=== PATIENT | male | born 1955 | race African-American/Black ===

== ENCOUNTER 2016-06-02 10:49 | Day surgery (SDC) | payer OTHER ==
[2016-05-10 10:00] VITALS: BMI 27.5
[~2016-06-02 10:49] MED LIST: LACTATED RINGERS 1,000 ML IV SCH
[2016-06-02 11:16] VITALS: RESP 16; TEMP 97.5
[2016-06-02] MEDS ORDERED: PROPOFOL 10 MG/ML 20 ML VIAL IV ONE (11:30)
[2016-06-02] MEDS ORDERED: LIDOCAINE 1% INJ 10MG/ML (20 ML MDV) ONE (11:30)
--- NOTE | 2016-06-02 12:17 | P.PCN ---
Date of Procedure: 06/02/16 Procedure(s) Performed: Procedures: 1. Esophagogastroduodenoscopy and biopsy. 2. Colonoscopy and polypectomy. Preoperative diagnosis: Anemia and Hemoccult-positive stools. Postoperative diagnosis: 1. Mild gastritis. 2. Mild diverticulosis. 3. Two small polyps snared, but no large polyps or cancer of the colon. 4. Low-grade internal hemorrhoids not bleeding at the time of this exam. Preparation: HalfLytely prep. Sedation: Was provided by anesthesia. Brief clinical history: The patient is a 60-year-old male who is scheduled for this evaluation because of Hemoccult-positive stools and anemia. He had a colonoscopy more than 12 years ago. At this time he has no abdominal complaints or bleeding. No family history of colon cancer. Procedure: With the patient on his left lateral decubitus position and after informed consent and adequate sedation, I passed the Olympus-GIF 160 video upper endoscope through the cricopharyngeus down the esophagus. GE junction was around 43 cm from the incisors and there was no hiatal hernia. There was no esophagitis or evidence of complicated reflux disease. The endoscope was then passed into the stomach which was insufflated with air and inspected in detail including the retroflex view in the cardia. There was some mottling and erythema in the antrum but no ulcers or erosions. Pyloric channel did not show any ulcers. Duodenal bulb, post bulbar area and descending duodenum appeared within normal limits. I obtained biopsies from the duodenum, antrum and esophagus then the endoscope was withdrawn and then I proceeded with the colonoscopy. Perianal area did not show any fissures or fistulas. There were no masses felt on digital rectal examination. The Olympus CFQ 160L video colonoscope was then inserted in the rectum in the usual fashion and advanced to the cecum. There was occasional small diverticular orifices seen in the sigmoid and on the right side with no evidence of acute diverticulitis or strictures. There was 2 small/ diminutive polyps noted 1 in the proximal right colon and in the distal sigmoid that were snared but there were no large polyps or cancer. I retroflexed the endoscope in the rectum before the endoscope was withdrawn. Low-grade internal hemorrhoids were noted but there was no evidence of bleeding. The patient tolerated the procedure well. Plan: The patient was reassured. Will await pathology results. Discussed dietary measures and local care for hemorrhoids. I anticipate repeating his colonoscopy in 5 years. He will follow up with you as planned.
[2016-06-02 12:37] VITALS: BP 128/83; PULSE 71
== END 2016-06-02 12:57 | disposition home or self-care (01) ==
LOC: ORWHC2ENDO 10:49
DX: D12.2 Benign neoplasm of ascending colon (principal); K63.5 Polyp of colon; K57.30 Diverticulosis of large intestine without perforation or abscess without bleeding; K29.50 Unspecified chronic gastritis without bleeding; D64.9 Anemia, unspecified; R19.5 Other fecal abnormalities; K20.9 Esophagitis, unspecified; K64.8 Other hemorrhoids; I10 Essential (primary) hypertension; J45.909 Unspecified asthma, uncomplicated; Z79.1 Long term (current) use of non-steroidal anti-inflammatories (NSAID); Z79.899 Other long term (current) drug therapy
CPT/HCPCS: 88305; 88342; 45385; 43239; J2001; J2704; 88312; 99153

== ENCOUNTER 2016-07-13 14:56 | Inpatient (IN) | payer MEDICAID, OTHER ==
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
[2016-07-13] MEDS ORDERED: MAG HYDROX/AL HYDROX/SIMETH 30 ML CUP PO PRN (19:56)
[2016-07-13] MEDS ORDERED: ACETAMINOPHEN TAB 325 MG TAB PO PRN (19:56)
[2016-07-13] MEDS ORDERED: MAGNESIUM HYDROXIDE 2,400 MG/10 ML CUP PO PRN (19:56)
[2016-07-13] MEDS ORDERED: ZIPRASIDONE 20 MG VIAL IM PRN (19:56)
[2016-07-13] MEDS ORDERED: ALBUTEROL INHALER 60 PUFF/8 GM INHALER INHALATION PRN (19:59)
[2016-07-13] MEDS ORDERED: LORazepam 2 MG/ML SYRINGE IM PRN (20:03)
[2016-07-13 20:37] VITALS: BMI 25.4
[2016-07-13 20:53] LABS: Appearance,Urine Clear (Clear); Bilirubin,Urine Negative (Negative); Glucose,Urine (UA) Negative (Negative); Ketones,Urine 1+ (Negative); Leukocyte Esterase,Urine Negative (Negative); Mucus,Urine Rare /hpf; Nitrite,Urine Negative (Negative); PH, Urine 6.5 (5.0-8.0); Particle Count 3129; Protein,Urine 1+ (Negative); RBC,Urine 1 /hpf (0-5); Specific Gravity,Urine 1.019 (1.001-1.035); Squamous Epithelial Cell,Urine <1 /hpf (0-4); UA Billing (MACRO vs. MICRO) MICRO; WBC,Urine 3 /hpf (0-5)
[2016-07-14] MEDS ORDERED: NICOTINE 14MG/24HR PATCH TRANSDERM SCH (09:00)
[2016-07-14] MEDS: ATENOLOL 50 MG TAB PO SCH (09:06)
[2016-07-14] MEDS: amLODIPine 10 MG TAB PO SCH (09:06)
[2016-07-14] MEDS: SERTRALINE 100 MG TAB PO SCH (09:06)
[2016-07-14] MEDS: LORazepam 1 MG TAB PO PRN (09:07)
[2016-07-14 10:08] LABS: Basophils % (A) 1 %; CH 31.1; CHCM 31.6; Eosinophils % (A) 1 %; HCT 37.9 % (39.0-53.0); HGB 12.1 gm/dL (13.0-17.5); Luc # (Auto) 0.05; Luc % (Auto) 2; Lymphocytes # (A) 0.6 k/uL (1.0-4.8); Lymphocytes % (A) 19 %; MCH 31.6 pg (25.0-35.0); MCV 98.8 fL (80.0-100.0); Macrocytosis Slight; Mean Platelet Volume 8.4; Monocytes # (A) 0.3 k/uL (0-1.0); Monocytes % (A) 9 %; Neutrophils % (A) 69 %; RBC 3.84 m/uL (4.30-5.90); RDW 14.9 % (11.5-15.5); WBC 2.9 k/uL (3.8-10.6); WBC (Perox) 3.21
[2016-07-14 10:15] LABS: ALT 72 U/L (21-72); AST 71 U/L (17-59); Alkaline Phosphatase 55 U/L (38-126); Anion Gap 13 mmol/L; Blood Urea Nitrogen 12 mg/dL (9-20); Carbon Dioxide 27 mmol/L (22-30); Chloride 96 mmol/L (98-107); Glucose 151 mg/dL (74-99); Non-African American GFR(MDRD) >60 (>60 ml/min/1.73 sqM); Potassium 3.8 mmol/L (3.5-5.1); Sodium 136 mmol/L (137-145); Total Bilirubin 1.4 mg/dL (0.2-1.3); Total Protein 6.8 g/dL (6.3-8.2)
[2016-07-14] MEDS: MULTIVITAMINS, THERA 1 EACH TAB PO SCH (11:56)
--- NOTE | 2016-07-14 16:08 | P.HP ---
Psychiatric H&P - . H&P Date: 07/14/16 History & Physical: IDENTIFYING DATA: Mr. Arora is a 60-year-old -[place]i male who presented to the psychiatric unit voluntarily with complaints of increasing depression and suicidal ideation.. HISTORY OF PRESENT ILLNESS: He stated that he has felt more depressed since May 2016. He attributes his depression to living on a fixed income, having $15,000 in educational debt and $40,000 in delinquent child support, dental problems necessitating the removal of his teeth and relapse to alcohol use. He complained that he has no appetite, feels weak, stopped eating and then started drinking. He has been abstinent from alcohol "for several months" and relapsed 3 weeks ago. He has been drinking 1/2 pint of vodka per day and "sometimes more ". On the day of admission he was visiting with his parents in [facility]. He had been drinking and began "playing" with his nephew's handgun. When his nephew asked him what he was doing with the handgun he replied that he was thinking about suicide. His nephew immediately removed the gun and drove him first to his apartment in [facility] then to our emergency department. He described a circular thinking pattern regarding his financial problems. He is dissatisfied with limits on his life with the Social Security income. He has thought about working but his social security would decrease once he earns more than a set amount of money per month. If he were to earn enough to "get off" social security, he fears that his income would be garnished for nonpayment of his educational debt and delinquent child support. PAST PSYCHIATRIC HISTORY: This is his third admission to this psychiatric unit. His last admission was in October 2015. Discharge diagnoses included major depressive disorder recurrent with psychotic features, unspecified anxiety disorder and substance use disorder (alcohol). He was admitted to [facility] psychiatric unit in January 2016. After his discharge from this unit in October 2015 he stated that he had outpatient mental health services through the [facility]. He met with his therapist on a biweekly basis. He stated he has not met with his therapist for several months but spoke to him on a telephone last week. PAST MEDICAL HISTORY: He has a history of hypertension, COPD, osteoarthritis, chronic low back pain and poor dentition. ALLERGIES: He is lactose intolerant. SUBSTANCE USE HISTORY: He has a history of an alcohol and a crack cocaine use disorder. He has been in "5 or 6" of his abuse treatment program at [facility]. His last substance abuse episode was May 2015 at [facility]. He alleged that he is spent abstinent from cocaine for last 8 years. He used cocaine for 10 years. He shows a binge pattern of alcohol use with periods of increased alcohol use followed by periods of abstinence.. Tobacco use: He is a former smoker FAMILY PSYCHIATRIC/SUBSTANCE USE HISTORY: He is unaware of family history of psychiatric problems. He believes that his nephew has an alcohol use problem. LEGAL HISTORY: He is not on probation, parole or has pending charges. He has one DUI conviction for which she spent 30 days in care home. He stated that he had the extended care home time because he did not comply with terms of his probation.. SOCIAL HISTORY: He is born and raised in [facility] [place] by an intact family. He graduated from high school and attended college in [place] briefly; "to play basketball." He is attended [employer] and is purportedly 1 class shy of [employer] degree in [employer]. He has 2 grown children and 1 grandchild. He's been for the past 20 years. He has 1 brother and 1 sister. His parents are alive and living in [place]. They' ve been for "over 70 years". He lives alone in an apartment in [place] [facility]. He is unemployed and receives social security disability for medical condition. MENTAL STATUS EXAM: He presented as a casually groomed 60-year-old - Somali male who was pleasant on approach. He maintained eye contact and attended to the interview. He had no distinguishing features or prominent physical abnormalities. He had a distressed facial expression. He was alert and oriented to person, place and time. He showed slight psychomotor retardation but no abnormal involuntary movements. His speech was spontaneous with normal rate, rhythm and volume. He had no articulation difficulties. His affect was depressed and not reactive. He describes suicidal ideation and wishes. He denied homicidal ideation. He described depressive cognitions including hopelessness, helplessness and worthlessness. He ruminated about his financial problems. He did not express ideas of reference or paranoid ideation. His thinking was abstract and associations were coherent and logical. He denied hallucinations and did not appear to be responding to internal stimuli. He completed the Prasad Depression Inventory. His total score was 37 consistent with severe symptoms of depression. On the suicide question he circled "I have thoughts of killing myself, but I would not carry them out." STRENGTHS: Stable income, stable employment, good family support. WEAKNESSES: Alcohol use. IMPRESSION: He is a 60-year-old [place] male who has a history of an alcohol use and cocaine use disorder. He presented with increasing symptoms of depression and suicidal ideation in the context of relapse to alcohol. Other contributing factors include limited income, financial debt and medical problems. He has very strong family support and is motivated for treatment. He is ambivalent about reentering a substance abuse treatment program. He should be treated on an outpatient basis with combination of psychopharmacology and multimodal therapy.. PRINCIPLE DIAGNOSIS: Major depressive disorder recurrent without psychotic features, alcohol use disorder, cocaine use disorder in full sustained remission RECOMMENDATION: Continue inpatient psychiatric hospitalization due to the severity of depression. Consult medicine service for initial physical exam and medical history. Resume Zoloft 100 mg daily. CIWA protocol with Ativan 1 mg by mouth every morning hours when necessary for anxiety. Continue discussion about readmission to a substance abuse treatment program. Social work to coordinate mental health aftercare. Encourage participation in therapeutic groups and activities. Evaluate clinical status response to treatment on a daily basis. Allergies Allergy/AdvReac Type Severity Reaction Status Date / Time lactose Allergy Unknown Verified 07/13/16 20:38 Vital Signs Temp 98.3 F 07/14/16 05:52 Pulse 140 H 07/14/16 05:52 Resp 18 07/14/16 05:52 BP 141/86 07/14/16 05:52 Pulse Ox 97 07/13/16 20:33 Intake & Output 07/13/16 07/14/16 07/14/16 18:59 06:59 18:59 Weight 92.4 kg Laboratory Last Values Urine Color Yellow 07/13/16 15:55 Urine Appearance Clear (Clear) 07/13/16 15:55 Urine pH 6.5 (5.0-8.0) 07/13/16 15:55 Ur Specific [place] 1.019 (1.001-1.035) 07/13/16 15:55 Urine Protein 1+ (Negative) H 07/13/16 15:55 Urine Glucose (UA) Negative (Negative) 07/13/16 15:55 Urine Ketones 1+ (Negative) H 07/13/16 15:55 Urine Blood Negative (Negative) 07/13/16 15:55 Urine Nitrate Negative (Negative) 07/13/16 15:55 Urine Bilirubin Negative (Negative) 07/13/16 15:55 Urine Urobilinogen 2.0 mg/dL (<2.0) 07/13/16 15:55 Ur Leukocyte Esterase Negative (Negative) 07/13/16 15:55 Urine RBC 1 /hpf (0-5) 07/13/16 15:55 Urine WBC 3 /hpf (0-5) 07/13/16 15:55 Ur Squamous Epith Cells <1 /hpf (0-4) 07/13/16 15:55 Urine Mucus Rare /hpf (None) H 07/13/16 15:55 Urine Opiates Screen Not Detected (NotDetected) 07/13/16 15:55 Ur Oxycodone Screen Not Detected (NotDetected) 07/13/16 15:55 Urine Methadone Screen Not Detected (NotDetected) 07/13/16 15:55 Ur Propoxyphene Screen Not Detected (NotDetected) 07/13/16 15:55 Ur Barbiturates Screen Not Detected (NotDetected) 07/13/16 15:55 U Tricyclic Antidepress Not Detected (NotDetected) 07/13/16 15:55 Ur Phencyclidine Scrn Not Detected (NotDetected) 07/13/16 15:55 Ur Amphetamines Screen Not Detected (NotDetected) 07/13/16 15:55 U Methamphetamines Scrn Not Detected (NotDetected) 07/13/16 15:55 U Benzodiazepines Scrn Not Detected (NotDetected) 07/13/16 15:55 Urine Cocaine Screen Not Detected (NotDetected) 07/13/16 15:55 U Marijuana (THC) Screen Not Detected (NotDetected) 07/13/16 15:55 07/14/16 09:39 07/14/16 16:04
--- NOTE | 2016-07-14 17:19 | CONS ---
DATE OF CONSULTATION: 07/14/2016 CHIEF COMPLAINT: Depression and alcoholism. HISTORY OF PRESENT ILLNESS: This is a 60-year-old -Citizen Of [place] male who has been sober for four months and went back to drinking three weeks ago and the patient says that he has been drinking one pint of vodka. the patient extremely depressed anxious and presented to the psych unit. The patient currently is denying any chest pain, shortness of breath, nausea and vomiting, abdominal pain, dizziness, lightheadedness or blurry vision. REVIEW OF SYSTEMS: all fourteen review of systems reviewed and negative except as above. PAST MEDICAL HISTORY: 1. Hypertension. 2. Asthma. 3. Anxiety and depression. Home medication: 1. Atenolol daily. 2. Albuterol as needed. 3. Zoloft daily. PAST SURGICAL HISTORY: 1. Total knee arthroplasty. 2. Appendectomy. 3. Colonoscopy which was negative a month ago. FAMILY HISTORY: Both parents alive and states that they are healthy. He has two children and . ALLERGIES: No known drug allergies. SOCIAL HISTORY: No history of tobacco or drug abuse. the patient states that he has been drinking one pint of vodka over the last three weeks. PHYSICAL EXAMINATION: VITAL SIGNS: Reviewed and stable. LUNGS: Clear to auscultation bilaterally. HEART: Heart S1, S2. ABDOMEN: Soft, nontender. Positive bowel sounds in all four quadrants. EXTREMITIES: Lower extremities no edema. PSYCHIATRY: Alert and oriented x3. Relaxed mood and affect. Normal remote and recent memory. NEUROLOGICAL: No focal deficits. Cranial nerves 2 through 12 are intact. SKIN: No new rash. HEENT: Atraumatic, normocephalic. PERRLA. NECK: No mass or thyromegaly. Imaging and labs reviewed and stable. ASSESSMENT AND PLAN: 1. Alcohol we will monitor for withdrawal symptoms. The patient says that he has never been hospitalized for delirium tremens or seizure because of alcohol. We will monitor closely. 2. Hypertension. Will continue with atenolol and goal is blood pressure less than 140/90. 3. History of asthma seems to be mild. We will continue albuterol as needed. 4. Anxiety and depression. The patient on Zoloft. We will continue per your recommendations.
[2016-07-15] MEDS: LORazepam 1 MG TAB PO PRN (09:13)
[2016-07-15] MEDS: ATENOLOL 50 MG TAB PO SCH (09:13)
[2016-07-15] MEDS: amLODIPine 10 MG TAB PO SCH (09:14)
[2016-07-15] MEDS: SERTRALINE 100 MG TAB PO SCH (09:14)
[2016-07-15] MEDS ORDERED: QUEtiapine 100 MG TAB PO PRN (10:46)
[2016-07-15] MEDS: MULTIVITAMINS, THERA 1 EACH TAB PO SCH (11:56)
--- NOTE | 2016-07-15 15:32 | P.PN ---
Progress Note - Text SUBJECTIVE: I reviewed the medical record, interviewed Mr. Arora and discussed his treatment and treatment plan during team meeting. He complained of having poor sleep, abdominal cramping, loose stools, nausea and poor appetite. He feels "less depressed" and denied current thoughts of or suicide. He decided to reenter substance abuse treatment and plans to call the Access line today. He understands that he will not be able to remain in the hospital until his admission to a substance abuse program. He expressed concern about relapse during the period after discharge and before he enters the substance abuse treatment program. He talked about having several Alcoholics Anonymous meetings nearby his home one of which is within walking distance. OBJECTIVE: He presented as a casually groomed 60-year-old male who was pleasant on approach. He maintained eye contact and attended the interview. He is no distinguishing features or prominent physical abnormalities. He had a depressed facial expression. He was alert and oriented to person, place and time. He he had slight psychomotor retardation but no abnormal movements. His affect was depressed and not reactive. He denied current suicidal ideation or wishes. He expressed depressive cognitions such as hopelessness and helplessness. He did not express ideas reference or paranoid ideation. His thinking was abstract and associations were coherent and logical. He denied hallucinations and did not appear to be responding to internal stimuli. His CIWA scores have been 0 over the last 24 hours. ASSESSMENT: He has no symptoms of alcohol withdrawal via the CIWA scale. However, he is complaining of abdominal cramping, loose stools, nausea and poor appetite. He described continued feelings of depression but denying current suicidal ideation. He plans to reenter a substance treatment program. PLAN: Continue inpatient psychiatric hospitalization. He is to contact access to arrange admission to a substance abuse treatment program. Continue Norvasc 10 mg daily, atenolol 100 mg daily for the treatment of hypertension. Continue Zoloft 100 mg daily and prescribes Seroquel 100 mg at bedtime when necessary for sleep. Encourage participation in therapeutic groups and activities. Assess clinical status response to treatment daily basis.
[2016-07-16] MEDS: ATENOLOL 50 MG TAB PO SCH (09:23)
[2016-07-16] MEDS: SERTRALINE 100 MG TAB PO SCH (09:23)
[2016-07-16] MEDS: amLODIPine 10 MG TAB PO SCH (09:23)
[2016-07-16] MEDS: LORazepam 1 MG TAB PO PRN (09:24)
[2016-07-16] MEDS: MULTIVITAMINS, THERA 1 EACH TAB PO SCH (13:10)
--- NOTE | 2016-07-16 15:31 | P.PN ---
Progress Note - Text Interval history:I reviewed medical records and interviewed patient .He endorses poor sleep "Recurrent suicidal ideation only at night because my mind is racing",feeling overwhelmed with financial issues and limited social support ,feeling lonely and helpless ,denies any hopeless feeling ,reports that his appetite is improving Mental status exam: The patient is alert ,pleasant ,cooperative ,speech is coherent ,goal directed ,stated mood :SAD",affect is appropriate ,still endorsing suicidal ideation ,denies any psychotic features ,denies any side- effect from medication PLAN: Increase Seroquel to restore his sleep ,continue rest of psychotropic medications ,monitor suicidal ideation ,encourage participation in milieu
[2016-07-16] MEDS: QUEtiapine 100 MG TAB PO PRN (22:45)
[2016-07-17 07:48] VITALS: TEMP 98.1
[2016-07-17] MEDS: amLODIPine 10 MG TAB PO SCH (08:51)
[2016-07-17] MEDS: ATENOLOL 50 MG TAB PO SCH (08:52)
[2016-07-17] MEDS: SERTRALINE 100 MG TAB PO SCH (08:52)
[2016-07-17] MEDS: LORazepam 1 MG TAB PO PRN (08:52)
[2016-07-17] MEDS: MULTIVITAMINS, THERA 1 EACH TAB PO SCH (12:06)
--- NOTE | 2016-07-17 16:07 | P.PN ---
Progress Note - Text Interval history:I reviewed medical records and interviewed patient .He reports that his sleep is improving with higher dose of Seroquel, some suicidal ideation but "Not intense as before" ,ruminating about ongoing financial problems.Patient is participating in groups ,not isolating himself and interacting with peers Mental status exam: The patient is alert ,pleasant ,cooperative ,speech is coherent ,goal directed ,stated mood :SAD",affect is appropriate ,still endorsing suicidal ideation "Not intense",denies any psychotic features , denies any side-effect from medication PLAN: Continue medications ,same dose ,monitor suicidal ideation ,encourage participation in milieu
[2016-07-17] MEDS: QUEtiapine 100 MG TAB PO PRN (21:57)
[2016-07-18] MEDS: amLODIPine 10 MG TAB PO SCH (08:47)
[2016-07-18] MEDS: SERTRALINE 100 MG TAB PO SCH (08:47)
[2016-07-18] MEDS: ATENOLOL 50 MG TAB PO SCH (08:47)
[2016-07-18] MEDS: LORazepam 1 MG TAB PO PRN (08:49)
[2016-07-18 10:08] VITALS: BP 115/66; PULSE 108; RESP 16
[2016-07-18] MEDS: MULTIVITAMINS, THERA 1 EACH TAB PO SCH (11:49)
--- NOTE | 2016-07-18 12:58 | P.DS ---
Providers Date of admission: 07/13/16 19:52 Attending physician: Russell Whaley MD Consults: 07/13/16 19:56 Consult Physician Routine Consulting Provider: Eugenia Langston Consult Reason/Comments: Follow up H & P Do you want consulting provider notified?: Already Contacted Primary care physician: Caterina Chand - Discharge Diagnosis(es) (1) Alcohol withdrawal Current Visit: Yes Status: Acute Priority: Low (2) Alcohol use disorder, severe, dependence Current Visit: Yes Status: Chronic Priority: High (3) Depressive disorder, not elsewhere classified Current Visit: Yes Status: Chronic Priority: Medium (4) Cocaine use disorder, severe, in sustained remission Current Visit: Yes Status: Chronic Priority: Low (5) Hypertension Current Visit: Yes Status: Chronic Priority: Medium Hospital Course: Mr. Arora is a 60-year-old -Serbian male who presented to the psychiatric unit voluntarily with complaints of increasing depression and suicidal ideation.. He stated that he has felt more depressed since May 2016. He attributes his depression to living on a fixed income, having $15,000 in educational debt and $40,000 in delinquent child support, dental problems necessitating the removal of his teeth and relapse to alcohol use. He complained that he has no appetite, feels weak, stopped eating and then started drinking. He has been abstinent from alcohol "for several months" and relapsed 3 weeks ago. He has been drinking 1/2 pint of vodka per day and "sometimes more". On the day of admission he was visiting with his parents in [facility]. He had been drinking and began "playing" with his nephew's handgun. When his nephew asked him what he was doing with the handgun he replied that he was thinking about suicide. His nephew immediately removed the gun and drove him first to his apartment in [facility] then to our emergency department. He described a circular thinking pattern regarding his financial problems. He is dissatisfied with limits on his life with the Social Security income. He has thought about working but his social security would decrease once he earns more than a set amount of money per month. If he were to earn enough to "get off" social security, he fears that his income would be garnished for nonpayment of his educational debt and delinquent child support. This is his third admission to this psychiatric unit. His last admission was in October 2015. Discharge diagnoses included major depressive disorder recurrent with psychotic features, unspecified anxiety disorder and substance use disorder (alcohol). He was admitted to [facility] psychiatric unit in January 2016. After his discharge from this unit in October 2015 he stated that he had outpatient mental health services through the [facility] [facility]. He met with his therapist on a biweekly basis. He stated he has not met with his therapist for several months but spoke to him on a telephone last week. He has a history of an alcohol and a crack cocaine use disorder. He has been in "5 or 6" of his abuse treatment program at [facility]. His last substance abuse episode was May 2015 at [place]. He alleged that he is spent abstinent from cocaine for last 8 years. He used cocaine for 10 years. He shows a binge pattern of alcohol use with periods of increased alcohol use followed by periods of abstinence. We admitted him to the psychiatric unit under the care of this jingle writer. We provided a biopsychosocial assessment. The senior billing consultant seaman completed the initial physical exam and medical history. The seaman diagnosis including hypertension, alcohol dependence, depression and anxiety. We have resumed his outpatient antihypertensive medications including atenolol 100 mg daily and Norvasc 10 mg daily. We treated her alcohol withdrawal symptoms using the CIWA protocol and lorazepam 1 mg by mouth/IM every 8 hours when necessary. He had minimal alcohol withdrawal symptoms uncomplicated by seizures or delirium. We treated his depression with a combination of sertraline 100 mg daily and quetiapine up to 150 mg at bedtime. We discussed his alcohol relapse and need for substance abuse treatment. The social insurance adviser assisted him with contacting the Access line and arranging for residential substance abuse treatment. He has an admission scheduled at [facility] for 07/22/2016. His depression symptoms abated and at the time of discharge she denied thoughts of or suicide. He showed insight and that in retrospect he was able to identify triggers that her previous present before he relapsed alcohol and developed severe depression with suicidal ideation. At time of discharge he denied feeling depressed or having thoughts of or suicide. He plans to continue with his dental care than enter substance abuse treatment. Patient Condition at Discharge: Stable Plan - Discharge Summary New Discharge Prescriptions: QUEtiapine [SEROquel] 150 mg PO HS PRN 30 Days PRN Reason: Insomnia Discharge Medication List Atenolol [Tenormin] 100 mg PO DAILY #7 tab 08/31/15 [Rx] amLODIPine [Norvasc] 10 mg PO DAILY #7 tab 08/31/15 [Rx] Sertraline [Zoloft] 100 mg PO DAILY 05/10/16 [History] Albuterol Inhaler [Ventolin Hfa Inhaler] 2 puff INHALATION RT-Q4H PRN 05/31/16 [ History] Multivitamin/Iron/Folic Acid [Centrum Complete Multivit Tab] 1 tab PO DAILY [History] QUEtiapine [SEROquel] 150 mg PO HS PRN 30 Days 07/18/16 [Rx] Follow up Appointment(s)/Referral(s): Intake, intake [Other] - 07/22/16 9:00 am (Intake) Caterina Chand MD [Primary Care Provider] - 1-2 days Patient Instructions/Handouts: Cocaine Abuse (DC), Depression (DC), Suicide Prevention for Adults (DC) Activity/Diet/Wound Care/Special Instructions: Do not drink alcohol or use street drugs. Keep your follow-up appointment as scheduled and take your medications as prescribed. Call the crisis line if needed . Discharge Disposition: HOME SELF-CARE
== END 2016-07-18 13:50 | disposition home or self-care (01) | DRG 885 ==
LOC: EC 14:56 → 3MHU 19:52
PROVIDERS: ADMIT Psychiatry & Neurology Psychiatry; ATTEND Psychiatry & Neurology Psychiatry
DX: F33.3 Major depressive disorder, recurrent, severe with psychotic symptoms (principal); F14.20 Cocaine dependence, uncomplicated; R45.851 Suicidal ideations; F10.239 Alcohol dependence with withdrawal, unspecified; I10 Essential (primary) hypertension; F41.9 Anxiety disorder, unspecified; J44.9 Chronic obstructive pulmonary disease, unspecified; J45.909 Unspecified asthma, uncomplicated; Z59.9 Problem related to housing and economic circumstances, unspecified; Z79.899 Other long term (current) drug therapy; Z87.891 Personal history of nicotine dependence
CPT/HCPCS: 80053; 80306; 81001; 82075; 84443; 85025; 99285

== ENCOUNTER 2017-07-24 09:40 | Inpatient (IN) | payer MEDICAID, OTHER ==
--- NOTE | 2017-07-24 09:58 | ED ---
General Adult HPI - General Chief complaint: Psychiatric Symptoms Stated complaint: Depression, mental health Time Seen by Provider: 07/24/17 09:52 Source: patient, RN notes reviewed Mode of arrival: ambulatory Limitations: no limitations - History of Present Illness Initial comments: 61-year-old male presents to the emergency department with a chief complaint of depression and suicidal thoughts. He states he is an alcoholic as well. He states that he is not about shooting himself. His neighbor to take his gun. He states that he has had a few falls lately. He states that he did cut his eyebrow about a week ago. He states tetanus is up-to-date. He states that he just continues to feel depressed and so he thought that he should be seen. He did drink this morning prior to arrival.Patient denies any recent fever, chills , shortness of breath, chest pain, back pain, abdominal pain, nausea vomiting, numbness or tingling, dysuria or hematuria, constipation or diarrhea, headaches or visual changes, or any other current symptoms. - Related Data Home Medications Medication Instructions Recorded Confirmed Albuterol Inhaler [Ventolin Hfa 2 puff INHALATION RT-Q4H PRN 05/31/16 07/24/17 Inhaler] Multivitamin/Iron/Folic Acid 1 tab PO DAILY 07/13/16 07/24/17 [Centrum Complete Multivit Tab] Atenolol 50 mg PO BID 07/24/17 07/24/17 traZODone HCL 150 mg PO HS 07/24/17 07/24/17 Previous Rx's Medication Instructions Recorded amLODIPine [Norvasc] 10 mg PO DAILY #7 tab 08/31/15 Allergies Allergy/AdvReac Type Severity Reaction Status Date / Time lactose Allergy Unknown Verified 07/24/17 09:59 Review of Systems ROS Statement: Those systems with pertinent positive or pertinent negative responses have been documented in the HPI. ROS Other: All systems not noted in ROS Statement are negative. Past Medical History Past Medical History: Asthma, Hypertension, Osteoarthritis (OA) History of Any Multi-Drug Resistant Organisms: None Reported Past Surgical History: Appendectomy, Joint Replacement Additional Past Surgical History / Comment(s): left knee replacement, ORIF rt ankle Past Anesthesia/Blood Transfusion Reactions: No Reported Reaction Past Psychological History: Anxiety, Depression Smoking Status: Former smoker - Past Family History Mother Family Medical History: No Reported History Additional Family Medical History / Comment(s): . Father Family Medical History: Hypertension Additional Family Medical History / Comment(s): Father is alive at age 90 with history of hypertension. Brother(s) Additional Family Medical History / Comment(s): . General Exam Limitations: no limitations General appearance: alert, in no apparent distress Head exam: Present: other (well healing eyebrow laceration no hematomas) Eye exam: Present: normal appearance, PERRL, EOMI. Absent: scleral icterus, conjunctival injection, periorbital swelling ENT exam: Present: normal exam, mucous membranes moist Neck exam: Present: normal inspection. Absent: tenderness, meningismus, lymphadenopathy Respiratory exam: Present: normal lung sounds bilaterally. Absent: respiratory distress, wheezes, rales, rhonchi, stridor Cardiovascular Exam: Present: regular rate, normal rhythm, normal heart sounds. Absent: systolic murmur, diastolic murmur, rubs, gallop, clicks Neurological exam: Present: alert, oriented X3 Psychiatric exam: Present: normal affect, normal mood Skin exam: Present: warm, dry, intact, normal color. Absent: rash Course Vital Signs 07/24/17 09:42 Temperature 97.9 F Pulse Rate 83 Respiratory 18 Rate Blood Pressure 133/85 Medical Decision Making - Medical Decision Making 61-year-old male presents to the emergency department with a chief complaint of depression and suicidal thoughts. This time patient is intoxicated. He does admit to multiple falls. in his head and facial bones at this time. At this time CAT scan was negative. This time patient does not appear to be suffering from any acute medical emergencies. Patient is cleared to be evaluated by psychiatry. Patient was evaluated and they will be admitting the patient. Patient is in agreement this plan. - Lab Data Lab Results 07/24/17 Range/Units 09:50 Urine Opiates Screen Not Detected (NotDetected) Ur Oxycodone Screen Not Detected (NotDetected) Urine Methadone Screen Not Detected (NotDetected) Ur Propoxyphene Screen Not Detected (NotDetected) Ur Barbiturates Screen Not Detected (NotDetected) U Tricyclic Antidepress Not Detected (NotDetected) Ur Phencyclidine Scrn Not Detected (NotDetected) Ur Amphetamines Screen Not Detected (NotDetected) U Methamphetamines Scrn Detected H (NotDetected) U Benzodiazepines Scrn Not Detected (NotDetected) Urine Cocaine Screen Not Detected (NotDetected) U Marijuana (THC) Screen Not Detected (NotDetected) - Radiology Data Radiology results: report reviewed, image reviewed Disposition Clinical Impression: Falls, Alcohol use disorder, severe, dependence, Depression Disposition: TRANSFER TO PSYCH HOSP/UNIT Referrals: Caterina Chand MD [Primary Care Provider] - 1-2 days Time of Disposition: 16:07
--- NOTE | 2017-07-24 10:25 | CT ---
EXAMINATION TYPE: CT brain cspine wo con, CT facial bones wo con DATE OF EXAM: 07/24/2017 COMPARISON: CT brain September 02, 2010 HISTORY: Patient fell, cut in left brow CT DLP: 453.0 (accession [id number]), 1548.90 (accession [id number]) mGycm. Automated Exposure Control fo r Dose Reduction was Utilized. TECHNIQUE: CT scan of the head, facial bones, and cervical spine are performed without contrast. FINDINGS: There is no acute intracranial hemorrhage or midline shift identified. There is ventricul ar and sulcal prominence consistent with diffuse cerebral atrophy. The calvarium is intact. Nasal bones are intact. The orbital floors and ozuna are intact. The globes are intact bilaterally. T here is small hematoma left supraorbital level axial image 45. The zygomatic arches are intact bilate rally. The pterygoid plates are intact. Visualized mandible is intact. Temporomandibular joints are m aintained. Patchy soft tissue density bilateral external auditory canals canals is felt to reflect cerumen. Ther e is patchy opacification right sided anterior ethmoid sinuses axial image 32. There is moderate to s evere mucosal thickening in inferior bilateral frontal sinuses. Cervical spine is visualized in its entirety from C1 through upper thoracic levels and demonstrates s traightened alignment without evidence of acute fracture or dislocation. Prevertebral soft tissue ap pears within normal limits. The C1-C2 articulation is within normal limits on the coronal images. In cidental 4 mm right submandibular sialolith axial image 44. Vertebral body heights and disc space heights are maintained. No large posterior disc herniations are present on sagittal images. Review of axial images shows left-sided uncovertebral facet degenerative changes C2-C3, C3-C4, C4-C5 levels and right-sided changes C4-C5 level causing mild right-sided neur al foraminal narrowing as well as right C5-C6 level. Thyroid gland is felt within normal limits. Lung apices are clear. IMPRESSION: 1. There is no acute fracture or dislocation evident in the cervical spine. Incidental 4 mm right-kathie ed submandibular sialolith. 2. No acute intracranial hemorrhage or midline shift is seen. Mild to moderate diffuse cerebral atrop hy is redemonstrated with some progression from 2011 study noted. 3. Small focal left supraorbital scalp hematoma. No acute facial bone fracture or dislocation.
[2017-07-24 10:31] LABS: Amphetamine Screen,Urine Not Detected (NotDetected); Barbiturate Screen,Urine Not Detected (NotDetected); Benzodiazepines Screen,Urine Not Detected (NotDetected); Cocaine Screen,Urine Not Detected (NotDetected); Methadone Screen, Urine Not Detected (NotDetected); Opiate Screen,Urine Not Detected (NotDetected); Oxycodone Screen, Urine Not Detected (NotDetected); Phencyclidine Screen,Urine Not Detected (NotDetected); Tricyclic Antidepressant,Urine Not Detected (NotDetected); Urn Cannabinoid Scrn Not Detected (NotDetected)
[2017-07-24] MEDS ORDERED: MAGNESIUM HYDROXIDE 2,400 MG/10 ML CUP PO PRN (16:31)
[2017-07-24] MEDS ORDERED: MAG HYDROX/AL HYDROX/SIMETH 30 ML CUP PO PRN (16:31)
[2017-07-24 18:03] VITALS: BMI 25.0
[2017-07-24] MEDS ORDERED: PNEUMOCOCCAL VACC-PNEUMOVAX 23 25 MCG/0.5 ML VIAL IM ONE (18:06)
[2017-07-24] MEDS: ATENOLOL 50 MG TAB PO SCH (21:43)
[2017-07-24] MEDS: chlordiazePOXIDE 25 MG CAP PO SCH (21:45)
[2017-07-24] MEDS: traZODone HCL 100 MG TAB PO PRN (22:14)
--- NOTE | 2017-07-24 23:09 | P.MDCNMH ---
History of Present Illness H&P Date: 07/24/17 Chief Complaint: Depression and suicidal ideation Patient is a 59-year-old male with a known history of hypertension, asthma presents to the emergency department with a chief complaint of depression and suicidal thoughts. He states he is an alcoholic as well. He states that he is not about shooting himself. His neighbor to take his gun. He states that he has had a few falls lately. He states that he did cut his eyebrow about a week ago. He states tetanus is up-to-date. He states that he just continues to feel depressed and so he thought that he should be seen. He did drink this morning prior to arrival. Patient says that his car is getting problems and also having hip pain due to which patient is unable to go to work. Patient feels very depressed. Otherwise Patient denies any recent fever, chills, shortness of breath, chest pain, back pain, abdominal pain, nausea vomiting, numbness or tingling, dysuria or hematuria, constipation or diarrhea, headaches or visual changes, or any other current symptoms. UDS is positive for methamphetamines Review of Systems Constitutional: Patient denies any fever or chills . No generalized weakness or weight loss. Abdomen: Patient denied nausea vomiting and diarrhea and abdominal pain. Cardiovascular: Patient denies any chest pain or short of breath no palpitations. Respiratory: patient denied any cough is from production. No shortness of breath Neurologic: Patient denied any numbness or tingling headache. Musculoskeletal: Patient denies any complaints of joint swelling or deformity. Skin: Negative Psychiatric: Depressed Endocrine: No heat or cold intolerance. No recent weight gain. Genitourinary: No dysuria or hematuria. All other 14 point ROS negative except the above Past Medical History Past Medical History: Asthma, Hypertension, Osteoarthritis (OA) History of Any Multi-Drug Resistant Organisms: None Reported Past Surgical History: Appendectomy, Joint Replacement Additional Past Surgical History / Comment(s): left knee replacement, ORIF rt ankle Past Anesthesia/Blood Transfusion Reactions: No Reported Reaction Past Psychological History: Anxiety, Depression Smoking Status: Former smoker Past Alcohol Use History: None Reported Additional Past Alcohol Use History / Comment(s): SMOKED 30 YEARS, 1 PPD, QUIT 2005. He states he has history of using crack cocaine for 10 years and quit in 2007 Past Drug Use History: Cocaine - Past Family History Mother Family Medical History: No Reported History Additional Family Medical History / Comment(s): . Father Family Medical History: Hypertension Additional Family Medical History / Comment(s): Father is alive at age 90 with history of hypertension. Brother(s) Additional Family Medical History / Comment(s): . Medications and Allergies Home Medications Medication Instructions Recorded Confirmed Type amLODIPine [Norvasc] 10 mg PO DAILY #7 tab 08/31/15 07/24/17 Rx Albuterol Inhaler [Ventolin Hfa 2 puff INHALATION RT-Q4H PRN 05/31/16 07/24/17 History Inhaler] Multivitamin/Iron/Folic Acid 1 tab PO DAILY 07/13/16 07/24/17 History [Centrum Complete Multivit Tab] Atenolol 50 mg PO BID 07/24/17 07/24/17 History traZODone HCL 150 mg PO HS 07/24/17 07/24/17 History Allergies Allergy/AdvReac Type Severity Reaction Status Date / Time lactose Allergy Unknown Verified 07/24/17 09:59 Physical Exam Vitals: Vital Signs Temp Pulse Resp BP Pulse Ox 07/24/17 16:22 98.8 F 74 20 111/67 98 07/24/17 09:42 97.9 F 83 18 133/85 Intake and Output 07/24/17 07/24/17 07/24/17 06:59 14:59 22:59 Other: Weight 86.183 kg 90.7 kg Patient Weight 07/25/17 06:59 Weight 90.7 kg PHYSICAL EXAMINATION: Patient is lying in the bed comfortably, no acute distress, awake alert and oriented.. HEENT: Normocephalic. Neck is supple. Pupils reactive. Nostrils clear. Oral cavity is moist. Ears reveal no drainage. Neck reveals no JVD, carotid bruits, or thyromegaly. CHEST EXAMINATION: Trachea is central. Symmetrical expansion. Bibasilar expiratory wheezing. CARDIAC: Normal S1, S2 with no gallops. No murmurs ABDOMEN: Soft. Bowel sounds normal. No organomegaly. No abdominal bruits. Extremities: reveal no edema. No clubbing or cyanosis Neurologically awake, alert, oriented x3 with well-coordinated movements. No focal deficits noted Skin: No rash or skin lesions. Psychiatric: Cooperative. Nonsuicidal at this time Musculoskeletal: No joint swelling or deformity. Normal range of motion. Cranial Nerve Examination - Cranial Nerves Cranial Nerve I- Olfactory: Intact Cranial Nerve II- Optic: Intact Cranial Nerve III- Oculomotor: Intact Cranial Nerve IV- Trochlear: Intact Cranial Nerve V- Trigeminal: Intact Cranial Nerve - Abducens: Intact Cranial Nerve VII- Facial: Intact Cranial Nerve VIII- Auditory: Intact Cranial Nerve IX- Glossopharyngeal: Intact Cranial Nerve X- Vagus: Intact Cranial Nerve XI- Accessory: Intact Cranial Nerve XII- Hypoglossal: Intact Results Labs: Abnormal Lab Results - Last 24 Hours (Table) 07/24/17 Range/Units 09:50 U Methamphetamines Scrn Detected H (NotDetected) Assessment and Plan Assessment: Major depression with suicidal ideation Hypertension controlled Mild intermittent asthma Alcohol abuse Nicotine addiction UDS positive for methamphetamines Plan: Patient be continued on home blood pressure medications and albuterol inhaler/ nebulization every 4 when necessary for shortness of breath/wheezing. Otherwise continue the current management for depression. We will follow up CBC and BMP and TSH level. LFTs were ordered as well. Continue with current management and further recommendations based on the clinical course. Thank you for your consult
[2017-07-25 08:23] LABS: Basophils % (A) 1 %; Eosinophils # (A) 0.2 k/uL (0-0.7); Eosinophils % (A) 4 %; HCT 38.9 % (39.0-53.0); HGB 12.6 gm/dL (13.0-17.5); Lymphocytes # (A) 0.9 k/uL (1.0-4.8); Lymphocytes % (A) 27 %; MCH 31.6 pg (25.0-35.0); MCHC 32.4 g/dL (31.0-37.0); MCV 97.4 fL (80.0-100.0); Mean Platelet Volume 8.6; Monocytes # (A) 0.2 k/uL (0-1.0); Monocytes % (A) 7 %; Neutrophils # (A) 1.9 k/uL (1.3-7.7); Neutrophils % (A) 59 %; Platelet Count 134 k/uL (150-450); RDW 13.7 % (11.5-15.5); WBC 3.3 k/uL (3.8-10.6)
[2017-07-25] MEDS: amLODIPine 10 MG TAB PO SCH (08:54)
[2017-07-25] MEDS: ATENOLOL 50 MG TAB PO SCH ×2 (08:54→20:59)
[2017-07-25] MEDS: chlordiazePOXIDE 25 MG CAP PO SCH ×3 (08:54→21:01)
[2017-07-25 09:03] LABS: ALT 80 U/L (21-72); AST 93 U/L (17-59); Albumin 3.8 g/dL (3.5-5.0); Alkaline Phosphatase 52 U/L (38-126); Anion Gap 10 mmol/L; Blood Urea Nitrogen 15 mg/dL (9-20); Calcium 9.1 mg/dL (8.4-10.2); Carbon Dioxide 30 mmol/L (22-30); Chloride 98 mmol/L (98-107); Glucose 92 mg/dL (74-99); Potassium 3.6 mmol/L (3.5-5.1); Sodium 138 mmol/L (137-145); Total Bilirubin 1.2 mg/dL (0.2-1.3); Total Protein 6.1 g/dL (6.3-8.2)
--- NOTE | 2017-07-25 10:20 | P.HP ---
Psychiatric H&P - . H&P Date: 07/25/17 History & Physical: Allergies Allergy/AdvReac Type Severity Reaction Status Date / Time lactose Allergy Unknown Verified 07/24/17 09:59 Vital Signs Temp 99.2 F 07/25/17 06:27 Pulse 92 07/25/17 09:31 Resp 16 07/25/17 09:31 BP 105/78 07/25/17 09:31 Pulse Ox 96 07/24/17 17:53 Intake & Output 07/24/17 07/25/17 07/25/17 18:59 06:59 18:59 Weight 90.7 kg Laboratory Last Values WBC 3.3 k/uL (3.8-10.6) L 07/25/17 07:48 RBC 4.00 m/uL (4.30-5.90) L 07/25/17 07:48 Hgb 12.6 gm/dL (13.0-17.5) L 07/25/17 07:48 Hct 38.9 % (39.0-53.0) L 07/25/17 07:48 MCV 97.4 fL (80.0-100.0) 07/25/17 07:48 MCH 31.6 pg (25.0-35.0) 07/25/17 07:48 MCHC 32.4 g/dL (31.0-37.0) 07/25/17 07:48 RDW 13.7 % (11.5-15.5) 07/25/17 07:48 Plt Count 134 k/uL (150-450) L 07/25/17 07:48 Neutrophils % 59 % 07/25/17 07:48 Lymphocytes % 27 % 07/25/17 07:48 Monocytes % 7 % 07/25/17 07:48 Eosinophils % 4 % 07/25/17 07:48 Basophils % 1 % 07/25/17 07:48 Neutrophils # 1.9 k/uL (1.3-7.7) 07/25/17 07:48 Lymphocytes # 0.9 k/uL (1.0-4.8) L 07/25/17 07:48 Monocytes # 0.2 k/uL (0-1.0) 07/25/17 07:48 Eosinophils # 0.2 k/uL (0-0.7) 07/25/17 07:48 Basophils # 0.0 k/uL (0-0.2) 07/25/17 07:48 Sodium 138 mmol/L (137-145) 07/25/17 07:48 Potassium 3.6 mmol/L (3.5-5.1) 07/25/17 07:48 Chloride 98 mmol/L (98-107) 07/25/17 07:48 Carbon Dioxide 30 mmol/L (22-30) 07/25/17 07:48 Anion Gap 10 mmol/L 07/25/17 07:48 BUN 15 mg/dL (9-20) 07/25/17 07:48 Creatinine 0.80 mg/dL (0.66-1.25) 07/25/17 07:48 Est GFR (MDRD) Af Amer >60 (>60 ml/min/1.73 sqM) 07/25/17 07:48 Est GFR (MDRD) Non-Af >60 (>60 ml/min/1.73 sqM) 07/25/17 07:48 Glucose 92 mg/dL (74-99) 07/25/17 07:48 Calcium 9.1 mg/dL (8.4-10.2) 07/25/17 07:48 Total Bilirubin 1.2 mg/dL (0.2-1.3) 07/25/17 07:48 AST 93 U/L (17-59) H 07/25/17 07:48 ALT 80 U/L (21-72) H 07/25/17 07:48 Alkaline Phosphatase 52 U/L (38-126) 07/25/17 07:48 Total Protein 6.1 g/dL (6.3-8.2) L 07/25/17 07:48 Albumin 3.8 g/dL (3.5-5.0) 07/25/17 07:48 TSH 1.850 mIU/L (0.465-4.680) 07/25/17 07:48 Urine Opiates Screen Not Detected (NotDetected) 07/24/17 09:50 Ur Oxycodone Screen Not Detected (NotDetected) 07/24/17 09:50 Urine Methadone Screen Not Detected (NotDetected) 07/24/17 09:50 Ur Propoxyphene Screen Not Detected (NotDetected) 07/24/17 09:50 Ur Barbiturates Screen Not Detected (NotDetected) 07/24/17 09:50 U Tricyclic Antidepress Not Detected (NotDetected) 07/24/17 09:50 Ur Phencyclidine Scrn Not Detected (NotDetected) 07/24/17 09:50 Ur Amphetamines Screen Not Detected (NotDetected) 07/24/17 09:50 U Methamphetamines Scrn Detected (NotDetected) H 07/24/17 09:50 U Benzodiazepines Scrn Not Detected (NotDetected) 07/24/17 09:50 Urine Cocaine Screen Not Detected (NotDetected) 07/24/17 09:50 U Marijuana (THC) Screen Not Detected (NotDetected) 07/24/17 09:50 07/25/17 10:04 Identification: Russell ochoa is a 61 years old black male living in [facility]. He was readmitted to [facility] on 07/24/2017 under certificate since he was complaining of being depressed and having suicidal thoughts. History of present illness: Patient said he has been having depression for the last about 10 years. It got worse since mid May after he had right hip surgery. He started to drink and depression got worse and he also started to have suicidal thoughts. He reports that the depression is usually caused by stress or from drinking and it goes away when he does not drink or the stress is gone. Even though initially he denied manic episodes later on he said there are times when he gets hyperactive talkative and spends too much money he does not need to. He has difficulty in falling and staying asleep. He denies other symptoms including hallucinations and delusional thinking. However he feels he is not good enough, not worth anything etc. Previous psychiatric history/alcohol and drug abuse: He said he was in psychiatric hospitals about 4 times during the last 2-3 years. He has outpatient treatment at [facility] but he has not been going there for regular follow-ups. He was on Effexor or 150 mg a day and Abilify 2 mg a day. He had tried Prozac in the past. He does not think if anyone of these medications had helped him. He said he started to drink alcohol at the age of 12. These days he drinks on binges lasting up to 2 months. He may drink more or less fifth of liquor a day. He had blackouts and withdrawal symptoms. He had one DUI in 2002. But he has been driving while drunk and was never stopped. He was smoking crack cocaine for 10 years and the last use was in April 2008. He denies abusing other drugs. Previous medical history: He said he gets a lot of gas if he drinks milk but he can have lactose in ice cream without any problems. He has hypertension and bronchial asthma. He has right hip pain and had surgery in mid May he had left knee replacement he had surgery for the repair of fracture of right ankle. He also has chronic back pain which he feels only if he has to stand for a while or has to sit down for a while. He has erectile dysfunction and uses injections locally. Social history: He has an associate degree in accounting and bookkeeping. 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 When he was in high school and middle school etc. he did not have any issues with learning or discipline he had played basketball when he was in college. When he was going to school he was shy and minded his own business until he started to drink. He was raised well by his parents. He was never abused. He was not in the service. He is Scientologist by worship but does not go to denominational. He is heterosexual. He denies any pending legal issues. He was from 1980- 1991. He has 2 grownup children. Currently he lives by himself. He is on Social Security residential and has menorrhagia and health insurance. Family history: He denies any history of psychiatric or general medical problems in his family. Mental status examination: This is a tall ambulatory black male with good hygiene. He is polite and cooperative. He does not show any psychomotor agitation or retardation. His speech is spontaneous relevant and goal- directed. His mood is dysphoric and affect is constricted in range. He denies hallucinations and delusional thinking. But he feels he is useless and worthless. He continues to report of fleeting suicidal thoughts but he agrees that he will not do anything to hurt himself while here in the hospital. He denies homicidal thoughts. He is well oriented. He is able to recall 3 out of 3 items after 5 minutes. He is able to name the last 4 presidents correctly. He is able to spell house both forwards and backwards correctly. He is able to say 8+7 is 15 and 87 is 56. Diagnostic impression: Bipolar 1 disorder current episode depressed moderate F 31.32 Alcohol use disorder severe F 10.20 ALLERGY to milk Bronchial asthma Hypertension Treatment plan: He will have physical examination and psychosocial evaluation. He will receive milieu therapy group therapy individual therapy occupational therapy and recreational therapy and medication education. His condition was discussed with him and he agreed to try Seroquel for more stabilization. Start on regular lithium 50 mg 3 times a day for 3 days and then taper eighth of to prevent withdrawal symptoms. Continue Norvasc Tenormin and albuterol inhalers. Discharge with outpatient follow-up. Treatment goals: He will be free of withdrawal symptoms. His mood will be stable. He will learn better coping skills. Estimated length of stay: 3-5 days.
[2017-07-25] MEDS: MULTIVITAMINS, THERA 1 EACH TAB PO SCH (12:49)
[2017-07-25] MEDS: ALBUTEROL INHALER 60 PUFF/8 GM INHALER INHALATION PRN (20:46)
[2017-07-25] MEDS: QUEtiapine 100 MG TAB PO SCH (21:02)
[2017-07-26] MEDS: chlordiazePOXIDE 25 MG CAP PO SCH ×3 (09:10→21:03)
[2017-07-26] MEDS: ATENOLOL 50 MG TAB PO SCH ×2 (09:10→21:03)
[2017-07-26] MEDS: amLODIPine 10 MG TAB PO SCH (09:10)
--- NOTE | 2017-07-26 10:13 | P.PN ---
Progress Note - Text Progress Note Date: 07/26/17 Patient said he slept very well last night after taking Seroquel 100 mg at bedtime. He is also on Librium 50 mg 3 times a day to prevent withdrawal symptoms. He said he wants to go to rehab on Monday the August 01 and would like to be discharged on July 31. He is concerned that he may end up drinking if he leaves here to early. He denies any adverse effect from Seroquel. He has been attending groups and socializes with other patients on the selective basis. This is a black ambulatory male with good hygiene. He is polite and cooperative. He does not show any psychomotor agitation or retardation. His speech is spontaneous relevant and goal-directed. His mood is euthymic and affect is appropriate. He denies hallucinations, delusional thinking, suicidal and homicidal ideas. He is well oriented with good memory concentration general fund of knowledge etc. Plan: Continue Seroquel 100 mg at bedtime, Librium 50 mg 3 times a day for 2 more days, vitamins, therapies, groups etc.
[2017-07-26 10:43] LABS: Appearance,Urine Clear (Clear); Bilirubin,Urine Negative (Negative); Blood,Urine Negative (Negative); Color,Urine Yellow; Glucose,Urine (UA) Negative (Negative); Ketones,Urine Negative (Negative); Leukocyte Esterase,Urine Negative (Negative); Nitrite,Urine Negative (Negative); Protein,Urine Trace (Negative); Specific Gravity,Urine 1.017 (1.001-1.035)
[2017-07-26] MEDS: MULTIVITAMINS, THERA 1 EACH TAB PO SCH (11:23)
[2017-07-26] MEDS: ALBUTEROL INHALER 60 PUFF/8 GM INHALER INHALATION PRN ×2 (12:14→19:54)
[2017-07-26] MEDS: QUEtiapine 100 MG TAB PO SCH (21:03)
[2017-07-27] MEDS: ATENOLOL 50 MG TAB PO SCH ×2 (09:13→21:04)
[2017-07-27] MEDS: amLODIPine 10 MG TAB PO SCH (09:13)
[2017-07-27] MEDS: chlordiazePOXIDE 25 MG CAP PO SCH ×3 (09:13→21:04)
[2017-07-27 09:41] LABS: Basophils % (A) 1 %; Eosinophils # (A) 0.2 k/uL (0-0.7); Eosinophils % (A) 7 %; HCT 37.2 % (39.0-53.0); Lymphocytes # (A) 0.9 k/uL (1.0-4.8); Lymphocytes % (A) 32 %; MCH 32.3 pg (25.0-35.0); MCHC 32.2 g/dL (31.0-37.0); MCV 100.6 fL (80.0-100.0); Macrocytosis Slight; Mean Platelet Volume 8.4; Monocytes # (A) 0.2 k/uL (0-1.0); Monocytes % (A) 9 %; Neutrophils # (A) 1.4 k/uL (1.3-7.7); Neutrophils % (A) 49 %; Platelet Count 137 k/uL (150-450); RDW 13.6 % (11.5-15.5); WBC 2.9 k/uL (3.8-10.6)
--- NOTE | 2017-07-27 10:06 | P.PN ---
Progress Note - Text Progress Note Date: 07/27/17 Patient was seen for a routine follow-up examination. He said he is having some withdrawal symptoms. But he is not able to describe the withdrawal symptoms. He said he is sleeping well, getting along well, attends groups etc. He still thinks he is not ready to move to the rehab and wants to wait until Monday. His WBC has fallen down from [id number] rbc from 4,000,000-3,700,000 hemoglobin 12.6 g to 12 g hematocrit 38.9% to 37.2% from 07/25/2017 2 2017. The only new medication he is on now is Seroquel. He was counseled about it and he agreed to get it discontinued. This is a black ambulatory male with good hygiene. He is polite and cooperative. He does not show any psychomotor agitation or retardation. His speech is spontaneous relevant and goal-directed. His mood is euthymic and affect is appropriate. He continues to deny hallucinations, delusional thinking , suicidal and homicidal ideas. His insight is adequate and judgment is also adequate. He thinks he is not stable enough to go to the rehab now. However he does not report any symptom that makes him feel he is not ready to go to rehab. He is well oriented with adequate memory concentration etc. Plan: Discontinue Seroquel and observe.
[2017-07-27] MEDS: MULTIVITAMINS, THERA 1 EACH TAB PO SCH (12:10)
[2017-07-27] MEDS: ALBUTEROL INHALER 60 PUFF/8 GM INHALER INHALATION PRN (20:32)
[2017-07-27] MEDS: traZODone HCL 100 MG TAB PO PRN (21:11)
[2017-07-28] MEDS: ATENOLOL 50 MG TAB PO SCH ×2 (09:11→20:43)
[2017-07-28] MEDS: amLODIPine 10 MG TAB PO SCH (09:11)
[2017-07-28] MEDS: chlordiazePOXIDE 25 MG CAP PO SCH (09:12)
[2017-07-28] MEDS: MULTIVITAMINS, THERA 1 EACH TAB PO SCH (12:50)
--- NOTE | 2017-07-28 13:13 | P.PN ---
Progress Note - Text Progress Note Date: 07/28/17 Patient was seen for routine follow-up examination. He took trazodone last night but it did not help him to sleep well. His Seroquel was stopped since his white cell count and red cell count where going down. Today he said he is hurting does not feel well and even wondering about the purpose of living. He insists that he will not do anything to hurt himself while in the hospital. He agreed to get another CBC done today and to go back on Seroquel a if WBC is within normal limits. This is a black ambulatory male who lives on the right side. He has adequate hygiene. He is cooperative. His mood is rather dull and affect is somewhat constricted in range today. He denies hallucinations and delusional thinking. Even though he does not want to kill himself he wonders about the purpose of living with all these problems he is having. He is well oriented with adequate memory concentration general fund of knowledge etc. Plan: CBC today. If WBC is within normal limits restart him on Seroquel. Otherwise cannot use any antipsychotic or mood stabilizer with bone marrow suppression as a side effect. He was advised about it and he accepted these problems.
[2017-07-28 14:00] LABS: HCT 35.9 % (39.0-53.0); HGB 11.3 gm/dL (13.0-17.5); Hypochromasia Slight; MCH 31.9 pg (25.0-35.0); MCHC 31.4 g/dL (31.0-37.0); MCV 101.8 fL (80.0-100.0); Macrocytosis Slight; Mean Platelet Volume 8.7; Platelet Count 158 k/uL (150-450); RBC 3.53 m/uL (4.30-5.90); RDW 13.6 % (11.5-15.5)
[2017-07-28 15:48] LABS: Band Neutrophils % 1 %; Eosinophils # (M) 0.09 k/uL (0-0.7); Lymphocytes # (M) 1.56 k/uL (1.0-4.8); Monocytes # (M) 0.21 k/uL (0-1.0); Neutrophils % (M) 37 %; Nucleated Red Blood Cells 0 /100 WBC (0-0); Total Cells Counted 100
--- NOTE | 2017-07-28 16:06 | P.PN ---
Progress Note - Text Progress Note Date: 07/28/17 Patient's repeat CBC shows WBC of 3000 with absolute neutrophils 1100. Patient was counseled about it and it was agreed for him not to take Seroquel. He agreed to try Ambien on a when necessary basis to help him sleep. Ambien was ordered.
[2017-07-28] MEDS: ALBUTEROL INHALER 60 PUFF/8 GM INHALER INHALATION PRN (20:14)
[2017-07-28] MEDS: ZOLPIDEM 10 MG TAB PO PRN (21:37)
[2017-07-29] MEDS: amLODIPine 10 MG TAB PO SCH (08:06)
[2017-07-29] MEDS: ATENOLOL 50 MG TAB PO SCH ×2 (08:06→20:34)
[2017-07-29] MEDS: MULTIVITAMINS, THERA 1 EACH TAB PO SCH (12:04)
--- NOTE | 2017-07-29 15:32 | P.PN ---
Progress Note - Text Interval history: The patient is found in the hallway he follows me to an interview room. He reports his mood has been down. He states he has episodes of depression in the context of alcohol use disorder. It appears he is diagnosed with bipolar disorder during this admission. He was on Seroquel which did help him sleep but this was discontinued due to some suspected changes in his white blood count. He does demonstrate a decrease white blood count hematoma and an initial a platelet count. The thrombocytopenia seems to have resolved with most recent lab work. The patient states he was due to see a water well driller but did not comply with the appointment. He is scheduled to begin inpatient chemical dependency treatment at [place] on Monday and is looking forward to that intervention. Mental status exam: The patient is a tall -[place] male appearing his stated age. He seated calmly. He reports his mood can be depressed at times. He is reporting no current suicidal ideation intent or plan. He is reporting no auditory or visual hallucinations or any specific delusions. He demonstrates no tangential thinking loose associations or flight of ideas. Insight and judgment improving. He demonstrates no abnormal involuntary movements or any verbal or physical aggressiveness. Affect is constricted. He appropriately participates in the conversation. Plan: The patient's will continue on his current medication we will repeat lab work in the next 1-2 days. He is encouraged to continue participating in the milieu. He reports no evidence of blood in his urine or stool. He does not feel dizzy and is observed ambulating appropriately in the hallways. We will continue to monitor him for safety.
[2017-07-29] MEDS: ALBUTEROL INHALER 60 PUFF/8 GM INHALER INHALATION PRN (22:14)
[2017-07-29] MEDS: ZOLPIDEM 10 MG TAB PO PRN (23:36)
[2017-07-30] MEDS: ATENOLOL 50 MG TAB PO SCH ×2 (09:17→20:31)
[2017-07-30] MEDS: amLODIPine 10 MG TAB PO SCH (09:17)
[2017-07-30] MEDS: ALBUTEROL INHALER 60 PUFF/8 GM INHALER INHALATION PRN ×2 (09:44→17:06)
[2017-07-30] MEDS: MULTIVITAMINS, THERA 1 EACH TAB PO SCH (12:09)
[2017-07-30] MEDS: ACETAMINOPHEN TAB 325 MG TAB PO PRN ×2 (12:12→20:32)
--- NOTE | 2017-07-30 12:43 | P.PN ---
Progress Note - Text Interval history: The patient is found in the library he follows me to an interview room. He reports his mood for the most part today has been okay but there have been some brief episodes where his mood was depressed. He wonders if he should be prescribed another psychotropic medication for his mood. Yesterday we try to delineate whether or not it was simple depression or bipolar disorder. Again Seroquel was going to be used until there was changes in his blood count. We did order lab work again tomorrow to get another complete blood count. He is indicating no symptoms such as dizziness or fatigue. He is ambulating without any ataxia. He is looking forward to going to rehab starting Monday. Mental status exam: The patient is a tall -Gabonese male appearing his stated age. He is alert he is pleasant and cooperative. He is dressed in his own clothing with a hospital gown over top. He reports his mood is okay but he will have brief episodes of sadness. He is indicating no racing thoughts. He demonstrates no tangential thinking loose associations or flight of ideas he does not appear hypomanic or manic. He is reporting no suicidal ideation intent or plan or homicidal ideation intent or plan. He is reporting no auditory or visual hallucinations or any specific delusions. There is no observed evidence of psychosis. He is oriented to person place and date. Affect is constricted. Plan: The patient's will have another CBC drawn tomorrow morning. We will look for any interval change in his hemoglobin white blood count and platelets. He identifies no source of bleeding. We will continue to monitor him for safety. Vital signs reviewed.
[2017-07-30 14:57] VITALS: TEMP 98.5
[2017-07-30] MEDS: ZOLPIDEM 10 MG TAB PO PRN (21:47)
[2017-07-31 06:26] VITALS: BP 129/79; PULSE 85; RESP 12
[2017-07-31] MEDS: ATENOLOL 50 MG TAB PO SCH (08:49)
[2017-07-31] MEDS: amLODIPine 10 MG TAB PO SCH (08:49)
[2017-07-31] MEDS: ACETAMINOPHEN TAB 325 MG TAB PO PRN (09:10)
[2017-07-31 09:55] LABS: Basophils % (A) 1 %; Eosinophils # (A) 0.1 k/uL (0-0.7); Eosinophils % (A) 3 %; HCT 37.2 % (39.0-53.0); HGB 11.1 gm/dL (13.0-17.5); Hypochromasia Moderate; Lymphocytes % (A) 33 %; MCH 30.6 pg (25.0-35.0); MCHC 29.8 g/dL (31.0-37.0); MCV 102.6 fL (80.0-100.0); Macrocytosis Slight; Mean Platelet Volume 7.9; Monocytes # (A) 0.4 k/uL (0-1.0); Monocytes % (A) 12 %; Neutrophils # (A) 1.4 k/uL (1.3-7.7); Neutrophils % (A) 47 %; Platelet Count 241 k/uL (150-450); RBC 3.63 m/uL (4.30-5.90); RDW 13.6 % (11.5-15.5); WBC 2.9 k/uL (3.8-10.6)
[2017-07-31] MEDS: ALBUTEROL INHALER 60 PUFF/8 GM INHALER INHALATION PRN (09:55)
--- NOTE | 2017-07-31 10:46 | P.DS ---
Providers Date of admission: 07/24/17 16:11 Expected date of discharge: 07/31/17 Attending physician: Ben Hernandez Consults: 07/24/17 16:31 Consult Physician Routine Consulting Provider: Mellisa Medeiros Consult Reason/Comments: H&P Do you want consulting provider notified?: Yes Primary care physician: [facility] Course: Patient had his physical examination psychiatric examination and psychosocial evaluation. After psychiatric evaluation patient was started on Seroquel 100 mg at bedtime for mood stabilization. He was also started on Librium 50 mg 3 times a day to prevent withdrawal symptoms and it was discontinued later on. Patient was doing well his mood was stable he was sleeping well etc. However his white cell and red cell counts were going down, he was counseled about it and it was agreed to stop Seroquel. In spite of this his blood counts were still low. He tried trazodone to help him sleep but it did not work well. Then he tried Ambien which also did not help him much. He was counseled about all these things and he agreed to see his spring bender after discharge from the hospital. He continues not to have suicidal or homicidal ideas. Condition on discharge: He is polite and cooperative, he does not show any psychomotor agitation or retardation. His speech is spontaneous relevant and goal-directed. His mood is euthymic and affect is appropriate. He denies suicidal and homicidal thoughts. He plans on going home today, get his clothes and then go to [place] for rehabilitation of 21 days. He denies hallucinations and delusional thinking. He is well oriented with adequate memory concentration general knowledge etc. His insight and judgment appear to be adequate. Diagnosis on discharge: Bipolar 1 disorder current episode depressed moderate F 31.32. Alcohol use disorder severe F 10.20 ALLERGY to milk Bronchial asthma Hypertension Leukopenia and anemia. Patient was advised to see his spring bender regarding his abnormal blood counts. He will go to alcohol rehab center for 21 day course. He was advised not to drink alcohol or use drugs, to take his medications as prescribed, to learn better coping skills through therapy, to inform his therapist or psychiatrist and if he cannot reach them to go to nearest ER if he gets suicidal thoughts. He agreed with all these recommendations. Plan - Discharge Summary Discharge Rx Participant: No New Discharge Prescriptions: New Zolpidem [Ambien] 10 mg PO HS PRN 30 Days #15 tab PRN Reason: Insomnia Continue Albuterol Inhaler [Ventolin Hfa Inhaler] 2 puff INHALATION RT-Q4H PRN PRN Reason: Shortness Of Breath amLODIPine [Norvasc] 10 mg PO DAILY 30 Days #30 tab Atenolol 50 mg PO BID 30 Days #60 tablet Multivitamin/Iron/Folic Acid [Centrum Complete Multivit Tab] 1 tab PO DAILY 30 Days #30 tablet Discontinued traZODone HCL 150 mg PO HS Discharge Medication List Albuterol Inhaler [Ventolin Hfa Inhaler] 2 puff INHALATION RT-Q4H PRN 05/31/16 [ History] Atenolol 50 mg PO BID 30 Days #60 tablet 07/31/17 [Rx] Multivitamin/Iron/Folic Acid [Centrum Complete Multivit Tab] 1 tab PO DAILY 30 Days #30 tablet 07/31/17 [Rx] Zolpidem [Ambien] 10 mg PO HS PRN 30 Days #15 tab 07/31/17 [Rx] amLODIPine [Norvasc] 10 mg PO DAILY 30 Days #30 tab 07/31/17 [Rx] Follow up Appointment(s)/Referral(s): [facility] [Other] - 08/01/17 11:00 am Caterina Chand MD [Primary Care Provider] - As Needed Patient Instructions/Handouts: Depression (GEN), Abuse of Alcohol (GEN), Suicide Prevention for Adults (GEN) Activity/Diet/Wound Care/Special Instructions: Activity and diet as tolerated. Avoid the use of street drugs and alcohol. Take all medications as prescribed. When you are in need of refills on your medications please contact your medical provider and/or outpatient psychiatrist to have this done. Please go to scheduled outpatient appointment for aftercare treatment. If symptoms return or become worse call the crisis line at [phone] and/or go to the nearest emergency room for an evaluation.
[2017-07-31] MEDS: MULTIVITAMINS, THERA 1 EACH TAB PO SCH (11:51)
== END 2017-07-31 14:52 | disposition home or self-care (01) | DRG 885 ==
LOC: EC 09:40 → 3MHU 16:11
PROVIDERS: ADMIT Psychiatry & Neurology Psychiatry; ATTEND Psychiatry & Neurology Psychiatry
DX: F31.9 Bipolar disorder, unspecified (principal); R45.851 Suicidal ideations; D69.6 Thrombocytopenia, unspecified; D64.9 Anemia, unspecified; D72.819 Decreased white blood cell count, unspecified; F10.229 Alcohol dependence with intoxication, unspecified; I10 Essential (primary) hypertension; J45.909 Unspecified asthma, uncomplicated; R29.6 Repeated falls; F41.9 Anxiety disorder, unspecified; G89.29 Other chronic pain; M19.90 Unspecified osteoarthritis, unspecified site; M25.551 Pain in right hip; N52.9 Male erectile dysfunction, unspecified; M54.9 Dorsalgia, unspecified; Z96.652 Presence of left artificial knee joint; Z91.011 Allergy to milk products; Z79.899 Other long term (current) drug therapy; Z87.891 Personal history of nicotine dependence; Z82.49 Family history of ischemic heart disease and other diseases of the circulatory system
CPT/HCPCS: 70450; 70486; 72125; 80053; 80306; 81003; 82075; 82272; 84443; 85025; 90732; 94640; 99285

== ENCOUNTER 2017-09-27 11:43 | Inpatient (IN) | payer MEDICAID, OTHER ==
--- NOTE | 2017-09-27 12:20 | ED ---
General Adult HPI - General Chief complaint: Psychiatric Symptoms Stated complaint: SUICIDAL Time Seen by Provider: 09/27/17 11:49 Source: patient, RN notes reviewed, old records reviewed Mode of arrival: ambulatory Limitations: no limitations - History of Present Illness Initial comments: 62-year-old male presented for evaluation of suicidal ideation. Patient states he is planning on shooting himself in the head. He has dealt with depression for some time, he was admitted for similar thoughts approximately 2 months ago. Patient denies any suicide attempt. He does admit to drinking alcohol, denies any other substances ingested. He states he has not been eating he has just been drinking. Patient lives alone. No physical complaints. - Related Data Home Medications Medication Instructions Recorded Confirmed Albuterol Inhaler [Ventolin Hfa 2 puff INHALATION RT-Q4H PRN 05/31/16 09/27/17 Inhaler] traZODone HCL 150 mg PO HS 09/27/17 09/27/17 Previous Rx's Medication Instructions Recorded Atenolol 50 mg PO BID 30 Days #60 tablet 07/31/17 amLODIPine [Norvasc] 10 mg PO DAILY 30 Days #30 tab 07/31/17 Allergies Allergy/AdvReac Type Severity Reaction Status Date / Time No Known Allergies Allergy Verified 09/27/17 12:31 Review of Systems ROS Statement: Those systems with pertinent positive or pertinent negative responses have been documented in the HPI. ROS Other: All systems not noted in ROS Statement are negative. Past Medical History Past Medical History: Asthma, Hypertension, Osteoarthritis (OA) History of Any Multi-Drug Resistant Organisms: None Reported Past Surgical History: Appendectomy, Joint Replacement Additional Past Surgical History / Comment(s): left knee replacement, ORIF rt ankle Past Anesthesia/Blood Transfusion Reactions: No Reported Reaction Past Psychological History: Anxiety, Depression Smoking Status: Former smoker Past Alcohol Use History: None Reported Past Drug Use History: Cocaine - Past Family History Mother Family Medical History: No Reported History Additional Family Medical History / Comment(s): . Father Family Medical History: Hypertension Additional Family Medical History / Comment(s): Father is alive at age 90 with history of hypertension. Brother(s) Additional Family Medical History / Comment(s): . General Exam Limitations: no limitations General appearance: alert, in no apparent distress Head exam: Present: atraumatic, normocephalic Eye exam: Present: normal appearance, PERRL ENT exam: Present: mucous membranes dry Neck exam: Present: normal inspection. Absent: tenderness, meningismus Respiratory exam: Present: normal lung sounds bilaterally. Absent: respiratory distress Cardiovascular Exam: Present: regular rate, normal rhythm GI/Abdominal exam: Present: soft. Absent: distended, tenderness Extremities exam: Present: normal inspection, full ROM. Absent: normal capillary refill Back exam: Present: normal inspection Neurological exam: Present: alert, oriented X3, CN II-XII intact. Absent: motor sensory deficit Psychiatric exam: Present: normal affect, normal mood Skin exam: Present: warm, dry, intact. Absent: cyanosis, diaphoretic Course Vital Signs 09/27/17 09/27/17 09/27/17 11:46 18:27 20:14 Temperature 99.0 F 97.6 F Pulse Rate 92 78 77 Respiratory 18 16 19 Rate Blood Pressure 155/90 141/85 141/82 O2 Sat by Pulse 97 97 97 Oximetry - Reevaluation(s) Reevaluation #1: 09/27/17 12:19 Patient is intoxicated, will await sobriety and EPS evaluation. 09/27/17 2030 Patient is evaluated by EPS, he will sign in for treatment and evaluation of suicidal ideation. Medical Decision Making - Lab Data Lab Results 09/27/17 Range/Units 12:00 Urine Opiates Screen Not Detected (NotDetected) Ur Oxycodone Screen Not Detected (NotDetected) Urine Methadone Screen Not Detected (NotDetected) Ur Propoxyphene Screen Not Detected (NotDetected) Ur Barbiturates Screen Not Detected (NotDetected) U Tricyclic Antidepress Not Detected (NotDetected) Ur Phencyclidine Scrn Not Detected (NotDetected) Ur Amphetamines Screen Not Detected (NotDetected) U Methamphetamines Scrn Not Detected (NotDetected) U Benzodiazepines Scrn Not Detected (NotDetected) Urine Cocaine Screen Not Detected (NotDetected) U Marijuana (THC) Screen Not Detected (NotDetected) Disposition Clinical Impression: Suicidal ideation, Depression Disposition: ADMITTED IP TO [facility] Condition: Stable Is patient prescribed a controlled substance at d/c from ED?: No Referrals: Caterina Chand MD [Primary Care Provider] - 1-2 days Decision to Admit Reason: Admit from EC Decision Date: 09/27/17 Decision Time: 20:31
[2017-09-27 12:30] LABS: Amphetamine Screen,Urine Not Detected (NotDetected); Barbiturate Screen,Urine Not Detected (NotDetected); Benzodiazepines Screen,Urine Not Detected (NotDetected); Cocaine Screen,Urine Not Detected (NotDetected); Methadone Screen, Urine Not Detected (NotDetected); Opiate Screen,Urine Not Detected (NotDetected); Oxycodone Screen, Urine Not Detected (NotDetected); Phencyclidine Screen,Urine Not Detected (NotDetected); Tricyclic Antidepressant,Urine Not Detected (NotDetected); Urn Cannabinoid Scrn Not Detected (NotDetected)
[2017-09-27] MEDS ORDERED: ACETAMINOPHEN TAB 325 MG TAB PO PRN (21:22)
[2017-09-27] MEDS ORDERED: MAGNESIUM HYDROXIDE 2,400 MG/10 ML CUP PO PRN (21:22)
[2017-09-27] MEDS ORDERED: MAG HYDROX/AL HYDROX/SIMETH 30 ML CUP PO PRN (21:22)
[2017-09-27] MEDS: ATENOLOL 50 MG TAB PO SCH (23:32)
[2017-09-27] MEDS: LORazepam 1 MG TAB PO PRN (23:33)
[2017-09-28] MEDS: ATENOLOL 50 MG TAB PO SCH ×2 (09:29→21:05)
[2017-09-28] MEDS: amLODIPine 10 MG TAB PO SCH (09:29)
--- NOTE | 2017-09-28 09:44 | P.HP ---
Psychiatric H&P - . H&P Date: 09/28/17 History & Physical: Allergies Allergy/AdvReac Type Severity Reaction Status Date / Time No Known Allergies Allergy Verified 09/27/17 21:19 Vital Signs Temp 98.4 F 09/28/17 06:18 Pulse 67 09/28/17 06:18 Resp 16 09/28/17 06:18 BP 156/87 09/28/17 06:18 Pulse Ox 97 09/27/17 20:45 Intake & Output 09/27/17 09/28/17 09/28/17 18:59 06:59 18:59 Weight 86.183 kg 87.997 kg Laboratory Last Values Urine Opiates Screen Not Detected (NotDetected) 09/27/17 12:00 Ur Oxycodone Screen Not Detected (NotDetected) 09/27/17 12:00 Urine Methadone Screen Not Detected (NotDetected) 09/27/17 12:00 Ur Propoxyphene Screen Not Detected (NotDetected) 09/27/17 12:00 Ur Barbiturates Screen Not Detected (NotDetected) 09/27/17 12:00 U Tricyclic Antidepress Not Detected (NotDetected) 09/27/17 12:00 Ur Phencyclidine Scrn Not Detected (NotDetected) 09/27/17 12:00 Ur Amphetamines Screen Not Detected (NotDetected) 09/27/17 12:00 U Methamphetamines Scrn Not Detected (NotDetected) 09/27/17 12:00 U Benzodiazepines Scrn Not Detected (NotDetected) 09/27/17 12:00 Urine Cocaine Screen Not Detected (NotDetected) 09/27/17 12:00 U Marijuana (THC) Screen Not Detected (NotDetected) 09/27/17 12:00 09/28/17 09:24 Identification: Russell Arora is a 62 years old black male living in [facility]. He was readmitted to [facility] on 09/27/2017 since he drove to the ER and told them that he was suicidal with the thoughts of shooting himself. History of present illness patient was last discharged from this hospital on 04/2018 and he had gone to the rehab for 2 weeks, return to live in his apartment in [place]. He did not continue with his outpatient mental health treatment. He started to drink alcohol again, about fifth of liquor a day. He said he has not been eating, lost his appetite and was drinking only what kind are in juice. He also started to have suicidal thoughts and in the ER he told them that he was planning on shooting himself even though he does not have a gun. He said his neighbor has a handgun and he could have borrowed it. His last discharge diagnosis was bipolar 1 disorder most recent episode depressed. He was not given any psychiatric medication at that time since he was on Seroquel and his blood count was decreasing. He had promised to see his domestic maid and outpatient psychiatrist for continued treatment but he did not. Previous psychiatric history/drug and alcohol abuse: He was in psychiatric hospitals for 5 times during the last 2-3 years. He has not been getting outpatient treatment and does not take any medications. He had tried several medications including antidepressants and mood stabilizers and apparently nothing had helped him. He had started to drink alcohol at the age of 12. Recently he has been drinking about a fifth of liquor a day. As noted earlier he was in a rehab recently he had several blackouts and withdrawal symptoms. He had one DUI in 2002. He was smoking crack cocaine for 10 years and the last use was in April 2008. He has not been doing any other drugs. Review his medical history: He is not ALLERGIC to any medication. He has hypertension and bronchial asthma. He has right hip pain and had surgery in the past. He had his left knee replaced and also had surgery for the repair of the fracture of the right ankle. He has chronic back pain. He has erectile dysfunction and uses local injections. Social history: He has an associate degree in accounting and bookkeeping. 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 Currently he is disabled which was changed to [employer] [facility] since he is past 61 years. When he was in the high school and middle school he did not have any issues with learning or discipline and had played basketball when he was in college. 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 He was raised well by his parents. He was not abused by anybody. He was not in the service. He is Islam by quaker and does not go to zoroastrian. He is heterosexual. He denies any pending legal issues. He was from 197905/23/1992. He has 2 grownup children. Currently he lives by himself. He has Medicare. Family history: He denies any history of psychiatric or general medical problems in the family. Mental status examination: This is a black ambulatory male with adequate hygiene. He is clean shaven and well groomed for a person who is extremely depressed and with suicidal thoughts. He does not show any psychomotor agitation or retardation. His speech is spontaneous relevant and goal- directed. His mood is euthymic and affect is appropriate to the thought content. He denies hallucinations and delusional thinking. He continues to report of suicide thoughts. But he contracts for safety and said he will not do anything to hurt himself. He is well oriented with good memory concentration general fund of knowledge etc. Diagnostic impression: Bipolar 1 disorder current episode depressed, moderate F 31.32. Alcohol use disorder severe F 10.20. Probable malingering Z 76.5 NKDA. Bronchial asthma. Hypertension. Treatment plan: He will have physical examination and psychosocial evaluation. He will be observed for suicide behavior. His condition was discussed with him and it was agreed to start him on lithium for mood stabilization since it does not cause bone marrow depression. Start on Megace to improve his appetite. Discharge with outpatient follow-up. Treatment goals: His mood will be stable. He will be free of suicide thoughts. He will learn better coping skills.
[2017-09-28 09:49] LABS: Basophils % (A) 1 %; Eosinophils # (A) 0.1 k/uL (0-0.7); Eosinophils % (A) 4 %; HCT 43.6 % (39.0-53.0); Lymphocytes # (A) 0.9 k/uL (1.0-4.8); Lymphocytes % (A) 40 %; MCH 30.7 pg (25.0-35.0); MCHC 32.3 g/dL (31.0-37.0); Monocytes # (A) 0.2 k/uL (0-1.0); Monocytes % (A) 8 %; Neutrophils % (A) 45 %; Platelet Count 142 k/uL (150-450); RBC 4.59 m/uL (4.30-5.90); RDW 15.2 % (11.5-15.5); WBC 2.3 k/uL (3.8-10.6)
[2017-09-28] MEDS: LITHIUM CARBONATE ER 450 MG TABLET.ER PO SCH ×2 (09:50→21:05)
[2017-09-28] MEDS: MEGESTROL 40 MG TAB PO SCH (09:50)
[2017-09-28] MEDS: LORazepam 1 MG TAB PO PRN ×2 (09:54→17:30)
[2017-09-28 09:57] LABS: HGB 14.1 gm/dL (13.0-17.5); MCV 95.1 fL (80.0-100.0)
[2017-09-28 10:05] LABS: ALT 71 U/L (21-72); AST 109 U/L (17-59); Albumin 4.4 g/dL (3.5-5.0); Alkaline Phosphatase 64 U/L (38-126); Anion Gap 17 mmol/L; Blood Urea Nitrogen 12 mg/dL (9-20); Calcium 9.3 mg/dL (8.4-10.2); Carbon Dioxide 28 mmol/L (22-30); Chloride 94 mmol/L (98-107); Cholesterol 190 mg/dL (<200); Glucose 145 mg/dL (74-99); Potassium 3.9 mmol/L (3.5-5.1); Sodium 139 mmol/L (137-145); Total Bilirubin 2.3 mg/dL (0.2-1.3); Total Protein 6.7 g/dL (6.3-8.2); Triglycerides 57 mg/dL (<150)
[2017-09-28 10:12] LABS: HDL Cholesterol 160 mg/dL (40-60); LDL Cholesterol,Calculated 19 mg/dL (0-99)
[2017-09-28] MEDS ORDERED: cloNIDine HCL 0.1 MG TAB PO PRN (10:20)
--- NOTE | 2017-09-28 10:44 | CONS ---
CONSULTATION REASON FOR CONSULTATION: Hypertension and multiple medical problems requested by Psychiatry.. HISTORY OF PRESENT ILLNESS: This is a 62-year-old gentleman with a past medical history of asthma, hypertension,. DJD, appendectomy, anxiety, depression being followed by Dr. Caterina Chand in the outpatient setting, admitted for psychiatric evaluation. Patient had significant alcohol intake also. Patient is receiving Ativan for withdrawals. No history of fever, rigors. No history of headache, loss of consciousness, or seizures. PAST MEDICAL HISTORY: Asthma, hypertension, DJD, history of anxiety and depression. MEDICATIONS: Prior to admission include trazodone 50 mg q.h.s., Norvasc 10 mg p.o. daily, Atenolol 50 mg b.i.d., albuterol 2 puffs q.4 p.r.n. ALLERGIES: None. FAMILY HISTORY: No history of heart disease or strokes in the family. SOCIAL HISTORY: History of alcohol and previous history of smoking. REVIEW OF SYSTEMS: ENT: No diminished hearing or vision. CARDIOVASCULAR: No angina. RESPIRATORY: Occasional cough. GI: As mentioned earlier. : No dysuria. NERVOUS SYSTEM: No numbness or weakness. ALLERGY/IMMUNOLOGY: No asthma. MUSCULOSKELETAL: As mentioned earlier. HEMATOLOGY: No history of anemia. ENDOCRINE: No history of diabetes or hypothyroidism. CONSTITUTIONAL: As mentioned earlier. DERMATOLOGY: None. PSYCHIATRY: As mentioned earlier. PHYSICAL EXAMINATION: Patient is alert and oriented x2. Pulse is 110, blood pressure is 149/96, respirations 16, temperature 99.4, pulse ox 97% on room air. HEENT: Conjunctivae normal. NECK: No jugular venous distension. CARDIOVASCULAR SYSTEM: S1, S2, muffled. No S3, no S4. RESPIRATORY: Breath sounds diminished at the bases, a few scattered rhonchi. No crackles. ABDOMEN: Soft, nontender. No mass palpable. LEGS: No edema, no swelling. NERVOUS SYSTEM: Higher functions as mentioned earlier. Cranial nerves 2nd grossly intact. Moves all 4 limbs. No focal motor deficits. No sensory dysfunction. Gait is normal. SKIN: No ulcer, rash or bleeding. LYMPHATICS: No lymph node enlargement. JOINTS: No active deformity. LABS: WBC is 2.3, platelets are 142. Otherwise, total bilirubin is 2.3. ASSESSMENT: 1. History of chronic alcoholism. 2. Increased bilirubin, possibly mild alcoholic hepatitis. 3. Mild leukopenia, thrombocytopenia, possibly related to alcohol. 4. Asthma. 5. Hypertension. 6. History of degenerative joint disease. 7. Anxiety, depression. 8. History of nicotine dependence. RECOMMENDATION: In this 62-year-old gentleman who presented with multiple complex medical issues, at this time I recommend to continue current management and symptomatic treatment. Resume the home medications. Recommend CIWA protocol, clonidine p.r.n., otherwise will follow the patient closely with you and the patient may be asked to follow up with primary physician in the outpatient setting. Thank you for letting us participate in his care. MMODL / IJN: [id number] /
[2017-09-28 17:15] LABS: Hemoglobin A1C 4.2 % (4.0-6.0)
[2017-09-28] MEDS: LOPERAMIDE 2 MG CAP PO PRN (17:32)
[2017-09-28 23:08] LABS: Appearance,Urine Clear (Clear); Bilirubin,Urine Negative (Negative); Blood,Urine Negative (Negative); Color,Urine Light Yellow; Glucose,Urine (UA) Negative (Negative); Ketones,Urine Negative (Negative); Leukocyte Esterase,Urine Negative (Negative); Nitrite,Urine Negative (Negative); PH, Urine 7.5 (5.0-8.0); Protein,Urine Negative (Negative); Specific Gravity,Urine 1.003 (1.001-1.035); Urobilinogen,Urine <2.0 mg/dL (<2.0)
[2017-09-29] MEDS: amLODIPine 10 MG TAB PO SCH (08:00)
[2017-09-29] MEDS: LITHIUM CARBONATE ER 450 MG TABLET.ER PO SCH ×2 (08:00→21:23)
[2017-09-29] MEDS: LORazepam 1 MG TAB PO PRN ×2 (08:00→21:24)
[2017-09-29] MEDS: MEGESTROL 40 MG TAB PO SCH (08:00)
[2017-09-29] MEDS: ATENOLOL 50 MG TAB PO SCH ×2 (08:00→21:25)
--- NOTE | 2017-09-29 10:15 | P.PN ---
Progress Note - Text Progress Note Date: 09/29/17 Patient was seen for routine follow-up examination. He said he did not sleep at all last night. But the nurses note indicates that he slept approximately 7 hours throughout the night and no concerns were expressed. Patient said his appetite is coming back and is eating better now. He continues to report of suicide thoughts but he said he will not do anything to kill himself. He denies any adverse effects from lithium. This is a black ambulatory male with good hygiene. He does not show any psychomotor agitation or retardation. His speech is spontaneous relevant and goal-directed. His mood is euthymic and affect is appropriate. He denies hallucinations and delusional thinking. He reports of continued suicide thoughts at times. He denies homicidal thoughts. He is well oriented with good memory concentration general fund of knowledge etc. Plan: Continue lithium 450 mg twice a day, start him on melatonin 3 mg at bedtime to help him sleep better. He was asked to ask the psychiatrist seeing him tomorrow to get the dose of melatonin adjusted if he still has trouble in sleeping well at night. He agreed.
[2017-09-29] MEDS: LOPERAMIDE 2 MG CAP PO PRN (13:54)
[2017-09-29] MEDS ORDERED: MELATONIN 3 MG TABLET PO SCH (21:00)
[2017-09-30] MEDS: amLODIPine 10 MG TAB PO SCH (08:01)
[2017-09-30] MEDS: LORazepam 1 MG TAB PO PRN ×2 (08:01→20:44)
[2017-09-30] MEDS: LITHIUM CARBONATE ER 450 MG TABLET.ER PO SCH ×2 (08:01→20:43)
[2017-09-30] MEDS: ATENOLOL 50 MG TAB PO SCH ×2 (08:01→20:43)
[2017-09-30] MEDS: MEGESTROL 40 MG TAB PO SCH (08:01)
--- NOTE | 2017-09-30 12:38 | P.PN ---
Progress Note - Text Progress Note Date: 09/30/17 Interval history: Patient seen in [facility] today. He relates that he didn 't sleep well last night. He was started on melatonin 3 mg at bedtime. He reports that his mood is doing better, describes his mood as "a 5." He does not seem to voice any adverse psychotropic medication side effects. Mental status exam: He is alert and cooperative with the interview. His speech is fluent, not rapid or pressured. Thought processes organized. His mood is described as doing better, describes it as "a 5." He relates that he continues to have some thoughts of suicide but that is also doing better, he feels safe here on the unit. He denies any thoughts of harm to others. No evidence of active psychosis. He does not show any agitation. Plan: Patient will be titrated up on melatonin to 5 motives at bedtime to see if this can help him more with sleep. Maintain other current psychotropic medication regimen. We'll continue to monitor regarding thoughts of suicide. We'll continue to cover this patient to the weekend.
[2017-09-30] MEDS: ALBUTEROL INHALER 60 PUFF/8 GM INHALER INHALATION PRN ×2 (15:09→20:40)
[2017-09-30] MEDS: MELATONIN 5 MG TABLET PO SCH (20:43)
[2017-10-01] MEDS: LITHIUM CARBONATE ER 450 MG TABLET.ER PO SCH ×2 (08:45→21:10)
[2017-10-01] MEDS: MEGESTROL 40 MG TAB PO SCH (08:45)
[2017-10-01] MEDS: amLODIPine 10 MG TAB PO SCH (08:45)
[2017-10-01] MEDS: ATENOLOL 50 MG TAB PO SCH ×2 (08:45→21:10)
[2017-10-01] MEDS: ALBUTEROL INHALER 60 PUFF/8 GM INHALER INHALATION PRN ×3 (10:00→19:27)
--- NOTE | 2017-10-01 16:32 | P.PN ---
Progress Note - Text Progress Note Date: 10/01/17 Interval history: Patient seen in [facility] today again. He says he slept on and off last night, about 4-5 hours. He is eating well. He does state his mood is improved but still having some depression. He reports that he is also improved in terms of suicidal ideations are subsiding. He does not seem to voice any adverse a medication side effects. Mental status exam he is alert and cooperative with the interview. Speech is fluent, not rapid or pressured. Thought processes organized. His mood he describes is still depressed but improved overall. He reports that his suicidal ideations are subsiding. He does not voice any thoughts of harm to others. No evidence of active psychosis. Plan: Patient will be maintained on current psychotropic medication regimen. We 'll continue to monitor his ongoing response which is improved and continue to monitor for any medication side effects.
[2017-10-01] MEDS: MELATONIN 5 MG TABLET PO SCH (21:10)
[2017-10-01] MEDS: LORazepam 1 MG TAB PO PRN (21:10)
[2017-10-02] MEDS: ALBUTEROL INHALER 60 PUFF/8 GM INHALER INHALATION PRN ×4 (08:10→21:08)
--- NOTE | 2017-10-02 08:58 | P.PN ---
Progress Note - Text Progress Note Date: 10/02/17 Patient was seen for a follow-up examination. He said he sleeps better his mood is improving but, he says he still thinks about suicide. He also stated that he socializes with peers, interacts with staff attends group etc. which is rather inconsistent with his suicide thoughts. He said he called his parents and told them that he will be there on Monday the evening, which again is incongruent with his reported thoughts of suicide. He denies any adverse effects from lithium. This is a black ambulatory male with good hygiene. He does not show any psychomotor agitation or retardation. His speech is spontaneous relevant and goal-directed. His mood is euthymic and affect is appropriate. He continues to report of suicide thoughts but he does not show any objective signs of suicide thoughts or behavior. He denies homicidal thoughts. He does not show any clinical evidence of psychosis. He is well oriented with good memory concentration general knowledge etc. Plan: Continue lithium and other medicines for physical problems. Check lithium level, TSH, basic metabolic panel and CBC tomorrow. Continue groups and other therapies.
[2017-10-02] MEDS: ATENOLOL 50 MG TAB PO SCH ×2 (09:39→21:52)
[2017-10-02] MEDS: amLODIPine 10 MG TAB PO SCH (09:39)
[2017-10-02] MEDS: LITHIUM CARBONATE ER 450 MG TABLET.ER PO SCH ×2 (09:39→21:52)
[2017-10-02] MEDS: MEGESTROL 40 MG TAB PO SCH (09:41)
[2017-10-02] MEDS: LORazepam 1 MG TAB PO PRN (13:49)
[2017-10-02] MEDS: MELATONIN 5 MG TABLET PO SCH (21:52)
[2017-10-03 06:45] VITALS: TEMP 98.8
[2017-10-03] MEDS: ATENOLOL 50 MG TAB PO SCH (08:44)
[2017-10-03] MEDS: amLODIPine 10 MG TAB PO SCH (08:44)
[2017-10-03] MEDS: MEGESTROL 40 MG TAB PO SCH (08:44)
[2017-10-03 08:54] VITALS: BP 133/86; PULSE 75; RESP 20
[2017-10-03] MEDS: ALBUTEROL INHALER 60 PUFF/8 GM INHALER INHALATION PRN (09:30)
[2017-10-03] MEDS: LITHIUM CARBONATE ER 450 MG TABLET.ER PO SCH (09:42)
[2017-10-03 10:05] LABS: Anion Gap 14 mmol/L; Blood Urea Nitrogen 15 mg/dL (9-20); Carbon Dioxide 22 mmol/L (22-30); Chloride 108 mmol/L (98-107); Glucose 71 mg/dL (74-99); Lithium 0.5 mmol/L; Potassium 4.1 mmol/L (3.5-5.1); Sodium 144 mmol/L (137-145)
[2017-10-03 10:58] LABS: Basophils % (A) 1 %; Eosinophils # (A) 0.2 k/uL (0-0.7); Eosinophils % (A) 6 %; HCT 38.4 % (39.0-53.0); HGB 11.9 gm/dL (13.0-17.5); Hypochromasia Slight; Lymphocytes # (A) 1.1 k/uL (1.0-4.8); Lymphocytes % (A) 30 %; MCH 30.7 pg (25.0-35.0); MCHC 30.9 g/dL (31.0-37.0); MCV 99.3 fL (80.0-100.0); Macrocytosis Slight; Monocytes # (A) 0.4 k/uL (0-1.0); Monocytes % (A) 12 %; Neutrophils # (A) 1.7 k/uL (1.3-7.7); Neutrophils % (A) 47 %; Platelet Count 140 k/uL (150-450); RBC 3.87 m/uL (4.30-5.90); RDW 15.5 % (11.5-15.5); WBC 3.5 k/uL (3.8-10.6)
--- NOTE | 2017-10-03 12:37 | P.DS ---
Providers Date of admission: 09/27/17 20:32 Expected date of discharge: 10/03/17 Attending physician: Ben Hernandez Consults: 09/27/17 21:22 Consult Physician Routine Consulting Provider: Mellisa Medeiros Consult Reason/Comments: follow up H & P Do you want consulting provider notified?: Already Contacted Primary care physician: [facility] Course: Patient had his psychiatric evaluation, physical examination and psychosocial evaluation. After psychiatric evaluation, it was agreed to start him on lithium 450 mg twice a day for mood stabilization since his white blood count was low and second generation antipsychotics could not be started for mood stabilization. He was also started on melatonin 3 mg at bedtime to help him sleep better. It was later on increased to 5 mg at bedtime by the weekend psychiatrist since 3 mg was not enough for him. He was started on Megace 40 mg a day to improve his appetite which helped him quite a bit. He did well on these medications, his mood became stable, became free of suicide thoughts, did not have any adverse effects from lithium and he agreed to be discharged. His follow-up CBC showed mild anemia, improving WBC count and a lithium level of 0.5 mEq per liter after being on lithium for 4-5 days. Patient agreed to try ferrous sulfate tablets for anemia. Other medications for physical problems were continued. He received Ativan on a when necessary basis to prevent/manage withdrawal symptoms. Condition on discharge: This is a black ambulatory male with good hygiene. He is polite and cooperative. He does not show any psychomotor agitation or retardation. His speech is spontaneous relevant and goal-directed. His mood is euthymic to cheerful and affect is appropriate. He continues to deny suicidal and homicidal thoughts, hallucinations and delusional thinking. He is well oriented with good memory concentration general knowledge etc. His insight and judgment have improved. Diagnosis on discharge: Bipolar 1 disorder, current episode depressed, moderate F 31.32. Alcohol use disorder severe F 10.20. Probable malingering Z 76.5. NKDA. Bronchial asthma. Hypertension. Iron deficiency anemia. 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 Patient Condition at Discharge: Stable Plan - Discharge Summary Discharge Rx Participant: No New Discharge Prescriptions: [place] Carbonate ER [Lithobid] 450 mg PO BID 30 Days #60 tablet.er Megestrol [Megace] 40 mg PO DAILY 30 Days #30 tab Melatonin 5 mg PO HS 30 Days #30 tablet Continue Albuterol Inhaler [Ventolin Hfa Inhaler] 2 puff INHALATION RT-Q4H PRN 30 Days #2 puff PRN Reason: Wheezing amLODIPine [Norvasc] 10 mg PO DAILY 30 Days #30 tab Atenolol 50 mg PO BID 30 Days #60 tablet Discontinued traZODone HCL 150 mg PO HS Discharge Medication List Albuterol Inhaler [Ventolin Hfa Inhaler] 2 puff INHALATION RT-Q4H PRN 30 Days # 2 puff 10/03/17 [Rx] Atenolol 50 mg PO BID 30 Days #60 tablet 10/03/17 [Rx] [place] Carbonate ER [Lithobid] 450 mg PO BID 30 Days #60 tablet.er 10/03/17 [Rx ] Megestrol [Megace] 40 mg PO DAILY 30 Days #30 tab 10/03/17 [Rx] Melatonin 5 mg PO HS 30 Days #30 tablet 10/03/17 [Rx] amLODIPine [Norvasc] 10 mg PO DAILY 30 Days #30 tab 10/03/17 [Rx] Follow up Appointment(s)/Referral(s): [facility] [Outside] - 1-2 Days (walk in intake today until 5pm Monday 830 - 300pm 830 - 300pm) Caterina Chand MD [Primary Care Provider] - 1-2 days Ambulatory/Diagnostic Orders: Basic Metabolic Panel [LAB.AMB] Time Frame: 1 Month, Facility: [facility], Location: Laboratory Department Complete Blood Count w/diff [LAB.AMB] Location: Determined By Patient Miscellaneous Lab Order [LAB.AMB] Time Frame: 1 Month, Facility: [facility], Location: Laboratory Department TSH, 3rd Generation [LAB.AMB] Location: Determined By Patient Activity/Diet/Wound Care/Special Instructions: Per Dr. Medeiros, follow up with a test engine evaluator upon discharge due to your abnormal lab results. Keep your follow up appointments. Continue medications as prescribed. No alcohol or street drugs. No access to guns or weapons. Crisis line number if needed .
[2017-10-03] MEDS ORDERED: FERROUS SULFATE 325 MG TAB PO SCH (17:30)
== END 2017-10-03 13:36 | disposition home or self-care (01) | DRG 885 ==
LOC: EC 11:43 → 3MHU 20:32
PROVIDERS: ADMIT Psychiatry & Neurology Psychiatry; ATTEND Psychiatry & Neurology Psychiatry
DX: F31.9 Bipolar disorder, unspecified (principal); R45.851 Suicidal ideations; D50.9 Iron deficiency anemia, unspecified; D69.6 Thrombocytopenia, unspecified; D72.819 Decreased white blood cell count, unspecified; F10.229 Alcohol dependence with intoxication, unspecified; F41.9 Anxiety disorder, unspecified; I10 Essential (primary) hypertension; J45.909 Unspecified asthma, uncomplicated; G89.29 Other chronic pain; M19.90 Unspecified osteoarthritis, unspecified site; M54.9 Dorsalgia, unspecified; N52.9 Male erectile dysfunction, unspecified; M25.551 Pain in right hip; R74.8 Abnormal levels of other serum enzymes; Z76.5 Malingerer [conscious simulation]; Z87.891 Personal history of nicotine dependence; Z79.899 Other long term (current) drug therapy; Z90.49 Acquired absence of other specified parts of digestive tract; Z96.652 Presence of left artificial knee joint; Z82.49 Family history of ischemic heart disease and other diseases of the circulatory system
CPT/HCPCS: 80048; 80053; 80061; 80178; 80306; 81003; 82075; 83036; 84443; 85025; 94640; 99285

== ENCOUNTER 2017-12-25 10:17 | Inpatient (IN) | payer MEDICAID, OTHER ==
--- NOTE | 2017-12-25 11:24 | ED ---
General Adult HPI - General Chief complaint: Psychiatric Symptoms Stated complaint: Mental Health Time Seen by Provider: 12/25/17 10:31 Source: patient, RN notes reviewed, old records reviewed Mode of arrival: ambulatory Limitations: no limitations - History of Present Illness Initial comments: 62-year-old male history of depression presenting with worsening depression and suicidal thoughts. Patient denies any suicide attempt. Denies a specific plan. He has had previous admissions for psychiatric care in the past. He denies any drug ingestion, denies any self-harm. Patient denies any physical complaints, no chest pain or shortness of breath, no abdominal pain, no nausea vomiting or diarrhea. - Related Data Home Medications Medication Instructions Recorded Confirmed Atenolol 100 mg PO DAILY 12/25/17 12/25/17 Venlafaxine HCl ER [Effexor Xr] 150 mg PO HS 12/25/17 12/25/17 traZODone HCL 150 mg PO HS 12/25/17 12/25/17 Previous Rx's Medication Instructions Recorded amLODIPine [Norvasc] 10 mg PO DAILY 30 Days #30 tab 10/03/17 Allergies Allergy/AdvReac Type Severity Reaction Status Date / Time No Known Allergies Allergy Verified 12/25/17 10:38 Review of Systems ROS Statement: Those systems with pertinent positive or pertinent negative responses have been documented in the HPI. ROS Other: All systems not noted in ROS Statement are negative. Past Medical History Past Medical History: Asthma, Hypertension, Osteoarthritis (OA) History of Any Multi-Drug Resistant Organisms: None Reported Past Surgical History: Appendectomy, Joint Replacement Additional Past Surgical History / Comment(s): left knee replacement, ORIF rt ankle Past Anesthesia/Blood Transfusion Reactions: No Reported Reaction Past Psychological History: Anxiety, Depression Smoking Status: Former smoker Past Alcohol Use History: Daily Past Drug Use History: None Reported - Past Family History Mother Family Medical History: No Reported History Additional Family Medical History / Comment(s): . Father Family Medical History: Hypertension Additional Family Medical History / Comment(s): Father is alive at age 90 with history of hypertension. Brother(s) Additional Family Medical History / Comment(s): . General Exam Limitations: no limitations General appearance: alert, in no apparent distress Head exam: Present: atraumatic, normocephalic Eye exam: Present: normal appearance, PERRL ENT exam: Present: normal exam Neck exam: Present: normal inspection. Absent: tenderness, meningismus Respiratory exam: Present: normal lung sounds bilaterally. Absent: respiratory distress, wheezes Cardiovascular Exam: Present: regular rate, normal rhythm GI/Abdominal exam: Present: soft. Absent: distended, tenderness, guarding Extremities exam: Present: normal inspection, normal capillary refill. Absent: pedal edema, joint swelling Neurological exam: Present: alert, oriented X3, CN II-XII intact. Absent: motor sensory deficit Psychiatric exam: Present: depressed, flat affect, suicidal ideation Skin exam: Present: warm, dry, intact. Absent: cyanosis, diaphoretic Course Vital Signs 12/25/17 10:23 Temperature 98.8 F Pulse Rate 90 Respiratory 20 Rate Blood Pressure 103/71 O2 Sat by Pulse 98 Oximetry - Reevaluation(s) Reevaluation #1: 12/25/17 11:23 Patient does have some alcohol in his system, he is medically cleared and awaiting EPS evaluation. Medical Decision Making - Medical Decision Making Patient is evaluated by EPS for his depression and suicidal thoughts. He will be admitted to this institution for further treatment and evaluation. Disposition Clinical Impression: Suicidal ideation, Depression Disposition: ADMITTED IP TO THIS [facility] Condition: Stable Is patient prescribed a controlled substance at d/c from ED?: No Decision to Admit Reason: Admit from EC Decision Date: 12/25/17 Decision Time: 13:34
[2017-12-25 13:49] LABS: Amphetamine Screen,Urine Not Detected (NotDetected); Barbiturate Screen,Urine Not Detected (NotDetected); Benzodiazepines Screen,Urine Not Detected (NotDetected); Cocaine Screen,Urine Detected (NotDetected); Methadone Screen, Urine Not Detected (NotDetected); Opiate Screen,Urine Not Detected (NotDetected); Oxycodone Screen, Urine Not Detected (NotDetected); Phencyclidine Screen,Urine Not Detected (NotDetected); Tricyclic Antidepressant,Urine Not Detected (NotDetected); Urn Cannabinoid Scrn Not Detected (NotDetected)
[2017-12-25 14:17] VITALS: BMI 24.5
[2017-12-25] MEDS ORDERED: LORazepam 1 MG TAB PO PRN (15:18)
[2017-12-25] MEDS ORDERED: MAGNESIUM HYDROXIDE 2,400 MG/10 ML CUP PO PRN (15:18)
[2017-12-25] MEDS ORDERED: ACETAMINOPHEN TAB 325 MG TAB PO PRN (15:18)
[2017-12-25] MEDS ORDERED: MAG HYDROX/AL HYDROX/SIMETH 30 ML CUP PO PRN (15:18)
[2017-12-25] MEDS ORDERED: IBUPROFEN 200 MG TAB PO PRN (22:13)
[2017-12-26 08:07] LABS: Basophils % (A) 0 %; Eosinophils % (A) 1 %; HCT 37.5 % (39.0-53.0); HGB 11.4 gm/dL (13.0-17.5); Lymphocytes # (A) 1.4 k/uL (1.0-4.8); Lymphocytes % (A) 40 %; MCH 29.9 pg (25.0-35.0); MCHC 30.5 g/dL (31.0-37.0); MCV 98.1 fL (80.0-100.0); Mean Platelet Volume 8.5; Monocytes # (A) 0.2 k/uL (0-1.0); Monocytes % (A) 5 %; Neutrophils # (A) 1.8 k/uL (1.3-7.7); Neutrophils % (A) 51 %; Platelet Count 169 k/uL (150-450); RBC 3.82 m/uL (4.30-5.90); RDW 14.3 % (11.5-15.5); WBC 3.5 k/uL (3.8-10.6)
[2017-12-26 08:35] LABS: ALT 37 U/L (21-72); AST 32 U/L (17-59); Albumin 3.4 g/dL (3.5-5.0); Alkaline Phosphatase 71 U/L (38-126); Anion Gap 7 mmol/L; Blood Urea Nitrogen 13 mg/dL (9-20); Calcium 8.7 mg/dL (8.4-10.2); Carbon Dioxide 30 mmol/L (22-30); Chloride 99 mmol/L (98-107); Cholesterol 157 mg/dL (<200); Glucose 94 mg/dL (74-99); Potassium 3.7 mmol/L (3.5-5.1); Sodium 136 mmol/L (137-145); Total Bilirubin 0.8 mg/dL (0.2-1.3); Total Protein 5.8 g/dL (6.3-8.2); Triglycerides 44 mg/dL (<150)
[2017-12-26 08:42] LABS: LDL Cholesterol,Calculated 30 mg/dL (0-99)
[2017-12-26 08:47] LABS: HDL Cholesterol 118 mg/dL (40-60)
[2017-12-26] MEDS: ATENOLOL 50 MG TAB PO SCH (09:36)
[2017-12-26] MEDS: amLODIPine 10 MG TAB PO SCH (09:36)
[2017-12-26] MEDS: VENLAFAXINE HCL ER 37.5 MG CAP PO SCH (09:47)
[2017-12-26] MEDS: PANTOPRAZOLE 40 MG TABLET PO SCH (12:25)
[2017-12-26] MEDS: HYDROcodone/APAP 5-325MG 1 EACH TAB PO PRN ×2 (12:25→18:44)
--- NOTE | 2017-12-26 12:33 | CONS ---
CONSULTATION REASON FOR CONSULTATION: Advice regarding hypertension, back pain, and other multiple other medical issues requested by Psychiatry. HISTORY OF PRESENT ILLNESS: This 62-year-old gentleman with past medical history of asthma, hypertension, DJD, history of anxiety, depression being followed by Dr. Caterina Chand in the outpatient setting admitted for psychiatric evaluation. The patient apparently complaining of severe back pain. The patient had previous problems with the back and for that reason. The patient reports that the back gave out about 7 to 8 days ago. The patient has difficulty in walking and the patient using a wheelchair at this time. The most difficulties are extending and movement of the right leg at this time. There is no history of any fall. There is no history of fever or rigors. No history of headache, loss of consciousness, seizures at this time. PAST MEDICAL HISTORY: History of asthma, hypertension, DJD, history of appendectomy, history of anxiety, depression. MEDICATIONS: Medications are: 1. Trazodone 150 mg p.o. at bedtime. 2. Norvasc 10 mg p.o. daily. 3. Effexor XR 150 mg at bedtime. 4. Atenolol 100 mg p.o. daily. ALLERGIES: Allergies are none. FAMILY HISTORY: No history of heart disease or strokes in the family. SOCIAL HISTORY: Previous history of smoking. Occasional alcohol intake. REVIEW OF SYSTEMS: ENT: No diminished hearing or diminished vision. CARDIOVASCULAR SYSTEM: No angina or palpitations. RESPIRATORY SYSTEM: As mentioned earlier. GI: No nausea. : No dysuria. NERVOUS SYSTEM: No numbness or weakness. ALLERGY/IMMUNOLOGY: As mentioned earlier. HEMATOLOGY/ONCOLOGY: No history of anemia. ENDOCRINE: No history of diabetes or hypothyroidism. CONSTITUTIONAL: As mentioned earlier. DERMATOLOGY: Negative. RHEUMATOLOGY: Negative. PSYCHIATRY: As mentioned earlier. MUSCULOSKELETAL: As mentioned earlier. PHYSICAL EXAMINATION: The patient is alert and oriented x3. Pulse 76, blood pressure 119/73, respiration 20, temperature 98.2, pulse ox normal. HEENT: Conjunctivae normal. Oral mucosa moist. NECK: No jugular venous distention. No carotid bruit. No lymph node enlargement. CARDIOVASCULAR: S1 and S2 muffled. No S3, no S4. RESPIRATORY: Breath sounds diminished at the base. No rhonchi. No crackles. ABDOMEN: Soft, nontender. No mass palpable. LEGS: Movement of the right leg is painful. NERVOUS SYSTEM: Higher function as mentioned earlier. Cranial nerves 2 to 12 grossly intact. No nystagmus. No diplopia. No facial deviation. Moves all 4 limbs except the right leg because of the pain. Otherwise, no weakness. No sensory abnormalities. LYMPHATICS: No lymphadenopathy of the neck, axillae or groin. SKIN: No ulcer, rash or bleeding. JOINTS: No active swelling. LABS: WBC 3.5, hemoglobin 11.4. Sodium 136. Albumin is 3.4. HDL is 118. Drug screen is positive for cocaine and methamphetamine. ASSESSMENT: 1. Severe low back pain with degenerative joint disease. 2. Hyponatremia. 3. Mild normocytic anemia. 4. Asthma. 5. Hypertension. 6. History of degenerative joint disease. 7. History of left knee ORIF. 8. Anxiety, depression. 9. Continued ongoing nicotine dependence. RECOMMENDATION AND DISCUSSION: In this 62-year-old gentleman who presented with multiple complex medical issues , we will monitor the patient closely. Continue the current medications, continue symptomatic treatment. I would recommend to increase the dose of ibuprofen to 400 mg and add [place] on a p.r.n. basis. If the patient is not feeling better as well as the back pain is regarded, x-rays may be obtained later. Otherwise also recommend consultation with Dr. Cardenas, orthopedic back surgeon, as an outpatient otherwise. Otherwise, I would recommend continue the rest of the medication. Monitor blood pressure closely. Recommend close follow up with Dr. Diggs in the outpatient setting. Thank you for letting us participate in the care of this patient. MMODL / IJN: [id number] / DAYNE
--- NOTE | 2017-12-26 13:31 | P.HP ---
Psychiatric H&P - . H&P Date: 12/26/17 History & Physical: Allergies Allergy/AdvReac Type Severity Reaction Status Date / Time No Known Allergies Allergy Verified 12/25/17 10:38 Vital Signs Temp 98.2 F 12/26/17 06:26 Pulse 74 12/26/17 12:28 Resp 16 12/26/17 09:38 BP 111/78 12/26/17 12:28 Pulse Ox 98 12/25/17 10:23 Intake & Output 12/25/17 12/26/17 12/26/17 18:59 06:59 18:59 Weight 86.647 kg Laboratory Last Values WBC 3.5 k/uL (3.8-10.6) L 12/26/17 07:45 RBC 3.82 m/uL (4.30-5.90) L 12/26/17 07:45 Hgb 11.4 gm/dL (13.0-17.5) L 12/26/17 07:45 Hct 37.5 % (39.0-53.0) L 12/26/17 07:45 MCV 98.1 fL (80.0-100.0) 12/26/17 07:45 MCH 29.9 pg (25.0-35.0) 12/26/17 07:45 MCHC 30.5 g/dL (31.0-37.0) L 12/26/17 07:45 RDW 14.3 % (11.5-15.5) 12/26/17 07:45 Plt Count 169 k/uL (150-450) 12/26/17 07:45 Neutrophils % 51 % 12/26/17 07:45 Lymphocytes % 40 % 12/26/17 07:45 Monocytes % 5 % 12/26/17 07:45 Eosinophils % 1 % 12/26/17 07:45 Basophils % 0 % 12/26/17 07:45 Neutrophils # 1.8 k/uL (1.3-7.7) 12/26/17 07:45 Lymphocytes # 1.4 k/uL (1.0-4.8) 12/26/17 07:45 Monocytes # 0.2 k/uL (0-1.0) 12/26/17 07:45 Eosinophils # 0.0 k/uL (0-0.7) 12/26/17 07:45 Basophils # 0.0 k/uL (0-0.2) 12/26/17 07:45 Sodium 136 mmol/L (137-145) L 12/26/17 07:45 Potassium 3.7 mmol/L (3.5-5.1) 12/26/17 07:45 Chloride 99 mmol/L (98-107) 12/26/17 07:45 Carbon Dioxide 30 mmol/L (22-30) 12/26/17 07:45 Anion Gap 7 mmol/L 12/26/17 07:45 BUN 13 mg/dL (9-20) 12/26/17 07:45 Creatinine 0.82 mg/dL (0.66-1.25) 12/26/17 07:45 Est GFR (CKD-EPI)AfAm >90 (>60 ml/min/1.73 sqM) 12/26/17 07:45 Est GFR (CKD-EPI)NonAf >90 (>60 ml/min/1.73 sqM) 12/26/17 07:45 Glucose 94 mg/dL (74-99) 12/26/17 07:45 Calcium 8.7 mg/dL (8.4-10.2) 12/26/17 07:45 Total Bilirubin 0.8 mg/dL (0.2-1.3) 12/26/17 07:45 AST 32 U/L (17-59) 12/26/17 07:45 ALT 37 U/L (21-72) 12/26/17 07:45 Alkaline Phosphatase 71 U/L (38-126) 12/26/17 07:45 Total Protein 5.8 g/dL (6.3-8.2) L 12/26/17 07:45 Albumin 3.4 g/dL (3.5-5.0) L 12/26/17 07:45 Triglycerides 44 mg/dL (<150) 12/26/17 07:45 Cholesterol 157 mg/dL (<200) 12/26/17 07:45 LDL Cholesterol, Calc 30 mg/dL (0-99) 12/26/17 07:45 HDL Cholesterol 118 mg/dL (40-60) H 12/26/17 07:45 TSH 1.600 mIU/L (0.465-4.680) 12/26/17 07:45 Urine Opiates Screen Not Detected (NotDetected) 12/25/17 13:15 Ur Oxycodone Screen Not Detected (NotDetected) 12/25/17 13:15 Urine Methadone Screen Not Detected (NotDetected) 12/25/17 13:15 Ur Propoxyphene Screen Not Detected (NotDetected) 12/25/17 13:15 Ur Barbiturates Screen Not Detected (NotDetected) 12/25/17 13:15 U Tricyclic Antidepress Not Detected (NotDetected) 12/25/17 13:15 Ur Phencyclidine Scrn Not Detected (NotDetected) 12/25/17 13:15 Ur Amphetamines Screen Not Detected (NotDetected) 12/25/17 13:15 U Methamphetamines Scrn Detected (NotDetected) H 12/25/17 13:15 U Benzodiazepines Scrn Not Detected (NotDetected) 12/25/17 13:15 Urine Cocaine Screen Detected (NotDetected) H 12/25/17 13:15 U Marijuana (THC) Screen Not Detected (NotDetected) 12/25/17 13:15 12/26/17 13:13 Identification: Patient states he took a cab to the emergency room because he been depressed for 5 weeks and states that several days ago he took 10 150 mg trazodone tablets in an attempt to take an overdose. History of Present Illness: Patient states that he has been increasingly depressed and had a plan to commit suicide by taking an overdose of trazodone however he just woke up 2 days later feeling worse. He states that he also thought of jumping in the water. Patient states that he's been depressed for about a month and is been using alcohol about a fifth a day since that time. Patient states that after his release here in September 2017 he was also admitted to the emergency room at [facility] where he spent 3 days before being transferred to [facility] where he was for 8 days and thinks he was released about 3 weeks ago. Patient states his medications were changed when he was at [facility] and then stated that they did nothing for him. He states he was to follow-up at [facility] and states he was seen there by the therapist and a nurse practitioner with no change in his medications. He was taking Effexor 150 mg extended release and trazodone 150 mg at bedtime but then stated that he took them for several days after discharge and then stopped them because he didn't think they were working. Patient states he started using alcohol again and has been drinking to passes out at night. Patient states that he is not been sleeping well, has not been eating and has reportedly been feeling tired and weak. He states he is not taking care of his activities of daily living or his hygiene. Patient states that after his discharge here in September 2017 he [facility]. Patient feels that none of the medications of been effective but he states that he only takes them for 1 or 2 weeks at a time and then stops them. Patient states that he first sought treatment 2 years ago when he stopped caring for his ADLs, was staying at home, drinking not eating and not bathing. He says prior to that he had not ever sought treatment for his depression because it did not interfere with his ability to care for himself. Patient does not endorse a history of psychotic symptoms, manic symptoms or anxiety symptoms. Patient does state that he has blackouts when he does use alcohol but denies any withdrawal seizures or DTs. Past Psychiatric History: Patient has been admitted here 5 times prior to this and twice this year and states he is also been admitted at [facility] on several occasions. Patient states that he was in rehab after his discharge here in July 2017 for 2 weeks but then returned to drinking. Patient has been in rehab he feels about 10 times. He states that he intermittently attends AA meetings. Patient states that he's been tried on lithium, Zoloft, Prozac, Celexa, Effexor, Seroquel, Wellbutrin and trazodone states that Cymbalta caused him side effects. Patient states that he never took the medications consistently for more than 1-2 weeks and has never been on any of them for longer than 3 months. Patient states that he is not compliant when he goes home and states that he stopped his Effexor shortly after he returned home because he thought his nerves were bad by the Effexor. Past Medical/Surgical History: Patient has a history of hypertension, asthma, osteoarthritis is status post appendectomy and has had his left knee replaced. Patient states that he saw a zinc chloride operator over 2 years ago for a low white lung count but states he's never followed up with appointments after that more followed up with recommendations to see that zinc chloride operator now due to a low hemoglobin and hematocrit as well as a white blood count. Family History: Patient denies any psychiatric history in his family, no history of alcohol or drug abuse in the family and no completed suicides. Social History: Patient was born to parents in [place] and his parents are alive ages 93 and 91 and living in [place]. He has 2 siblings who are also alive. 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 He states he quit working in 2002 due to back problems. Patient was once in the past and was after 10 years. He has a daughter from that marriage and a daughter from a prior relationship and he states that he does have contact with them. Patient denies any abuse history. Patient lives in an apartment on his own. Substance Use History: Patient states he began using alcohol at the age of 12 his longest sobriety was 9 months 10 years ago. Patient states at his heaviest he was drinking a half gallon a day and this was 15 years ago for several years. Patient states he used crack cocaine 10 years ago and had used it for 10 years. He denies any other drug use no IV drug use and states he is currently not smoking. Patient is currently drinking a fifth of alcohol a day. Legal History: Patient states he has a DUI in 2002 Mental status: Appearance/Attitude: Patient is dressed in a hospital gown, was using a wheelchair, stating that he feels weak and like he would fall, he made good eye contact and was cooperative. Behavior: Patient did not display any psychomotor agitation or retardation. Speech/Language: Patient's speech was spontaneous of normal volume and rhythm and he was coherent Thought Process: Patient is goal-directed there is no evidence of loose association or flight of ideas Thought Content: Patient denies any auditory or visual hallucinations and no delusions or paranoid ideation were elicited. Patient states he's not been eating at home feeling tired and worn out states he has not been caring for his personal hygiene, he states he's been drinking until he passes out. Suicidal/Homicidal Ideation: Patient states that he is not having any suicidal ideation currently but was feeling suicidal at home and at taken an overdose of trazodone which only caused him to sleep for 2 days, he states he was thinking of jumping in the water and so took a cab to the emergency room, he denies any current homicidal ideation. Sensorium/Cognition: Patient is alert and oriented to person, place, and time and his recent and remote memory are grossly intact. Mood/Affect: Patient's mood is depressed and his affect is blunted Insight/Judgment: Patient's insight and judgment are fair Intellectual Functioning: Patient's intellectual functioning appears average Strength/Weakness: Patient has housing, financial support/use of alcohol noncompliance with follow-up care and medication Assessment: Patient presents again and states that he never had symptoms of depression that were severe enough to interfere with his ability to function until just recently within the last 3 years. Patient has had numerous psychiatric admissions within the last several years due to his feeling depressed, suicidal and continued use of alcohol. Patient longest sobriety was 9 months and that was a number of years ago the patient has just recently been discharged from another psychiatric facility and was only compliant with medication for several days after discharge before he thought it was making his nurse worsened discontinued it. Patient again started drinking has been drinking a fifth a day for the last 3 weeks. Patient's use of alcohol is been since the age of 12 and his heaviest he was drinking a half gallon a day and this was 15 years ago for several years. Patient also has a history of crack cocaine use in the past and states he hasn't used for the last 10 years. Patient's UDS was positive for both methamphetamine and cocaine and he denies that he was using. Admission Diagnosis: Alcohol-induced depressive disorder, with use disorder; alcohol use disorder, moderate severity Plan: Patient was admitted on a voluntary basis, placed on routine observation in group and activity therapy were ordered. Patient was also ordered routine laboratory studies as well as a medical consultation. Patient was placed on Ativan for alcohol withdrawal symptoms, he was continued on his medications for his medical problems. Patient and I discussed the medications that he has been on in the past and agreed to retry Effexor which will be started at 37-1/2 mg extended release in the morning. I discussed with the patient trying melatonin 3 mg at bedtime for sleep. Patient and I discussed inpatient alcohol rehab and he said he would contemplate it. Patient and I also discussed his need to follow-up with a zinc chloride operator once he is discharged regarding his low hemoglobin and hematocrit as well as white blood count. Patient requires hospitalization to stabilize his mood.
[2017-12-26] MEDS: IBUPROFEN 400 MG TAB PO PRN (15:33)
[2017-12-26 19:25] LABS: Hemoglobin A1C 4.5 % (4.0-6.0)
[2017-12-26] MEDS: MELATONIN 3 MG TABLET PO SCH (20:45)
[2017-12-27] MEDS: VENLAFAXINE HCL ER 37.5 MG CAP PO SCH (09:04)
[2017-12-27] MEDS: PANTOPRAZOLE 40 MG TABLET PO SCH (09:04)
[2017-12-27] MEDS: HYDROcodone/APAP 5-325MG 1 EACH TAB PO PRN ×2 (09:04→16:30)
[2017-12-27] MEDS: ATENOLOL 50 MG TAB PO SCH (09:06)
[2017-12-27] MEDS: amLODIPine 10 MG TAB PO SCH (09:06)
[2017-12-27] MEDS: IBUPROFEN 400 MG TAB PO PRN (13:00)
--- NOTE | 2017-12-27 13:35 | P.PN ---
Progress Note - Text Interval History: Patient is a 62-year-old male who was seen today, he was using the wheelchair to walk behind. Patient states that he slept badly last night but states it's really touch and go he was really depressed this morning but could not tell me why. Patient states that his back was really hurting last night and disrupted his sleep, but after group this morning he is feeling better. Patient states that also the medical doctor placed him on [place] and that is helped as well. Patient states that he contacted a concrete placement equipment operator because he thinks that he missed an appointment was rescheduled and he missed that one as well and states his next appointment there is on January 12. Patient states he continues to have suicidal thoughts but no plan to act. When asked about attending inpatient rehab the patient states that he has too many appointments to attend. Mental Status: Appearance/Attitude: Patient is dressed in a hospital gown, walking behind a wheelchair, makes good eye contact and was cooperative. Behavior: Patient does not display any psychomotor agitation or retardation. Speech/Language: Patient's speech was spontaneous and of normal volume and rhythm and he is coherent. Thought Process: Patient was goal-directed there is no evidence of loose association or flight of ideas Thought Content: Patient denies any auditory or visual hallucinations and no delusions or paranoid ideation were elicited. Patient states that it was touch and go this morning, he was really depressed as his back hurt so much last night and he did not sleep well. Patient states that he still doing better now that he has received [place] as well as attended a group this morning. Patient reports he is eating well and did not complain of any withdrawal symptoms. Suicidal/Homicidal Ideation: Patient states he continues to have suicidal thoughts but no current plan or intent to act and denies any current homicidal ideation. Sensorium/Cognition: Patient is alert and oriented to person, place, and time and his recent and remote memory are grossly intact. Mood/Affect: Patient's mood remains depressed and his affect blunted Insight/Judgment: Patient's insight and judgment are fair Assessment: Patient continues to report feeling depressed with suicidal ideation but no plan to act patient states that he has no time to go to inpatient rehab because he has too many appointments to attend to. Patient reports that he didn't sleep well last night because of his back and felt really depressed this morning when he awakened. Patient states he is attending groups and activities. Plan: Patient continue on Effexor 37.5 mg extended release in the morning and will increase after 3 days to 75 mg. Patient continues on melatonin 3 mg at bedtime. Patient was placed on [place] by the medical billing coordinator. Patient continues to require hospitalization to further stabilize his mood. Patient again was encouraged to consider inpatient rehab program.
[2017-12-27] MEDS: MELATONIN 3 MG TABLET PO SCH (20:56)
[2017-12-28] MEDS: VENLAFAXINE HCL ER 37.5 MG CAP PO SCH (08:08)
[2017-12-28] MEDS: ATENOLOL 50 MG TAB PO SCH (08:08)
[2017-12-28] MEDS: amLODIPine 10 MG TAB PO SCH (08:08)
[2017-12-28] MEDS: PANTOPRAZOLE 40 MG TABLET PO SCH (08:08)
[2017-12-28] MEDS: HYDROcodone/APAP 5-325MG 1 EACH TAB PO PRN ×3 (08:09→20:56)
[2017-12-28] MEDS: IBUPROFEN 400 MG TAB PO PRN ×2 (11:02→20:41)
--- NOTE | 2017-12-28 12:03 | P.PN ---
Progress Note - Text Progress Note Date: 12/28/17 Interval History: Patient is a 62-year-old male who was seen today and he reports that he slept fairly well last night not feeling is dizzy, continues to use a wheelchair for support when walking. Patient states he is feeling better caring for his ADLs. Patient states he is not eating much in the morning but does eat lunch and dinner. He states that he still feeling slightly suicidal especially at night. He states he was up and down all night in his sleep is poor. Patient reported no side effects from the Effexor. Patient stated that he was going to consider calling inpatient rehab either later today or tomorrow. Mental Status: Appearance/Attitude: Patient is appropriately dressed, was using a wheelchair as a walker to ambulate, made good eye contact and was cooperative. Behavior: Patient does not exhibit any psychomotor agitation or retardation. Speech/Language: Patient's speech is spontaneous of normal volume and rhythm and he is coherent. Thought Process: Patient was goal-directed, there is no evidence of loose association or flight of ideas Thought Content: Patient denied any auditory or visual hallucinations and no delusions or paranoid ideation were elicited. Patient states that he is feeling better, took a shower this morning but states that his sleep was poor and he was up and down all night. Patient states that he ate lunch and dinner but does not like to eat much breakfast. He states he is no longer feeling as dizzy. He reports no withdrawal symptoms. Suicidal/Homicidal Ideation: Patient stated that he was slightly suicidal last night, no current suicidal thoughts and no current homicidal ideation Sensorium/Cognition: Patient is alert and oriented to person, place, and time and his recent and remote memory are grossly intact Mood/Affect: Patient's mood remains slightly depressed and his affect is appropriate Insight/Judgment: Patient's insight and judgment are fair Assessment: Patient reports that he is feeling better from a physical standpoint did shower this morning and has been eating lunch and dinner but not much breakfast. He continues to report suicidal thoughts especially at night and reported that his sleep was poor and he was up and down most of the night. It is documented that the patient slept for 6 hours however. Patient continues to the ambivalent about inpatient alcohol rehab stating that he may call today or tomorrow. Patient and I again had a long discussion regarding alcohol use, his long-term side effects and consequences. Plan: Patient's Effexor will be increased to 75 mg extended release in the morning and melatonin 3 mg at bedtime will be added. Patient continues to require hospitalization to stabilize his mood and is encouraged to attend groups and activities as well as to contact inpatient rehab for an intake appointment.
[2017-12-28] MEDS: MELATONIN 3 MG TABLET PO SCH (20:54)
[2017-12-29] MEDS: VENLAFAXINE HCL ER 75 MG CAP PO SCH (08:20)
[2017-12-29] MEDS: ATENOLOL 50 MG TAB PO SCH (08:20)
[2017-12-29] MEDS: amLODIPine 10 MG TAB PO SCH (08:20)
[2017-12-29] MEDS: PANTOPRAZOLE 40 MG TABLET PO SCH (08:20)
[2017-12-29] MEDS: HYDROcodone/APAP 5-325MG 1 EACH TAB PO PRN ×2 (08:53→21:23)
[2017-12-29] MEDS: IBUPROFEN 400 MG TAB PO PRN (11:11)
[2017-12-29 11:14] LABS: Appearance,Urine Clear (Clear); Bilirubin,Urine Negative (Negative); Blood,Urine Negative (Negative); Color,Urine Yellow; Glucose,Urine (UA) Negative (Negative); Ketones,Urine Negative (Negative); Leukocyte Esterase,Urine Negative (Negative); Nitrite,Urine Negative (Negative); PH, Urine 7.5 (5.0-8.0); Protein,Urine Trace (Negative); Specific Gravity,Urine 1.018 (1.001-1.035)
--- NOTE | 2017-12-29 11:37 | P.PN ---
Progress Note - Text Progress Note Date: 12/29/17 Interval History: Patient is a 62-year-old male who was seen today who reports that he slept fairly well last night with states that he get up frequently to urinate. Patient states that he had some suicidal thoughts last night but no plan or intent to act and reports none this morning. He states he is not feeling as depressed as he was on admission. Patient reports no side effects from his medication. Patient states that he will call for inpatient alcohol rehab today some time. Mental Status: Appearance/Attitude: Patient is casually dressed, makes good eye contact and was cooperative. Behavior: Patient does not exhibit any psychomotor agitation or retardation. Speech/Language: Patient's speech is spontaneous of normal volume and rhythm and he is coherent. Thought Process: Patient is goal-directed there is evidence of loose association or flight of ideas Thought Content: Patient denies any auditory or visual hallucinations no delusions or paranoid ideation were elicited. Patient states he is not feeling as depressed today and his appetite and sleep have improved. Suicidal/Homicidal Ideation: Patient states that he had some suicidal ideation last night but no plan or intent to act and denies any current suicidal ideation or current homicidal ideation. Sensorium/Cognition: Patient is alert and oriented to person, place, and time and his recent and remote memory are grossly intact Mood/Affect: Patient's mood is still slightly depressed and his affect is appropriate Insight/Judgment: Patient's insight and judgment are fair Assessment: Patient reports no side effects from the increase in Effexor to 75 mg and states that his appetite and sleep have improved. He reported some frequent urination last night. Patient also stated that he uses a Ventolin inhaler. Patient states he has some suicidal ideation last night but no plan to act or intent to act and states that he is not feeling suicidal this morning. He reports he is feeling less depressed and has yet to contact inpatient alcohol rehab states that he will do so today. Patient is attending groups and activities. Plan: Patient will continue on Effexor 75 mg extended release in the morning and melatonin 3 mg at bedtime. Patient continues to require hospitalization to further stabilize his mood. Patient was again encouraged to call for alcohol rehab programs.
[2017-12-29 17:09] LABS: Appearance,Urine Clear (Clear); Bilirubin,Urine Negative (Negative); Blood,Urine Negative (Negative); Color,Urine Yellow; Glucose,Urine (UA) Negative (Negative); Ketones,Urine Negative (Negative); Leukocyte Esterase,Urine Negative (Negative); Nitrite,Urine Negative (Negative); Protein,Urine Negative (Negative); Specific Gravity,Urine 1.014 (1.001-1.035); Urobilinogen,Urine <2.0 mg/dL (<2.0)
[2017-12-29] MEDS: MELATONIN 3 MG TABLET PO SCH (21:21)
[2017-12-30] MEDS: HYDROcodone/APAP 5-325MG 1 EACH TAB PO PRN ×2 (08:39→14:44)
[2017-12-30] MEDS: VENLAFAXINE HCL ER 75 MG CAP PO SCH (08:40)
[2017-12-30] MEDS: PANTOPRAZOLE 40 MG TABLET PO SCH (08:40)
[2017-12-30] MEDS: ALBUTEROL INHALER 60 PUFF/8 GM INHALER INHALATION PRN ×2 (09:05→20:32)
[2017-12-30] MEDS: amLODIPine 10 MG TAB PO SCH (09:55)
[2017-12-30] MEDS: ATENOLOL 50 MG TAB PO SCH (09:55)
--- NOTE | 2017-12-30 11:11 | P.PN ---
Progress Note - Text Interval history: The patient is found in the hallway he follows me to an interview room. He reports his mood is improving. He states he's had no suicidal thoughts at all today. He has arranged to go to [place] for inpatient chemical dependency treatment and hopes to start that on . He states he's hoping for a discharge Monday as he needs to attend to his apartment and get things ready for rehab. He was observed attending group earlier today. He states he has been eating. Sleep is been stable although the melatonin may have caused him to feel drowsy in the morning still. Mental status exam: The patient is an -[place] male appearing his stated age. He hasn't shaved he is wearing his eyeglasses. He is dressed in his own clothing and is wearing a hospital gown over top. He reports his mood is improved he is reporting no suicidal ideation intent or plan. He is reporting no homicidal ideation intent or plan. He endorses no presence of hallucinations he endorses no specific delusions. Thought process is linear and goal directed. He demonstrates no tangential thinking loose associations or flight of ideas. He does not appear hypomanic or manic. Insight and judgment appear to be improving. He is oriented person place and date. Affect is constricted. Plan: The patient will continue on his current medication. He has no questions regarding the Effexor XR. Vital signs reviewed. He is encouraged to continue participating in the milieu. We will continue to monitor him for safety.
[2017-12-30] MEDS: IBUPROFEN 400 MG TAB PO PRN (18:40)
[2017-12-30] MEDS: MELATONIN 3 MG TABLET PO SCH (20:33)
[2017-12-31] MEDS: ATENOLOL 50 MG TAB PO SCH (08:26)
[2017-12-31] MEDS: amLODIPine 10 MG TAB PO SCH (08:26)
[2017-12-31] MEDS: PANTOPRAZOLE 40 MG TABLET PO SCH (08:26)
[2017-12-31] MEDS: VENLAFAXINE HCL ER 75 MG CAP PO SCH (08:26)
[2017-12-31] MEDS: HYDROcodone/APAP 5-325MG 1 EACH TAB PO PRN ×2 (08:27→15:33)
--- NOTE | 2017-12-31 11:32 | P.PN ---
Progress Note - Text Interval history: The patient reports that his mood is stable he states that he is hoping to be discharged tomorrow as he wants to make preparations for going to [place]. His appetite seems low in the morning he states but he is eating in the afternoon and evening. He was able to sleep last night. He has been attending groups. He has no questions or concerns regarding his medication. Mental status exam: The patient is a tall thin -Montenegrin male appearing his stated age. He is dressed in his own clothing and wearing a hospital gown over top. He wears eyeglasses. Speech is fluent spontaneous nonpressured. He tends to speak in a louder tone possibly due to hearing issues. He reports his mood is good he denies having any suicidal or homicidal ideation intent or plan. He is reporting no auditory or visual hallucinations or any specific delusions. There is no observed evidence of psychosis. He is oriented to person place and date. Affect is appropriately expresses. Plan: The patient will continue on his current psychotropic medication. We will monitor him for safety. He does appear to be clinically stabilizing.
[2017-12-31] MEDS: ALBUTEROL INHALER 60 PUFF/8 GM INHALER INHALATION PRN ×2 (11:49→20:40)
[2017-12-31] MEDS: MELATONIN 3 MG TABLET PO SCH (20:39)
[2018-01-01] MEDS: ALBUTEROL INHALER 60 PUFF/8 GM INHALER INHALATION PRN ×2 (08:37→20:31)
[2018-01-01] MEDS: amLODIPine 10 MG TAB PO SCH (09:01)
[2018-01-01] MEDS: ATENOLOL 50 MG TAB PO SCH (09:01)
[2018-01-01] MEDS: HYDROcodone/APAP 5-325MG 1 EACH TAB PO PRN ×2 (09:02→18:11)
[2018-01-01] MEDS: PANTOPRAZOLE 40 MG TABLET PO SCH (09:02)
[2018-01-01] MEDS: VENLAFAXINE HCL ER 75 MG CAP PO SCH (09:02)
[2018-01-01] MEDS: IBUPROFEN 400 MG TAB PO PRN (11:49)
--- NOTE | 2018-01-01 11:53 | P.PN ---
Progress Note - Text Progress Note Date: 01/01/18 Interval History: Patient is a 62-year-old male who was seen today and he reports that he is doing fairly well and contacted [facility] and has an intake appointment on at 11 AM. He states he still feeling slightly depressed but not having any suicidal thoughts. He states his appetite is good and he sleeping well. Patient and I discussed his use of [place] here in the fact that he won't be discharged on an oral he be taking it while he has at [facility]. Patient was aware of this. Patient requested that his Effexor continues to be increased to its prior dose of 150 mg because he felt that that was effective for his depression in the past. Mental Status: Appearance/Attitude: Patient is neatly dressed, makes good eye contact and was cooperative. Behavior: Patient does not display any psychomotor agitation or retardation Speech/Language: Patient's speech was spontaneous of normal volume and rhythm and he is coherent Thought Process: Patient's thought processes are goal-directed there is no evidence of loose association or flight of ideas Thought Content: Patient denies any auditory or visual hallucinations and no delusions or paranoid ideation or elicited. Patient states he is eating and sleeping well. He reports still feeling slightly depressed and requested his Effexor be increased. Suicidal/Homicidal Ideation: Patient denies any current suicidal or homicidal ideation Sensorium/Cognition: Patient is alert and oriented to person, place, and time and his recent and remote memory are grossly intact Mood/Affect: Patient's mood is slightly depressed and his affect is appropriate Insight/Judgment: Patient's insight and judgment are fair Assessment: Patient and I discussed increasing his Effexor, patient states he contacted [facility] has an intake appointment this . We discussed his use of [place] here on the inpatient unit the fact that he will be discharged on this nor lability take it while he is at [facility]. Patient reported that he felt his Effexor need to be increased due to his still feeling slightly depressed. Patient states he's been attending groups and activities. Plan: Patient will be increased to 150 mg of extended release Effexor in the morning and patient and I discussed his discharge tomorrow with a plan for follow-up at [facility] on at 11 AM.
[2018-01-01] MEDS: MELATONIN 3 MG TABLET PO SCH (20:53)
[2018-01-02 06:06] VITALS: BP 126/75; PULSE 73; RESP 15; TEMP 98.3
[2018-01-02] MEDS: PANTOPRAZOLE 40 MG TABLET PO SCH (08:56)
[2018-01-02] MEDS: ATENOLOL 50 MG TAB PO SCH (08:56)
[2018-01-02] MEDS: amLODIPine 10 MG TAB PO SCH (08:56)
[2018-01-02] MEDS: IBUPROFEN 400 MG TAB PO PRN (08:57)
[2018-01-02] MEDS ORDERED: VENLAFAXINE HCL ER 150 MG CAP PO SCH (09:00)
--- NOTE | 2018-01-02 09:19 | P.DS ---
Providers Date of admission: 12/25/17 13:31 Expected date of discharge: 01/02/18 Attending physician: Amber Groves MD Consults: 12/25/17 15:18 Consult Physician Routine Consulting Provider: Mellisa Medeiros Consult Reason/Comments: follow UP H & P Do you want consulting provider notified?: Yes Primary care physician: [facility] Course: Discharge Diagnosis: Alcohol-induced depressive disorder, with use disorder; alcohol use disorder, moderate severity Reason for Admission: Patient states he took a cab to the emergency room because he been depressed for 5 weeks and states that several days ago he took 10 150 mg trazodone tablets in an attempt to take an overdose. Patient states that he has been increasingly depressed and had a plan to commit suicide by taking an overdose of trazodone however he just woke up 2 days later feeling worse. He states that he also thought of jumping in the water. Patient states that he's been depressed for about a month and is been using alcohol about a fifth a day since that time. Patient states that after his release here in September 2017 he was also admitted to the emergency room at [facility] where he spent 3 days before being transferred to [place] where he was for 8 days and thinks he was released about 3 weeks ago. Patient states his medications were changed when he was at [facility] and then stated that they did nothing for him. He states he was to follow-up at [facility] and states he was seen there by the therapist and a nurse practitioner with no change in his medications. He was taking Effexor 150 mg extended release and trazodone 150 mg at bedtime but then stated that he took them for several days after discharge and then stopped them because he didn't think they were working. Patient states he started using alcohol again and has been drinking to passes out at night. Patient states that he is not been sleeping well, has not been eating and has reportedly been feeling tired and weak. He states he is not taking care of his activities of daily living or his hygiene. Patient states that after his discharge here in September 2017 he did not follow up with [facility]. Patient feels that none of the medications of been effective but he states that he only takes them for 1 or 2 weeks at a time and then stops them. Patient states that he first sought treatment 2 years ago when he stopped caring for his ADLs, was staying at home, drinking not eating and not bathing. He says prior to that he had not ever sought treatment for his depression because it did not interfere with his ability to care for himself. Patient does not endorse a history of psychotic symptoms, manic symptoms or anxiety symptoms. Patient does state that he has blackouts when he does use alcohol but denies any withdrawal seizures or DTs. Mental status on Admission: Appearance/Attitude: Patient is dressed in a hospital gown, was using a wheelchair, stating that he feels weak and like he would fall, he made good eye contact and was cooperative. Behavior: Patient did not display any psychomotor agitation or retardation. Speech/Language: Patient's speech was spontaneous of normal volume and rhythm and he was coherent Thought Process: Patient is goal-directed there is no evidence of loose association or flight of ideas Thought Content: Patient denies any auditory or visual hallucinations and no delusions or paranoid ideation were elicited. Patient states he's not been eating at home feeling tired and worn out states he has not been caring for his personal hygiene, he states he's been drinking until he passes out. Suicidal/Homicidal Ideation: Patient states that he is not having any suicidal ideation currently but was feeling suicidal at home and at taken an overdose of trazodone which only caused him to sleep for 2 days, he states he was thinking of jumping in the water and so took a cab to the emergency room, he denies any current homicidal ideation. Sensorium/Cognition: Patient is alert and oriented to person, place, and time and his recent and remote memory are grossly intact. Mood/Affect: Patient's mood is depressed and his affect is blunted Insight/Judgment: Patient's insight and judgment are fair Hospital Course: Patient was admitted on a voluntary basis, placed on routine observation in group and activity therapy were ordered. Patient also had routine laboratory studies as well as a medical consultation. Patient was continued on his medications for his medical problems. Patient was also placed on Ativan for alcohol withdrawal. Patient and I agreed to restart his Effexor and it was eventually titrated to a dose of 150 mg extended release in the morning. Patient was also placed on melatonin 3 mg at bedtime to improve his sleep. Patient and I discussed inpatient alcohol rehab and the patient was eventually agreeable and contact at [facility] and had an intake appointment for following discharge. Patient and I also discussed his CBC abnormalities, which he states that he has seen a banking management consulting manager for the past but never followed up appropriately. Patient was attending groups and activities and reported no further suicidal ideation, his depression again to lift and the patient felt he was doing much better from a physical standpoint and mental standpoint. Patient reported that his sleep had improved and his appetite was good. Patient reported that he had made an appointment with a banking management consulting manager a follow-up after discharge, patient and I also discussed the need to contact his primary care physician to discuss appropriate medication for his pain. Allergies No Known Allergies Allergy (Verified 12/25/17 10:38) Laboratory Last Values WBC 3.5 k/uL (3.8-10.6) L 12/26/17 07:45 RBC 3.82 m/uL (4.30-5.90) L 12/26/17 07:45 Hgb 11.4 gm/dL (13.0-17.5) L 12/26/17 07:45 Hct 37.5 % (39.0-53.0) L 12/26/17 07:45 MCV 98.1 fL (80.0-100.0) 12/26/17 07:45 MCH 29.9 pg (25.0-35.0) 12/26/17 07:45 MCHC 30.5 g/dL (31.0-37.0) L 12/26/17 07:45 RDW 14.3 % (11.5-15.5) 12/26/17 07:45 Plt Count 169 k/uL (150-450) 12/26/17 07:45 Neutrophils % 51 % 12/26/17 07:45 Lymphocytes % 40 % 12/26/17 07:45 Monocytes % 5 % 12/26/17 07:45 Eosinophils % 1 % 12/26/17 07:45 Basophils % 0 % 12/26/17 07:45 Neutrophils # 1.8 k/uL (1.3-7.7) 12/26/17 07:45 Lymphocytes # 1.4 k/uL (1.0-4.8) 12/26/17 07:45 Monocytes # 0.2 k/uL (0-1.0) 12/26/17 07:45 Eosinophils # 0.0 k/uL (0-0.7) 12/26/17 07:45 Basophils # 0.0 k/uL (0-0.2) 12/26/17 07:45 Sodium 136 mmol/L (137-145) L 12/26/17 07:45 Potassium 3.7 mmol/L (3.5-5.1) 12/26/17 07:45 Chloride 99 mmol/L (98-107) 12/26/17 07:45 Carbon Dioxide 30 mmol/L (22-30) 12/26/17 07:45 Anion Gap 7 mmol/L 12/26/17 07:45 BUN 13 mg/dL (9-20) 12/26/17 07:45 Creatinine 0.82 mg/dL (0.66-1.25) 12/26/17 07:45 Est GFR (CKD-EPI)AfAm >90 (>60 ml/min/1.73 sqM) 12/26/17 07:45 Est GFR (CKD-EPI)NonAf >90 (>60 ml/min/1.73 sqM) 12/26/17 07:45 Glucose 94 mg/dL (74-99) 12/26/17 07:[address] Glu mg/dL 82 12/26/17 07:45 Hemoglobin A1c 4.5 % (4.0-6.0) 12/26/17 07:45 Calcium 8.7 mg/dL (8.4-10.2) 12/26/17 07:45 Total Bilirubin 0.8 mg/dL (0.2-1.3) 12/26/17 07:45 AST 32 U/L (17-59) 12/26/17 07:45 ALT 37 U/L (21-72) 12/26/17 07:45 Alkaline Phosphatase 71 U/L (38-126) 12/26/17 07:45 Total Protein 5.8 g/dL (6.3-8.2) L 12/26/17 07:45 Albumin 3.4 g/dL (3.5-5.0) L 12/26/17 07:45 Triglycerides 44 mg/dL (<150) 12/26/17 07:45 Cholesterol 157 mg/dL (<200) 12/26/17 07:45 LDL Cholesterol, Calc 30 mg/dL (0-99) 12/26/17 07:45 HDL Cholesterol 118 mg/dL (40-60) H 12/26/17 07:45 TSH 1.600 mIU/L (0.465-4.680) 12/26/17 07:45 Urine Color Yellow 12/29/17 17:00 Urine Appearance Clear (Clear) 12/29/17 17:00 Urine pH 8.0 (5.0-8.0) 12/29/17 17:00 Ur Specific [place] 1.014 (1.001-1.035) 12/29/17 17:00 Urine Protein Negative (Negative) 12/29/17 17:00 Urine Glucose (UA) Negative (Negative) 12/29/17 17:00 Urine Ketones Negative (Negative) 12/29/17 17:00 Urine Blood Negative (Negative) 12/29/17 17:00 Urine Nitrite Negative (Negative) 12/29/17 17:00 Urine Bilirubin Negative (Negative) 12/29/17 17:00 Urine Urobilinogen <2.0 mg/dL (<2.0) 12/29/17 17:00 Ur Leukocyte Esterase Negative (Negative) 12/29/17 17:00 Urine Opiates Screen Not Detected (NotDetected) 12/25/17 13:15 Ur Oxycodone Screen Not Detected (NotDetected) 12/25/17 13:15 Urine Methadone Screen Not Detected (NotDetected) 12/25/17 13:15 Ur Propoxyphene Screen Not Detected (NotDetected) 12/25/17 13:15 Ur Barbiturates Screen Not Detected (NotDetected) 12/25/17 13:15 U Tricyclic Antidepress Not Detected (NotDetected) 12/25/17 13:15 Ur Phencyclidine Scrn Not Detected (NotDetected) 12/25/17 13:15 Ur Amphetamines Screen Not Detected (NotDetected) 12/25/17 13:15 U Methamphetamines Scrn Detected (NotDetected) H 12/25/17 13:15 U Benzodiazepines Scrn Not Detected (NotDetected) 12/25/17 13:15 Urine Cocaine Screen Detected (NotDetected) H 12/25/17 13:15 U Marijuana (THC) Screen Not Detected (NotDetected) 12/25/17 13:15 Discharge Mental Status: Appearance/Attitude: Patient was casually dressed, made good eye contact and was cooperative. Behavior: Patient did not exhibit any psychomotor agitation or retardation. Speech/Language: Patient's speech was spontaneous of normal volume and rhythm and he was coherent. Thought Process: Patient was goal-directed there is no evidence of loose association or flight of ideas Thought Content: Patient denied any auditory or visual hallucinations and no delusions or paranoid ideation were elicited. Patient states that he is sleeping and eating well. Patient reported that he is not feeling depressed, hopeless or helpless. Suicidal/Homicidal Ideation: Patient denied any current suicidal or homicidal ideation Sensorium/Cognition: Patient is alert and oriented to person, place, and time and his recent and remote memory grossly intact Mood/Affect: Patient's mood was euthymic and his affect is appropriate Insight/Judgment: Patient's insight and judgment are fair Risk Assessment: Patient's risk for readmission is high should the patient return to using alcohol and/or drugs, not be compliant with follow-up care Discharge Plan: Patient will return to his own home, he will continue on Effexor 150 mg extended release in the morning and melatonin 3 mg at bedtime. Patient will continue on his medications for his medical problems and will follow-up with his primary care physician. Patient was also strongly encouraged to keep his appointments with a banking management consulting manager to discuss his CBC abnormalities. Patient was encouraged to remain sober and keep his appointment at [facility] for an intake this . Patient Condition at Discharge: Stable Plan - Discharge Summary Discharge Rx Participant: No New Discharge Prescriptions: New Albuterol Inhaler [Ventolin Hfa Inhaler] 2 puff INHALATION RT-QID PRN puff PRN Reason: Shortness Of Breath Or Wheezing Ibuprofen [Motrin] 400 mg PO Q6HR PRN tab PRN Reason: Pain Melatonin 3 mg PO HS #28 tablet Continue amLODIPine [Norvasc] 10 mg PO DAILY 30 Days #30 tab Atenolol 100 mg PO DAILY Venlafaxine HCl ER [Effexor XR] 150 mg PO HS #14 cap.er.24h Discontinued traZODone HCL 150 mg PO HS Discharge Medication List amLODIPine [Norvasc] 10 mg PO DAILY 30 Days #30 tab 10/03/17 [Rx] Atenolol 100 mg PO DAILY 12/25/17 [History] Albuterol Inhaler [Ventolin Hfa Inhaler] 2 puff INHALATION RT-QID PRN puff [Rx] Ibuprofen [Motrin] 400 mg PO Q6HR PRN tab 01/02/18 [Rx] Melatonin 3 mg PO HS #28 tablet 01/02/18 [Rx] Venlafaxine HCl ER [Effexor XR] 150 mg PO HS #14 cap.er.24h 01/02/18 [Rx] Follow up Appointment(s)/Referral(s): intake,intake [Other] - 01/04/18 11:00 am Angelica Cardenas DO [Doctor of Osteopathic Medicine] - 1 Week Caterina Chand MD [Primary Care Provider] - 1-2 days Patient Instructions/Handouts: Depression (DC), Suicide Prevention for Adults ( DC) Activity/Diet/Wound Care/Special Instructions: Activity and diet as tolerated. Avoid the use of street drugs and alcohol. Remove all firearms from the home. Take all medications as prescribed. Follow up with your Primary Care Physician in one to two days. When you are in need of refills on your medications please contact your medical provider and/or your outpatient psychiatrist to have this done. Please go to the scheduled outpatient appointment for aftercare. If symptoms return or become worse call the crisis line and/ or go the nearest emergency room for an evaluation. l Discharge Disposition: HOME SELF-CARE
== END 2018-01-02 12:59 | disposition home or self-care (01) | DRG 897 ==
LOC: EC 10:17 → 3MHU 13:31
PROVIDERS: ADMIT Psychiatry & Neurology Psychiatry; ATTEND Psychiatry & Neurology Psychiatry
DX: F10.24 Alcohol dependence with alcohol-induced mood disorder (principal); R45.851 Suicidal ideations; E87.1 Hypo-osmolality and hyponatremia; F10.239 Alcohol dependence with withdrawal, unspecified; F32.9 Major depressive disorder, single episode, unspecified; F41.9 Anxiety disorder, unspecified; J45.909 Unspecified asthma, uncomplicated; I10 Essential (primary) hypertension; R26.2 Difficulty in walking, not elsewhere classified; D64.9 Anemia, unspecified; M54.5 Low back pain; R35.0 Frequency of micturition; M19.91 Primary osteoarthritis, unspecified site; F17.200 Nicotine dependence, unspecified, uncomplicated; Z91.19 Patient's noncompliance with other medical treatment and regimen; Z79.899 Other long term (current) drug therapy; Z96.652 Presence of left artificial knee joint; Z90.49 Acquired absence of other specified parts of digestive tract; Z82.49 Family history of ischemic heart disease and other diseases of the circulatory system
CPT/HCPCS: 80053; 80061; 80306; 81003; 82075; 83036; 84443; 85025; 94640; 99285

== ENCOUNTER → 2019-02-25 | Outpatient (CLI) | payer OTHER ==
[2019-02-25 09:02] LABS: Basophils % (A) 0 %; Eosinophils # (A) 0.4 k/uL (0-0.7); Eosinophils % (A) 9 %; HCT 39.5 % (39.0-53.0); HGB 12.4 gm/dL (13.0-17.5); Hypochromasia Slight; Lymphocytes # (A) 1.6 k/uL (1.0-4.8); Lymphocytes % (A) 36 %; MCH 30.3 pg (25.0-35.0); MCHC 31.4 g/dL (31.0-37.0); MCV 96.5 fL (80.0-100.0); Mean Platelet Volume 6.6; Monocytes # (A) 0.3 k/uL (0-1.0); Monocytes % (A) 7 %; Neutrophils # (A) 2.1 k/uL (1.3-7.7); Neutrophils % (A) 45 %; Platelet Count 265 k/uL (150-450); RDW 13.5 % (11.5-15.5); WBC 4.5 k/uL (3.8-10.6)
== END | disposition home or self-care (01) ==
LOC: LABWHC1 08:08
PROVIDERS: ATTEND Psychiatry & Neurology Neurology
DX: N18.9 Chronic kidney disease, unspecified (principal); D63.1 Anemia in chronic kidney disease
CPT/HCPCS: 36415; 85025

== ENCOUNTER 2019-05-14 15:52 | Inpatient (IN) | payer MEDICAID, OTHER ==
--- NOTE | 2019-05-14 22:04 | ED ---
Psych HPI - General Chief Complaint: Psychiatric Symptoms Stated Complaint: Suicidal Time Seen by Provider: 05/14/19 16:10 Source: patient Mode of arrival: ambulatory - History of Present Illness Initial Comments: 63-year-old male presenting today for chief complaint of increasing depression. Patient states a week ago he took a handful of trazodone and attempt to commit suicide he states he took 15-20 150mg tablets. he states he was sleepy but denies any other associated symptoms. Denies vomiting, diarrhea. He states that again today he has had suicidal ideations but denies attempt stating he was wanting to jump off the [address] into the cold water in order to end his life. He is taking any medications to overdose today. Denies any attempt today. Patient denies any other complaints. Patient denies any recent fever, chills, shortness of breath, chest pain, back pain, abdominal pain, nausea or vomiting, numbness or tingling, dysuria or hematuria, constipation or diarrhea, headaches or visual changes, or any other complaints. - Related Data Home Medications Medication Instructions Recorded Confirmed Montelukast [Singulair] 10 mg PO DAILY 05/14/19 05/14/19 Naltrexone HCl [Revia] 50 mg PO DAILY 05/14/19 05/14/19 traZODone HCL 50 mg PO HS 05/14/19 05/14/19 Previous Rx's Medication Instructions Recorded amLODIPine [Norvasc] 10 mg PO DAILY 30 Days #30 tab 10/03/17 Albuterol Inhaler [Ventolin Hfa 2 puff INHALATION RT-QID PRN puff 01/02/18 Inhaler] Venlafaxine HCl ER [Effexor XR] 150 mg PO HS #14 cap.er.24h 01/02/18 Allergies Allergy/AdvReac Type Severity Reaction Status Date / Time No Known Allergies Allergy Verified 05/14/19 22:55 Review of Systems ROS Statement: Those systems with pertinent positive or pertinent negative responses have been documented in the HPI. ROS Other: All systems not noted in ROS Statement are negative. Past Medical History Past Medical History: Asthma, Hypertension, Osteoarthritis (OA) History of Any Multi-Drug Resistant Organisms: None Reported Past Surgical History: Appendectomy, Joint Replacement Additional Past Surgical History / Comment(s): left knee replacement, ORIF rt ankle Past Anesthesia/Blood Transfusion Reactions: No Reported Reaction Past Psychological History: Anxiety, Depression Smoking Status: Former smoker Past Alcohol Use History: Abuse, Daily, Heavy Past Drug Use History: None Reported - Past Family History Mother Family Medical History: No Reported History Additional Family Medical History / Comment(s): . Father Family Medical History: Hypertension Additional Family Medical History / Comment(s): Father is alive at age 90 with history of hypertension. Brother(s) Additional Family Medical History / Comment(s): . General Exam - General Exam Comments Initial Comments: General: The patient is awake and alert, in no distress, and does not appear acutely ill. Eye: +3 mm pupils are equal, round and reactive to light, extra-ocular movements are intact. No nystagmus. There is normal conjunctiva bilaterally. No signs of icterus. Ears, nose, mouth and throat: There are moist mucous membranes and no oral lesions. Neck: The neck is supple, there is no tenderness or JVD. Cardiovascular: There is a regular rate and rhythm. No murmur, rub or gallop is appreciated. Respiratory: Lungs are clear to auscultation, respirations are non-labored, breath sounds are equal. No wheezes, stridor, rales, or rhonchi. Gastrointestinal: Soft, non-distended, non-tender abdomen without masses or organomegaly noted. There is no rebound or guarding present. Musculoskeletal: Normal ROM, no tenderness. Strength 5/5. Sensation intact. Pulses equal bilaterally 2+. Neurological: A&O x 3. CN II-XII intact grossly, There are no obvious motor or sensory deficits. Coordination appears grossly intact. Speech is normal. Skin: Skin is warm and dry and no rashes or lesions are noted. Psychiatric: Flat affect, tearful Limitations: no limitations Course Vital Signs 05/14/19 05/14/19 16:01 20:17 Temperature 97.6 F 98.4 F Pulse Rate 84 75 Respiratory 18 18 Rate Blood Pressure 121/76 108/69 O2 Sat by Pulse 96 98 Oximetry Medical Decision Making - Medical Decision Making 63-year-old male presenting today for chief complaint of suicidal ideation. Attempt last week with overdose of trazodone. Patient's EKG unremarkable. Patient appears well no current complaints. Did not take any medications in attempt of overdose since last week. Patient denies homicidal ideation. Patient appears well however is flat in affect tearful. Once patient sober he was evaluated by EPS, recommended admission. Patient voluntarily signed in. Labs pending upon admission. Ventricular rate 75 bpm, NH interval 176 ms, QRS taoism 76 ms, QT/QTc 406/453 ms. This is normal sinus no QT prolongation no ST elevation or depression. Disposition Clinical Impression: Depression, Planning to commit suicide Disposition: ADMITTED IP TO THIS HOSP Condition: Serious Is patient prescribed a controlled substance at d/c from ED?: No Time of Disposition: 23:52 Decision to Admit Reason: Admit from EC Decision Date: 05/14/19 Decision Time: 23:52
[2019-05-14] MEDS ORDERED: MAG HYDROX/AL HYDROX/SIMETH 30 ML CUP PO PRN (22:53)
[2019-05-14] MEDS ORDERED: MAGNESIUM HYDROXIDE 2,400 MG/10 ML CUP PO PRN (22:53)
[2019-05-14] MEDS ORDERED: LORazepam 1 MG TAB PO PRN (23:00)
[2019-05-14] MEDS ORDERED: ZIPRASIDONE 20 MG VIAL IM PRN (23:00)
[2019-05-15] MEDS ORDERED: ACETAMINOPHEN TAB 325 MG TAB PO PRN
[2019-05-15] MEDS: ALBUTEROL INHALER 60 PUFF/8 GM INHALER INHALATION PRN (00:28)
[2019-05-15 08:09] LABS: Cholesterol 183 mg/dL (<200); Triglycerides 41 mg/dL (<150)
[2019-05-15 08:16] LABS: LDL Cholesterol,Calculated 58 mg/dL (0-99)
[2019-05-15 08:30] LABS: HDL Cholesterol 117 mg/dL (40-60)
[2019-05-15] MEDS: ATENOLOL 50 MG TAB PO SCH (08:56)
[2019-05-15] MEDS: amLODIPine 10 MG TAB PO SCH (08:57)
--- NOTE | 2019-05-15 09:44 | P.CONS ---
History of Present Illness - History of Present Illness This is a pleasant 63 years old -Finnish male with past medical history of asthma on inhaler, hypertension on Norvasc and atenolol, previous smoker, every day alcohol drinking as he drinking fifth of liquor every day and last drink was 1 day prior to coming to the hospital. He admitted with depression and suicidal ideation. Medical consult has been requested for medical management. Patient denies any symptoms. He denies headache, no weakness, no chest pain, no dyspnea. No change in urine or bowel habits. No fever. Vitals are stable. Lipid profile is within normal limits. Review of Systems CONSTITUTIONAL: No fever, no malaise, no fatigue. HEENT: No recent visual problems or hearing problems. Denied any sore throat. CARDIOVASCULAR: No orthopnea, PND, no palpitations, no syncope. PULMONARY: No shortness of breath, no cough, no hemoptysis. GASTROINTESTINAL: No diarrhea, no nausea, no vomiting, no abdominal pain. Normoactive bowel sounds. NEUROLOGICAL: No headaches, no weakness, no numbness. HEMATOLOGICAL: Denies any bleeding or petechiae. GENITOURINARY: Denies any burning micturition, frequency, or urgency. MUSCULOSKELETAL/RHEUMATOLOGICAL: Denies any joint pain, swelling, or any muscle pain. ENDOCRINE: Denies any polyuria or polydipsia. Past Medical History Past Medical History: Asthma, Hypertension, Osteoarthritis (OA) History of Any Multi-Drug Resistant Organisms: None Reported Past Surgical History: Appendectomy, Joint Replacement Additional Past Surgical History / Comment(s): left knee replacement, ORIF rt ankle Past Anesthesia/Blood Transfusion Reactions: No Reported Reaction Past Psychological History: Anxiety, Depression Smoking Status: Former smoker Past Alcohol Use History: Abuse, Daily, Heavy Past Drug Use History: None Reported - Past Family History Mother Family Medical History: No Reported History Additional Family Medical History / Comment(s): . Father Family Medical History: Hypertension Additional Family Medical History / Comment(s): Father is alive at age 90 with history of hypertension. Brother(s) Additional Family Medical History / Comment(s): . Medications and Allergies Home Medications Medication Instructions Recorded Confirmed Type amLODIPine [Norvasc] 10 mg PO DAILY 30 Days #30 tab 10/03/17 05/14/19 Rx Albuterol Inhaler [Ventolin Hfa 2 puff INHALATION RT-QID PRN puff 01/02/18 05/14/19 Rx Inhaler] Venlafaxine HCl ER [Effexor XR] 150 mg PO HS #14 cap.er.24h 01/02/18 05/14/19 Rx Montelukast [Singulair] 10 mg PO DAILY 05/14/19 05/14/19 History Naltrexone HCl [Revia] 50 mg PO DAILY 05/14/19 05/14/19 History traZODone HCL 50 mg PO HS 05/14/19 05/14/19 History Allergies Allergy/AdvReac Type Severity Reaction Status Date / Time No Known Allergies Allergy Verified 05/14/19 22:55 Physical Exam Vitals: Vital Signs Temp Pulse Pulse Resp BP BP BP 05/15/19 08:58 89 16 107/70 05/15/19 00:17 98.6 F 83 16 122/87 05/14/19 20:17 98.4 F 75 18 108/69 05/14/19 16:01 97.6 F 84 18 121/76 Pulse Ox 05/15/19 08:58 05/15/19 00:17 100 05/14/19 20:17 98 05/14/19 16:01 96 Intake and Output 05/14/19 05/15/19 05/15/19 22:59 06:59 14:59 Other: Weight 90.718 kg 95.708 kg GENERAL: The patient is alert and oriented x3, not in any acute distress. Well developed, well nourished. HEENT: Pupils are round and equally reacting to light. EOMI. No scleral icterus. No conjunctival pallor. Normocephalic, atraumatic. No pharyngeal erythema. No thyromegaly. CARDIOVASCULAR: S1 and S2 present. No murmurs, rubs, or gallops. PULMONARY: Chest is clear to auscultation, no wheezing or crackles. ABDOMEN: Soft, nontender, nondistended, normoactive bowel sounds. No palpable organomegaly. MUSCULOSKELETAL: No joint swelling or deformity. EXTREMITIES: No cyanosis, clubbing, or pedal edema. NEUROLOGICAL: Gross neurological examination did not reveal any focal deficits. SKIN: No rashes. No petechiae Results Labs: Abnormal Lab Results - Last 24 Hours (Table) 05/15/19 Range/Units 07:24 HDL Cholesterol 117 H (40-60) mg/dL Assessment and Plan Assessment: Depression, and suicidal ideation and other psychiatric illnesses. Management by per primary psychiatrist team Alcohol abuse and everyday drinking at-risk of fall, withdrawal. Hypertension Asthma, not an active issue. Plan: This is a pleasant 63 years old male admitted for psych unit for some suicidal ideation. Continue with antihypertensive medication, continue with a bronchodilator, place the patient on CIWA protocol and start vitamins, discussed with staff Labs and medication were reviewed.. Continue same treatment. Continue with symptomatic treatment. Resume home medication. Monitor lytes and vitals. DVT and GI prophylaxis. Further recommendations of the clinical course of the patient DVT prophylaxis: The risk, no need for anticoagulation. Patient is mobile GI Prophylaxis: Pepcid Prognosis is guarded Patient was instructed to follow up with his PCP in one week after discharge and he agrees Thank you for consulting us, we will see the patient on as-needed basis
[2019-05-15] MEDS: FAMOTIDINE 20 MG TAB PO SCH (11:26)
[2019-05-15] MEDS: FOLIC ACID 1 MG TAB PO SCH (11:26)
[2019-05-15] MEDS: THIAMINE 100 MG TAB PO SCH (11:26)
--- NOTE | 2019-05-15 11:53 | P.HP ---
Psychiatric H&P - . H&P Date: 05/15/19 History & Physical: IDENTIFYING Data: Russell Arora is a 63-year-old -Maltese male who currently lives by himself, unemployed on SSI, has psychiatric history of depression and alcohol use disorder, and medical history of hypertension and asthma. The patient has been admitted to our inpatient psychiatric services after been transferred from [facility] emergency department. Patient was initially brought in to emergency department by himself due to severe depression and suicidal ideation with a plan. The patient has been admitted on voluntary basis to our service. CHIEF COMPLAINT: "I was feeling suicidal." HISTORY OF PRESENT ILLNESS: The patient was self-referred to emergency department with the chief complaint of increasing depression and suicidal ideation. He reports suicidal attempt Ervin night that he tried to overdose on trazodone and to about 15-20 of 150 mg tablets. He states he was sleepy but denies any other associated symptoms. Reports continued to have suicidal ideation and continued to have a plan to jump off the [address] into the cold water in order to end his life. During psychiatric evaluation today, the patient reports continued to feel depressed but minimizes suicidal thoughts. He admits for suicidal ideation and attempt before coming to the hospital. Reports has been suffering from depression for the past 5-10 years which is started relationship to financial pr oblems and he couldn't work or function due to physical disability "back problem". Patient reports worsening of depression symptoms over the past 3 weeks in context of financial problems and couldn't have his driving license. Patient reports feeling depressed for most of the time and most of the days, lack of motivation, poor energy, sleep problems including putting get to sleep and wakes up frequently, decreased appetite, sometimes feeling hopeless, helpless, and useless. Patient reports hearing voices telling him that his worthless and to hurt himself. He denies any visual hallucinations, paranoid ideation, and no delusions could be elicited. Patient denies any current or history of manic symptoms including euphoric mood, grandiosity, unusual increased energy, or irrational behavior. He states suffering from anxiety for most of his life and for most of the time he has been feeling extremely anxious, racing thoughts, and not able to relax. He describes social anxiety being around people triggers his anxiety and that what triggered him to relapse on drinking alcohol 2 weeks ago. Reports history of panic attacks but states last time was about a month ago and they are not frequent. Denies any history of nightmares or flashbacks, and he denies any previous psychological traumas. Denies any history of self-injurious behavior. PAST PSYCHIATRIC HISTORY: Previous diagnoses: Depression, alcohol use disorder Previous psychiatric hospitalizations:multiple previous psychiatric hospitalizations, last time was at this unit in December 2017. Previous suicide attempts: Denies any previous suicidal attempts. Previous outpatient psychiatric treatment: Currently connected with [facility], and last time was seen by psychiatrist more than a month ago. He receives both medication management service and counseling. Current psychiatric medications: Effexor XR 150 mg daily, trazodone 150 mg at bedtime Previous medication trials: Prozac, Zoloft, Wellbutrin, Cymbalta "caused him to feel more depressed", Seroquel "was only to help was asleep". SUBSTANCE ABUSE HISTORY: Nicotine: Quit smoking 2003. Alcohol: Started to drink at age 12. Relapse it on alcohol drinking 2 weeks ago after few month of sobriety. Reports previous intermittent sobriety with the longest was 9 months ago "it was long time ago". Since he relapses on alcohol drinking and he is drinking about 1/5 daily, with the last time was yesterday. Denies any history of severe alcohol withdrawal symptoms including seizures or DTs, but admits for withdrawal tremors. Reports history of intoxication, blackouts, DUIs, and multiple inpatient treatment for alcohol use disorder. Last time was in treatment was one month ago at [place]. Denies smoking marijuana. Admitted for remote history of smoking crack cocaine with the last time was 10 years ago. Denies any history of IV drug use. Social History: Patient was born in [facility] and raised up by by both parents. Housing: Currently lives by himself in his own home. The patient is currently for more than 20 years. Work history: Unemployed, last time was able to work 2006. Education: Patient reports attaining an educational level of associate degree. Children: Patient reports having 2 adult children. Legal history: History of being arrested which is related to alcohol use and DUI charges History of psychological trauma: Denies FAMILY HISTORY: Denies any family history of mental illness, alcohol use disorder, addiction problem, or suicide. Medical History: Asthma, hypertension MENTAL STATUS EVALUATION: Appearance: Appears stated age, poorly groomed, average body built, and no specific features. Gait/ posture: Steady gait, normal arm swinging, no abnormal movements, with relaxed posture. Attitude and Behavior: Cooperative, related to the interviewer in socially accepted manner, fair eye contact during course of interview. Motor Activity: Normal psychomotor activity. Speech: spontaneous, normal rate, rhythm, and articulation. normal volume. not pressured. Language: Articulating, naming objects and repeat phrases. Mood: Depressed Affect: Restricted. Thought process: Linear, goal-directed. Association: Intact. Thought content: No delusions, Reports intermittent suicidal thoughts, Denies homicidal thoughts, Denies current intentions, or plans. Perception: Reports AH. Alertness: No impairment. Orientation: Oriented to time, place, person and situation. Insight regarding psychiatric condition: fair Judgment regarding daily activities and social situation: fair Impulse control: fair Strengths: Housing. Stable general medical condition. Access treatment. Challenges: Poor compliance with treatment. Relapses on alcohol. Allergies Allergy/AdvReac Type Severity Reaction Status Date / Time No Known Allergies Allergy Verified 05/14/19 22:55 Vital Signs Temp 98.6 F 05/15/19 00:17 Pulse 89 05/15/19 08:58 Resp 16 05/15/19 08:58 BP 107/70 05/15/19 08:58 Pulse Ox 100 05/15/19 00:17 Intake & Output 05/14/19 05/15/19 05/15/19 18:59 06:59 18:59 Weight 90.718 kg 95.708 kg Review of Lab results: Laboratory Last Values Triglycerides 41 mg/dL (<150) 05/15/19 07:24 Cholesterol 183 mg/dL (<200) 05/15/19 07:24 LDL Cholesterol, Calc 58 mg/dL (0-99) 05/15/19 07:24 HDL Cholesterol 117 mg/dL (40-60) H 05/15/19 07:24 Formulation/Summary: Events the patient denies family history of mental illness and alcohol use disorder, but he has other biological factors contributing to his presentation including alcohol drinking. Current precipitating factors include: Poor compliance with treatment Perpetuating factors: Financial stressors Protective biological factors: Future oriented, wanting to get better Assessment: Major depressive disorder, recurrent, severe with psychotic features. Alcohol use disorder, severe. Rule out alcohol withdrawal. Rule out generalized anxiety disorder. Rule out social anxiety. TREATMENT PLAN/RECOMMENDATIONS: Medical Decision making: The patient presented with severe depression, suicidal ideation, and reported recent suicidal attempt a few days ago. The patient at high risk to hurt himself if he is not in the inpatient setting. The patient's psychiatric symptoms are not stable and he needs further management of psychiatric medications and further planning for discharge. Therefore, inpatient level of care is needed. Continue the patient inpatient for safety. Continue the patient under 15 minutes safe check for safety. The patient will also be provided with individual therapy, group therapy, substance abuse counseling, gain insight, and coping skills. Consider medical consultation if any acute medical issue arise. Medications: Continue Effexor XR which is his home medication but increase the dose to 225 mg daily for depression and anxiety symptoms. Start Abilify 2 mg daily to augment antidepressant effect. Start Remeron 15 mg at bedtime to help with insomnia and for depression/anxiety symptoms. CIWA monitoring for alcohol withdrawal symptoms and consider Ativan when necessary for severe withdrawal Prognosis is guarded , considering the patient long history of alcohol use disorder and multiple relapses and not able to maintain sobriety in the past for more than 9 months. Prognosis could be fair contingent on patient has been compliant with his medications and has been followed up closely with outpatient mental health provider after discharge. The patient will be assessed on daily basis for his depression, suicidal ideation, and will be discharged back to his outpatient mental health provider upon stabilization. EXPECTED LENGTH OF STAY: 5-7 days.
[2019-05-15] MEDS: VENLAFAXINE HCL ER 75 MG CAP PO SCH (13:44)
[2019-05-15] MEDS: ARIPiprazole 2 MG TAB PO SCH (13:44)
[2019-05-15] MEDS: MIRTAZAPINE 15 MG TAB PO SCH (21:01)
[2019-05-16] MEDS: ARIPiprazole 2 MG TAB PO SCH (09:41)
[2019-05-16] MEDS: FAMOTIDINE 20 MG TAB PO SCH (09:41)
[2019-05-16] MEDS: FOLIC ACID 1 MG TAB PO SCH (09:41)
[2019-05-16] MEDS: amLODIPine 10 MG TAB PO SCH (09:41)
[2019-05-16] MEDS: ATENOLOL 50 MG TAB PO SCH (09:41)
[2019-05-16] MEDS: THIAMINE 100 MG TAB PO SCH (09:41)
[2019-05-16] MEDS: VENLAFAXINE HCL ER 75 MG CAP PO SCH (09:42)
[2019-05-16 10:24] LABS: Hemoglobin A1C 4.4 % (4.0-6.0)
--- NOTE | 2019-05-16 13:31 | P.PN ---
Progress Note - Text Progress Note Date: 05/16/19 Chief complaint: "I feel some improvement " Subjective: The patient has been seen today as follow-up, chart reviewed, case discussed with the treatment team. Patient slept about 4-5 hours last night. Patient has been going to groups and other unit activities. Patient reports better appetite. Patient minimizes feeling hopeless and denies suicidal ideation. He reports improvement of his depression and minimizes feeling overwhelmed and distressed. Patient denies alcohol withdrawal symptoms. He reports still feeling anxious but denies panic attacks. The patient is compliant with his medications and denies any adverse reactions. The patient denies any manic symptoms including sustained period of time with elevated or irritable mood, impulsive or irrational behavior, inflated self- esteem, or absence need to sleep due to increases goal-directed activities. The patient denies any auditory or visual hallucinations. Also the patient denies any paranoid ideation. Review of other systems: No breathing problems, no chest pain reported today. Objective: Vitals has been reviewed. MENTAL STATUS EVALUATION: Appearance: Appears stated age, fairly groomed, average body built, and no specific features. Gait/ posture: Steady gait, normal arm swinging, no abnormal movements, with relaxed posture. Attitude and Behavior: Cooperative, related to the interviewer in socially accepted manner, fair eye contact during course of interview. Motor Activity: Normal psychomotor activity. Speech: spontaneous, normal rate, rhythm, and articulation. normal volume. not pressured. Mood: Depressed, anxious. Affect: Restricted. Thought process: Linear, goal-directed. Association: Intact. Thought content: No delusions, denies suicidal thoughts, Denies homicidal thoughts, Denies current intentions, or plans. Perception: Denies any current auditory or visual hallucinations Alertness: No impairment. Orientation: Oriented to time, place, person and situation. Insight regarding psychiatric condition: fair Judgment regarding daily activities and social situation: fair Impulse control: fair Assessment: Major depressive disorder, recurrent, severe with psychotic features. Alcohol use disorder, severe. Rule out alcohol withdrawal. Rule out generalized anxiety disorder. Rule out social anxiety. Plan: Continue inpatient level of care due to need for further stabilization, and he still meet criteria for inpatient hospitalization. Precautions: Continue 15 minutes check for safety. Consider medical consultation if any acute medical issues arise. Provide the patient individual, group therapy, substance use disorder counseling to give better insight and learn coping skills. Medications: Continue Effexor XR 225 mg daily for depression and anxiety symptoms. Continue Abilify 2 mg daily to augment antidepressant effect. Continue Remeron 15 mg at bedtime to help with insomnia and for depression/anxiety symptoms. Discharge patient to OUTPATIENT services upon a stabilization Prognosis: Slight improvement. Expected LOS: 4-6 days
[2019-05-16] MEDS: MIRTAZAPINE 15 MG TAB PO SCH (20:42)
[2019-05-17] MEDS: amLODIPine 10 MG TAB PO SCH (10:09)
[2019-05-17] MEDS: ARIPiprazole 2 MG TAB PO SCH (10:09)
[2019-05-17] MEDS: THIAMINE 100 MG TAB PO SCH (10:10)
[2019-05-17] MEDS: FAMOTIDINE 20 MG TAB PO SCH (10:10)
[2019-05-17] MEDS: ATENOLOL 50 MG TAB PO SCH (10:10)
[2019-05-17] MEDS: VENLAFAXINE HCL ER 75 MG CAP PO SCH (10:10)
[2019-05-17] MEDS: FOLIC ACID 1 MG TAB PO SCH (10:10)
[2019-05-17] MEDS: ALBUTEROL INHALER 60 PUFF/8 GM INHALER INHALATION PRN (13:59)
--- NOTE | 2019-05-17 14:58 | P.PN ---
Progress Note - Text Progress Note Date: 05/17/19 Chief complaint: "I am feeling better " Subjective: The patient has been seen today as follow-up, chart reviewed, case discussed with the treatment team. Patient continued to report improvement of his depression and feeling less depressed, denies feeling hopeless or suicidal. Patient reports still broken sleep and not feeling rested. Denies appetite problems. He reports going to groups and other unit activities. he denies severe anxiety or panic attacks. Denies alcohol withdrawal symptoms. Continued to take his medications and denies any adverse reactions. Denies any manic or psychotic symptoms. Review of other systems: No breathing problems, no chest pain reported today. Objective: Vitals has been reviewed. MENTAL STATUS EVALUATION: Appearance: Appears stated age, fairly groomed, average body built, and no specific features. Gait/ posture: Steady gait, normal arm swinging, no abnormal movements, with relaxed posture. Attitude and Behavior: Cooperative, related to the interviewer in socially accepted manner, fair eye contact during course of interview. Motor Activity: Normal psychomotor activity. Speech: spontaneous, normal rate, rhythm, and articulation. normal volume. not pressured. Mood: "fine". Affect: Restricted. Thought process: Linear, goal-directed. Association: Intact. Thought content: No delusions, denies suicidal thoughts, Denies homicidal thoughts, Denies current intentions, or plans. Perception: Denies any current auditory or visual hallucinations Alertness: No impairment. Orientation: Oriented to time, place, person and situation. Insight regarding psychiatric condition: fair Judgment regarding daily activities and social situation: fair Impulse control: fair Assessment: Major depressive disorder, recurrent, severe with psychotic features. Alcohol use disorder, severe. Rule out alcohol withdrawal. Rule out generalized anxiety disorder. Rule out social anxiety. Plan: Continue inpatient level of care due to need for further stabilization, and discharge planning Precautions: Continue 15 minutes check for safety. Consider medical consultation if any acute medical issues arise. Provide the patient individual, group therapy, substance use disorder counseling to give better insight and learn coping skills. Medications: Continue Effexor XR 225 mg daily for depression and anxiety symptoms. Continue Abilify 2 mg daily to augment antidepressant effect. Increase Remeron 22.5 mg at bedtime to help with insomnia and for depre ssion/anxiety symptoms. Start Melatonin 5 mg HS to help with insomnia Discharge patient to OUTPATIENT services upon a stabilization Prognosis: Improving Expected LOS:3-5 days
[2019-05-17] MEDS: MIRTAZAPINE 15 MG TAB PO SCH (20:50)
[2019-05-17] MEDS: MELATONIN 5 MG TABLET PO SCH (20:50)
[2019-05-18] MEDS: VENLAFAXINE HCL ER 75 MG CAP PO SCH (09:32)
[2019-05-18] MEDS: FAMOTIDINE 20 MG TAB PO SCH (09:32)
[2019-05-18] MEDS: ARIPiprazole 2 MG TAB PO SCH (09:32)
[2019-05-18] MEDS: amLODIPine 10 MG TAB PO SCH (09:32)
[2019-05-18] MEDS: FOLIC ACID 1 MG TAB PO SCH (09:32)
[2019-05-18] MEDS: THIAMINE 100 MG TAB PO SCH (09:32)
[2019-05-18] MEDS: ATENOLOL 50 MG TAB PO SCH (09:33)
[2019-05-18] MEDS: ALBUTEROL INHALER 60 PUFF/8 GM INHALER INHALATION PRN ×2 (11:09→20:53)
[2019-05-18 14:46] VITALS: BMI 26.4
--- NOTE | 2019-05-18 14:54 | P.PN ---
Progress Note - Text Progress Note Date: 05/18/19 Interval history: The patient has been seen today as follow-up, chart reviewed, case discussed w ith the treatment team. Patient reports feeling stable emotionally and he denies feeling depressed, hopeless, or suicidal. He denies severe anxiety or panic attacks and reports better control of his racing thoughts. Patient has been going to groups and actively participating and appropriately interacting with other peers and staff. He denies any manic or psychotic symptoms, reports good sleep with increasing the Remeron and adding melatonin, and denies any appetite problems. Patient has been taking his medications and denies any side effects. He denies any physical symptoms including increasing problem, chest pain, diarrhea, or burning urination. Objective: Vitals has been reviewed. MENTAL STATUS EVALUATION: Appearance: Appears stated age, fairly groomed, average body built, and no specific features. Gait/ posture: Steady gait, normal arm swinging, no abnormal movements, with relaxed posture. Attitude and Behavior: Cooperative, related to the interviewer in socially accepted manner, fair eye contact during course of interview. Motor Activity: Normal psychomotor activity. Speech: spontaneous, normal rate, rhythm, and articulation. normal volume. not pressured. Mood: "Good". Affect: Restricted. Thought process: Linear, goal-directed. Association: Intact. Thought content: No delusions, denies suicidal thoughts, Denies homicidal thoughts, Denies current intentions, or plans. Perception: Denies any current auditory or visual hallucinations Alertness: No impairment. Orientation: Oriented to time, place, person and situation. Insight regarding psychiatric condition: fair Judgment regarding daily activities and social situation: fair Impulse control: fair Assessment: Major depressive disorder, recurrent, severe with psychotic features. Alcohol use disorder, severe. Rule out alcohol withdrawal. Rule out generalized anxiety disorder. Rule out social anxiety. Plan: Continue inpatient level of care due to need for further stabilization, and discharge planning Precautions: Continue 15 minutes check for safety. Consider medical consultation if any acute medical issues arise. Provide the patient individual, group therapy, substance use disorder counseling to give better insight and learn coping skills. Medications: Continue Effexor XR 225 mg daily for depression and anxiety symptoms. Continue Abilify 2 mg daily to augment antidepressant effect. Continue Remeron 22.5 mg at bedtime to help with insomnia and for depression/anxiety symptoms. Continue Melatonin 5 mg HS to help with insomnia Discharge patient to OUTPATIENT services upon a stabilization Prognosis: Improving Expected LOS: 2-3 days
[2019-05-18] MEDS: MELATONIN 5 MG TABLET PO SCH (21:45)
[2019-05-18] MEDS: MIRTAZAPINE 15 MG TAB PO SCH (21:45)
[2019-05-19 06:49] VITALS: RESP 16
[2019-05-19] MEDS: THIAMINE 100 MG TAB PO SCH (09:41)
[2019-05-19] MEDS: FAMOTIDINE 20 MG TAB PO SCH (09:41)
[2019-05-19] MEDS: ARIPiprazole 2 MG TAB PO SCH (09:41)
[2019-05-19] MEDS: VENLAFAXINE HCL ER 75 MG CAP PO SCH (09:41)
[2019-05-19] MEDS: amLODIPine 10 MG TAB PO SCH (09:41)
[2019-05-19] MEDS: FOLIC ACID 1 MG TAB PO SCH (09:41)
[2019-05-19] MEDS: ATENOLOL 50 MG TAB PO SCH (09:42)
[2019-05-19] MEDS: ALBUTEROL INHALER 60 PUFF/8 GM INHALER INHALATION PRN (09:43)
--- NOTE | 2019-05-19 12:16 | P.PN ---
Progress Note - Text Progress Note Date: 05/19/19 Interval history: The patient has been seen today as follow-up, chart reviewed, case discussed with the treatment team. Patient reports continued to feel improvement of his depression which he described as "slightly depressed". He denies feeling hopeless, worthless, or suicidal. He denies mood swings, irritability, agitation, or homicidal ideation. Reports good sleep and appetite. Denies any hallucinations, paranoid ideation, and no delusions could be elicited. Patient takes his medications, and denies adverse reaction. He denies physical symptoms including chest pain, or shortness of breath. Reports feeling better sleep with adjusting Remeron dose. Objective: Vitals has been reviewed. MENTAL STATUS EVALUATION: Appearance: Appears stated age, fairly groomed, average body built, and no specific features. Gait/ posture: Steady gait, normal arm swinging, no abnormal movements, with relaxed posture. Attitude and Behavior: Cooperative, related to the interviewer in socially accepted manner, fair eye contact during course of interview. Motor Activity: Normal psychomotor activity. Speech: spontaneous, normal rate, rhythm, and articulation. normal volume. not pressured. Mood: "Fine". Affect: Restricted. Thought process: Linear, goal-directed. Association: Intact. Thought content: No delusions, denies suicidal thoughts, Denies homicidal thoughts, Denies current intentions, or plans. Perception: Denies any current auditory or visual hallucinations Alertness: No impairment. Orientation: Oriented to time, place, person and situation. Insight regarding psychiatric condition: fair Judgment regarding daily activities and social situation: fair Impulse control: fair Assessment: Major depressive disorder, recurrent, severe with psychotic features. Alcohol use disorder, severe. Rule out alcohol withdrawal. Rule out generalized anxiety disorder. Rule out social anxiety. Plan: Continue inpatient level of care due to need for further stabilization, and discharge planning Precautions: Continue 15 minutes check for safety. Consider medical consultation if any acute medical issues arise. Provide the patient individual, group therapy, substance use disorder counseling to give better insight and learn coping skills. Medications: Continue Effexor XR 225 mg daily for depression and anxiety symptoms. Continue Abilify 2 mg daily to augment antidepressant effect. Continue Remeron 22.5 mg at bedtime to help with insomnia and for depression/anxiety symptoms. Continue Melatonin 5 mg HS to help with insomnia Discharge patient to OUTPATIENT services upon a stabilization Prognosis: Improving Expected LOS: 1-2 days
[2019-05-19] MEDS: MELATONIN 5 MG TABLET PO SCH (20:17)
[2019-05-19] MEDS: MIRTAZAPINE 15 MG TAB PO SCH (20:18)
[2019-05-20] MEDS: FAMOTIDINE 20 MG TAB PO SCH (09:06)
[2019-05-20] MEDS: ATENOLOL 50 MG TAB PO SCH (09:06)
[2019-05-20] MEDS: amLODIPine 10 MG TAB PO SCH (09:06)
[2019-05-20] MEDS: ARIPiprazole 2 MG TAB PO SCH (09:06)
[2019-05-20] MEDS: VENLAFAXINE HCL ER 75 MG CAP PO SCH (09:07)
[2019-05-20] MEDS: FOLIC ACID 1 MG TAB PO SCH (09:07)
[2019-05-20] MEDS: THIAMINE 100 MG TAB PO SCH (09:07)
[2019-05-20] MEDS: ALBUTEROL INHALER 60 PUFF/8 GM INHALER INHALATION PRN (09:08)
--- NOTE | 2019-05-20 12:08 | P.PN ---
Subjective Progress Note Date: 05/20/19 The patient has been seen today as follow-up, chart reviewed, case discussed with the treatment team.He reports " I am not as depressed as I was''. Patient reports continued to feel improvement of his depression and anxiety. He denies any crying spells or panic attacks. He denies mood swings, irritability, agitation, suicidal or homicidal ideation. Reports fair sleep and appetite and complains of restless sleep and frequent awakening during the night. The patient also reports feeling tired and fatigued during the day. He reports lack of motivation and energy.He denies any auditory or visual hallucinations, paranoid ideation, or delusions. Patient takes his medications, and denies adverse reaction. He denies physical symptoms including chest pain, or shortness of breath. Reports feeling better sleep with adjusting Remeron dose. Objective - Vital Signs Vital signs: Vital Signs Temp 98.5 F 05/20/19 06:47 Pulse 62 05/20/19 06:47 Resp 16 05/20/19 06:47 BP 148/91 05/20/19 06:47 Pulse Ox 97 05/17/19 06:36 - Exam Objective: Vitals has been reviewed. MENTAL STATUS EVALUATION: Appearance: Appears stated age, fairly groomed, average body built, and no specific features. Gait/ posture: Steady gait, normal arm swinging, no abnormal movements, with relaxed posture. Attitude and Behavior: Cooperative, related to the interviewer in socially accepted manner, fair eye contact during course of interview. Motor Activity: Normal psychomotor activity. Speech: spontaneous, normal rate, rhythm, and articulation. normal volume. not pressured. Mood: "Fine". Affect: Restricted. Thought process: Linear, goal-directed. Association: Intact. Thought content: No delusions, denies suicidal thoughts, Denies homicidal thoughts, Denies current intentions, or plans. Perception: Denies any current auditory or visual hallucinations Alertness: No impairment. Orientation: Oriented to time, place, person and situation. Insight regarding psychiatric condition: fair Judgment regarding daily activities and social situation: fair Impulse control: fair Assessment and Plan Assessment: Assessment: Major depressive disorder, recurrent, severe with psychotic features. Alcohol use disorder, severe. Rule out alcohol withdrawal. Rule out generalized anxiety disorder. Rule out social anxiety. Plan: Plan: 1:1 support and psychotherapy. Continue inpatient level of care due to need for further stabilization, and discharge planning Precautions: Continue 15 minutes check for safety. Consider medical consultation if any acute medical issues arise. Provide the patient individual, group therapy, substance use disorder counseling to give better insight and learn coping skills. Medications: Continue Effexor XR 225 mg daily for depression and anxiety symptoms. Continue Abilify 2 mg daily to augment antidepressant effect. Continue Remeron 22.5 mg at bedtime to help with insomnia and for depr ession/anxiety symptoms. Increase Melatonin 10 mg HS to help with insomnia Discharge patient to OUTPATIENT services upon a stabilization Prognosis: Improving Expected LOS: 1-2 days
[2019-05-20] MEDS: MIRTAZAPINE 15 MG TAB PO SCH (21:23)
[2019-05-20] MEDS: MELATONIN 3 MG TABLET PO SCH (21:23)
[2019-05-21] MEDS: ARIPiprazole 2 MG TAB PO SCH (08:35)
[2019-05-21] MEDS: FOLIC ACID 1 MG TAB PO SCH (08:35)
[2019-05-21] MEDS: FAMOTIDINE 20 MG TAB PO SCH (08:35)
[2019-05-21] MEDS: THIAMINE 100 MG TAB PO SCH (08:35)
[2019-05-21] MEDS: ATENOLOL 50 MG TAB PO SCH (08:35)
[2019-05-21] MEDS: VENLAFAXINE HCL ER 75 MG CAP PO SCH (08:35)
[2019-05-21] MEDS: amLODIPine 10 MG TAB PO SCH (08:36)
--- NOTE | 2019-05-21 10:58 | P.PN ---
Subjective Progress Note Date: 05/21/19 The patient has been seen today as follow-up, chart reviewed, case discussed with the treatment team.He reports " I am still depressed''. Patient reports continued to report slow improvement of his depression and anxiety. He denies any crying spells or panic attacks. He denies mood swings, irritability, a gitation, suicidal or homicidal ideation. Reports fair sleep and appetite and complains of restless sleep and frequent awakening during the night. The patient has been visible and active on the unit and attends all immediate therapy. The patient still reports feeling tired and fatigued during the day. He reports lack of motivation and energy. He denies any auditory or visual hallucinations, paranoid ideation, or delusions. Patient takes his medications, and denies adverse reaction. He denies physical symptoms including chest pain, or shortness of breath. Objective - Vital Signs Vital signs: Vital Signs Temp 98.2 F 05/21/19 06:29 Pulse 96 05/21/19 08:37 Resp 16 05/21/19 06:29 BP 129/75 05/21/19 08:37 Pulse Ox 97 05/17/19 06:36 - Exam Objective: Vitals has been reviewed. MENTAL STATUS EVALUATION: Appearance: Appears stated age, fairly groomed, average body built, and no specific features. Gait/ posture: Steady gait, normal arm swinging, no abnormal movements, with relaxed posture. Attitude and Behavior: Cooperative, related to the interviewer in socially accepted manner, fair eye contact during course of interview. Motor Activity: Normal psychomotor activity. Speech: spontaneous, normal rate, rhythm, and articulation. normal volume. not pressured. Mood: "Fine". Affect: Restricted. Thought process: Linear, goal-directed. Association: Intact. Thought content: No delusions, denies suicidal thoughts, Denies homicidal thoughts, Denies current intentions, or plans. Perception: Denies any current auditory or visual hallucinations Alertness: No impairment. Orientation: Oriented to time, place, person and situation. Insight regarding psychiatric condition: fair Judgment regarding daily activities and social situation: fair Impulse control: fair Assessment and Plan Assessment: Assessment: Major depressive disorder, recurrent, severe with psychotic features. Alcohol use disorder, severe. Rule out alcohol withdrawal. Rule out generalized anxiety disorder. Rule out social anxiety. Plan: Plan: 1:1 support and psychotherapy. Continue inpatient level of care due to need for further stabilization, and discharge planning Precautions: Continue 15 minutes check for safety. Consider medical consultation if any acute medical issues arise. Provide the patient individual, group therapy, substance use disorder counseling to give better insight and learn coping skills. Medications: Continue Effexor XR 225 mg daily for depression and anxiety symptoms. Continue Abilify 2 mg daily to augment antidepressant effect. Continue Remeron 22.5 mg at bedtime to help with insomnia and for depression/anxiety symptoms. Continue Melatonin 6 mg HS to help with insomnia Discharge patient to OUTPATIENT services upon a stabilization Prognosis: Improving Expected LOS: 1-2 days
[2019-05-21] MEDS: MIRTAZAPINE 15 MG TAB PO SCH (20:43)
[2019-05-21] MEDS: MELATONIN 3 MG TABLET PO SCH (20:43)
[2019-05-22] MEDS: FOLIC ACID 1 MG TAB PO SCH (08:32)
[2019-05-22] MEDS: amLODIPine 10 MG TAB PO SCH (08:32)
[2019-05-22] MEDS: ATENOLOL 50 MG TAB PO SCH (08:32)
[2019-05-22] MEDS: ARIPiprazole 2 MG TAB PO SCH (08:32)
[2019-05-22] MEDS: FAMOTIDINE 20 MG TAB PO SCH (08:32)
[2019-05-22] MEDS: VENLAFAXINE HCL ER 75 MG CAP PO SCH (08:33)
[2019-05-22] MEDS: THIAMINE 100 MG TAB PO SCH (08:33)
[2019-05-22] MEDS: ALBUTEROL INHALER 60 PUFF/8 GM INHALER INHALATION PRN ×2 (11:03→20:45)
--- NOTE | 2019-05-22 14:43 | P.PN ---
Subjective Progress Note Date: 05/22/19 The patient has been seen today as follow-up, chart reviewed, case discussed with the treatment team.He reports " I am doing much better today''. Patient reports improvement of his depression and anxiety. He denies any crying spells or panic attacks. He denies mood swings, irritability, agitation, suicidal or homicidal ideation. Reports fair sleep and appetite and appetite. The patient has been visible and active on the unit and attends all immediate therapy. The patient still reports feeling improved motivation and energy. He reports lack of motivation and energy. He denies any auditory or visual hallucinations, paranoid ideation, or delusions. Patient takes his medications, and denies adverse reaction. He denies physical symptoms including chest pain, or shortness of breath. Objective - Vital Signs Vital signs: Vital Signs Temp 97.8 F 05/22/19 06:19 Pulse 65 05/22/19 06:19 Resp 16 05/22/19 06:19 BP 147/91 05/22/19 06:19 Pulse Ox 97 05/17/19 06:36 - Exam Objective: Vitals has been reviewed. MENTAL STATUS EVALUATION: Appearance: Appears stated age, fairly groomed, average body built, and no specific features. Gait/ posture: Steady gait, normal arm swinging, no abnormal movements, with relaxed posture. Attitude and Behavior: Cooperative, related to the interviewer in socially accepted manner, fair eye contact during course of interview. Motor Activity: Normal psychomotor activity. Speech: spontaneous, normal rate, rhythm, and articulation. normal volume. not pressured. Mood: "I am doing good today". Affect: Restricted. Thought process: Linear, goal-directed. Association: Intact. Thought content: No delusions, denies suicidal thoughts, Denies homicidal thoughts, Denies current intentions, or plans. Perception: Denies any current auditory or visual hallucinations Alertness: No impairment. Orientation: Oriented to time, place, person and situation. Insight regarding psychiatric condition: fair Judgment regarding daily activities and social situation: fair Impulse control: fair Assessment and Plan Assessment: Assessment: Major depressive disorder, recurrent, severe with psychotic features. Alcohol use disorder, severe. Rule out alcohol withdrawal. Rule out generalized anxiety disorder. Rule out social anxiety. Plan: Plan: 1:1 support and psychotherapy. Continue inpatient level of care due to need for further stabilization, and discharge planning Precautions: Continue 15 minutes check for safety. Consider medical consultation if any acute medical issues arise. Provide the patient individual, group therapy, substance use disorder counseling to give better insight and learn coping skills. Medications: Continue Effexor XR 225 mg daily for depression and anxiety symptoms. Continue Abilify 2 mg daily to augment antidepressant effect. Continue Remeron 22.5 mg at bedtime to help with insomnia and for depression/anxiety symptoms. Continue Melatonin 6 mg HS to help with insomnia Discharge patient to OUTPATIENT services upon a stabilization Prognosis: Improving Expected LOS: 1-2 days
[2019-05-22] MEDS: MIRTAZAPINE 15 MG TAB PO SCH (20:44)
[2019-05-22] MEDS: MELATONIN 3 MG TABLET PO SCH (20:44)
[2019-05-23 07:00] VITALS: BP 161/94; PULSE 79; TEMP 98.2
[2019-05-23] MEDS: VENLAFAXINE HCL ER 75 MG CAP PO SCH (08:20)
[2019-05-23] MEDS: THIAMINE 100 MG TAB PO SCH (08:20)
[2019-05-23] MEDS: FAMOTIDINE 20 MG TAB PO SCH (08:20)
[2019-05-23] MEDS: FOLIC ACID 1 MG TAB PO SCH (08:20)
[2019-05-23] MEDS: ARIPiprazole 2 MG TAB PO SCH (08:20)
[2019-05-23] MEDS: amLODIPine 10 MG TAB PO SCH (08:20)
[2019-05-23] MEDS: ATENOLOL 50 MG TAB PO SCH (08:20)
[2019-05-23] MEDS: ALBUTEROL INHALER 60 PUFF/8 GM INHALER INHALATION PRN (09:24)
--- NOTE | 2019-05-23 11:34 | P.PN ---
Subjective Progress Note Date: 05/23/19 The patient has been seen today as follow-up, chart reviewed, case discussed with the treatment team.He reports " I am doing much better today''. Patient reports improvement of his depression and anxiety. He denies any crying spells or panic attacks. He denies mood swings, irritability, agitation, suicidal or homicidal ideation. Reports fair sleep and appetite and appetite. The patient has been visible and active on the unit and attends all immediate therapy. The patient still reports feeling improved motivation and energy. He reports lack of motivation and energy. He denies any auditory or visual hallucinations, paranoid ideation, or delusions. Patient takes his medications, and denies adverse reaction. He denies physical symptoms including chest pain, or shortness of breath. Objective - Vital Signs Vital signs: Vital Signs Temp 98.2 F 05/23/19 06:39 Pulse 79 05/23/19 06:39 Resp 16 05/23/19 06:39 BP 161/94 05/23/19 06:39 Pulse Ox 97 05/17/19 06:36 - Exam Objective: Vitals has been reviewed. MENTAL STATUS EVALUATION: Appearance: Appears stated age, fairly groomed, average body built, and no specific features. Gait/ posture: Steady gait, normal arm swinging, no abnormal movements, with relaxed posture. Attitude and Behavior: Cooperative, related to the interviewer in socially accepted manner, fair eye contact during course of interview. Motor Activity: Normal psychomotor activity. Speech: spontaneous, normal rate, rhythm, and articulation. normal volume. not pressured. Mood: "I am doing good today". Affect: Restricted. Thought process: Linear, goal-directed. Association: Intact. Thought content: No delusions, denies suicidal thoughts, Denies homicidal thoughts, Denies current intentions, or plans. Perception: Denies any current auditory or visual hallucinations Alertness: No impairment. Orientation: Oriented to time, place, person and situation. Insight regarding psychiatric condition: fair Judgment regarding daily activities and social situation: fair Impulse control: fair Assessment and Plan Assessment: Assessment: Major depressive disorder, recurrent, severe with psychotic features. Alcohol use disorder, severe. Rule out alcohol withdrawal. Rule out generalized anxiety disorder. Rule out social anxiety. Plan: Plan: 1:1 support and psychotherapy. Precautions: Continue 15 minutes check for safety. Consider medical consultation if any acute medical issues arise. Provide the patient individual, group therapy, substance use disorder counseling to give better insight and learn coping skills. Medications: Discharge home today Continue Effexor XR 225 mg daily for depression and anxiety symptoms. Continue Abilify 2 mg daily to augment antidepressant effect. Continue Remeron 22.5 mg at bedtime to help with insomnia and for depression/anxiety symptoms. Continue Melatonin 6 mg HS to help with insomnia Discharge patient to OUTPATIENT services. Prognosis: Improving
--- NOTE | 2019-05-23 11:43 | P.DS ---
Providers Date of admission: 05/14/19 22:50 Attending physician: Joycelyn Rodriguez MD Consults: 05/14/19 22:53 Consult Physician Routine Consulting Provider: eMllisa eMdeiros Consult Reason/Comments: medical management Do you want consulting provider notified?: Yes Primary care physician: [facility] Course: IDENTIFYING Data: Russell Arora is a 63-year-old -[place] male who currently lives by himself, unemployed on SSI, has psychiatric history of depression and alcohol use disorder, and medical history of hypertension and asthma. The patient has been admitted to our inpatient psychiatric services after been transferred from [facility] emergency department. Patient was initially brought in to emergency department by himself due to severe depression and suicidal ideation with a plan. The patient has been admitted on voluntary basis to our service. CHIEF COMPLAINT: "I was feeling suicidal." HISTORY OF PRESENT ILLNESS: The patient was self-referred to emergency department with the chief complaint of increasing depression and suicidal ideation. He reports suicidal attempt Ervin night that he tried to overdose on trazodone and to about 15-20 of 150 mg tablets. He states he was sleepy but denies any other associated symptoms. Reports continued to have suicidal ideation and continued to have a plan to jump off the [address] into the cold water in order to end his life. During psychiatric evaluation today, the patient reports continued to feel depressed but minimizes suicidal thoughts. He admits for suicidal ideation and attempt before coming to the hospital. Reports has been suffering from depression for the past 5-10 years which is started relationship to financial problems and he couldn't work or function due to physical disability "back problem". Patient reports worsening of depression symptoms over the past 3 weeks in context of financial problems and couldn't have his driving license. Patient reports feeling depressed for most of the time and most of the days, lack of motivation, poor energy, sleep problems including putting get to sleep and wakes up frequently, decreased appetite, sometimes feeling hopeless, helpless, and useless. Patient reports hearing voices telling him that his worthless and to hurt himself. He denies any visual hallucinations, paranoid ideation, and no delusions could be elicited. Patient denies any current or history of manic symptoms including euphoric mood, grandiosity, unusual increased energy, or irrational behavior. He states suffering from anxiety for most of his life and for most of the time he has been feeling extremely anxious, racing thoughts, and not able to relax. He describes social anxiety being around people triggers his anxiety and that what triggered him to relapse on drinking alcohol 2 weeks ago. Reports history of panic attacks but states last time was about a month ago and they are not frequent. Denies any history of nightmares or flashbacks, and he denies any previous psychological traumas. Denies any history of self-injurious behavior. PAST PSYCHIATRIC HISTORY: Previous diagnoses: Depression, alcohol use disorder Previous psychiatric hospitalizations:multiple previous psychiatric hospitalizations, last time was at this unit in December 2017. Previous suicide attempts: Denies any previous suicidal attempts. Previous outpatient psychiatric treatment: Currently connected with [facility], and last time was seen by psychiatrist more than a month ago. He receives both medication management service and counseling. Current psychiatric medications: Effexor XR 150 mg daily, trazodone 150 mg at bedtime Previous medication trials: Prozac, Zoloft, Wellbutrin, Cymbalta "caused him to feel more depressed", Seroquel "was only to help was asleep". SUBSTANCE ABUSE HISTORY: Nicotine: Quit smoking 2003. Alcohol: Started to drink at age 12. Relapse it on alcohol drinking 2 weeks ago after few month of sobriety. Reports previous intermittent sobriety with the longest was 9 months ago "it was long time ago". Since he relapses on alcohol drinking and he is drinking about 1/5 daily, with the last time was yesterday. Denies any history of severe alcohol withdrawal symptoms including seizures or DTs, but admits for withdrawal tremors. Reports history of intoxication, blackouts, DUIs, and multiple inpatient treatment for alcohol use disorder. Last time was in treatment was one month ago at [facility]. Denies smoking marijuana. Admitted for remote history of smoking crack cocaine with the last time was 10 years ago. Denies any history of IV drug use. Social History: Patient was born in [facility] and raised up by by both parents. Housing: Currently lives by himself in his own home. The patient is currently for more than 20 years. Work history: Unemployed, last time was able to work 2006. Education: Patient reports attaining an educational level of associate degree. Children: Patient reports having 2 adult children. Legal history: History of being arrested which is related to alcohol use and DUI charges History of psychological trauma: Denies FAMILY HISTORY: Denies any family history of mental illness, alcohol use disorder, addiction problem, or suicide. Medical History: Asthma, hypertension MENTAL STATUS EVALUATION: Appearance: Appears stated age, poorly groomed, average body built, and no sp ecific features. Gait/ posture: Steady gait, normal arm swinging, no abnormal movements, with relaxed posture. Attitude and Behavior: Cooperative, related to the interviewer in socially accepted manner, fair eye contact during course of interview. Motor Activity: Normal psychomotor activity. Speech: spontaneous, normal rate, rhythm, and articulation. normal volume. not pressured. Language: Articulating, naming objects and repeat phrases. Mood: Depressed Affect: Restricted. Thought process: Linear, goal-directed. Association: Intact. Thought content: No delusions, Reports intermittent suicidal thoughts, Denies homicidal thoughts, Denies current intentions, or plans. Perception: Reports AH. Alertness: No impairment. Orientation: Oriented to time, place, person and situation. Insight regarding psychiatric condition: fair Judgment regarding daily activities and social situation: fair Impulse control: fair Hospital course: The patient was admitted to the mental health unit. The patient patient was restarted on 15 minute checks and was placed on suicidal precautions. Medical consult was place for management of medical issues. The patient was a schedule to attend milieu therapy. The patient was continued on Effexor XR R the but the dose was increased to 225 mg by mouth daily. Patient was also started on Abilify 2 mg by mouth daily. Patient was also started on Remeron 15 mg by mouth daily at bedtime. The patient was started on Shiva protocol for alcohol abuse. The patient continued to report feeling depressed but reported some improvement in mood and functioning. He denied any alcohol withdrawals. He continued to report feeling anxious but denied any panic attacks. Patient's Remeron was gradually increased to 22.5 mg by mouth daily at bedtime. The patient continued to complain of poor sleep at night. He was a started on melatonin 5 mg by mouth daily at bedtime and was increased to 6 mg by mouth daily at bedtime. The patient was tolerating the changes in medications without any side effects. He continued to report slow improvement in mood and functioning. The patient also reported us some improvement in his sleep. Patient started showing brighter affect. Discharge plans were initiated. The patient's condition was stabilized and he was discharged home on 05/23/2019. Patient Condition at Discharge: Serious Plan - Discharge Summary Discharge Rx Participant: No New Discharge Prescriptions: New ARIPiprazole [Abilify] 2 mg PO DAILY 30 Days tab Venlafaxine HCl ER [Effexor XR] 225 mg PO DAILY #30 cap.er.24h Folic Acid 1 mg PO DAILY #30 tab Melatonin 6 mg PO HS 30 Days #30 tablet Mirtazapine [Remeron] 22.5 mg PO HS 30 Days #30 tab Atenolol [Tenormin] 100 mg PO DAILY tab Thiamine [Vitamin B-1] 100 mg PO DAILY tab Continue amLODIPine [Norvasc] 10 mg PO DAILY 30 Days #30 tab Albuterol Inhaler [Ventolin Hfa Inhaler] 2 puff INHALATION RT-QID PRN puff PRN Reason: Shortness Of Breath Or Wheezing traZODone HCL 50 mg PO HS Montelukast [Singulair] 10 mg PO DAILY Naltrexone HCl [Revia] 50 mg PO DAILY 30 Days #30 tab Discontinued Venlafaxine HCl ER [Effexor XR] 150 mg PO HS #14 cap.er.24h Discharge Medication List amLODIPine [Norvasc] 10 mg PO DAILY 30 Days #30 tab 10/03/17 [Rx] Albuterol Inhaler [Ventolin Hfa Inhaler] 2 puff INHALATION RT-QID PRN puff 01/02/18 [Rx] Montelukast [Singulair] 10 mg PO DAILY 05/14/19 [History] traZODone HCL 50 mg PO HS 05/14/19 [History] ARIPiprazole [Abilify] 2 mg PO DAILY 30 Days tab 05/22/19 [Rx] Atenolol [Tenormin] 100 mg PO DAILY tab 05/22/19 [Rx] Folic Acid 1 mg PO DAILY #30 tab 05/22/19 [Rx] Melatonin 6 mg PO HS 30 Days #30 tablet 05/22/19 [Rx] Mirtazapine [Remeron] 22.5 mg PO HS 30 Days #30 tab 05/22/19 [Rx] Naltrexone HCl [Revia] 50 mg PO DAILY 30 Days #30 tab 05/22/19 [Rx] Thiamine [Vitamin B-1] 100 mg PO DAILY tab 05/22/19 [Rx] Venlafaxine HCl ER [Effexor XR] 225 mg PO DAILY #30 cap.er.24h 05/22/19 [Rx] Follow up Appointment(s)/Referral(s): [facility] [Outside] - 05/24/19 4:00 pm (Appt with Yossi Meng May 24 at 4:[address] Steve May 28 at 1:30) Caterina Chand MD [Primary Care Provider] - 1-2 days Activity/Diet/Wound Care/Special Instructions: Activity and diet as tolerated. Avoid the use of street drugs and alcohol. Take all medications as prescribed. When you are in need of refills on your medications please contact your medical provider and/or outpatient psychiatrist to have this done. Please go to scheduled outpatient appointment for aftercare treatment. If symptoms return or become worse, call the crisis line at and/or go to the nearest emergency room for evaluation. Discharge Disposition: HOME SELF-CARE
== END 2019-05-23 14:33 | disposition home or self-care (01) | DRG 885 ==
LOC: EC 15:52 → 3MHU 22:50
PROVIDERS: ADMIT Psychiatry & Neurology Psychiatry; ATTEND Psychiatry & Neurology Psychiatry
DX: F33.3 Major depressive disorder, recurrent, severe with psychotic symptoms (principal); F10.231 Alcohol dependence with withdrawal delirium; F41.0 Panic disorder [episodic paroxysmal anxiety]; I10 Essential (primary) hypertension; J45.909 Unspecified asthma, uncomplicated; Z96.652 Presence of left artificial knee joint; F40.10 Social phobia, unspecified; Z59.9 Problem related to housing and economic circumstances, unspecified; Z79.899 Other long term (current) drug therapy; Z82.49 Family history of ischemic heart disease and other diseases of the circulatory system; Z87.891 Personal history of nicotine dependence; Z82.5 Family history of asthma and other chronic lower respiratory diseases; Z91.81 History of falling
CPT/HCPCS: 80061; 82075; 83036; 93005; 99285

== ENCOUNTER 2019-10-28 20:37 | Inpatient (IN) | payer MEDICARE, MEDICAID ==
[2019-10-28 23:18] LABS: Amphetamine Screen,Urine Not Detected (NotDetected); Barbiturate Screen,Urine Not Detected (NotDetected); Benzodiazepines Screen,Urine Not Detected (NotDetected); Cocaine Screen,Urine Not Detected (NotDetected); Methadone Screen, Urine Not Detected (NotDetected); Opiate Screen,Urine Not Detected (NotDetected); Oxycodone Screen, Urine Not Detected (NotDetected); Phencyclidine Screen,Urine Not Detected (NotDetected); Tricyclic Antidepressant,Urine Not Detected (NotDetected); Urn Cannabinoid Scrn Not Detected (NotDetected)
--- NOTE | 2019-10-29 00:58 | ED ---
Psych HPI - General Source: patient Mode of arrival: ambulatory <Kena Zarate - Last Filed: 10/29/19 03:21> <Yossi Erazo - Last Filed: 10/29/19 03:29> - General Chief Complaint: Psychiatric Symptoms Stated Complaint: Mental Health Time Seen by Provider: 10/28/19 20:59 - History of Present Illness Initial Comments: 64-year-old male patient presents to the emergency department today for evaluation of increased depression and suicidal ideation. Patient states for the last 2 weeks he's had increase in his depressive symptoms. His plan is to cut his wrists or jump in the [place]. States he does take medication for his depression however he has not been taking them every day. States that he hasn't had increase in drinking over the last couple of weeks. He believes that anxiety and stress from coronavirus is causing his symptoms to worsen. He states that the activities he used to use to keep him busy were no longer av ailable. States he does sleep okay. He is eating and drinking without difficulty. Denies any current physical symptoms or concerns. He does report visual hallucinations but believes these may be related to drinking alcohol. Has been admitted to the mental health unit in the past. Patient denies any recent rash, fever, chills, cough, shortness of breath, chest pain, abdominal pain, nausea, vomiting, diarrhea, constipation, back pain, numbness, tingling, dizziness, weakness, hematuria, dysuria, urinary urgency, urinary frequency, headache, visual changes, or any other complaints. (Kena Zarate) - Related Data Home Medications Medication Instructions Recorded Confirmed Albuterol Inhaler [Ventolin Hfa 1 puff INHALATION RT-Q6H PRN 10/28/19 10/28/19 Inhaler] Atenolol 100 mg PO DAILY 10/28/19 10/28/19 buPROPion HCL [Wellbutrin XL] 300 mg PO DAILY 10/28/19 10/28/19 traZODone HCL [Desyrel] 200 mg PO HS 10/28/19 10/28/19 Previous Rx's Medication Instructions Recorded amLODIPine [Norvasc] 10 mg PO DAILY 30 Days #30 tab 10/03/17 ARIPiprazole [Abilify] 2 mg PO DAILY 30 Days tab 05/22/19 Melatonin 6 mg PO HS 30 Days #30 tablet 05/22/19 Mirtazapine [Remeron] 22.5 mg PO HS 30 Days #30 tab 05/22/19 Naltrexone HCl [Revia] 50 mg PO DAILY 30 Days #30 tab 05/22/19 Venlafaxine HCl ER [Effexor XR] 225 mg PO DAILY #30 cap.er.24h 05/22/19 Folic Acid 1 mg PO DAILY #30 tablet 05/23/19 Allergies Allergy/AdvReac Type Severity Reaction Status Date / Time No Known Allergies Allergy Verified 10/28/19 21:46 Review of Systems ROS Other: All systems not noted in ROS Statement are negative. <Kena Zarate - Last Filed: 10/29/19 03:21> ROS Other: All systems not noted in ROS Statement are negative. <Yossi Erazo - Last Filed: 10/29/19 03:29> ROS Statement: Those systems with pertinent positive or pertinent negative responses have been documented in the HPI. Past Medical History Past Medical History: Asthma, Hypertension, Osteoarthritis (OA) History of Any Multi-Drug Resistant Organisms: None Reported Past Surgical History: Appendectomy, Joint Replacement Additional Past Surgical History / Comment(s): left knee replacement, ORIF rt ankle Past Anesthesia/Blood Transfusion Reactions: No Reported Reaction Past Psychological History: Anxiety, Depression Smoking Status: Former smoker Past Alcohol Use History: Abuse, Daily, Heavy Past Drug Use History: None Reported - Past Family History Mother Family Medical History: No Reported History Additional Family Medical History / Comment(s): . Father Family Medical History: Hypertension Additional Family Medical History / Comment(s): Father is alive at age 90 with history of hypertension. Brother(s) Additional Family Medical History / Comment(s): . <Kena Zarate - Last Filed: 10/29/19 03:21> General Exam Limitations: no limitations General appearance: alert, in no apparent distress, other (This is a well- developed, well-nourished adult male patient in no acute distress. Vital signs upon presentation are temperature 98.3F, pulse 74, respirations 18, blood pressure 93/67, pulse ox 98% on room air.) Eye exam: Present: normal appearance, PERRL, EOMI. Absent: scleral icterus, conjunctival injection, periorbital swelling Respiratory exam: Present: normal lung sounds bilaterally. Absent: respiratory distress, wheezes, rales, rhonchi, stridor Cardiovascular Exam: Present: regular rate, normal rhythm, normal heart sounds. Absent: systolic murmur, diastolic murmur, rubs, gallop, clicks GI/Abdominal exam: Present: soft, normal bowel sounds. Absent: distended, tenderness, guarding, rebound, rigid Neurological exam: Present: alert, oriented X3, CN II-XII intact Psychiatric exam: Present: normal affect, normal mood, suicidal ideation. Absent: homicidal ideation Skin exam: Present: warm, dry, intact, normal color. Absent: rash <Kena Zarate - Last Filed: 10/29/19 03:21> Course Vital Signs 10/28/19 10/29/19 20:50 01:04 Temperature 98.3 F 98.7 F Pulse Rate 74 73 Respiratory 18 18 Rate Blood Pressure 93/67 110/73 O2 Sat by Pulse 98 99 Oximetry Medical Decision Making - Lab Data Result diagrams: 10/29/19 02:59 10/29/19 02:59 <Kena Zarate - Last Filed: 10/29/19 03:21> - Lab Data Result diagrams: 10/29/19 02:59 10/29/19 02:59 <Yossi Erazo - Last Filed: 10/29/19 03:29> - Medical Decision Making 64 year-old male patient presented for evaluation of this at ideation and depression. He was seen and evaluated by emergency psychiatric services. It is felt that he would benefit from inpatient admission however we have no beds available. He will be transferred to an appropriate psychiatric facility. (Kena Zarate) I saw this patient in conjunction with the nurse practitioner. I performed independent history and physical exam. Agree with case management. I completed the clinical certification form (Yossi Erazo) - Lab Data Lab Results 10/28/19 10/28/19 10/29/19 Range/Units 22:51 22:51 02:59 WBC 3.8 (3.8-10.6) k/uL RBC 4.26 L (4.30-5.90) m/uL Hgb 12.9 L (13.0-17.5) gm/dL Hct 40.9 (39.0-53.0) % MCV 96.1 (80.0-100.0) fL MCH 30.3 (25.0-35.0) pg MCHC 31.5 (31.0-37.0) g/dL RDW 13.4 (11.5-15.5) % Plt Count 122 L (150-450) k/uL Neutrophils % 35 % Lymphocytes % 45 % Monocytes % 5 % Eosinophils % 9 % Basophils % 1 % Neutrophils # 1.4 (1.3-7.7) k/uL Lymphocytes # 1.7 (1.0-4.8) k/uL Monocytes # 0.2 (0-1.0) k/uL Eosinophils # 0.4 (0-0.7) k/uL Basophils # 0.1 (0-0.2) k/uL Sodium (137-145) mmol/L Potassium (3.5-5.1) mmol/L Chloride (98-107) mmol/L Carbon Dioxide (22-30) mmol/L Anion Gap mmol/L BUN (9-20) mg/dL Creatinine (0.66-1.25) mg/dL Est GFR (CKD-EPI)AfAm (>60 ml/min/1.73 sqM) Est GFR (CKD-EPI)NonAf (>60 ml/min/1.73 sqM) Glucose (74-99) mg/dL Calcium (8.4-10.2) mg/dL Total Bilirubin (0.2-1.3) mg/dL AST (17-59) U/L ALT (4-49) U/L Alkaline Phosphatase (38-126) U/L Total Protein (6.3-8.2) g/dL Albumin (3.5-5.0) g/dL Urine Color Yellow Urine Appearance Clear (Clear) Urine pH 6.0 (5.0-8.0) Ur Specific [place] 1.016 (1.001-1.035) Urine Protein Trace H (Negative) Urine Glucose (UA) Negative (Negative) Urine Ketones Trace H (Negative) Urine Blood Negative (Negative) Urine Nitrite Negative (Negative) Urine Bilirubin Negative (Negative) Urine Urobilinogen 2.0 (<2.0) mg/dL Ur Leukocyte Esterase Negative (Negative) Urine Opiates Screen Not Detected (NotDetected) Ur Oxycodone Screen Not Detected (NotDetected) Urine Methadone Screen Not Detected (NotDetected) Ur Propoxyphene Screen Not Detected (NotDetected) Ur Barbiturates Screen Not Detected (NotDetected) U Tricyclic Antidepress Not Detected (NotDetected) Ur Phencyclidine Scrn Not Detected (NotDetected) Ur Amphetamines Screen Not Detected (NotDetected) U Methamphetamines Scrn Not Detected (NotDetected) U Benzodiazepines Scrn Not Detected (NotDetected) Urine Cocaine Screen Not Detected (NotDetected) U Marijuana (THC) Screen Not Detected (NotDetected) 10/29/19 Range/Units 02:59 WBC (3.8-10.6) k/uL RBC (4.30-5.90) m/uL Hgb (13.0-17.5) gm/dL Hct (39.0-53.0) % MCV (80.0-100.0) fL MCH (25.0-35.0) pg MCHC (31.0-37.0) g/dL RDW (11.5-15.5) % Plt Count (150-450) k/uL Neutrophils % % Lymphocytes % % Monocytes % % Eosinophils % % Basophils % % Neutrophils # (1.3-7.7) k/uL Lymphocytes # (1.0-4.8) k/uL Monocytes # (0-1.0) k/uL Eosinophils # (0-0.7) k/uL Basophils # (0-0.2) k/uL Sodium 135 L (137-145) mmol/L Potassium 3.8 (3.5-5.1) mmol/L Chloride 100 (98-107) mmol/L Carbon Dioxide 23 (22-30) mmol/L Anion Gap 12 mmol/L BUN 14 (9-20) mg/dL Creatinine 0.86 (0.66-1.25) mg/dL Est GFR (CKD-EPI)AfAm >90 (>60 ml/min/1.73 sqM) Est GFR (CKD-EPI)NonAf >90 (>60 ml/min/1.73 sqM) Glucose 63 L (74-99) mg/dL Calcium 8.9 (8.4-10.2) mg/dL Total Bilirubin 1.4 H (0.2-1.3) mg/dL AST 132 H (17-59) U/L ALT 71 H (4-49) U/L Alkaline Phosphatase 57 (38-126) U/L Total Protein 6.5 (6.3-8.2) g/dL Albumin 3.9 (3.5-5.0) g/dL Urine Color Urine Appearance (Clear) Urine pH (5.0-8.0) Ur Specific [place] (1.001-1.035) Urine Protein (Negative) Urine Glucose (UA) (Negative) Urine Ketones (Negative) Urine Blood (Negative) Urine Nitrite (Negative) Urine Bilirubin (Negative) Urine Urobilinogen (<2.0) mg/dL Ur Leukocyte Esterase (Negative) Urine Opiates Screen (NotDetected) Ur Oxycodone Screen (NotDetected) Urine Methadone Screen (NotDetected) Ur Propoxyphene Screen (NotDetected) Ur Barbiturates Screen (NotDetected) U Tricyclic Antidepress (NotDetected) Ur Phencyclidine Scrn (NotDetected) Ur Amphetamines Screen (NotDetected) U Methamphetamines Scrn (NotDetected) U Benzodiazepines Scrn (NotDetected) Urine Cocaine Screen (NotDetected) U Marijuana (THC) Screen (NotDetected) Disposition - Out of Hospital Transfer - Req. Specs Out of Hospital Transfer - Requested Specifics: Psychiatric Non-ICU <Kena Zarate - Last Filed: 10/29/19 03:21> <Yossi Erazo - Last Filed: 10/29/19 03:29> Clinical Impression: Depression, Suicidal ideation Disposition: TRANSFER TO PSYCH HOSP/UNIT Condition: Serious Referrals: Caterina Chand MD [Primary Care Provider] - 1-2 days
[2019-10-29 02:59] LABS: Appearance,Urine Clear (Clear); Bilirubin,Urine Negative (Negative); Blood,Urine Negative (Negative); Color,Urine Yellow; Glucose,Urine (UA) Negative (Negative); Ketones,Urine Trace (Negative); Leukocyte Esterase,Urine Negative (Negative); Nitrite,Urine Negative (Negative); Protein,Urine Trace (Negative); Specific Gravity,Urine 1.016 (1.001-1.035)
[2019-10-29 03:07] LABS: Basophils # (A) 0.1 k/uL (0-0.2); Basophils % (A) 1 %; Eosinophils # (A) 0.4 k/uL (0-0.7); Eosinophils % (A) 9 %; HCT 40.9 % (39.0-53.0); HGB 12.9 gm/dL (13.0-17.5); Lymphocytes # (A) 1.7 k/uL (1.0-4.8); Lymphocytes % (A) 45 %; MCH 30.3 pg (25.0-35.0); MCHC 31.5 g/dL (31.0-37.0); MCV 96.1 fL (80.0-100.0); Mean Platelet Volume 10.5; Monocytes # (A) 0.2 k/uL (0-1.0); Monocytes % (A) 5 %; Neutrophils # (A) 1.4 k/uL (1.3-7.7); Neutrophils % (A) 35 %; Platelet Count 122 k/uL (150-450); RBC 4.26 m/uL (4.30-5.90); RDW 13.4 % (11.5-15.5); WBC 3.8 k/uL (3.8-10.6)
[2019-10-29 03:19] LABS: ALT 71 U/L (4-49); AST 132 U/L (17-59); African American GFR (CKD) >90 (>60 ml/min/1.73 sqM); Albumin 3.9 g/dL (3.5-5.0); Alkaline Phosphatase 57 U/L (38-126); Anion Gap 12 mmol/L; Blood Urea Nitrogen 14 mg/dL (9-20); Calcium 8.9 mg/dL (8.4-10.2); Carbon Dioxide 23 mmol/L (22-30); Chloride 100 mmol/L (98-107); Glucose 63 mg/dL (74-99); Non-African American GFR(CKD) >90 (>60 ml/min/1.73 sqM); Potassium 3.8 mmol/L (3.5-5.1); Sodium 135 mmol/L (137-145); Total Bilirubin 1.4 mg/dL (0.2-1.3); Total Protein 6.5 g/dL (6.3-8.2)
[2019-10-29] MEDS ORDERED: ZIPRASIDONE 20 MG VIAL IM PRN (09:18)
[2019-10-29] MEDS ORDERED: ACETAMINOPHEN TAB 325 MG TAB PO PRN (09:18)
[2019-10-29] MEDS ORDERED: MAG HYDROX/AL HYDROX/SIMETH 30 ML CUP PO PRN (09:18)
[2019-10-29] MEDS ORDERED: MAGNESIUM HYDROXIDE 2,400 MG/10 ML CUP PO PRN (09:18)
[2019-10-29] MEDS ORDERED: amLODIPine 10 MG TAB PO SCH (09:30)
[2019-10-29] MEDS: LORazepam 1 MG TAB PO PRN (10:38)
[2019-10-29] MEDS: ATENOLOL 50 MG TAB PO SCH (10:38)
[2019-10-29] MEDS: FOLIC ACID 1 MG TAB PO SCH (10:38)
[2019-10-29] MEDS: ALBUTEROL INHALER 60 PUFF/8 GM INHALER (MHU) INHALATION PRN ×2 (10:54→20:19)
--- NOTE | 2019-10-29 14:42 | P.HP ---
Psychiatric H&P - . H&P Date: 10/29/19 History & Physical: I reviewed the medical record and attempted to interview the patient. She was laying in bed and would not respond to his name. I'll try to perform the H&P again later. Allergies Allergy/AdvReac Type Severity Reaction Status Date / Time No Known Allergies Allergy Verified 10/28/19 21:46 Vital Signs Temp 98.7 F 10/29/19 08:48 Pulse 83 10/29/19 08:48 Resp 18 10/29/19 08:48 BP 111/72 10/29/19 08:48 Pulse Ox 97 10/29/19 08:48 Intake & Output 10/28/19 10/29/19 10/29/19 18:59 06:59 18:59 Weight 90.718 kg 92.7 kg Laboratory Last Values WBC 3.8 k/uL (3.8-10.6) 10/29/19 02:59 RBC 4.26 m/uL (4.30-5.90) L 10/29/19 02:59 Hgb 12.9 gm/dL (13.0-17.5) L 10/29/19 02:59 Hct 40.9 % (39.0-53.0) 10/29/19 02:59 MCV 96.1 fL (80.0-100.0) 10/29/19 02:59 MCH 30.3 pg (25.0-35.0) 10/29/19 02:59 MCHC 31.5 g/dL (31.0-37.0) 10/29/19 02:59 RDW 13.4 % (11.5-15.5) 10/29/19 02:59 Plt Count 122 k/uL (150-450) L 10/29/19 02:59 Neutrophils % 35 % 10/29/19 02:59 Lymphocytes % 45 % 10/29/19 02:59 Monocytes % 5 % 10/29/19 02:59 Eosinophils % 9 % 10/29/19 02:59 Basophils % 1 % 10/29/19 02:59 Neutrophils # 1.4 k/uL (1.3-7.7) 10/29/19 02:59 Lymphocytes # 1.7 k/uL (1.0-4.8) 10/29/19 02:59 Monocytes # 0.2 k/uL (0-1.0) 10/29/19 02:59 Eosinophils # 0.4 k/uL (0-0.7) 10/29/19 02:59 Basophils # 0.1 k/uL (0-0.2) 10/29/19 02:59 Sodium 135 mmol/L (137-145) L 10/29/19 02:59 Potassium 3.8 mmol/L (3.5-5.1) 10/29/19 02:59 Chloride 100 mmol/L (98-107) 10/29/19 02:59 Carbon Dioxide 23 mmol/L (22-30) 10/29/19 02:59 Anion Gap 12 mmol/L 10/29/19 02:59 BUN 14 mg/dL (9-20) 10/29/19 02:59 Creatinine 0.86 mg/dL (0.66-1.25) 10/29/19 02:59 Est GFR (CKD-EPI)AfAm >90 (>60 ml/min/1.73 sqM) 10/29/19 02:59 Est GFR (CKD-EPI)NonAf >90 (>60 ml/min/1.73 sqM) 10/29/19 02:59 Glucose 63 mg/dL (74-99) L 10/29/19 02:59 Calcium 8.9 mg/dL (8.4-10.2) 10/29/19 02:59 Total Bilirubin 1.4 mg/dL (0.2-1.3) H 10/29/19 02:59 AST 132 U/L (17-59) H 10/29/19 02:59 ALT 71 U/L (4-49) H 10/29/19 02:59 Alkaline Phosphatase 57 U/L (38-126) 10/29/19 02:59 Total Protein 6.5 g/dL (6.3-8.2) 10/29/19 02:59 Albumin 3.9 g/dL (3.5-5.0) 10/29/19 02:59 TSH 2.360 mIU/L (0.465-4.680) 10/29/19 02:59 Urine Color Yellow 10/28/19 22:51 Urine Appearance Clear (Clear) 10/28/19 22:51 Urine pH 6.0 (5.0-8.0) 10/28/19 22:51 Ur Specific [place] 1.016 (1.001-1.035) 10/28/19 22:51 Urine Protein Trace (Negative) H 10/28/19 22:51 Urine Glucose (UA) Negative (Negative) 10/28/19 22:51 Urine Ketones Trace (Negative) H 10/28/19 22:51 Urine Blood Negative (Negative) 10/28/19 22:51 Urine Nitrite Negative (Negative) 10/28/19 22:51 Urine Bilirubin Negative (Negative) 10/28/19 22:51 Urine Urobilinogen 2.0 mg/dL (<2.0) 10/28/19 22:51 Ur Leukocyte Esterase Negative (Negative) 10/28/19 22:51 Urine Opiates Screen Not Detected (NotDetected) 10/28/19 22:51 Ur Oxycodone Screen Not Detected (NotDetected) 10/28/19 22:51 Urine Methadone Screen Not Detected (NotDetected) 10/28/19 22:51 Ur Propoxyphene Screen Not Detected (NotDetected) 10/28/19 22:51 Ur Barbiturates Screen Not Detected (NotDetected) 10/28/19 22:51 U Tricyclic Antidepress Not Detected (NotDetected) 10/28/19 22:51 Ur Phencyclidine Scrn Not Detected (NotDetected) 10/28/19 22:51 Ur Amphetamines Screen Not Detected (NotDetected) 10/28/19 22:51 U Methamphetamines Scrn Not Detected (NotDetected) 10/28/19 22:51 U Benzodiazepines Scrn Not Detected (NotDetected) 10/28/19 22:51 Urine Cocaine Screen Not Detected (NotDetected) 10/28/19 22:51 U Marijuana (THC) Screen Not Detected (NotDetected) 10/28/19 22:51 10/29/19 14:41
--- NOTE | 2019-10-29 15:55 | P.CONS ---
History of Present Illness - Reason for Consult medical clearance - History of Present Illness patient is a pleasant 59-year-old male admitted to psychiatric floor for depression and suicidal ideation. Patient is clinically doing well today. Patient is comparing of diarrhea patient had about 3 episodes of loose stools today. Patient does have mildly elevated liver enzymes. Patient had history of crack cocaine use I'll obtain hepatitis panel 10 History of diarrhea will obtain a C. diff testing. Review of Systems REVIEW OF SYSTEMS: CONSTITUTIONAL: No fever, no malaise, no fatigue. HEENT: No recent visual problems or hearing problems. Denied any sore throat. CARDIOVASCULAR: No chest pain, orthopnea, PND, no palpitations, no syncope. PULMONARY: No shortness of breath, no cough, no hemoptysis. GASTROINTESTINAL: as mentioned in HPI NEUROLOGICAL: No headaches, no weakness, no numbness. HEMATOLOGICAL: Denies any bleeding or petechiae. GENITOURINARY: Denies any burning micturition, frequency, or urgency. MUSCULOSKELETAL/RHEUMATOLOGICAL: Denies any joint pain, swelling, or any muscle pain. ENDOCRINE: Denies any polyuria or polydipsia. The rest of the 14-point review of systems is negative. Past Medical History Past Medical History: Asthma, Hypertension, Osteoarthritis (OA) History of Any Multi-Drug Resistant Organisms: None Reported Past Surgical History: Appendectomy, Joint Replacement Additional Past Surgical History / Comment(s): left knee replacement, ORIF rt ankle Past Anesthesia/Blood Transfusion Reactions: No Reported Reaction Past Psychological History: Anxiety, Depression Smoking Status: Former smoker Past Alcohol Use History: Abuse, Daily, Heavy Past Drug Use History: None Reported - Past Family History Mother Family Medical History: No Reported History Additional Family Medical History / Comment(s): . Father Family Medical History: Hypertension Additional Family Medical History / Comment(s): Father is alive at age 90 with history of hypertension. Brother(s) Additional Family Medical History / Comment(s): . Medications and Allergies Home Medications Medication Instructions Recorded Confirmed Type amLODIPine [Norvasc] 10 mg PO DAILY 30 Days #30 tab 10/03/17 10/28/19 Rx ARIPiprazole [Abilify] 2 mg PO DAILY 30 Days tab 05/22/19 10/28/19 Rx Melatonin 6 mg PO HS 30 Days #30 tablet 01/01/20 06/08/20 Rx Mirtazapine [Remeron] 22.5 mg PO HS 30 Days #30 tab 05/22/19 10/28/19 Rx Naltrexone HCl [Revia] 50 mg PO DAILY 30 Days #30 tab 05/22/19 10/28/19 Rx Venlafaxine HCl ER [Effexor XR] 225 mg PO DAILY #30 cap.er.24h 05/22/19 10/28/19 Rx Folic Acid 1 mg PO DAILY #30 tablet 05/23/19 10/28/19 Rx Albuterol Inhaler [Ventolin Hfa 1 puff INHALATION RT-Q6H PRN 10/28/19 10/28/19 History Inhaler] Atenolol 100 mg PO DAILY 10/28/19 10/28/19 History buPROPion HCL [Wellbutrin XL] 300 mg PO DAILY 10/28/19 10/28/19 History traZODone HCL [Desyrel] 200 mg PO HS 10/28/19 10/28/19 History Allergies Allergy/AdvReac Type Severity Reaction Status Date / Time No Known Allergies Allergy Verified 10/28/19 21:46 Physical Exam Vitals: Vital Signs Temp Pulse Pulse Resp BP BP Pulse Ox 10/29/19 08:48 98.7 F 83 18 111/72 97 10/29/19 08:40 97.8 F 82 16 107/62 95 10/29/19 06:36 97.8 F 82 16 107/62 95 10/29/19 01:04 98.7 F 73 18 110/73 99 10/28/19 20:50 98.3 F 74 18 93/67 98 Intake and Output 10/29/19 10/29/19 10/29/19 06:59 14:59 22:59 Other: Weight 92.7 kg PHYSICAL EXAMINATION: GENERAL: The patient is alert and oriented x3, not in any acute distress. Well developed, well nourished. HEENT: Pupils are round and equally reacting to light. EOMI. No scleral icterus. No conjunctival pallor. Normocephalic, atraumatic. No pharyngeal erythema. No thyromegaly. CARDIOVASCULAR: S1 and S2 present. No murmurs, rubs, or gallops. PULMONARY: Chest is clear to auscultation, no wheezing or crackles. ABDOMEN: Soft, nontender, nondistended, normoactive bowel sounds. No palpable or ganomegaly. MUSCULOSKELETAL: No joint swelling or deformity. EXTREMITIES: No cyanosis, clubbing, or pedal edema. NEUROLOGICAL: Gross neurological examination did not reveal any focal deficits. SKIN: No rashes. Results CBC & Chem 7: 10/29/19 02:59 10/29/19 02:59 Labs: Abnormal Lab Results - Last 24 Hours (Table) 10/28/19 10/29/19 10/29/19 Range/Units 22:51 02:59 02:59 RBC 4.26 L (4.30-5.90) m/uL Hgb 12.9 L (13.0-17.5) gm/dL Plt Count 122 L (150-450) k/uL Sodium 135 L (137-145) mmol/L Glucose 63 L (74-99) mg/dL Total Bilirubin 1.4 H (0.2-1.3) mg/dL AST 132 H (17-59) U/L ALT 71 H (4-49) U/L Urine Protein Trace H (Negative) Urine Ketones Trace H (Negative) Assessment and Plan Plan: -diarrhea:probably viral etiology monitor overnight if he is confused to have diarrhea tomorrow morning we'll obtain a C. diff testing if that's negative patient will be started on antidiarrheals. -Elevated liver enzymes will obtain hepatitis panel patient has history of crack cocaine use in the past will repeat compresses metabolic profile tomorrow -Hypertension patient blood pressure is low normal aabdominal amlodipine dose atenolol will be continued at the same dose -asthma without any acute exacerbation -Depression and suicidal ideation management as per primary service
[2019-10-29] MEDS: MELATONIN 3 MG TABLET PO SCH (20:16)
[2019-10-29] MEDS: traZODone HCL 100 MG TAB PO SCH (20:17)
[2019-10-30 00:38] LABS: Hepatitis A Antibody IgM Non-Reactive (Non-Reactive); Hepatitis B Core IgM Non-Reactive (Non-Reactive); Hepatitis B Surface Antigen Non-Reactive (Non-Reactive); Hepatitis C IgG Antibody Non-Reactive (Non-Reactive)
[2019-10-30 01:28] LABS: Hemoglobin A1C 4.5 % (4.0-6.0)
[2019-10-30 09:01] LABS: ALT 73 U/L (4-49); AST 106 U/L (17-59); African American GFR (CKD) >90 (>60 ml/min/1.73 sqM); Albumin 3.6 g/dL (3.5-5.0); Alkaline Phosphatase 50 U/L (38-126); Anion Gap 6 mmol/L; Blood Urea Nitrogen 16 mg/dL (9-20); Carbon Dioxide 28 mmol/L (22-30); Chloride 100 mmol/L (98-107); Cholesterol 153 mg/dL (<200); Glucose 84 mg/dL (74-99); Non-African American GFR(CKD) 86 (>60 ml/min/1.73 sqM); Sodium 134 mmol/L (137-145); Total Bilirubin 1.5 mg/dL (0.2-1.3); Total Protein 6.2 g/dL (6.3-8.2); Triglycerides 56 mg/dL (<150)
[2019-10-30] MEDS: amLODIPine 5 MG TAB PO SCH (09:11)
[2019-10-30] MEDS: ATENOLOL 50 MG TAB PO SCH (09:11)
[2019-10-30] MEDS: LORazepam 1 MG TAB PO PRN (09:11)
[2019-10-30] MEDS: FOLIC ACID 1 MG TAB PO SCH (09:11)
[2019-10-30] MEDS: ALBUTEROL INHALER 60 PUFF/8 GM INHALER (MHU) INHALATION PRN ×2 (09:12→13:56)
[2019-10-30 10:35] LABS: LDL Cholesterol,Calculated 13 mg/dL (0-99)
[2019-10-30 10:37] LABS: HDL Cholesterol 129 mg/dL (40-60)
[2019-10-30] MEDS: MELATONIN 3 MG TABLET PO SCH (21:17)
[2019-10-30] MEDS: traZODone HCL 100 MG TAB PO SCH (21:17)
[2019-10-31] MEDS: amLODIPine 5 MG TAB PO SCH (08:48)
[2019-10-31] MEDS: buPROPion XL 300 MG TAB.ER.24H PO SCH (08:48)
[2019-10-31] MEDS: ATENOLOL 50 MG TAB PO SCH (08:48)
[2019-10-31] MEDS: FOLIC ACID 1 MG TAB PO SCH (08:49)
[2019-10-31] MEDS: NALTREXONE HCL 50 MG TAB PO SCH (08:49)
[2019-10-31] MEDS: ALBUTEROL INHALER 60 PUFF/8 GM INHALER (MHU) INHALATION PRN (12:58)
--- NOTE | 2019-10-31 13:42 | P.PN ---
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 He described alcohol withdrawal symptoms including nausea, sweating, and diarrhea. He vomited yesterday. Over the last 24 hours. She was scores range from 0 to a high of 13. He complained continued feelings depression but denied suicidal ideation or wishes. We discussed aftercare and the services that he would need to support abstinenc e. Unfortunately, Alcoholics Anonymous meetings have not restarted but [facility] scheduled to fully open next week. Mental status exam: He presented as a casually groomed tall -Vietnamese male who was pleasant on approach. He made eye contact and attended the interview. He had a distressed facial expression. He was alert and oriented to person, place and time. He had no abnormality of psychomotor activity. He walked with a slight limp. His speech was spontaneous with decreased rate and volume. His affect was blunted and depressed. He denied suicidal ideation, wishes or homicidal ideation. He feels hopeless and helpless but denied feeling worthless. He did not express ideas reference, paranoid ideation or delusions. His thinking was concrete but his associations were coherent, logical and goal directed. He denied hallucinations did not appear to be responding to internal stimuli. Assessment: He has continued signs and symptoms of alcohol withdrawal uncomplicated by delirium or psychosis. He has continued feelings depression but is currently denying suicidal ideation. Plan: Continued hospitalization. Safety precautions. Continue Ativan 1 mg by mouth 3 times a day when necessary for alcohol withdrawal. Continue Wellbutrin XL 300 mg daily melatonin 6 mg at bedtime, ReVia 50 mg daily and his role 20 mg at bedtime. Continue to monitor signs and symptoms of alcohol withdrawal using the CIWA. campaign worker to coordinate discharge and aftercare services. Encourage continued participation in therapeutic groups and activities. Evaluate clinical status response to treatment daily basis.
[2019-10-31] MEDS: traZODone HCL 100 MG TAB PO SCH (21:11)
[2019-10-31] MEDS: MELATONIN 3 MG TABLET PO SCH (21:11)
[2019-11-01] MEDS: NALTREXONE HCL 50 MG TAB PO SCH (08:45)
[2019-11-01] MEDS: FOLIC ACID 1 MG TAB PO SCH (08:45)
[2019-11-01] MEDS: buPROPion XL 300 MG TAB.ER.24H PO SCH (08:45)
[2019-11-01] MEDS: amLODIPine 5 MG TAB PO SCH (08:46)
[2019-11-01] MEDS: ATENOLOL 50 MG TAB PO SCH (08:46)
[2019-11-01] MEDS: LORazepam 1 MG TAB PO PRN ×2 (08:47→16:15)
[2019-11-01] MEDS: ALBUTEROL INHALER 60 PUFF/8 GM INHALER (MHU) INHALATION PRN ×2 (08:48→20:57)
--- NOTE | 2019-11-01 13:02 | P.PN ---
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 He complained of "not feeling well." He alleged that he is not been sleeping well and waking up at night hopeless and having suicidal thoughts. He complained of continued feelings depression, hopelessness and helplessness. He described vague suicidal thoughts such as cutting his wrist or jumping into the [place]. He perseverated about discharge but brightened when I told him that I will not be able to keep him beyond this weekend. "So I can stay over the weekend?" He denied alcohol withdrawal symptoms. Mental status exam: He presented as a casually groomed tall -Micron[place] male who was pleasant on approach. He made eye contact and attended the interview. He had a distressed facial expression. He was alert and oriented to person, place and time. He had no abnormality of psychomotor activity. He walked with a slight limp. His speech was spontaneous with decreased rate and volume. His affect was blunted and depressed. He denied suicidal ideation, wishes or homicidal ideation. He feels hopeless and helpless but denied feeling worthless. He did not express ideas reference, paranoid ideation or delusions. His thinking was concrete but his associations were coherent, logical and goal directed. He denied hallucinations did not appear to be responding to internal stimuli. Assessment: He Is now alleging that he has suicidal ideation. Plan: Continued hospitalization. Safety precautions. Continue Ativan 1 mg by mouth 3 times a day when necessary for alcohol withdrawal. Continue Wellbutrin XL 300 mg daily, ReVia 50 mg daily and trazodone 200 mg at bedtime. Discontinue melatonin. Continue to monitor signs and symptoms of alcohol withdrawal using the CIWA. door worker to coordinate discharge and aftercare services. Encourage continued participation in therapeutic groups and activities. Evaluate clinical status response to treatment daily basis.
[2019-11-01] MEDS: traZODone HCL 100 MG TAB PO SCH (20:56)
[2019-11-02] MEDS: ALBUTEROL INHALER 60 PUFF/8 GM INHALER (MHU) INHALATION PRN (08:01)
[2019-11-02] MEDS: ATENOLOL 50 MG TAB PO SCH (09:03)
[2019-11-02] MEDS: amLODIPine 5 MG TAB PO SCH (09:04)
[2019-11-02] MEDS: FOLIC ACID 1 MG TAB PO SCH (09:04)
[2019-11-02] MEDS: buPROPion XL 300 MG TAB.ER.24H PO SCH (09:04)
[2019-11-02] MEDS: NALTREXONE HCL 50 MG TAB PO SCH (09:04)
--- NOTE | 2019-11-02 11:37 | P.PN ---
Progress Note - Text Progress Note Date: 11/02/19 Interval history: Patient was seen wandering the hallways and was directable and agreeable to s peak with senior copywriter. Patient appeared to be fairly cooperative with senior copywriter and states that he is doing better today. He was appropriate during conversation and claims that he is looking forward to going home on Monday. He states that he has been going to some of the groups and finding them helpful. He states that he is taking his medications and claims that "the melatonin wasn't helping me very much I'm glad he got rid of that". He states that he is able to sleep throughout the night while. At this time patient denies any suicidal or homicidal ideations intent or plan. Denies any Auditory or visual hallucinations. Patient denies any side effects from the medications and has been compliant with meds. Mental status exam: General Appearance: Patient appears to be stated age is tall, alert, directable, and attempts to be cooperative. Behavior: No agitated behavior. Patient is calm and directable attempts to be cooperative. Speech: Patient's speech is fluent and nonpressured. Mood/Affect: Mood is improving mildly, affect is congruent and constricted. Suicidality/Homicidality: Patient denies having any suicidal or homicidal ideation intent or plan. Perceptions: Patient denies any auditory or visual hallucinations. Though content/process: There is no evidence of any delusional thought content and thought process is linear and goal-directed. Future oriented. Memory and concentration: AOX3, grossly intact for the purposes of this session Judgment and insight: improving mildly Assessment/Plan: Continue with current diagnosis. Patient continues to meet criteria for inpatient psychiatric admission for symptom stabilization and safety.Patient will be maintained on current psychotropic medication regimen. Monitor for medication compliance and for any psychotropic medication side effects. Will continue to monitor ongoing response to treatment. Encouraged participation in milieu.
[2019-11-02] MEDS: traZODone HCL 100 MG TAB PO SCH (20:46)
[2019-11-03 09:10] VITALS: RESP 16
[2019-11-03] MEDS: NALTREXONE HCL 50 MG TAB PO SCH (09:12)
[2019-11-03] MEDS: buPROPion XL 300 MG TAB.ER.24H PO SCH (09:12)
[2019-11-03] MEDS: FOLIC ACID 1 MG TAB PO SCH (09:12)
[2019-11-03] MEDS: ALBUTEROL INHALER 60 PUFF/8 GM INHALER (MHU) INHALATION PRN (09:13)
--- NOTE | 2019-11-03 10:40 | P.PN ---
Progress Note - Text Progress Note Date: 11/03/19 Interval history: Patient was seen attending group this morning and was directable and agreeable to speak with mortgage loan underwriter. Patient appeared to be fairly cooperative with mortgage loan underwriter. He states that his mood is being gradually improving on the unit. He states that he is learning a lot from group and will be attending more sessions today. He states that he did have some difficulties with sleep the past 2 days and was requesting to have his trazodone increased. He states that he has a fair appetite. At this time patient denies any suicidal or homicidal ideations intent or plan. Denies any Auditory or visual hallucinations. Patient denies any side effects from the medications and has been compliant with meds. Mental status exam: General Appearance: Patient appears to be stated age is tall, alert, directable, and attempts to be cooperative. Behavior: No agitated behavior. Patient is calm and directable attempts to be cooperative. Speech: Patient's speech is fluent and nonpressured. Mood/Affect: Mood is improving mildly, affect is congruent and constricted. Suicidality/Homicidality: Patient denies having any suicidal or homicidal ideation intent or plan. Perceptions: Patient denies any auditory or visual hallucinations. Though content/process: There is no evidence of any delusional thought content and thought process is linear and goal-directed. Future oriented. Memory and concentration: AOX3, grossly intact for the purposes of this session Judgment and insight: improving mildly Assessment/Plan: Continue with current diagnosis. Patient continues to meet criteria for inpatient psychiatric admission for symptom stabilization and safety.Patient will be maintained on current psychotropic medication regimen with the exception of increasing trazodone to 300 mg nightly for insomnia/mood. Monitor for medication compliance and for any psychotropic medication side eff ects. Will continue to monitor ongoing response to treatment. Encouraged participation in milieu.
[2019-11-03] MEDS: ATENOLOL 50 MG TAB PO SCH (11:19)
[2019-11-03] MEDS: amLODIPine 5 MG TAB PO SCH (11:19)
[2019-11-03] MEDS ORDERED: traZODone HCL 100 MG TAB PO SCH (21:00)
[2019-11-04 08:46] VITALS: BP 109/69; PULSE 99
[2019-11-04] MEDS: buPROPion XL 300 MG TAB.ER.24H PO SCH (08:46)
[2019-11-04] MEDS: amLODIPine 5 MG TAB PO SCH (08:46)
[2019-11-04] MEDS: FOLIC ACID 1 MG TAB PO SCH (08:46)
[2019-11-04] MEDS: ATENOLOL 50 MG TAB PO SCH (08:46)
[2019-11-04] MEDS: NALTREXONE HCL 50 MG TAB PO SCH (08:46)
[2019-11-04] MEDS: ALBUTEROL INHALER 60 PUFF/8 GM INHALER (MHU) INHALATION PRN (08:48)
--- NOTE | 2019-11-04 11:47 | P.DS ---
Providers Date of admission: 10/29/19 08:36 Attending physician: Russell Whaley MD Consults: 10/29/19 09:18 Consult Physician Routine Consulting Provider: Mellisa Medeiros Consult Reason/Comments: H & P and medical care Do you want consulting provider notified?: Yes Primary care physician: Caterina Chand - Discharge Diagnosis(es) (1) Suicidal ideation Current Visit: Yes Status: Resolved Priority: Low (2) Alcohol withdrawal Current Visit: No Status: Resolved Priority: Low (3) Alcohol-induced mood disorder with depressive symptoms Current Visit: Yes Status: Acute Priority: Medium (4) Alcohol use disorder, severe, dependence Current Visit: No Status: Chronic Priority: High (5) Cocaine use disorder, severe, in sustained remission Current Visit: No Status: Chronic Priority: Low Hospital Course: He is a 64-year-old -[place] male who has a history of an alcohol use disorder. He presented to the psychiatric unit involuntary with complaints of increased depression and suicidal ideation. He was last discharged from this unit in May 2019 and referred to [place] for residential substance abuse treatment. He completed the 28 day program [place] then returned to his home in [place]. He is doing well when he is attending [facility] and his alcoholic's anonymous meetings. As a result of the pandemic [facility] closed and all the Alcoholics Anonymous meetings were suspended. Begin about July he relapsed on alcohol when he was drinking at least 1/5 of liquor per day. He described increasing feelings depression and had suicidal thoughts including overdosing on medications, cutting himself for "jumping into the river." He describes symptoms of depression including lack of appetite, poor concentration, guilt, anhedonia and suicidal thoughts. He denied experiencing periods of elevated mood or sustained irritability consistent with patricia or h ypomania. He denied severe and persistent anxiety that he is unable to control. He denied experiencing panic attack, obsessions or compulsions. He denied psychotic symptoms such as auditory, visual or olfactory hallucinations, ideas reference, thought insertion set her up. He denied the use of drugs including cocaine to get high, help him sleep or changes mood. We estimate that this could be his 20th admission to this unit. In addition he's been admitted to several other [facility]'s. We admitted him to the psychiatric unit voluntarily under care of this contract writer. We provided a copy a biopsychosocial assessment. The c consultant sexton helper completed initial physical exam and medical history. The patient's medical problems include diarrhea, elevated liver enzymes and hypertension. His son Kelly virus PCR was not detected. Hepatitis A IgM was nonreactive, hepatitis B surface antigen nonreactive and hepatitis C IgG antibody was nonreactive. His diarrhea resolved with his alcohol withdrawal symptoms. He had the mild alcohol withdrawal symptoms and complicated by delirium or psychosis. We continued Wellbutrin XL 300 mg daily for the treatment of his depressive symptoms as well as ReVia 50 mg daily for treatment of his alcohol use disorder. We prescribed trazodone titration dose of 300 mg at bedtime for sleep. We discontinued Abilify, Effexor, melatonin and Remeron. He intermittently complained of suicidal thoughts. He participated in therapeutic groups and activities. He posed no management no management problem and had no episodes of behavioral dyscontrol. At time of discharge she presented as secure as a group tall. Afghan male who was pleasant on approach. He made eye contact and attempted to interview. He is no distinction features are prominent physical abnormalities. He had a blunted but bright facial expression. He had no abnormality of psychomotor activity. His gait was slow but steady. His speech was spontaneous with normal rate, rhythm and volume. His affect was blunted but stable and appropriate. He denied suicidal ideation or wishes. She denied homicidal ideation. He denied feeling hopeless, helpless or worthless. He ruminated about the limits and social activity due to the pandemic including participation in Alcoholics Anonymous and community mental health. He did not express ideas reference, paranoid ideation or delusions. His thinking was abstract and associations were coherent and logical. He denied hallucinations and didn't appear to responding to internal stimuli. Patient Condition at Discharge: Serious Plan - Discharge Summary New Discharge Prescriptions: New traZODone HCL [Desyrel] 300 mg PO HS #90 tab Continue amLODIPine [Norvasc] 10 mg PO DAILY 30 Days #30 tab Folic Acid 1 mg PO DAILY #30 tablet Albuterol Inhaler [Ventolin Hfa Inhaler] 1 puff INHALATION RT-Q6H PRN PRN Reason: Shortness Of Breath Atenolol 100 mg PO DAILY Naltrexone HCl [Revia] 50 mg PO DAILY 30 Days #30 tab buPROPion HCL [Wellbutrin XL] 300 mg PO DAILY #30 tab Discontinued ARIPiprazole [Abilify] 2 mg PO DAILY 30 Days tab Venlafaxine HCl ER [Effexor XR] 225 mg PO DAILY #30 cap.er.24h Melatonin 6 mg PO HS 30 Days #30 tablet Mirtazapine [Remeron] 22.5 mg PO HS 30 Days #30 tab traZODone HCL [Desyrel] 200 mg PO HS Discharge Medication List amLODIPine [Norvasc] 10 mg PO DAILY 30 Days #30 tab 10/03/17 [Rx] Folic Acid 1 mg PO DAILY #30 tablet 05/23/19 [Rx] Albuterol Inhaler [Ventolin Hfa Inhaler] 1 puff INHALATION RT-Q6H PRN 10/28/19 [History] Atenolol 100 mg PO DAILY 10/28/19 [History] Naltrexone HCl [Revia] 50 mg PO DAILY 30 Days #30 tab 11/04/19 [Rx] buPROPion HCL [Wellbutrin XL] 300 mg PO DAILY #30 tab 11/04/19 [Rx] traZODone HCL [Desyrel] 300 mg PO HS #90 tab 11/04/19 [Rx] Follow up Appointment(s)/Referral(s): [facility] [Outside] - 11/07/19 1:00 pm (11-07-19 @ 1:00 with Alexander Meng by phone) Caterina Chand MD [Primary Care Provider] - 1-2 days Activity/Diet/Wound Care/Special Instructions: Activity and diet as tolerated. Avoid the use of street drugs and alcohol. Take all medications as prescribed. When you are in need of refills on your medications please contact your medical provider and/or outpatient psychiatrist to have this done. Please go to scheduled outpatient appointment for aftercare treatment. If symptoms return or become worse, call the crisis line at and/or go to the nearest emergency room for evaluation.
[2019-11-04 15:01] VITALS: TEMP 98.5
== END 2019-11-04 13:20 | disposition home or self-care (01) | DRG 897 ==
LOC: EC 20:37 → 3MHU 10-29 08:36
PROVIDERS: ADMIT Psychiatry & Neurology Psychiatry; ATTEND Psychiatry & Neurology Psychiatry
DX: F10.24 Alcohol dependence with alcohol-induced mood disorder (principal); R45.851 Suicidal ideations; Z11.59 Encounter for screening for other viral diseases; F10.231 Alcohol dependence with withdrawal delirium; F29 Unspecified psychosis not due to a substance or known physiological condition; F14.21 Cocaine dependence, in remission; F41.9 Anxiety disorder, unspecified; J45.909 Unspecified asthma, uncomplicated; I10 Essential (primary) hypertension; M19.90 Unspecified osteoarthritis, unspecified site; F32.9 Major depressive disorder, single episode, unspecified; R74.8 Abnormal levels of other serum enzymes; G47.00 Insomnia, unspecified; Z79.899 Other long term (current) drug therapy; Z90.49 Acquired absence of other specified parts of digestive tract; Z96.652 Presence of left artificial knee joint; Z87.891 Personal history of nicotine dependence; Z82.49 Family history of ischemic heart disease and other diseases of the circulatory system
CPT/HCPCS: 36415; 80053; 80061; 80074; 80306; 81003; 82075; 83036; 84443; 85025; 99285

== ENCOUNTER 2020-01-31 14:16 | Inpatient (IN) | payer MEDICARE, MEDICAID ==
--- NOTE | 2020-01-31 15:22 | ED ---
Psych HPI - General Source: patient, RN notes reviewed Mode of arrival: ambulatory Limitations: no limitations <Izaiah Spencer - Last Filed: 01/31/20 15:21> <Ezequiel Boggs - Last Filed: 01/31/20 21:30> - General Chief Complaint: Psychiatric Symptoms Stated Complaint: Mental Health Time Seen by Provider: 01/31/20 14:43 - History of Present Illness Initial Comments: 64-year-old male present emergency department with chief complaint of depression, suicidal ideation. Patient states that he relapsed on alcohol 3 weeks ago. Patient also has not been taking his antidepressants. Patient plans to jump in the river or overdose on his trazodone. Patient denies illicit drug use. Patient denies any physical complaints. (Izaiah Spencer) - Related Data Home Medications Medication Instructions Recorded Confirmed Albuterol Inhaler [Ventolin Hfa 1 puff INHALATION RT-Q6H PRN 10/28/19 10/28/19 Inhaler] atenoloL [Atenolol] 100 mg PO DAILY 10/28/19 10/28/19 Previous Rx's Medication Instructions Recorded amLODIPine [Norvasc] 10 mg PO DAILY 30 Days #30 tab 10/03/17 Folic Acid 1 mg PO DAILY #30 tablet 05/23/19 Naltrexone HCl [Revia] 50 mg PO DAILY 30 Days #30 tab 11/04/19 buPROPion HCL [Wellbutrin XL] 300 mg PO DAILY #30 tab 11/04/19 traZODone HCL [Desyrel] 300 mg PO HS #90 tab 11/04/19 Allergies Allergy/AdvReac Type Severity Reaction Status Date / Time milk Allergy Diarrhea Verified 01/31/20 17:54 Review of Systems ROS Other: All systems not noted in ROS Statement are negative. <Izaiah Spencer - Last Filed: 01/31/20 15:21> ROS Other: All systems not noted in ROS Statement are negative. <Ezequiel Boggs - Last Filed: 01/31/20 21:30> ROS Statement: Those systems with pertinent positive or pertinent negative responses have been documented in the HPI. Past Medical History Past Medical History: Asthma, Hypertension, Osteoarthritis (OA) History of Any Multi-Drug Resistant Organisms: None Reported Past Surgical History: Appendectomy, Joint Replacement Additional Past Surgical History / Comment(s): left knee replacement, ORIF rt ankle Past Anesthesia/Blood Transfusion Reactions: No Reported Reaction Past Psychological History: Anxiety, Depression Smoking Status: Former smoker Past Alcohol Use History: Abuse, Daily, Heavy Past Drug Use History: None Reported - Past Family History Mother Family Medical History: No Reported History Additional Family Medical History / Comment(s): . Father Family Medical History: Hypertension Additional Family Medical History / Comment(s): Father is alive at age 90 with history of hypertension. Brother(s) Additional Family Medical History / Comment(s): . <Izaiah Spencer - Last Filed: 01/31/20 15:21> General Exam Limitations: no limitations General appearance: alert, in no apparent distress Head exam: Present: atraumatic, normocephalic, normal inspection Eye exam: Present: normal appearance, PERRL, EOMI. Absent: scleral icterus, conjunctival injection, periorbital swelling Respiratory exam: Present: normal lung sounds bilaterally. Absent: respiratory distress, wheezes, rales, rhonchi, stridor Cardiovascular Exam: Present: normal rhythm, tachycardia, normal heart sounds. Absent: systolic murmur, diastolic murmur, rubs, gallop, clicks GI/Abdominal exam: Present: soft, normal bowel sounds. Absent: distended, tenderness, guarding, rebound, rigid Neurological exam: Present: alert, oriented X3, CN II-XII intact Skin exam: Present: warm, dry, intact, normal color. Absent: rash <Izaiah Spencer - Last Filed: 01/31/20 15:21> Course Vital Signs 01/31/20 14:33 Temperature 97.3 F L Pulse Rate 105 H Respiratory 18 Rate Blood Pressure 132/76 O2 Sat by Pulse 99 Oximetry Medical Decision Making - Lab Data Result diagrams: 01/31/20 15:18 01/31/20 15:18 <Ezequiel Boggs - Last Filed: 01/31/20 21:30> - Medical Decision Making Patient evaluated by EPS, will be admitted for further psychiatric evaluation and treatment (Ezequiel Boggs) - Lab Data Lab Results 01/31/20 01/31/20 01/31/20 Range/Units 14:52 15:18 15:18 WBC 5.3 (3.8-10.6) k/uL RBC 4.08 L (4.30-5.90) m/uL Hgb 13.2 (13.0-17.5) gm/dL Hct 40.6 (39.0-53.0) % MCV 99.5 (80.0-100.0) fL MCH 32.4 (25.0-35.0) pg MCHC 32.5 (31.0-37.0) g/dL RDW 14.9 (11.5-15.5) % Plt Count 186 (150-450) k/uL Neutrophils % 62 % Lymphocytes % 25 % Monocytes % 7 % Eosinophils % 3 % Basophils % 1 % Neutrophils # 3.3 (1.3-7.7) k/uL Lymphocytes # 1.3 (1.0-4.8) k/uL Monocytes # 0.4 (0-1.0) k/uL Eosinophils # 0.2 (0-0.7) k/uL Basophils # 0.0 (0-0.2) k/uL Macrocytosis Slight Sodium 134 L (137-145) mmol/L Potassium 4.1 (3.5-5.1) mmol/L Chloride 99 (98-107) mmol/L Carbon Dioxide 22 (22-30) mmol/L Anion Gap 13 mmol/L BUN 10 (9-20) mg/dL Creatinine 0.81 (0.66-1.25) mg/dL Est GFR (CKD-EPI)AfAm >90 (>60 ml/min/1.73 sqM) Est GFR (CKD-EPI)NonAf >90 (>60 ml/min/1.73 sqM) Glucose 102 H (74-99) mg/dL Calcium 9.0 (8.4-10.2) mg/dL Magnesium 1.9 (1.6-2.3) mg/dL Total Bilirubin 0.9 (0.2-1.3) mg/dL AST 41 (17-59) U/L ALT 18 (4-49) U/L Alkaline Phosphatase 61 (38-126) U/L Total Protein 7.1 (6.3-8.2) g/dL Albumin 4.5 (3.5-5.0) g/dL Lipase 91 (23-300) U/L Urine Opiates Screen Not Detected (NotDetected) Ur Oxycodone Screen Not Detected (NotDetected) Urine Methadone Screen Not Detected (NotDetected) Ur Propoxyphene Screen Not Detected (NotDetected) Ur Barbiturates Screen Not Detected (NotDetected) U Tricyclic Antidepress Not Detected (NotDetected) Ur Phencyclidine Scrn Not Detected (NotDetected) Ur Amphetamines Screen Not Detected (NotDetected) U Methamphetamines Scrn Not Detected (NotDetected) U Benzodiazepines Scrn Not Detected (NotDetected) Urine Cocaine Screen Not Detected (NotDetected) U Marijuana (THC) Screen Not Detected (NotDetected) Disposition <Izaiah Spencer - Last Filed: 01/31/20 15:21> Is patient prescribed a controlled substance at d/c from ED?: No Decision to Admit Reason: Admit from EC Decision Date: 01/31/20 Decision Time: 21:30 <Ezequiel Boggs - Last Filed: 01/31/20 21:30> Clinical Impression: Depression, Suicidal ideation Disposition: ADMITTED IP TO THIS [facility] Condition: Stable Referrals: Caterina Chand MD [Primary Care Provider] - 1-2 days
[2020-01-31 15:26] LABS: Amphetamine Screen,Urine Not Detected (NotDetected); Barbiturate Screen,Urine Not Detected (NotDetected); Benzodiazepines Screen,Urine Not Detected (NotDetected); Cocaine Screen,Urine Not Detected (NotDetected); Methadone Screen, Urine Not Detected (NotDetected); Opiate Screen,Urine Not Detected (NotDetected); Oxycodone Screen, Urine Not Detected (NotDetected); Phencyclidine Screen,Urine Not Detected (NotDetected); Tricyclic Antidepressant,Urine Not Detected (NotDetected); Urn Cannabinoid Scrn Not Detected (NotDetected)
[2020-01-31 15:41] LABS: Basophils % (A) 1 %; Eosinophils # (A) 0.2 k/uL (0-0.7); Eosinophils % (A) 3 %; HCT 40.6 % (39.0-53.0); HGB 13.2 gm/dL (13.0-17.5); Lymphocytes # (A) 1.3 k/uL (1.0-4.8); Lymphocytes % (A) 25 %; MCH 32.4 pg (25.0-35.0); MCHC 32.5 g/dL (31.0-37.0); MCV 99.5 fL (80.0-100.0); Macrocytosis Slight; Mean Platelet Volume 8.2; Monocytes # (A) 0.4 k/uL (0-1.0); Monocytes % (A) 7 %; Neutrophils # (A) 3.3 k/uL (1.3-7.7); Neutrophils % (A) 62 %; Platelet Count 186 k/uL (150-450); RBC 4.08 m/uL (4.30-5.90); RDW 14.9 % (11.5-15.5); WBC 5.3 k/uL (3.8-10.6)
[2020-01-31 15:46] LABS: ALT 18 U/L (4-49); AST 41 U/L (17-59); African American GFR (CKD) >90 (>60 ml/min/1.73 sqM); Albumin 4.5 g/dL (3.5-5.0); Alkaline Phosphatase 61 U/L (38-126); Anion Gap 13 mmol/L; Blood Urea Nitrogen 10 mg/dL (9-20); Carbon Dioxide 22 mmol/L (22-30); Chloride 99 mmol/L (98-107); Glucose 102 mg/dL (74-99); Magnesium 1.9 mg/dL (1.6-2.3); Non-African American GFR(CKD) >90 (>60 ml/min/1.73 sqM); Potassium 4.1 mmol/L (3.5-5.1); Sodium 134 mmol/L (137-145); Total Bilirubin 0.9 mg/dL (0.2-1.3); Total Protein 7.1 g/dL (6.3-8.2)
[2020-01-31] MEDS ORDERED: ZIPRASIDONE 20 MG VIAL IM PRN (23:26)
[2020-01-31] MEDS ORDERED: ACETAMINOPHEN TAB 325 MG TAB PO PRN (23:26)
[2020-01-31] MEDS ORDERED: MAG HYDROX/AL HYDROX/SIMETH 30 ML CUP PO PRN (23:26)
[2020-01-31] MEDS ORDERED: MAGNESIUM HYDROXIDE 2,400 MG/10 ML CUP PO PRN (23:26)
[2020-02-01 07:22] VITALS: RESP 16
[2020-02-01 08:19] LABS: ALT 18 U/L (4-49); AST 44 U/L (17-59); African American GFR (CKD) >90 (>60 ml/min/1.73 sqM); Albumin 4.1 g/dL (3.5-5.0); Alkaline Phosphatase 59 U/L (38-126); Anion Gap 6 mmol/L; Blood Urea Nitrogen 8 mg/dL (9-20); Calcium 8.8 mg/dL (8.4-10.2); Carbon Dioxide 28 mmol/L (22-30); Chloride 101 mmol/L (98-107); Glucose 85 mg/dL (74-99); Non-African American GFR(CKD) >90 (>60 ml/min/1.73 sqM); Sodium 135 mmol/L (137-145); Total Bilirubin 1.4 mg/dL (0.2-1.3); Total Protein 6.8 g/dL (6.3-8.2)
[2020-02-01] MEDS: LORazepam 1 MG TAB PO PRN ×2 (12:24→21:13)
[2020-02-01] MEDS: NICOTINE 7MG/24HR PATCH TRANSDERM SCH (12:25)
--- NOTE | 2020-02-01 13:19 | HP ---
DATE OF SERVICE: 02/01/2020 HISTORY AND PHYSICAL IDENTIFYING DATA: Patient is a 64-year-old male. He lives alone. He presented to the emergency room for evaluation. CHIEF COMPLAINT: The patient was depressed. He had suicide thoughts with a plan to jump in the river or overdose. He had relapsed on alcohol for the past 3 weeks. HISTORY OF PRESENTING ILLNESS: The patient has long-term problems with alcohol use. He said throughout his adult life he only had 1 period of sobriety for 9 months when he was in college. Other than that, he has been fairly consistent in his drinking. He has been in various treatment programs in the past. He has had a number of psychiatric admissions to this facility including 2 admissions in 2016, 1 in 2017, 3 in 2018, 1 in 2019 and his most recent admission on 10/29/2019. I refer the reader to Dr. Whaley's notes for details of that admission. For the most part, that admission is similar to his current situation. He had been in this facility last April and was discharged in May with referral to [facility] for treatment of his alcohol dependence. He completed a 28 day program. He had been working with [facility] and going to AA meetings. He remained sober for a period of time. He said the biggest ronn was when COVID hit and he was no longer able to be at AA meetings or get followup through [facility]. He relapsed into alcohol leading up to his October admission. He was discharged November 03. He said throughout the summer he maintained sobriety until about 3 weeks ago. He said that he just randomly got back into drinking. In part it was precipitated by his just going to grocery store for regular groceries and at 1 time picked up some alcohol and that set off his drinking. He has been drinking a 5th a day for the last 3 weeks. He has not been taking his medications consistently during the time that he has been drinking. He said he thinks he took his Wellbutrin consistently, though did not take his Revia consistently. He notes that in the past he has been on Vivitrol, though was questioning whether or not it really helped him. He acknowledged that he has had some issues with depression though the biggest issue of late has been the social isolation. He also has been out of work, which he says has been another factor for him. He feels isolated with very little to do in his daily life. He has been going to the gym and doing workouts. He says when he does that it helps, though on days that he does not go to the gym he gets back into a feeling isolated and cut off from the world. He has been sleeping poorly. He has loss of motivation, energy and interest. He denies any symptoms of thought disorder. He does have high anxiety, though does not note any panic symptoms. He does not identify any history of manic symptoms or posttraumatic issues. He does say he has recurring thoughts about bad events in his life, mainly that of things that he caused. He said with his drinking, he got increasingly hopeless to the point where he again developed suicide thinking, which has happened in the past related to his drinking bouts. He is admitted for further evaluation. The patient reports that he has not had any past episodes of delirium tremens or alcohol withdrawal related seizures. Vital signs since admission have been relatively stable with vital signs this morning at 6:45 including BP 123/81, pulse 108 and regular, temp 99.1, respirations 16, oxygen saturation 95. CURRENT MEDICATIONS,: Which he was discharged with on November 03 include Wellbutrin XL 300 mg a day, Rivea 50 mg a day and trazodone 300 mg at bedtime as his psychotropic medications. He is also on atenolol 100 mg a day and Norvasc 10 mg a day. SUBSTANCE USE HISTORY: As above. He does not use any other abusive substances beyond the alcohol. PAST MEDICAL HISTORY: Patient reports hypertension. 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 He stated that he did attend [employer] [place] and was 1 credit short of completing a degree in accounting. He says he does have interest in going back to school. 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 He says he can get financial support from his father to do that, though he would have to prove to his father that he is free of alcohol. He was for 12 years and has been for 20 years. He has 2 grown children with whom he has some regular contact him. MENTAL STATUS EXAM: Patient was somewhat restless. He gave fair eye contact, though he often would look down as much as getting a direct eye gaze. He answered questions appropriately. His thoughts were clear, coherent, and goal directed. He was somewhat spontaneous and interactive. His affect was anxious. His mood depressed. He was significantly distressed. There was no indication of thought disorder. He denied thoughts of harm to self or others at the time of the interview, though acknowledged having thoughts of suicide leading up to his coming into the hospital. On cognitive exam he was oriented x3 and alert. Recent and remote memory was intact. He could spell world forward and backwards. He could give the days of the week in reverse order. Insight and judgment were fair to good. Fund of knowledge average. PHYSICAL EXAM: As per medical consultation. ASSESSMENT: This 64-year-old male is admitted for alcohol relapse and depression. He has long-term alcohol use problems with very limited periods of sobriety. The patient seems to have a fairly good awareness of the situation he is struggling with in regard to his alcohol use. Strengths include motivation toward sobriety and plans about his future. Weakness includes social isolation and relapse to alcohol use. DIAGNOSIS: 1. Alcohol dependence,continuous. 2. Acute alcohol withdrawal. The patient does not appear to be at risk for delirium tremens. 3. Major depression. 4. Hypertension. RECOMMENDATIONS: Patient will be admitted for comprehensive medical psychiatric and psychosocial evaluation. We will engage the patient in individual and group therapeutic activities. I will continue his psychotropic medications the same including Wellbutrin XL 300 mg a day, trazodone 300 mg at bedtime and Rivea 50 mg a day. I discussed a physical activity program to help manage early withdrawal symptoms. We talked about means for him to organize and structure his daily life to help reduce some of the isolation he experiences. We talked about options such as volunteer work and returning to some schooling which would give him productive outlets. We will monitor for detox signs and symptoms. We will focus on stabilization and discharge planning. MMODL / IJN: [id number] / DAYNE
[2020-02-01 20:55] LABS: Hemoglobin A1C 4.4 % (4.0-6.0)
[2020-02-01] MEDS: traZODone HCL 100 MG TAB PO SCH (21:51)
[2020-02-02] MEDS: buPROPion XL 300 MG TAB.ER.24H PO SCH (08:42)
[2020-02-02] MEDS: NALTREXONE HCL 50 MG TAB PO SCH (08:42)
[2020-02-02] MEDS: NICOTINE 7MG/24HR PATCH TRANSDERM SCH (08:42)
[2020-02-02] MEDS: traZODone HCL 100 MG TAB PO SCH (20:54)
[2020-02-03] MEDS: NICOTINE 7MG/24HR PATCH TRANSDERM SCH (09:04)
[2020-02-03] MEDS: NALTREXONE HCL 50 MG TAB PO SCH (09:05)
[2020-02-03] MEDS: ALBUTEROL INHALER 60 PUFF/8 GM INHALER (MHU) INHALATION PRN (09:05)
[2020-02-03] MEDS: buPROPion XL 300 MG TAB.ER.24H PO SCH (09:05)
--- NOTE | 2020-02-03 09:38 | PN ---
PROGRESS NOTE DATE OF SERVICE: 02/02/2020 CHIEF COMPLAINT: The patient was depressed, he had suicide thoughts with a plan to jump in the river or overdose. He had relapsed on alcohol for the past 3 weeks. INTERVAL HISTORY: Patient has been doing fair. He had a quiet day yesterday, he comes out on the unit. He wanders about. He will interact some with others. He has been attending groups and seems to gain some benefit from his interactions. He will walk about as a means of dealing with some anxiety that he has. He slept fairly well last night, today he has been up. He continues to be out on the unit a fair amount of the time. He did not have any specific complaints or concerns when I talked to him. The only issue that he is focused on is being sure he can be discharged as he says hopefully on Monday, so that he can enter [facility] on Monday. He has been in contact with [facility] and has his admission date set for Monday. He understands that he needs to coordinate with our social workers in regard to the discharge planning and getting records to [facility]. Patient has not shown significant withdrawal issues. His vital signs have been stable. He does run a mildly elevated pulse. His vital signs this morning at 6:30 were BP 112/75, pulse 101 and regular, temp 98.5, respirations 16. The patient tolerates his psychotropic medications. It is noted that the patient took Ativan 1 mg at 9 pm last night. Apparently, he also took Ativan at 1320 yesterday as well. MENTAL STATUS EXAM: Patient walked slowly. He sat without restlessness, he gave fairly good eye contact. His speech was normal. He answered questions appropriately. His thoughts were clear and coherent. He did not say a lot, though he did give a complete answers to questions. His affect was blunted. He had a friendly calm manner. His mood was reserved but not clearly down or depressed. He did not appear to be significantly distressed. There was no indication of thought disorder. He voiced no thoughts of harm to self or others. Cognition was clear. ASSESSMENT: I will continue the current diagnosis and treatment plan. I will continue psychotropic medications the same. I will discontinue Ativan. I discussed with the patient that Ativan will only prolong withdrawal issues and that he needs to be completely off of habit-forming substances including alcohol and benzodiazepines to progress through withdrawal. I reviewed the course of withdrawal and withdrawal symptoms. I anticipate that the patient will be discharged early in the week so that he can make his admission to [facility] on Monday. ANASTASIA / ANUP: [id number] /
--- NOTE | 2020-02-03 10:49 | P.PN ---
Progress Note - Text Progress Note Date: 02/03/20 Interval History: [place] [facility] [place] direct[place] and agreeable to speak with information writer in the office. Patient appeared to have good hygiene ,he denies any alcohol withdrawal ,CIWA was 2 this morning ,stated that he slept from 9 PM till 3 AM and was not able to fall back asleep as he has new roommate ,rates his depression and anxiety both / ,stated that he has intake at [facility] on 02/04 at 10 AM Patient denies any auditory, visual hallucinations and denies any paranoia or delusions. Patient denies any side effects from the medications and has been compliant with meds. Mental Status Exam: General Appearance: Patient appears to be stated age is alert, cooperative Behavior: Patient is seated without any agitated behavior. Friendly Speech: Patient's speech is fluent and nonpressured. Mood/Affect: Patient reports their mood is "Better", affect is congruent and constricted Suicidality/Homicidality: Patient denies having any homicidal ideation intent or plan denies any suicidal ideation or intend Perceptions: Patient denies any visual hallucinations and denies any auditory hallucinations Though content/process: There is no evidence of any delusional thought content and thought process is linear and goal-directed. Memory and concentration: AOX3, grossly intact for the purposes of this session Judgment and insight: improving Assessment Major depression ,recurrent without psychotic features Alcohol use disorder,severe Nicotine dependence PLAN : continue inpatient ,continue Trazodone and Well butrin ,d/c Ativan ,Vistaril PRN ,SW to coordinate transfer to [facility]
[2020-02-03] MEDS: hydrOXYzine pamoate 25 MG CAP PO PRN ×2 (16:32→21:29)
[2020-02-03] MEDS: traZODone HCL 100 MG TAB PO SCH (21:29)
[2020-02-04 06:54] VITALS: BP 122/77; PULSE 78; TEMP 98.1
[2020-02-04] MEDS: ALBUTEROL INHALER 60 PUFF/8 GM INHALER (MHU) INHALATION PRN (07:13)
[2020-02-04] MEDS: NICOTINE 7MG/24HR PATCH TRANSDERM SCH (08:47)
[2020-02-04] MEDS: buPROPion XL 300 MG TAB.ER.24H PO SCH (08:49)
[2020-02-04] MEDS: NALTREXONE HCL 50 MG TAB PO SCH (08:49)
[2020-02-04] MEDS: hydrOXYzine pamoate 25 MG CAP PO PRN (08:49)
--- NOTE | 2020-02-04 10:10 | DS ---
DISCHARGE SUMMARY DATE OF ADMISSION: 01/31/2020. DATE OF DISCHARGE: 02/04/2020 GEM CUTTER: The patient just was seen by the emergency room, Ezequiel Boggs. DISCHARGE DIAGNOSES: 1. Alcohol use disorder, severe. 2. Major depression by history. 3. Hypertension. HISTORY OF PRESENT ILLNESS: Please refer to Dr. Alcocer's dictation. The patient is 64, male who lives on his own, presented to the emergency room with depression and suicidal thoughts with a plan to jump in the river or overdose. Patient did relapse on alcohol after he has been clean for a couple of weeks. According to him, his relapse gets precipitated by just going to the grocery store for regular grossly and he did pickup some alcohol at that time. He was drinking up to a fifth a day for 21 days prior to the admission and he did not take any of his psychotropic medication that is supposed to be Wellbutrin, ReVia and trazodone. For complete history and physical, please refer to Dr. Alcocer's dictation. HOSPITAL COURSE: The patient was admitted on voluntary basis and he was started on CIWA protocol for alcohol detox and we restart him back on his Wellbutrin XL 300 mg, trazodone 300 at bedtime for sleep. In addition, we did continue his blood pressure medication and we were checking his CIWA 4 times a day. The last 24 hour his CIWA was zero and I did discontinue all the Ativan to avoid any cross addiction and I would I start him on hydroxyzine as needed for anxiety. The patient was participating in group therapy and he was very active in the milieu. I did discuss with him more than once that if he can stay here and will transfer him right away to [place] [facility] as he has an appointment on February 05, 2020 at 9:45 a.m.; however, he declined stating that he has to go home today so he can pack his clothes and tomorrow he will drive himself to [place]. MENTAL STATUS EXAMINATION: Patient appears to be his stated age, very cooperative, no acute distress. Fair hygiene and grooming. Speech is spontaneous, fluent and coherent. He reported that his mood is good. Affect is euthymic. Patient denied any suicidal or homicidal ideation, intent, or plan. He denied any auditory or visual hallucination. There is no evidence of any delusional thinking. He stated that he has plan to go to the rehab and then he will start working on to join the gym again. He is alert, oriented x3. Insight and judgment are fair. DIAGNOSES: 1. Alcohol use disorder, severe. 2. Major depression disorder, recurrent, mild. 3. Hypertension. PLAN: The patient will be discharged today. I did give him 1 month supply of Wellbutrin XL 300 mg in the morning, trazodone 300 at bedtime for sleep, 21 tablets of Vistaril 25 mg as needed for anxiety. In addition, I did give him 4 week supply of ReVia 50 mg daily. The patient has to follow up with his primary care physician for his blood pressure. Patient has an appointment tomorrow on February 04 at 9:45 at [facility] for intake for his alcohol addiction. Patient was counseled on the need for medication compliance and to avoid any illicit drug use and he did verbalize understanding. The patient was instructed to return to the hospital or seek immediate medical care if his psychiatric or medical symptoms recur. ANASTASIA / ANUP: [id number] /
== END 2020-02-04 13:51 | disposition home or self-care (01) | DRG 881 ==
LOC: EC 14:16 → 3MHU 21:47
PROVIDERS: ADMIT Psychiatry & Neurology Psychiatry; ATTEND Psychiatry & Neurology Psychiatry
DX: F32.9 Major depressive disorder, single episode, unspecified (principal); F10.239 Alcohol dependence with withdrawal, unspecified; R45.851 Suicidal ideations; F17.200 Nicotine dependence, unspecified, uncomplicated; F41.9 Anxiety disorder, unspecified; I10 Essential (primary) hypertension; J45.909 Unspecified asthma, uncomplicated; M19.90 Unspecified osteoarthritis, unspecified site; Z79.899 Other long term (current) drug therapy; Z96.652 Presence of left artificial knee joint; Z91.83 Wandering in diseases classified elsewhere; Z91.14 Patient's other noncompliance with medication regimen; Z90.49 Acquired absence of other specified parts of digestive tract; Z91.011 Allergy to milk products; Z98.890 Other specified postprocedural states; Z82.49 Family history of ischemic heart disease and other diseases of the circulatory system
CPT/HCPCS: 36415; 80053; 80306; 82075; 83036; 83690; 83735; 84443; 85025; 99285

== ENCOUNTER 2020-05-21 10:46 | Inpatient (IN) | payer MEDICARE, MEDICAID ==
--- NOTE | 2020-05-21 11:14 | ED ---
General Adult HPI - General Chief complaint: Chest Pain Stated complaint: Fall, L Side Injury Time Seen by Provider: 05/21/20 10:56 Source: patient, RN notes reviewed Limitations: no limitations - History of Present Illness Initial comments: Patient is a pleasant 64-year-old male presenting to the emergency department with left rib injury. Onset of symptoms was 2 days ago. Patient was intoxicated and fell into a dresser. Patient has been having discomfort on his left lateral ribs since that time. Discomfort increases with movement. No anterior chest pain. No dyspnea. No history of similar symptoms previously. Patient is also depressed regarding his alcohol use. Patient is having suicidal thoughts. - Related Data Home Medications Medication Instructions Recorded Confirmed Albuterol Inhaler [Ventolin Hfa 1 puff INHALATION RT-Q6H PRN 10/28/19 05/21/20 Inhaler] atenoloL [Atenolol] 100 mg PO DAILY 10/28/19 05/21/20 FLUoxetine HCL [PROzac] 40 mg PO DAILY 05/21/20 05/21/20 Fluticasone/Salmeterol 1 puff INHALATION RT-BID 05/21/20 05/21/20 [Fluticasone-Salmeterol 113-14] traZODone HCL [Desyrel] 200 mg PO HS PRN 05/21/20 05/21/20 Previous Rx's Medication Instructions Recorded amLODIPine [Norvasc] 10 mg PO DAILY 30 Days #30 tab 10/03/17 Allergies Allergy/AdvReac Type Severity Reaction Status Date / Time No Known Allergies Allergy Verified 05/23/20 18:44 Review of Systems ROS Statement: Those systems with pertinent positive or pertinent negative responses have been documented in the HPI. ROS Other: All systems not noted in ROS Statement are negative. Constitutional: Denies: fever Eyes: Denies: eye pain ENT: Denies: ear pain Respiratory: Denies: cough, dyspnea Cardiovascular: Reports: as per HPI Endocrine: Denies: fatigue Gastrointestinal: Denies: abdominal pain Genitourinary: Denies: dysuria Musculoskeletal: Denies: back pain Skin: Denies: rash Neurological: Denies: weakness Psychiatric: Reports: depression, suicidal thoughts Past Medical History Past Medical History: Asthma, Hypertension, Osteoarthritis (OA) History of Any Multi-Drug Resistant Organisms: None Reported Past Surgical History: Appendectomy, Joint Replacement Additional Past Surgical History / Comment(s): left knee replacement, ORIF rt ankle Past Anesthesia/Blood Transfusion Reactions: No Reported Reaction Past Psychological History: Anxiety, Depression Smoking Status: Former smoker Past Alcohol Use History: Abuse, Daily, Heavy Past Drug Use History: None Reported - Past Family History Mother Family Medical History: No Reported History Additional Family Medical History / Comment(s): . Father Family Medical History: Hypertension Additional Family Medical History / Comment(s): Father is alive at age 90 with history of hypertension. Brother(s) Additional Family Medical History / Comment(s): . General Exam Limitations: no limitations General appearance: alert, in no apparent distress Head exam: Present: normocephalic Eye exam: Present: normal appearance Neck exam: Present: normal inspection. Absent: tenderness Respiratory exam: Present: normal lung sounds bilaterally, chest wall tenderness (Patient does have mild tenderness left lateral lower ribs) Cardiovascular Exam: Present: regular rate, normal rhythm GI/Abdominal exam: Present: soft. Absent: distended, tenderness, guarding, rebound, rigid Extremities exam: Present: normal inspection Back exam: Present: normal inspection. Absent: CVA tenderness (L), vertebral tenderness Neurological exam: Present: alert Psychiatric exam: Present: normal affect, normal mood Skin exam: Present: normal color Course Vital Signs 05/21/20 05/21/20 10:51 16:00 Temperature 98.1 F Pulse Rate 120 H 73 Respiratory 18 18 Rate Blood Pressure 171/96 159/95 O2 Sat by Pulse 98 98 Oximetry Medical Decision Making - Medical Decision Making Case was discussed with surgeon, Dr. Reilly who does not feel patient needs admission for trauma services. Patient will be medically cleared for psychiatric evaluation. - Lab Data Result diagrams: 05/21/20 12:19 05/21/20 12:19 Lab Results 05/21/20 05/21/20 05/21/20 Range/Units 12:19 12:19 12:19 WBC 3.6 L (3.8-10.6) k/uL RBC 4.00 L (4.30-5.90) m/uL Hgb 12.6 L (13.0-17.5) gm/dL Hct 40.1 (39.0-53.0) % MCV 100.3 H (80.0-100.0) fL MCH 31.5 (25.0-35.0) pg MCHC 31.4 (31.0-37.0) g/dL RDW 15.4 (11.5-15.5) % Plt Count 204 (150-450) k/uL MPV 7.7 Neutrophils % 61 % Lymphocytes % 17 % Monocytes % 15 % Eosinophils % 2 % Basophils % 1 % Neutrophils # 2.2 (1.3-7.7) k/uL Lymphocytes # 0.6 L (1.0-4.8) k/uL Monocytes # 0.5 (0-1.0) k/uL Eosinophils # 0.1 (0-0.7) k/uL Basophils # 0.0 (0-0.2) k/uL Macrocytosis Slight PT 10.2 (9.0-12.0) sec INR 1.0 (<1.2) APTT 23.3 (22.0-30.0) sec Sodium 138 (137-145) mmol/L Potassium 4.1 (3.5-5.1) mmol/L Chloride 103 (98-107) mmol/L Carbon Dioxide 33 H (22-30) mmol/L Anion Gap 2 mmol/L BUN 11 (9-20) mg/dL Creatinine 0.82 (0.66-1.25) mg/dL Est GFR (CKD-EPI)AfAm >90 (>60 ml/min/1.73 sqM) Est GFR (CKD-EPI)NonAf >90 (>60 ml/min/1.73 sqM) Glucose 142 H (74-99) mg/dL Estimated Ave Glu mg/dL Hemoglobin A1c (4.0-6.0) % Calcium 8.7 (8.4-10.2) mg/dL Total Bilirubin 1.0 (0.2-1.3) mg/dL AST 81 H (17-59) U/L ALT 61 H (4-49) U/L Alkaline Phosphatase 67 (38-126) U/L Total Protein 6.4 (6.3-8.2) g/dL Albumin 3.6 (3.5-5.0) g/dL Triglycerides (<150) mg/dL Cholesterol (<200) mg/dL LDL Cholesterol, Calc (0-99) mg/dL HDL Cholesterol (40-60) mg/dL TSH (0.465-4.680) mIU/L Coronavirus (PCR) (Not Detectd) 05/21/20 05/21/20 05/21/20 Range/Units 12:19 12:19 15:36 WBC (3.8-10.6) k/uL RBC (4.30-5.90) m/uL Hgb (13.0-17.5) gm/dL Hct (39.0-53.0) % MCV (80.0-100.0) fL MCH (25.0-35.0) pg MCHC (31.0-37.0) g/dL RDW (11.5-15.5) % Plt Count (150-450) k/uL MPV Neutrophils % % Lymphocytes % % Monocytes % % Eosinophils % % Basophils % % Neutrophils # (1.3-7.7) k/uL Lymphocytes # (1.0-4.8) k/uL Monocytes # (0-1.0) k/uL Eosinophils # (0-0.7) k/uL Basophils # (0-0.2) k/uL Macrocytosis PT (9.0-12.0) sec INR (<1.2) APTT (22.0-30.0) sec Sodium (137-145) mmol/L Potassium (3.5-5.1) mmol/L Chloride (98-107) mmol/L Carbon Dioxide (22-30) mmol/L Anion Gap mmol/L BUN (9-20) mg/dL Creatinine (0.66-1.25) mg/dL Est GFR (CKD-EPI)AfAm (>60 ml/min/1.73 sqM) Est GFR (CKD-EPI)NonAf (>60 ml/min/1.73 sqM) Glucose (74-99) mg/dL Estimated Ave Glu mg/dL 71 Hemoglobin A1c 4.1 (4.0-6.0) % Calcium (8.4-10.2) mg/dL Total Bilirubin (0.2-1.3) mg/dL AST (17-59) U/L ALT (4-49) U/L Alkaline Phosphatase (38-126) U/L Total Protein (6.3-8.2) g/dL Albumin (3.5-5.0) g/dL Triglycerides 40 (<150) mg/dL Cholesterol 145 (<200) mg/dL LDL Cholesterol, Calc 37 (0-99) mg/dL HDL Cholesterol 100 H (40-60) mg/dL TSH 1.880 (0.465-4.680) mIU/L Coronavirus (PCR) Not Detected (Not Detectd) - Radiology Data Radiology results: report reviewed (Computed tomography scan of the chest abdomen pelvis does show several left-sided rib fractures. Small left effusion and focal atelectasis or contusion of the lingula.), image reviewed (Left rib x-rays show fractures of the left fifth, seventh, ninth and mildly displaced 12th rib. Pleural thickening could represent pulmonary contusion.) Disposition Clinical Impression: Multiple fractures of ribs of left side, Depression Disposition: TRANSFER TO PSYCH HOSP/UNIT Is patient prescribed a controlled substance at d/c from ED?: No
--- NOTE | 2020-05-21 11:39 | XR ---
EXAMINATION TYPE: PA view chest and left rib series DATE OF EXAM: 05/21/2020 Comparison: None Clinical History: 64-year-old male with left-sided rib pain after fall TECHNIQUE: 6 views Findings: There is a dextroconvexed scoliosis centered along the thoracolumbar junction. Heart normal size. Str rebecca atelectasis at the left base. Some mild pleural parenchymal thickening along the periphery of th e left lower chest. No sizable effusion or pneumothorax. Eventration right hemidiaphragm noted. Evaluation of the left-sided ribs shows a nondisplaced fracture anterolateral left fifth rib and left lateral seventh rib. Mildly displaced fracture left posterior 12th rib and nondisplaced fracture left posterior ninth rib also noted. Impression: 1. Nondisplaced fractures of the anterolateral left fifth, left lateral seventh, and left posterior n inth ribs. Mildly displaced fracture left posterior 12th rib. 2. Mild pleural parenchymal thickening along the periphery of the left lower chest could represent a pulmonary contusion.
[2020-05-21] MEDS ORDERED: SODIUM CHLORIDE 0.9% 1,000 ML IV STA (11:51)
[2020-05-21] MEDS ORDERED: MORPHINE SULFATE 4 MG/ML SYRINGE IVP STA ×2 (11:55→15:01)
[2020-05-21 12:33] LABS: Basophils % (A) 1 %; Eosinophils # (A) 0.1 k/uL (0-0.7); Eosinophils % (A) 2 %; HCT 40.1 % (39.0-53.0); HGB 12.6 gm/dL (13.0-17.5); Lymphocytes # (A) 0.6 k/uL (1.0-4.8); Lymphocytes % (A) 17 %; MCH 31.5 pg (25.0-35.0); MCHC 31.4 g/dL (31.0-37.0); MCV 100.3 fL (80.0-100.0); Macrocytosis Slight; Mean Platelet Volume 7.7; Monocytes # (A) 0.5 k/uL (0-1.0); Monocytes % (A) 15 %; Neutrophils # (A) 2.2 k/uL (1.3-7.7); Neutrophils % (A) 61 %; Platelet Count 204 k/uL (150-450); RDW 15.4 % (11.5-15.5); WBC 3.6 k/uL (3.8-10.6)
[2020-05-21 12:39] LABS: Partial Thromboplastin Time 23.3 sec (22.0-30.0); Prothrombin Time 10.2 sec (9.0-12.0)
[2020-05-21 12:42] LABS: ALT 61 U/L (4-49); AST 81 U/L (17-59); African American GFR (CKD) >90 (>60 ml/min/1.73 sqM); Albumin 3.6 g/dL (3.5-5.0); Alkaline Phosphatase 67 U/L (38-126); Anion Gap 2 mmol/L; Blood Urea Nitrogen 11 mg/dL (9-20); Calcium 8.7 mg/dL (8.4-10.2); Carbon Dioxide 33 mmol/L (22-30); Chloride 103 mmol/L (98-107); Glucose 142 mg/dL (74-99); Non-African American GFR(CKD) >90 (>60 ml/min/1.73 sqM); Potassium 4.1 mmol/L (3.5-5.1); Sodium 138 mmol/L (137-145); Total Protein 6.4 g/dL (6.3-8.2)
--- NOTE | 2020-05-21 14:44 | CT ---
EXAMINATION TYPE: CT ChestAbdPelvis w con DATE OF EXAM: 05/21/2020 COMPARISON: Chest 02/26/2016 HISTORY: 64-year-old male Fall 2 days ago with left sided injury TECHNIQUE: Contiguous axial scanning of the chest, abdomen, and pelvis performed with IV Contrast, pa tient injected with 100 mL of Isovue 300. Delayed images through the kidneys were obtained. Coronal/s agittal reconstructions performed. CT DLP: 1321.1 mGycm Automated exposure control for dose reduction was used. FINDINGS: CHEST: Heart normal size without pericardial effusion. Aortic root aneurysmal at 4.2 cm. Ascending aorta is ectatic at 3.9 cm. Bovine configuration to the aortic arch. Mildly enlarged caliber to the main right and left pulmonary arteries up to 2.8 cm suggesting underly ing pulmonary artery hypertension. No mediastinal hematoma or thoracic lymphadenopathy. Small calcified left hilar lymph nodes suggest s equela of prior granulomatous disease. There is a small left pleural effusion. Some focal atelectasis and patchy density at the inferior holland gula corresponding to the radiographic findings. No pneumothorax. There are fractures that are either nondisplaced to minimally offset involving the left lateral to po sterior fifth, seventh, ninth, 10th, and 12th ribs. The 12th rib fracture is mildly comminuted. ABDOMEN: Liver enlarged measuring 19.4 cm. There is severe fatty infiltration with low attenuation. Gallstones are present measuring up to 1.1 cm. No abnormal gallbladder distention. Portal venous system is arizmendi nt. No biliary ductal dilatation. There is a 2.9 cm diverticulum of the third portion of the duodenum projecting superiorly. 1.3 cm cortical hypodensity anterior right kidney too small for accurate CT characterization, probabl e cyst. Adrenal glands, pancreas, and spleen appear within normal limits. No dilated small bowel, free fluid, or free air. No mesenteric or retroperitoneal lymphadenopathy. Mild generalized anasarca change with mild body wall edema and strandy edema throughout the intra-abd ominal fat. Mild stool within the right side of the colon. Left-sided colonic diverticulosis. No pericolonic infl ammatory change. PELVIS: Circumferential bladder wall thickening. Prostate gland measures 4.6 cm wide. NO ABNORMAL FLUID COLLE CTION THE PELVIS OR PELVIC LYMPHADENOPATHY. BONES: There is some mild degenerative spurring of both hips. Advanced degenerative disc disease L4-L5 and L 5-S1. Facet arthropathy lower lumbar spine. Mild degenerative disc disease mid to lower thoracic spine. Right-sided rib fractures as described above. There may be a subtle fracture involving the right anterolateral seventh rib, axial image 45. No surr ounding soft tissue swelling. Margins are slightly corticated, possible subacute injury. IMPRESSION: 1. FRACTURES OF THE LEFT FIFTH, SEVENTH, NINTH, 10TH, AND 12TH RIBS. 2. SMALL LEFT PLEURAL EFFUSION AND SOME FOCAL ATELECTASIS AND/OR CONTUSION WITHIN THE LINGULA. NO PNE UMOTHORAX. 3. CIRCUMFERENTIAL BLADDER WALL THICKENING. CORRELATE TO EXCLUDE CYSTITIS. 4. INCIDENTAL: PULMONARY ARTERIAL HYPERTENSION, PRIOR GRANULOMATOUS DISEASE, HEPATOMEGALY (19.4 CM) W ITH SEVERE HEPATIC STEATOSIS, CHOLELITHIASIS, LEFT-SIDED CLONIC DIVERTICULOSIS, AND MILD ANASARCA NESHA NGES THAT COULD REFLECT A DEGREE OF FLUID OVERLOAD STATE. CLINICALLY CORRELATE.
[2020-05-21] MEDS ORDERED: LORazepam 1 MG TAB PO PRN (16:01)
[2020-05-21] MEDS ORDERED: ACETAMINOPHEN TAB 325 MG TAB PO PRN (16:01)
[2020-05-21] MEDS ORDERED: MAG HYDROX/AL HYDROX/SIMETH 30 ML CUP PO PRN (16:01)
[2020-05-21] MEDS ORDERED: MAGNESIUM HYDROXIDE 2,400 MG/10 ML CUP PO PRN (16:01)
[2020-05-21] MEDS ORDERED: ALBUTEROL INHALER 60 PUFF/8 GM INHALER (MHU) INHALATION PRN (16:02)
[2020-05-21] MEDS ORDERED: traZODone HCL 100 MG TAB PO PRN (16:02)
[2020-05-21] MEDS ORDERED: HALOPERIDOL LACTATE 5 MG/ML 1 ML VIAL IM PRN (16:03)
[2020-05-21] MEDS ORDERED: LORazepam 2 MG/ML INJ IM PRN (16:03)
[2020-05-21 16:37] LABS: Amphetamine Screen,Urine Not Detected (NotDetected); Barbiturate Screen,Urine Not Detected (NotDetected); Benzodiazepines Screen,Urine Not Detected (NotDetected); Cocaine Screen,Urine Not Detected (NotDetected); Methadone Screen, Urine Not Detected (NotDetected); Opiate Screen,Urine Detected (NotDetected); Oxycodone Screen, Urine Not Detected (NotDetected); Phencyclidine Screen,Urine Not Detected (NotDetected); Tricyclic Antidepressant,Urine Not Detected (NotDetected); Urn Cannabinoid Scrn Not Detected (NotDetected)
[2020-05-21 16:41] LABS: Appearance,Urine Clear (Clear); Bilirubin,Urine Negative (Negative); Blood,Urine Negative (Negative); Color,Urine Yellow; Glucose,Urine (UA) Negative (Negative); Ketones,Urine 1+ (Negative); Leukocyte Esterase,Urine Negative (Negative); Nitrite,Urine Negative (Negative); PH, Urine 7.5 (5.0-8.0); Protein,Urine Trace (Negative); Specific Gravity,Urine >1.050 (1.001-1.035); Urobilinogen,Urine <2.0 mg/dL (<2.0)
--- NOTE | 2020-05-21 20:32 | CONS ---
CONSULTATION REASON FOR CONSULTATION: Advice regarding rib fractures and other medical issues, requested by Psychiatry. HISTORY OF PRESENT ILLNESS: This 64-year-old gentleman with a past medical history of multiple medical problems, including asthma, hypertension, DJD, anxiety, depression, being followed by Dr. Caterina Chand in the outpatient setting, was taking alcohol excessively. Patient apparently fell on his dresser and injured the left side of the chest. The patient was found to have multiple rib fractures on the left side on the CT scan of the chest, abdomen and pelvis done in the ER. The patient had left fifth, seventh, ninth, tenth and twelfth rib fractures. The patient also had some circumferential bladder wall thickening, but UA was abnormal. Pulmonary artery hypertension was also noted. The patient was admitted for evaluation and treatment. Patient also had a right conjunctival hemorrhage, possibly secondary to trauma. There is no history of any fever, rigor or chills. No history of headache, loss of consciousness, seizures. No history of any contact with a COVID patient. COVID-19 test was also negative. PAST MEDICAL HISTORY: History of asthma, hypertension, history of DJD. MEDICATIONS: Medications prior to admission include trazodone, fluticasone, salmeterol, Prozac, atenolol, Norvasc, Ventolin. ALLERGIES: MILK. FAMILY HISTORY: No history of heart disease or strokes in the family. SOCIAL HISTORY: History of alcohol, previous history of smoking. REVIEW OF SYSTEMS: ENT: As mentioned earlier. CARDIOVASCULAR SYSTEM: No angina, palpitations. RESPIRATORY SYSTEM: As mentioned earlier. GI: No nausea, vomiting. : No dysuria or retention. NERVOUS SYSTEM: No numbness, weakness. ALLERGY/IMMUNOLOGY: No asthma, hayfever. MUSCULOSKELETAL: As mentioned earlier. HEMATOLOGY/ONCOLOGY: No history of anemia. ENDOCRINE: No history of diabetes, hypothyroidism. CONSTITUTIONAL: As mentioned earlier. DERMATOLOGY: Negative. RHEUMATOLOGY: Negative. PSYCHIATRY: As mentioned earlier. PHYSICAL EXAMINATION: Patient is alert, oriented x3. Pulse is 73, blood pressure 159/95, respiration 18, temperature 95.7, pulse ox 98% on room air. HEENT: Right-sided conjunctival injection. NECK: No jugular venous distention. CARDIOVASCULAR SYSTEM: S1, S2 muffled. RESPIRATORY SYSTEM: Breath sounds diminished at the bases. A few scattered rhonchi. ABDOMEN: Soft, non-tender. NERVOUS SYSTEM: Higher functions as mentioned earlier. Moves all 4 limbs. Some wasting of both arms present. LEGS: No edema. No swelling. SKIN: No ulcer, rash, bleeding. JOINTS: No active deforming arthropathy. LABS: Labs at this time show WBC 3.6, hemoglobin 12.6. ASSESSMENT: 1. Fall and multiple rib fractures on the left side; the left fifth, seventh, ninth, tenth and twelfth ribs. 2. History of ETOH. 3. History of depression and suicidal ideation. 4. Mild leukopenia. 5. Mild anemia. 6. Increased mean corpuscular volume. 7. Increased AST and ALT; possibly alcoholic hepatitis. 8. History of asthma. 9. Hypertension. 10.History of degenerative joint disease. 11.Right subconjunctival congestion. 12.History of degenerative joint disease. 13.History of anxiety, depression. 14.Remote history of nicotine dependence. 15.FULL CODE. 16.Wasting of both hands. RECOMMENDATIONS AND DISCUSSION: In this 64-year-old gentleman who presented with multiple medical problems, at this time I recommend continuing with [place] with pain medication because of the significant rib fractures on the left side. Incentive spirometry. Resume the home medications, including bronchodilators. I would also recommend close followup with the primary physician after discharge Psych, especially regarding the wasting of both hands, which could be related to a neurological problem in the cervical area. Otherwise, we will follow the patient closely with you. Tobrex eyedrops have been recommended for the eye congestion. If it is not better, an ophthalmologic consultation may be obtained down the line. We will follow the patient closely with you. Thank you for letting us participate in the care of this patient. A copy of this dictation is being forwarded to Dr. Caterina Chand, who is the primary physician. MMODL / IJN: [id number] /
[2020-05-21] MEDS: SYMBICORT 160-4.5 MCG INHALER (MHU) INHALATION SCH (21:14)
[2020-05-21] MEDS: HYDROcodone/APAP 5-325MG 1 EACH TAB PO PRN (21:15)
[2020-05-22] MEDS: TOBRAMYCIN 0.3% OPHTH DROPS 5 ML BTL BOTH EYES SCH ×5 (00:27→18:26)
[2020-05-22] MEDS: amLODIPine 10 MG TAB PO SCH (08:44)
[2020-05-22] MEDS: FLUoxetine HCL 20 MG CAP PO SCH (08:44)
[2020-05-22] MEDS: atenoloL 50 MG TAB PO SCH (08:44)
[2020-05-22] MEDS: SYMBICORT 160-4.5 MCG INHALER (MHU) INHALATION SCH ×2 (08:44→21:53)
[2020-05-22] MEDS: HYDROcodone/APAP 5-325MG 1 EACH TAB PO PRN ×3 (08:45→21:54)
--- NOTE | 2020-05-22 11:52 | P.HP ---
Psychiatric H&P - . H&P Date: 05/22/20 History & Physical: Allergies Allergy/AdvReac Type Severity Reaction Status Date / Time milk AdvReac Diarrhea Verified 05/21/20 14:27 Vital Signs Temp 98.5 F 05/22/20 01:14 Pulse 81 05/22/20 01:14 Resp 15 05/21/20 16:48 BP 151/96 05/22/20 01:14 Pulse Ox 97 05/22/20 01:14 Intake & Output 05/21/20 05/22/20 05/22/20 18:59 06:59 18:59 Weight 86.183 kg Laboratory Last Values WBC 3.6 k/uL (3.8-10.6) L 05/21/20 12:19 RBC 4.00 m/uL (4.30-5.90) L 05/21/20 12:19 Hgb 12.6 gm/dL (13.0-17.5) L 05/21/20 12:19 Hct 40.1 % (39.0-53.0) 05/21/20 12:19 MCV 100.3 fL (80.0-100.0) H 05/21/20 12:19 MCH 31.5 pg (25.0-35.0) 05/21/20 12:19 MCHC 31.4 g/dL (31.0-37.0) 05/21/20 12:19 RDW 15.4 % (11.5-15.5) 05/21/20 12:19 Plt Count 204 k/uL (150-450) 05/21/20 12:19 MPV 7.7 05/21/20 12:19 Neutrophils % 61 % 05/21/20 12:19 Lymphocytes % 17 % 05/21/20 12:19 Monocytes % 15 % 05/21/20 12:19 Eosinophils % 2 % 05/21/20 12:19 Basophils % 1 % 05/21/20 12:19 Neutrophils # 2.2 k/uL (1.3-7.7) 05/21/20 12:19 Lymphocytes # 0.6 k/uL (1.0-4.8) L 05/21/20 12:19 Monocytes # 0.5 k/uL (0-1.0) 05/21/20 12:19 Eosinophils # 0.1 k/uL (0-0.7) 05/21/20 12:19 Basophils # 0.0 k/uL (0-0.2) 05/21/20 12:19 Macrocytosis Slight 05/21/20 12:19 PT 10.2 sec (9.0-12.0) 05/21/20 12:19 INR 1.0 (<1.2) 05/21/20 12:19 APTT 23.3 sec (22.0-30.0) 05/21/20 12:19 Sodium 138 mmol/L (137-145) 05/21/20 12:19 Potassium 4.1 mmol/L (3.5-5.1) 05/21/20 12:19 Chloride 103 mmol/L (98-107) 05/21/20 12:19 Carbon Dioxide 33 mmol/L (22-30) H 05/21/20 12:19 Anion Gap 2 mmol/L 05/21/20 12:19 BUN 11 mg/dL (9-20) 05/21/20 12:19 Creatinine 0.82 mg/dL (0.66-1.25) 05/21/20 12:19 Est GFR (CKD-EPI)AfAm >90 (>60 ml/min/1.73 sqM) 05/21/20 12:19 Est GFR (CKD-EPI)NonAf >90 (>60 ml/min/1.73 sqM) 05/21/20 12:19 Glucose 142 mg/dL (74-99) H 05/21/20 12:19 Calcium 8.7 mg/dL (8.4-10.2) 05/21/20 12:19 Total Bilirubin 1.0 mg/dL (0.2-1.3) 05/21/20 12:19 AST 81 U/L (17-59) H 05/21/20 12:19 ALT 61 U/L (4-49) H 05/21/20 12:19 Alkaline Phosphatase 67 U/L (38-126) 05/21/20 12:19 Total Protein 6.4 g/dL (6.3-8.2) 05/21/20 12:19 Albumin 3.6 g/dL (3.5-5.0) 05/21/20 12:19 Triglycerides 40 mg/dL (<150) 05/21/20 12:19 Cholesterol 145 mg/dL (<200) 05/21/20 12:19 LDL Cholesterol, Calc 37 mg/dL (0-99) 05/21/20 12: HDL Cholesterol 100 mg/dL (40-60) H 05/21/20 12:19 TSH 1.880 mIU/L (0.465-4.680) 05/21/20 12:19 Urine Color Yellow 05/21/20 16:05 Urine Appearance Clear (Clear) 05/21/20 16:05 Urine pH 7.5 (5.0-8.0) 05/21/20 16:05 Ur Specific [place] >1.050 (1.001-1.035) H 05/21/20 16:05 Urine Protein Trace (Negative) H 05/21/20 16:05 Urine Glucose (UA) Negative (Negative) 05/21/20 16:05 Urine Ketones 1+ (Negative) H 05/21/20 16:05 Urine Blood Negative (Negative) 05/21/20 16:05 Urine Nitrite Negative (Negative) 05/21/20 16:05 Urine Bilirubin Negative (Negative) 05/21/20 16:05 Urine Urobilinogen <2.0 mg/dL (<2.0) 05/21/20 16:05 Ur Leukocyte Esterase Negative (Negative) 05/21/20 16:05 Urine Opiates Screen Detected (NotDetected) H 05/21/20 16:05 Ur Oxycodone Screen Not Detected (NotDetected) 05/21/20 16:05 Urine Methadone Screen Not Detected (NotDetected) 05/21/20 16:05 Ur Propoxyphene Screen Not Detected (NotDetected) 05/21/20 16:05 Ur Barbiturates Screen Not Detected (NotDetected) 05/21/20 16:05 U Tricyclic Antidepress Not Detected (NotDetected) 05/21/20 16:05 Ur Phencyclidine Scrn Not Detected (NotDetected) 05/21/20 16:05 Ur Amphetamines Screen Not Detected (NotDetected) 05/21/20 16:05 U Methamphetamines Scrn Not Detected (NotDetected) 05/21/20 16:05 U Benzodiazepines Scrn Not Detected (NotDetected) 05/21/20 16:05 Urine Cocaine Screen Not Detected (NotDetected) 05/21/20 16:05 U Marijuana (THC) Screen Not Detected (NotDetected) 05/21/20 16:05 Coronavirus (PCR) Not Detected (Not Detectd) 05/21/20 15:36 05/22/20 11:37 IDENTIFYING DATA: Patient is a , retired, 64-year-old -Spanish male was admitted for depression and suicidal ideation the context of heavy alcohol use. HPI: Patient presented to the hospital on 05/21/2020 with chest pain secondary to broken ribs. Patient reports that he broke his ribs after falling in his room due to a combination of alcohol and sleeping pills. He reports that there was no intention for him to take his life. He then states that while in the emergency department he did admit to increasing depression and suicidal ideation which led to this admission. The patient reports that his been feeling increasingly depressed over the past 2 months. He reports that he was sober for 2-3 months after being discharged from the psychiatric unit this past January. She then relapsed into alcohol use in March. He reports that since rel apsing into alcohol use he is also stopped taking his medications consistently. He endorses significant symptoms of depression including appetite loss with 20 pounds lost over the past month, anhedonia, isolation, and suicidal ideation. He denies any prior attempts at suicide. He does report that during this time he did put a bunch of pills in his hand but did not go through with it. He denies any significant history of bipolar disorder. He reports no history of increased goal-directed activity, periods of excessive energy, or grandiosity. He reports no history of auditory or visual hallucinations. He denies any delusions or paranoia. The patient expresses that his mood has been worsened due to his relapse in alcohol use and acknowledges that he needs help. PAST PSYCHIATRIC HISTORY: Patient states that . Patient denies being on any psychiatric medications. Patient denies any previous psychiatric hospitalizations. Patient denies any psychiatric outpatient follow-up. Patient d enies any history of suicide attempts in the past. PMH: Hypertension, asthma, arthritis ALLERGIES: as per EMR CHEMICAL DEPENDENCY HISTORY: The patient does have a history of crack cocaine use which she stopped in 2007. Used to smoke cigarettes but stopped in 2003. Currently he has been drinking very heavily. He reports drinking up to a fifth of liquor every day. He's been [facility] for 12 years. He reports a history of tremors but no history of withdrawal seizures or delirium tremens. He states that he has been to inpatient rehab at least 30 times. He has had previous trials with disulfiram, acamprosate, and naltrexone. FAMILY PSYCHIATRIC/SUBSTANCE USE HISTORY: Patient denies any family history of psychiatric illness or substance abuse. SOCIAL HISTORY: Patient currently lives alone in [place]. He has 2 adult children living in the [place] area. 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 He reports that he is currently looking for new work as he feels like his m[employer] money is not enough. He was bad for 12 years and has been for 20 years. He has attended some college. He reports no legal problems at this time. MENTAL STATUS EXAM: General Appearance: Patient appears to be stated age is alert, directable, and attempts to cooperate. Patient appears to have fair hygiene and grooming. Sean nt wears glasses. He does appear to have some conjunctival injection in his right eye. Behavior: Patient is seated without any agitated behavior. Eye contact is appropriate. Psychomotor activity is normal. Speech: Patient's speech is fluent and nonpressured. Mood/Affect: Patient reports their mood is depressed, affect is congruent and constricted. Suicidality/Homicidality: Patient denies having any homicidal ideation intent or plan. Denies any suicidal ideations intent or plan Perceptions: Patient denies any visual hallucinations and denies any auditory hallucinations Though content/process: There is no evidence of any delusional thought content and thought process is linear and goal-directed. Memory and concentration: AOX3, grossly intact for the purposes of this session. Can spell "WORLD" backwards Judgment and insight: Fair STRENGTHS/WEAKNESSES: Strength is that the patient is actively seeking treatment and has housing. Weakness is his long-term addiction and relapsed to alcohol use. INTELLECT: average IMPRESSIONS: She depressive disorder, recurrent, severe Alcohol use disorder PLAN: -Patient is admitted under voluntary status to [facility] for stabilization of psychiatric symptoms and safety. Patient signed adult voluntary form and medication consent and is placed in patient's chart. -Medications : Will start patient on Prozac 40 mg by mouth daily for depression/anxiety We'll discontinue trazodone and start Remeron 15 mg by mouth at bedtime to aid with insomnia/weight loss. -Ativan and Haldol PRN for agitation/aggression -Started thiamine, MVM for etoh use -CIWA protocol with Ativan PRN for ETOH withdrawal -Patient was counselled on substance abuse and desired to cut back on use -Patient was informed of the risks, benefits and side effects of the medication and patient verbally consented to taking the medications. -Internal Medicine consult to perform medical evaluation and physical. -SW on board for discharge planning. Encourage patient to participate in groups to work on coping skills.
[2020-05-22 13:29] LABS: Hemoglobin A1C 4.1 % (4.0-6.0)
[2020-05-22] MEDS: MIRTAZAPINE 15 MG TAB PO SCH (21:53)
[2020-05-23] MEDS: TOBRAMYCIN 0.3% OPHTH DROPS 5 ML BTL BOTH EYES SCH ×4 (02:41→18:41)
[2020-05-23 06:50] LABS: Appearance,Urine Clear (Clear); Bilirubin,Urine Negative (Negative); Blood,Urine Negative (Negative); Color,Urine Yellow; Glucose,Urine (UA) Negative (Negative); Ketones,Urine Negative (Negative); Leukocyte Esterase,Urine Negative (Negative); Nitrite,Urine Negative (Negative); Protein,Urine Negative (Negative); Specific Gravity,Urine 1.018 (1.001-1.035)
[2020-05-23] MEDS: atenoloL 50 MG TAB PO SCH (08:33)
[2020-05-23] MEDS: FLUoxetine HCL 20 MG CAP PO SCH (08:33)
[2020-05-23] MEDS: THIAMINE 100 MG TAB PO SCH (08:33)
[2020-05-23] MEDS: MULTIVITAMINS, THERA 1 EACH TAB PO SCH (08:33)
[2020-05-23] MEDS: SYMBICORT 160-4.5 MCG INHALER (MHU) INHALATION SCH ×2 (08:33→21:05)
[2020-05-23] MEDS: amLODIPine 10 MG TAB PO SCH (08:33)
[2020-05-23] MEDS: HYDROcodone/APAP 5-325MG 1 EACH TAB PO PRN ×2 (08:35→21:03)
--- NOTE | 2020-05-23 14:50 | P.PN ---
Progress Note - Text Progress Note Date: 05/23/20 Clinical Problems: Suicidal ideation, alcohol use disorder severe, alcohol induced mood disorder, rule out major depressive disorder Interim history: I reviewed the medical record and interviewed the patient. He is a 64-year-old Georgian male who is known to the psychiatric unit from prior admissions. He has recognize diagnosis of an alcohol use disorder. He relapsed "a couple months" after his discharge in January 2020. He presented to unit voluntarily with complaints of depression, suicidal ideation and relapse to alcohol. Today he complains of continued feelings depression and thoughts of suicide. He feels helpless and worthless over his chronic alcohol use and alcohol use pr oblems. He has minimal alcohol withdrawal symptoms with CIWA scores ranging crime 0-5. He said no episodes of agitation or confusion. Mental status exam: He presented as a casually groomed tall. Georgian male who was pleasant on approach. He made eye contact and attended to interview. He was protecting his left side having broken ribs from a fall when he was intoxicated. He had psychomotor retardation but no abnormal movements. Her speech was spontaneous with decreased rate and rhythm. His affect was depressed and not reactive. He expressed suicidal ideation and wishes. He did not express ideas reference, paranoid ideation or delusions. His thinking was concrete but his associations were coherent, logical and goal directed. He denied hallucinations did not appear to responding to internal stimuli. Assessment: Continues reports subjective feelings of depression as well as suicidal ideation and wishes. He has minimal alcohol withdrawal symptoms. Plan: She knew inpatient treatment. Safety precautions. Continue Prozac 40 mg daily and Remeron 15 mg at bedtime. Ativan and/or Haldol when necessary for agitation or aggression. Thiamine and multivitamins for chronic alcohol use. Discuss referral for residential substance abuse treatment. Encourage participation in therapeutic groups and activities. Evaluate clinical status response to treatment daily basis.
[2020-05-23] MEDS: MIRTAZAPINE 15 MG TAB PO SCH (21:02)
[2020-05-24] MEDS: TOBRAMYCIN 0.3% OPHTH DROPS 5 ML BTL BOTH EYES SCH ×4 (00:19→18:19)
[2020-05-24] MEDS: atenoloL 50 MG TAB PO SCH (07:23)
[2020-05-24] MEDS: amLODIPine 10 MG TAB PO SCH (07:23)
[2020-05-24] MEDS: HYDROcodone/APAP 5-325MG 1 EACH TAB PO PRN ×3 (07:23→20:59)
[2020-05-24] MEDS: FLUoxetine HCL 20 MG CAP PO SCH (08:53)
[2020-05-24] MEDS: MULTIVITAMINS, THERA 1 EACH TAB PO SCH (08:53)
[2020-05-24] MEDS: SYMBICORT 160-4.5 MCG INHALER (MHU) INHALATION SCH ×2 (08:53→21:00)
[2020-05-24] MEDS: THIAMINE 100 MG TAB PO SCH (08:54)
--- NOTE | 2020-05-24 13:03 | P.PN ---
Progress Note - Text Progress Note Date: 05/24/20 Clinical Problems: Suicidal ideation, alcohol use disorder severe, alcohol induced mood disorder, rule out major depressive disorder Interim history: I reviewed the medical record and interviewed the patient. He complained of continued side pain for which requested a prescription of Motrin. He feels less depressed and denied experiencing alcohol withdrawal symptoms. His CIWA scores over the last 24 hours ranged from 0-4. He said no episodes of confusion or agitation. Mental status exam: He presented as a casually groomed tall. [place] male who was pleasant on approach. He made eye contact and attended to interview. He walks slowly with a slight limp. He had psychomotor retardation but no abnormal movements. At his speech was spontaneous with decreased rate and rhythm. His affect was depressed but reactive. He denied experiencing suicidal ideation and wishes. He did not express ideas reference, paranoid ideation or delusions. His thinking was concrete but his associations were coherent, logical and goal directed. He denied hallucinations did not appear to r esponding to internal stimuli. Assessment: He is having minimal alcohol withdrawal symptoms. His mood is improved and he is denying current suicidal ideation. Plan: She knew inpatient treatment. Safety precautions. Motrin 400 mg every 6 hours when necessary for pain. Continue Prozac 40 mg daily and Remeron 15 mg at bedtime. Ativan and/or Haldol when necessary for agitation or aggression. Th iamine and multivitamins for chronic alcohol use. Discuss referral for residential substance abuse treatment. Encourage participation in therapeutic groups and activities. Evaluate clinical status response to treatment daily basis.
[2020-05-24] MEDS: IBUPROFEN 400 MG TAB PO PRN (20:59)
[2020-05-24] MEDS: MIRTAZAPINE 15 MG TAB PO SCH (20:59)
[2020-05-25 07:34] VITALS: RESP 16
[2020-05-25] MEDS: SYMBICORT 160-4.5 MCG INHALER (MHU) INHALATION SCH ×2 (09:09→22:08)
[2020-05-25] MEDS: TOBRAMYCIN 0.3% OPHTH DROPS 5 ML BTL BOTH EYES SCH ×5 (09:09→23:28)
[2020-05-25] MEDS: FLUoxetine HCL 20 MG CAP PO SCH (09:10)
[2020-05-25] MEDS: amLODIPine 10 MG TAB PO SCH (09:10)
[2020-05-25] MEDS: MULTIVITAMINS, THERA 1 EACH TAB PO SCH (09:11)
[2020-05-25] MEDS: THIAMINE 100 MG TAB PO SCH (09:11)
[2020-05-25] MEDS: atenoloL 50 MG TAB PO SCH (09:11)
[2020-05-25] MEDS: HYDROcodone/APAP 5-325MG 1 EACH TAB PO PRN ×3 (09:11→22:10)
[2020-05-25] MEDS: IBUPROFEN 400 MG TAB PO PRN ×3 (09:12→22:11)
--- NOTE | 2020-05-25 10:15 | P.PN ---
Progress Note - Text Progress Note Date: 05/25/20 Interval History: Patient was seen in group and was directable and agreeable to speak with junior copywriter in the office. Patient reports that he is feeling better overall. He is reporting that his suicidal ideation has decreased significantly. He reported having suicidal thoughts last night but reported that he was doing his best to fight them. He appears to be more future oriented. He states that he was able to speak with his family and that he would be visiting them this coming weekend. He is currently not endorsing any suicidal or homicidal ideation, intention, and/or plan. He is not reporting any auditory or visual hallucinations. Denies any paranoia or other delusions. He has been adherent with his medications and is reporting no significant side effects. He finds that the Remeron is beneficial. He does report that sleep continues to be somewhat difficult. Mental Status Exam: General Appearance: Patient appears to be stated age is alert, directable, and attempts to cooperate. Patient appears to have fair hygiene and grooming. Patient wears glasses. Patient is tall and lean build. Behavior: Patient is seated without any agitated behavior. Eye contact is appropriate. Psychomotor activity is normal. Speech: Patient's speech is fluent and nonpressured. Mood/Affect: Patient reports their mood is better, affect is congruent and constricted. Suicidality/Homicidality: Patient denies having any homicidal ideation intent or plan. Denies any suicidal ideations intent or plan Perceptions: Patient denies any visual hallucinations and denies any auditory hallucinations Though content/process: There is no evidence of any delusional thought content and thought process is linear and goal-directed. Memory and concentration: AOX3, grossly intact for the purposes of this session. Can spell "WORLD" backwards Judgment and insight: Fair Assessment Major depressive disorder, recurrent, severe Alcohol use disorder Plan: -Patient continues to meet criteria for inpatient psychiatric admission for symptom stabilization and safety. Patient has signed adult voluntary form and medication consent and was placed in patient's chart. -Medications: Continue Prozac 40 mg by mouth every morning for depression/anxiety Increase Remeron to 30 mg by mouth at bedtime for depression/insomnia/weight loss. Last CIWA score of 2. -When necessary Ativan and Haldol for agitation/aggression. -SW on board for discharge planning. Encouraged the patient to participate in milieu. -Anticipate discharge tomorrow.
[2020-05-25] MEDS ORDERED: MIRTAZAPINE 15 MG TAB PO SCH (21:00)
[2020-05-26] MEDS: TOBRAMYCIN 0.3% OPHTH DROPS 5 ML BTL BOTH EYES SCH (06:03)
[2020-05-26] MEDS: FLUoxetine HCL 20 MG CAP PO SCH (08:44)
[2020-05-26] MEDS: THIAMINE 100 MG TAB PO SCH (08:44)
[2020-05-26] MEDS: SYMBICORT 160-4.5 MCG INHALER (MHU) INHALATION SCH (08:44)
[2020-05-26] MEDS: MULTIVITAMINS, THERA 1 EACH TAB PO SCH (08:44)
[2020-05-26] MEDS: atenoloL 50 MG TAB PO SCH (08:45)
[2020-05-26] MEDS: amLODIPine 10 MG TAB PO SCH (08:45)
[2020-05-26 08:55] VITALS: BP 136/96; PULSE 95
--- NOTE | 2020-05-26 11:28 | P.DS ---
Providers Date of admission: 05/21/20 15:59 Expected date of discharge: 05/26/20 Attending physician: Anil Bain MD Consults: 05/21/20 16:01 Consult Physician Routine Consulting Provider: Mellisa Medeiros Consult Reason/Comments: New admission H & P Do you want consulting provider notified?: Yes Primary care physician: Caterina Chand - Discharge Diagnosis(es) (1) Major depressive disorder Current Visit: Yes Status: Acute Priority: High (2) Alcohol use disorder Current Visit: Yes Status: Chronic Priority: Medium Hospital Course: Admission HPI: "Patient is a , retired, 64-year-old -Luxembourger male was admitted for depression and suicidal ideation the context of heavy alcohol use. Patient presented to the hospital on 05/21/2020 with chest pain secondary to broken ribs. Patient reports that he broke his ribs after falling in his room due to a combination of alcohol and sleeping pills. He reports that there was no intention for him to take his life. He then states that while in the emergency department he did admit to increasing depression and suicidal ideation which led to this admission. The patient reports that his been feeling inc reasingly depressed over the past 2 months. He reports that he was sober for 2- 3 months after being discharged from the psychiatric unit this past January. She then relapsed into alcohol use in March. He reports that since relapsing into alcohol use he is also stopped taking his medications consistently. He endorses significant symptoms of depression including appetite loss with 20 pounds lost over the past month, anhedonia, isolation, and suicidal ideation. He denies any prior attempts at suicide. He does report that during this time he did put a bunch of pills in his hand but did not go through with it. He denies any significant history of bipolar disorder. He reports no history of increased goal-directed activity, periods of excessive energy, or grandiosity. He reports no history of auditory or visual hallucinations. He denies any delusions or paranoia. The patient expresses that his mood has been worsened due to his relapse in alcohol use and acknowledges that he needs help." Hospital course: Upon admission to the unit patient was initially endorsing significant depression and low mood. Patient was however directable and agreeable to commence treatment. Patient was started on Prozac 40 mg by mouth daily for depression/anxiety and Remeron was started instead of trazodone as the patient had also been complaining of weight loss. The patient was placed on alcohol withdrawal protocol due to his heavy use prior to admission. Furthermore the patient has been experiencing significant pain due to breaking his ribs and she was evaluated by the medical team who started Alhambra for pain management. Over the course of the hospitalization the patient did well on this regimen and Remeron was titrated to final dose of 30 mg at bedtime and his Prozac stayed at 40 mg by mouth daily. The patient gradually improved in terms of his mood, alcohol withdrawal symptoms, and became more future oriented. On the day of discharge, the patient is not endorsing any suicidal or homicidal ideation, intention, and/or plan. He is not reporting any auditory or visual hallucinations. He denies any paranoia or any delusions. His been adherent to his medications and is not reporting any significant side effects. The patient was presented the option for inpatient rehabilitation, but stated that he would like to go home first as well as see his family has been living in [place] prior to going to rehab. The patient displays future orientation and a will to live. He denied any access to firearms or other weapons. The patient was counseled on the medications and need for regular compliance was encouraged to follow-up with his outpatient provider as well as his outpatient mental health provider upon discharge. Mental status exam: General Appearance: Patient appears to be stated age is alert, pleasant, and cooperative. Patient is in no acute distress and has fair hygiene and grooming Behavior: Patient is calmly seated without any agitated behavior. Speech: Patient's speech is fluent and nonpressured. Mood/Affect: Patient reports their mood is "really well", affect is congruent, euthymic to bright. Suicidality/Homicidality: Patient reports no suicidal or homicidal ideation, intention, and/or plan. Perceptions: Patient denies any auditory or visual hallucinations. Though content/process: There is no evidence of any delusional thought content and thought process is linear and goal-directed. Patient is future oriented. Memory and concentration: AOX3, grossly intact for the purposes of this session. Can spell "WORLD" backwards correctly. Judgment and insight: Improved with guarded prognosis Impression: Major depressive disorder, recurrent, severe Alcohol use disorder Plan: -Continue with discharge today as patient has improved and stabilized psychiatrically and is not currently an imminent threat to himself and/or others. Patient will remain at chronically elevated risk for harm to self and/or others due to his alcohol abuse. -Continue medications: Prozac 40 mg by mouth daily for depression/anxiety Remeron 30 mg by mouth at bedtime for insomnia/weight loss/depression -Patient was counseled on the need for medication compliance and appropriate follow-up at mental health and also primary care for medical issues. Patient verbalized understanding and agreed. -Social work to arrange for and conduct family meeting to ensure safety upon discharge and answer any questions/concerns. Social work also to arrange for patients follow up appointments for psychiatric care along with follow up with primary care provider. -Patient counseled on abstaining from recreational drugs and marijuana and alcohol. Was informed/educated on the adverse effects on their physical and mental health. Patient verbally agreed and understood. Patient was offered substance abuse treatment however declined at this time and states that he will go after he sorts things out at home and with his family. -Patient was instructed to return to the hospital or seek immediate medical care if their psychiatric or medical symptoms do worsen or reoccur. -Psychoeducation and supportive therapy provided to patient. Risks and benefits of pharmacological treatment versus the risks and benefits of nontreatment weight and discussed. Informed consent discussion held. Common side effects of psychotropics discussed such as, but not limited to headache, GI disturbance, sexual dysfunction, movement disorders, sedation, and orthostatic hypotension. Life threatening and blackbox warnings of prescribed medications also discussed. Potential risks of operating a vehicle or heavy machinery discussed with patient at length. Advised on importance of compliance and a reliable and responsible manner. Patient advised to review FDA consumer labeling of all medications prior to taking. Patient verbalized understanding of potential risks, and agrees with current treatment plan. Patient advised to medically contact physician/emergency personnel if any acute changes in condition occur. Vital Signs Temp 97.3 F L 05/26/20 06:11 Pulse 95 05/26/20 08:45 Resp 16 05/26/20 06:11 BP 136/96 05/26/20 08:45 Pulse Ox 97 05/22/20 01:14 Laboratory Results WBC 3.6 k/uL (3.8-10.6) L 05/21/20 12:19 RBC 4.00 m/uL (4.30-5.90) L 05/21/20 12:19 Hgb 12.6 gm/dL (13.0-17.5) L 05/21/20 12:19 Hct 40.1 % (39.0-53.0) 05/21/20 12:19 MCV 100.3 fL (80.0-100.0) H 05/21/20 12:19 MCH 31.5 pg (25.0-35.0) 05/21/20 12:19 MCHC 31.4 g/dL (31.0-37.0) 05/21/20 12:19 RDW 15.4 % (11.5-15.5) 05/21/20 12:19 Plt Count 204 k/uL (150-450) 05/21/20 12:19 MPV 7.7 05/21/20 12:19 Neutrophils % 61 % 05/21/20 12:19 Lymphocytes % 17 % 05/21/20 12:19 Monocytes % 15 % 05/21/20 12:19 Eosinophils % 2 % 05/21/20 12:19 Basophils % 1 % 05/21/20 12:19 Neutrophils # 2.2 k/uL (1.3-7.7) 05/21/20 12:19 Lymphocytes # 0.6 k/uL (1.0-4.8) L 05/21/20 12:19 Monocytes # 0.5 k/uL (0-1.0) 05/21/20 12:19 Eosinophils # 0.1 k/uL (0-0.7) 05/21/20 12:19 Basophils # 0.0 k/uL (0-0.2) 05/21/20 12:19 Macrocytosis Slight 05/21/20 12:19 PT 10.2 sec (9.0-12.0) 05/21/20 12:19 INR 1.0 (<1.2) 05/21/20 12:19 APTT 23.3 sec (22.0-30.0) 05/21/20 12:19 Sodium 138 mmol/L (137-145) 05/21/20 12:19 Potassium 4.1 mmol/L (3.5-5.1) 05/21/20 12:19 Chloride 103 mmol/L (98-107) 05/21/20 12:19 Carbon Dioxide 33 mmol/L (22-30) H 05/21/20 12:19 Anion Gap 2 mmol/L 05/21/20 12:19 BUN 11 mg/dL (9-20) 05/21/20 12:19 Creatinine 0.82 mg/dL (0.66-1.25) 05/21/20 12:19 Est GFR (CKD-EPI)AfAm >90 (>60 ml/min/1.73 sqM) 05/21/20 12:19 Est GFR (CKD-EPI)NonAf >90 (>60 ml/min/1.73 sqM) 05/21/20 12:19 Glucose 142 mg/dL (74-99) H 05/21/20 12:[address] Glu mg/dL 71 05/21/20 12:19 Hemoglobin A1c 4.1 % (4.0-6.0) 05/21/20 12:19 Calcium 8.7 mg/dL (8.4-10.2) 05/21/20 12:19 Total Bilirubin 1.0 mg/dL (0.2-1.3) 05/21/20 12:19 AST 81 U/L (17-59) H 05/21/20 12:19 ALT 61 U/L (4-49) H 05/21/20 12:19 Alkaline Phosphatase 67 U/L (38-126) 05/21/20 12:19 Total Protein 6.4 g/dL (6.3-8.2) 05/21/20 12:19 Albumin 3.6 g/dL (3.5-5.0) 05/21/20 12:19 Triglycerides 40 mg/dL (<150) 05/21/20 12:19 Cholesterol 145 mg/dL (<200) 05/21/20 12:19 LDL Cholesterol, Calc 37 mg/dL (0-99) 05/21/20 12:19 HDL Cholesterol 100 mg/dL (40-60) H 05/21/20 12:19 TSH 1.880 mIU/L (0.465-4.680) 05/21/20 12:19 Urine Color Yellow 05/23/20 06:42 Urine Appearance Clear (Clear) 05/23/20 06:42 Urine pH 7.0 (5.0-8.0) 05/23/20 06:42 Ur Specific Newcomb 1.018 (1.001-1.035) 05/23/20 06:42 Urine Protein Negative (Negative) 05/23/20 06:42 Urine Glucose (UA) Negative (Negative) 05/23/20 06:42 Urine Ketones Negative (Negative) 05/23/20 06:42 Urine Blood Negative (Negative) 05/23/20 06:42 Urine Nitrite Negative (Negative) 05/23/20 06:42 Urine Bilirubin Negative (Negative) 05/23/20 06:42 Urine Urobilinogen 2.0 mg/dL (<2.0) 05/23/20 06:42 Ur Leukocyte Esterase Negative (Negative) 05/23/20 06:42 Urine Opiates Screen Detected (NotDetected) H 05/21/20 16:05 Ur Oxycodone Screen Not Detected (NotDetected) 05/21/20 16:05 Urine Methadone Screen Not Detected (NotDetected) 05/21/20 16:05 Ur Propoxyphene Screen Not Detected (NotDetected) 05/21/20 16:05 Ur Barbiturates Screen Not Detected (NotDetected) 05/21/20 16:05 U Tricyclic Antidepress Not Detected (NotDetected) 05/21/20 16:05 Ur Phencyclidine Scrn Not Detected (NotDetected) 05/21/20 16:05 Ur Amphetamines Screen Not Detected (NotDetected) 05/21/20 16:05 U Methamphetamines Scrn Not Detected (NotDetected) 05/21/20 16:05 U Benzodiazepines Scrn Not Detected (NotDetected) 05/21/20 16:05 Urine Cocaine Screen Not Detected (NotDetected) 05/21/20 16:05 U Marijuana (THC) Screen Not Detected (NotDetected) 05/21/20 16:05 Coronavirus (PCR) Not Detected (Not Detectd) 05/21/20 15:36 Allergies Allergy/AdvReac Type Severity Reaction Status Date / Time No Known Allergies Allergy Verified 05/23/20 18:44 Patient Condition at Discharge: Stable Plan - Discharge Summary New Discharge Prescriptions: New Multivitamins, Thera [Multivitamin (formulary)] 1 each PO DAILY 30 Days tab HYDROcodone/APAP 5-325MG [Alhambra 5-325] 1 each PO Q6HR PRN #0 tab PRN Reason: Pain Mirtazapine [Remeron] 30 mg PO HS 30 Days tab Tobramycin 0.3% Ophth Soln [Tobrex 0.3% Ophth Soln] 1 drops BOTH EYES Q6HR ml Thiamine [Vitamin B-1] 100 mg PO DAILY 30 Days tab Continue atenoloL [Atenolol] 100 mg PO DAILY 30 Days tab Fluticasone/Salmeterol [Fluticasone-Salmeterol 113-14] 1 puff INHALATION RT- BID 30 Days inhalation amLODIPine [Norvasc] 10 mg PO DAILY 30 Days #30 tab FLUoxetine HCL [PROzac] 40 mg PO DAILY 30 Days cap Albuterol Inhaler [Ventolin Hfa Inhaler] 1 puff INHALATION RT-Q6H PRN 30 Days puff PRN Reason: Shortness Of Breath Discontinued traZODone HCL [Desyrel] 200 mg PO HS PRN PRN Reason: sleep Discharge Medication List Albuterol Inhaler [Ventolin Hfa Inhaler] 1 puff INHALATION RT-Q6H PRN 30 Days puff 05/26/20 [Rx] FLUoxetine HCL [PROzac] 40 mg PO DAILY 30 Days cap 05/26/20 [Rx] Fluticasone/Salmeterol [Fluticasone-Salmeterol 113-14] 1 puff INHALATION RT-BID 30 Days inhalation 05/26/20 [Rx] HYDROcodone/APAP 5-325MG [Alhambra 5-325] 1 each PO Q6HR PRN #0 tab 05/26/20 [Rx] Mirtazapine [Remeron] 30 mg PO HS 30 Days tab 05/26/20 [Rx] Multivitamins, Thera [Multivitamin (formulary)] 1 each PO DAILY 30 Days tab 05/26/20 [Rx] Thiamine [Vitamin B-1] 100 mg PO DAILY 30 Days tab 05/26/20 [Rx] Tobramycin 0.3% Ophth Soln [Tobrex 0.3% Ophth Soln] 1 drops BOTH EYES Q6HR ml 05/26/20 [Rx] amLODIPine [Norvasc] 10 mg PO DAILY 30 Days #30 tab 05/26/20 [Rx] atenoloL [Atenolol] 100 mg PO DAILY 30 Days tab 05/26/20 [Rx] Follow up Appointment(s)/Referral(s): [facility] [Outside] - 05/28/20 11:00 am (05-28-20 @ 11:00 with Alexander Meng at [facility] office 05-29-20 @ 10:00 with DEON Schaffer at [facility] office) Caterina Chand MD [Primary Care Provider] - 06/04/20 10:15 am Patient Instructions/Handouts: Help Prevent Suicide (DC) Activity/Diet/Wound Care/Special Instructions: Activity and diet as tolerated. Avoid the use of street drugs and alcohol. Take all medications as prescribed. When you are in need of refills on your medications please contact your medical provider and/or outpatient psychiatrist to have this done. Please go to scheduled outpatient appointment for aftercare treatment. If symptoms return or become worse, call the crisis line at and/or go to the nearest emergency room for evaluation. Discharge Disposition: HOME SELF-CARE
[2020-05-26 11:45] VITALS: TEMP 96.2
== END 2020-05-26 13:25 | disposition home or self-care (01) | DRG 885 ==
LOC: EC 10:46 → 3MHU 15:59
PROVIDERS: ADMIT Psychiatry & Neurology Psychiatry; ATTEND Psychiatry & Neurology Psychiatry
DX: F33.2 Major depressive disorder, recurrent severe without psychotic features (principal); S22.42XA Multiple fractures of ribs, left side, initial encounter for closed fracture; F10.239 Alcohol dependence with withdrawal, unspecified; F10.24 Alcohol dependence with alcohol-induced mood disorder; R45.851 Suicidal ideations; D75.89 Other specified diseases of blood and blood-forming organs; F41.9 Anxiety disorder, unspecified; G47.00 Insomnia, unspecified; H11.31 Conjunctival hemorrhage, right eye; I10 Essential (primary) hypertension; I27.21 Secondary pulmonary arterial hypertension; J45.909 Unspecified asthma, uncomplicated; M19.90 Unspecified osteoarthritis, unspecified site; D64.9 Anemia, unspecified; D72.819 Decreased white blood cell count, unspecified; W19.XXXA Unspecified fall, initial encounter; Z79.899 Other long term (current) drug therapy; Z82.49 Family history of ischemic heart disease and other diseases of the circulatory system; Z87.891 Personal history of nicotine dependence; Z96.652 Presence of left artificial knee joint; Z91.011 Allergy to milk products; Z20.828 Contact with and (suspected) exposure to other viral communicable diseases; R45.84 Anhedonia; F14.11 Cocaine abuse, in remission; K70.10 Alcoholic hepatitis without ascites; Z91.14 Patient's other noncompliance with medication regimen; Z60.2 Problems related to living alone
CPT/HCPCS: 36415; 71260; 74177; 80053; 80061; 80306; 81003; 82075; 83036; 84443; 85025; 85610; 85730; 87635; 96361; 96374; 96376; 99285

== ENCOUNTER → 2020-06-04 | Outpatient (CLI) | payer MEDICARE, MEDICAID ==
--- NOTE | 2020-06-04 15:56 | XR ---
EXAMINATION TYPE: XR chest 2V, XR ribs 4 views LT DATE OF EXAM: 06/04/2020 COMPARISON: 05/21/2020 HISTORY: 64-year-old male closed fracture of multiple left-sided rib fractures. FINDINGS: Heart normal size. Aorta and pelvic vasculature within normal limits. Redemonstrated is eventration r ight hemidiaphragm. Continued small left pleural effusion with patchy left lower lung opacity, not si gnificantly changed. Redemonstrated fractures of the left lateral fifth and seventh ribs. Fractures of the posterior ninth , 10th, and 12th ribs also visualized. Some developing callus at the fifth and seventh rib fractures sites. IMPRESSION: 1. Redemonstration of fractures of the left fifth, seventh, ninth, 10th, and 12th ribs. Some healing callus at the fifth and seventh rib fracture sites demonstrated now. 2. Continued small left effusion with adjacent atelectasis and/or consolidation. No appreciable pneum othorax.
== END | disposition home or self-care (01) ==
LOC: RADXRMAIN 15:13
PROVIDERS: ATTEND Family Medicine
DX: S22.42XD Multiple fractures of ribs, left side, subsequent encounter for fracture with routine healing (principal); J90 Pleural effusion, not elsewhere classified; L84 Corns and callosities
CPT/HCPCS: 71046

== ENCOUNTER 2021-06-15 10:30 | Inpatient (IN) | payer MEDICARE, OTHER ==
[2021-06-15] MEDS ORDERED: MORPHINE SULFATE 4 MG/ML SYRINGE IM STA (11:16)
--- NOTE | 2021-06-15 11:22 | ED ---
General Adult HPI - General Stated complaint: fall, shoulder pain Time Seen by Provider: 06/15/21 11:05 - History of Present Illness Initial comments: This 65-year-old male presents to the emergency department after a fall onto marble table while drinking alcohol 2 days ago. Patient states since his fall he has been having intermittent pain to his left ribs, shoulder, and wrist. Patient states he has broken ribs on his left sinus past. Patient denies being on any blood thinners. Patient states he does believe he lost consciousness after he fell but states he did not hit his head. Patient states he has noticed spasming in his back which is causing him more pain. Patient states he has tried to take Aleve to relieve his pain. Patient denies any nausea, vomiting, weakness, shortness of breath, change in vision, change in bladder, bowel/blad jorge retention or incontinence, headache. - Related Data Home Medications Medication Instructions Recorded Confirmed Albuterol Inhaler [Ventolin Hfa 1 - 2 puff INHALATION RT-Q6H PRN 06/15/21 06/15/21 Inhaler] Budesonide/Formoterol Fumarate 2 puff INHALATION RT-BID 06/15/21 06/15/21 [Symbicort 160-4.5 Mcg Inhaler] Naproxen Sodium [Aleve] 220 mg PO BID PRN 06/15/21 06/15/21 ePHEDrine sulfate [Bronkaid Max] 25 mg PO Q6H PRN 06/15/21 06/15/21 Previous Rx's Medication Instructions Recorded amLODIPine [Norvasc] 10 mg PO DAILY 30 Days #30 tab 05/26/20 atenoloL 100 mg PO DAILY 30 Days tab 05/26/20 Allergies Allergy/AdvReac Type Severity Reaction Status Date / Time No Known Allergies Allergy Verified 06/15/21 12:53 Review of Systems ROS Statement: Those systems with pertinent positive or pertinent negative responses have been documented in the HPI. ROS Other: All systems not noted in ROS Statement are negative. Past Medical History Past Medical History: Asthma, Hypertension, Osteoarthritis (OA) History of Any Multi-Drug Resistant Organisms: None Reported Past Surgical History: Appendectomy, Joint Replacement Additional Past Surgical History / Comment(s): left knee replacement, ORIF rt ankle Past Anesthesia/Blood Transfusion Reactions: No Reported Reaction Past Psychological History: Anxiety, Depression Smoking Status: Former smoker Past Alcohol Use History: Abuse, Daily, Heavy Past Drug Use History: None Reported - Past Family History Mother Family Medical History: No Reported History Additional Family Medical History / Comment(s): . Father Family Medical History: Hypertension Additional Family Medical History / Comment(s): Father is alive at age 90 with history of hypertension. Brother(s) Additional Family Medical History / Comment(s): . General Exam General appearance: alert, in no apparent distress Head exam: Present: atraumatic, normocephalic Eye exam: Present: normal appearance, EOMI ENT exam: Present: normal exam, mucous membranes moist Neck exam: Absent: tenderness, meningismus Respiratory exam: Present: normal lung sounds bilaterally, chest wall tenderness (Tender on lower anterior, lateral, and posterior chest wall to palpation.). Absent: respiratory distress, wheezes, rales, rhonchi, stridor Cardiovascular Exam: Present: normal rhythm, tachycardia, normal heart sounds. Absent: systolic murmur, diastolic murmur, rubs, gallop, clicks GI/Abdominal exam: Present: soft, tenderness (Left upper quadrant pain to palpation), normal bowel sounds. Absent: distended, guarding, rebound, rigid Extremities exam: Present: normal inspection, full ROM, tenderness (Tender over her left shoulder blade to palpation. Tender over dorsal aspect of left wrist, sensation and range of motion intact. Patient able to abduct arm to 90. Patient able to raise arm in front of him to 90.). Absent: pedal edema, joint swelling, calf tenderness Back exam: Present: tenderness (Tender left side lower posterior ribs to palpation). Absent: CVA tenderness (R), CVA tenderness (L), vertebral tenderness Neurological exam: Present: alert, oriented X3, CN II-XII intact Psychiatric exam: Present: normal affect, normal mood Skin exam: Present: warm, dry, intact, normal color. Absent: rash Course Vital Signs 06/15/21 06/15/21 06/15/21 10:45 12:01 14:53 Temperature 98.2 F Pulse Rate 111 H 96 90 Respiratory 18 18 18 Rate Blood Pressure 110/71 132/88 127/87 O2 Sat by Pulse 97 97 98 Oximetry 06/15/21 15:54 Temperature 98.7 F Pulse Rate 100 Respiratory 18 Rate Blood Pressure 139/82 O2 Sat by Pulse 95 Oximetry EKG Findings - EKG Comments: EKG Findings:: Chest EKG: Ventricular rate 89 bpm. ID interval 170. QRS duration 76. QT/QTc. 346/420. T wave abnormalities that were noted on prior EKGs Medical Decision Making - Medical Decision Making This 65-year-old male presents to the emergency department after a fall onto a marble table while drunk on Monday afternoon, hurting his left shoulder, ribs, and left wrist. Left wrist x-ray impression: There is no acute fracture or dislocation seen. X-ray ribs with chest x-ray: Small less than 10% left-sided pneumothorax. Acute fractures of left ribs 8 and 9. Chronic fracture of left ribs 7 although refracture is difficult to exclude. Remote fracture of posterior left rib. X-ray shoulder left impression: There is no acute fracture dislocation. CT brain spine without contrast: Age-related atrophic and chronic small vessel ischemic change without acute intracranial process seen at this time. There is normal alignment and prevertebral soft tissues. No evidence for acute cervical fracture. Chestabdomenpelvis CT: Multiple left-sided rib fractures as discussed above with associated chest wall traumatic injury and the possibility of flail chest. 10% left-sided pneumothorax. Left-sided pleural effusion and compressive atelectasis and/or contusion. No evidence for traumatic injury to the abdomen or pelvis. Case discussed with my attending, Dr. Orourke. agreed to admit patient to his services with cardiothoracic, anesthesiology, and pulmonology consulted. Patient verbally agreed to plan. - Lab Data Result diagrams: 06/15/21 12:51 06/15/21 12:51 Lab Results 06/15/21 06/15/21 06/15/21 Range/Units 12:51 12:51 12:51 WBC 6.8 (3.8-10.6) k/uL RBC 3.67 L (4.30-5.90) m/uL Hgb 11.7 L (13.0-17.5) gm/dL Hct 36.7 L (39.0-53.0) % MCV 100.2 H (80.0-100.0) fL MCH 31.9 (25.0-35.0) pg MCHC 31.8 (31.0-37.0) g/dL RDW 15.3 (11.5-15.5) % Plt Count 125 L (150-450) k/uL MPV 10.0 Neutrophils % 80 % Lymphocytes % 10 % Monocytes % 7 % Eosinophils % 1 % Basophils % 0 % Neutrophils # 5.4 (1.3-7.7) k/uL Lymphocytes # 0.7 L (1.0-4.8) k/uL Monocytes # 0.5 (0-1.0) k/uL Eosinophils # 0.1 (0-0.7) k/uL Basophils # 0.0 (0-0.2) k/uL Macrocytosis Slight PT 10.0 (9.0-12.0) sec INR 0.9 (<1.2) APTT 23.8 (22.0-30.0) sec Sodium 133 L (137-145) mmol/L Potassium 3.6 (3.5-5.1) mmol/L Chloride 99 (98-107) mmol/L Carbon Dioxide 24 (22-30) mmol/L Anion Gap 10 mmol/L BUN 19 (9-20) mg/dL Creatinine 0.71 (0.66-1.25) mg/dL Est GFR (CKD-EPI)AfAm >90 (>60 ml/min/1.73 sqM) Est GFR (CKD-EPI)NonAf >90 (>60 ml/min/1.73 sqM) Glucose 109 H (74-99) mg/dL Calcium 9.2 (8.4-10.2) mg/dL Total Bilirubin 0.9 (0.2-1.3) mg/dL AST 28 (17-59) U/L ALT 22 (4-49) U/L Alkaline Phosphatase 53 (38-126) U/L Total Protein 6.5 (6.3-8.2) g/dL Albumin 3.5 (3.5-5.0) g/dL Serum Alcohol <10 mg/dL Coronavirus (PCR) (Not Detectd) 06/15/21 Range/Units 12:51 WBC (3.8-10.6) k/uL RBC (4.30-5.90) m/uL Hgb (13.0-17.5) gm/dL Hct (39.0-53.0) % MCV (80.0-100.0) fL MCH (25.0-35.0) pg MCHC (31.0-37.0) g/dL RDW (11.5-15.5) % Plt Count (150-450) k/uL MPV Neutrophils % % Lymphocytes % % Monocytes % % Eosinophils % % Basophils % % Neutrophils # (1.3-7.7) k/uL Lymphocytes # (1.0-4.8) k/uL Monocytes # (0-1.0) k/uL Eosinophils # (0-0.7) k/uL Basophils # (0-0.2) k/uL Macrocytosis PT (9.0-12.0) sec INR (<1.2) APTT (22.0-30.0) sec Sodium (137-145) mmol/L Potassium (3.5-5.1) mmol/L Chloride (98-107) mmol/L Carbon Dioxide (22-30) mmol/L Anion Gap mmol/L BUN (9-20) mg/dL Creatinine (0.66-1.25) mg/dL Est GFR (CKD-EPI)AfAm (>60 ml/min/1.73 sqM) Est GFR (CKD-EPI)NonAf (>60 ml/min/1.73 sqM) Glucose (74-99) mg/dL Calcium (8.4-10.2) mg/dL Total Bilirubin (0.2-1.3) mg/dL AST (17-59) U/L ALT (4-49) U/L Alkaline Phosphatase (38-126) U/L Total Protein (6.3-8.2) g/dL Albumin (3.5-5.0) g/dL Serum Alcohol mg/dL Coronavirus (PCR) Not Detected (Not Detectd) Disposition Clinical Impression: Pneumothorax, Rib fractures Disposition: ADMITTED IP TO THIS HOSP Condition: Serious Is patient prescribed a controlled substance at d/c from ED?: No Time of Disposition: 13:54
--- NOTE | 2021-06-15 11:58 | XR ---
EXAMINATION TYPE: XR wrist complete LT DATE OF EXAM: 06/15/2021 CLINICAL HISTORY: pain TECHNIQUE: Frontal, lateral and oblique images of the left wrist are obtained. COMPARISON: None. FINDINGS: There is no acute fracture/dislocation evident. Chronic deformity of the scaphoid with bon y fragmentation seen. Adjacent soft tissue swelling noted. Intercarpal joint space narrowing. IMPRESSION: There is no acute fracture or dislocation seen. ICD 10 NO FRACTURE, INITIAL EVALUATION
--- NOTE | 2021-06-15 11:59 | XR ---
EXAMINATION TYPE: XR shoulder complete LT DATE OF EXAM: 06/15/2021 CLINICAL HISTORY: pain COMPARISON: NONE TECHNIQUE: Three views of the left shoulder are obtained. FINDINGS: There is no acute fracture/dislocation evident. The acromioclavicular and glenohumeral kee int spaces appear within normal limits. The visualized ribs are intact and unremarkable. IMPRESSION: 1. There is no acute fracture or dislocation. ICD 10 NO FRACTURE, INITIAL EVALUATION
--- NOTE | 2021-06-15 12:05 | XR ---
EXAMINATION TYPE: XR ribs LT w pa chest xray DATE OF EXAM: 06/15/2021 COMPARISON: 06/04/2020 HISTORY: Pain TECHNIQUE: Single view of the chest 4 views of the ribs are submitted. FINDINGS: There appear to be acute fractures of left ribs 8 and 9 anterolaterally. There is chronic f racture noted of left rib #7 as well as a posterior left rib #10. Left basilar pleural-parenchymal th ickening noted. Small less than 10% pneumothorax identified. IMPRESSION: 1. Small less than 10% left-sided pneumothorax. 2. Acute fractures of left ribs 8 and 9. There is chronic fracture of left rib #7 although refracture is difficult to exclude. Remote fracture of posterior left rib #10.
[2021-06-15] MEDS ORDERED: NALOXONE 0.4 MG/ML 1 ML VIAL IV PRN (12:19)
[2021-06-15] MEDS ORDERED: ONDANSETRON 4 MG/2 ML VIAL IVP PRN (12:19)
[2021-06-15] MEDS ORDERED: THIAMINE 100 MG/ML 2 ML VIAL IM STA (12:32)
[2021-06-15] MEDS ORDERED: LORazepam 2 MG/ML INJ IV PRN ×3 (12:32)
--- NOTE | 2021-06-15 12:38 | CT ---
EXAMINATION TYPE: CT brain phuc oviedo con DATE OF EXAM: 06/15/2021 COMPARISON: 07/24/2017 HISTORY: recent fall with multiple rib fractures CT DLP: 1457.[address] of the brain was performed. The ventricles, basal cisterns and sulci overlying the cerebral convexities demonstrate mild enlargem ent. There is no evidence for intracranial hemorrhage or sulcal effacement. There is decreased attenuatio n about the periventricular white matter and deep white matter of both cerebral hemispheres, compatib le with chronic small vessel ischemia. No mass effects are seen. If symptoms persist consider MRI. Osseous calvarium is intact. IMPRESSION: 1. Age related atrophic and chronic small vessel ischemic change without acute intracranial process seen at this time. CT Cervical Spine: Unenhanced CT of the cervical spine was performed with bone and soft tissue window settings submitted . Coronal and sagittal reconstruction is obtained. There is normal alignment and prevertebral soft tissues. No evidence for acute cervical fracture . Scattered degenerative disc disease and spondylosis. Biapical scarring. IMPRESSION: 1. No evidence for acute fracture or subluxation of the cervical spine.
[2021-06-15 13:14] LABS: INR 0.9 (<1.2); Partial Thromboplastin Time 23.8 sec (22.0-30.0)
[2021-06-15 13:16] LABS: ALT 22 U/L (4-49); AST 28 U/L (17-59); African American GFR (CKD) >90 (>60 ml/min/1.73 sqM); Albumin 3.5 g/dL (3.5-5.0); Alcohol <10 mg/dL; Alkaline Phosphatase 53 U/L (38-126); Anion Gap 10 mmol/L; Blood Urea Nitrogen 19 mg/dL (9-20); Calcium 9.2 mg/dL (8.4-10.2); Carbon Dioxide 24 mmol/L (22-30); Chloride 99 mmol/L (98-107); Glucose 109 mg/dL (74-99); Non-African American GFR(CKD) >90 (>60 ml/min/1.73 sqM); Potassium 3.6 mmol/L (3.5-5.1); Sodium 133 mmol/L (137-145); Total Bilirubin 0.9 mg/dL (0.2-1.3); Total Protein 6.5 g/dL (6.3-8.2)
[2021-06-15 13:31] LABS: Basophils % (A) 0 %; Eosinophils # (A) 0.1 k/uL (0-0.7); Eosinophils % (A) 1 %; HCT 36.7 % (39.0-53.0); HGB 11.7 gm/dL (13.0-17.5); Lymphocytes # (A) 0.7 k/uL (1.0-4.8); Lymphocytes % (A) 10 %; MCH 31.9 pg (25.0-35.0); MCHC 31.8 g/dL (31.0-37.0); MCV 100.2 fL (80.0-100.0); Macrocytosis Slight; Monocytes # (A) 0.5 k/uL (0-1.0); Monocytes % (A) 7 %; Neutrophils # (A) 5.4 k/uL (1.3-7.7); Neutrophils % (A) 80 %; Platelet Count 125 k/uL (150-450); RBC 3.67 m/uL (4.30-5.90); RDW 15.3 % (11.5-15.5); WBC 6.8 k/uL (3.8-10.6)
[2021-06-15] MEDS: SODIUM CHLORIDE 0.9% 1,000 ML IV SCH ×2 (13:42→17:38)
[2021-06-15] MEDS: MORPHINE SULFATE 4 MG/ML SYRINGE IV PRN (13:47)
--- NOTE | 2021-06-15 14:34 | CT ---
EXAMINATION TYPE: CT ChestAbdPelvis w con DATE OF EXAM: 06/15/2021 COMPARISON: 05/21/2020 HISTORY: Pneumothorax, rib fracture CT DLP: 1526.9 mGycm CONTRAST: Contrast enhanced Trauma CT of the Chest, Abdomen and Pelvis is performed with IV Contrast, patient i njected with 100 mL of Isovue 300. Chest: LUNGS: Left-sided pneumothorax is present and is estimated at approximately 10%. Left lower lobe atel ectasis and effusion noted. MEDIASTINUM: Thoracic aorta is of normal caliber without CT evidence to suggest traumatic induced ao rtic injury. No mediastinal fluid or blood. No pericardial fluid or cardia abnormality. HILAR STRUCTURES: No evidence for mass. No hilar adenopathy is appreciated. OTHER: No significant abnormality. OSSEOUS: Fractures of left ribs 5 through 12 some of which also demonstrate healed fractures from 05/22 rib evaluation. Ribs 9 and 10 demonstrate acute fractures in 2 locations within each rib. Rib #11 may also demonstrate 2 fractures within the same rib and therefore I cannot exclude flail chest. Correlate clinically. CT ABDOMEN AND PELVIS FINDINGS: LIVER/GB: No focal laceration, contusion or subcapsular hemorrhage. Multiple calcium gallstones. No space occupying hepatic lesion. Biliary tree is of normal caliber. Fatty liver noted. PANCREAS: No evidence for transection. No inflammation. No distinct mass. SPLEEN: No focal laceration, contusion or subcapsular hemorrhage. ADRENALS: No hemorrhage. No nodule. No thickening. KIDNEYS/BLADDER: No focal laceration, contusion or subcapsular hemorrhage. No hydronephrosis. No n ephrolithiasis. No disctinct renal mass. BOWEL: Bowel is intact. No evidence for pneumoperitoneum. GENITAL ORGANS: No gross abnormality. LYMPH NODES: No greater than 1cm abdominal or pelvic lymph nodes are appreciated. AORTA: No traumatic aortic injury visualized. OSSEOUS STRUCTURES: Severe degenerative change lower lumbar spine. OTHER: No evidence for hemoperito neum. IMPRESSION: 1. Multiple left-sided rib fractures as discussed above with associated chest wall traumatic injury a nd the possibility of flail chest. See above discussion. 2. 10% left-sided pneumothorax. 3. Left sided pleural effusion and compressive atelectasis and/or contusion. 4. No evidence for traumatic injury to the abdomen or pelvis.
--- NOTE | 2021-06-15 15:29 | P.GSHP ---
History of Present Illness H&P Date: 06/15/21 Chief Complaint: Fall, rib pain CHIEF COMPLAINT: Fall, rib and abdominal pain HISTORY OF PRESENT ILLNESS: This is 65-year-old male with a history of alcohol abuse who reported to the emergency department this morning around 11 AM after sustaining a fall onto marble table approximately 2 days ago. Since the fall he has been having pain to his left ribs and abdomen, left shoulder and left wrist. He was recently evaluated for previous fall and broken ribs as well. The patient has multiple comorbidities including asthma, rash hypertension, depression, bipolar disorder. Patient states he's been very depressed and has been drinking water up to 1/5 a day. He states he has had a poor appetite. He is currently denying any shortness of breath or difficulty with breathing. He states he was getting up to go to the bathroom and was in a hurry and foul. He does not believe he had loss of consciousness, and denies hitting his head. He denies any blood thinners. States he has been urinating normal and no blood seen. He has a history of previous appendectomy. Chest x-ray/x-ray ribs show small less than 10% left-sided pneumothorax. Acute fractures of the left ribs 8 and 9. There is chronic fracture of left rib #7 although refracture is difficult to exclude. Remote fracture of posterior left rib #10. X-ray of left breast shows no acute fracture or dislocation seen. Left shoulder x-ray no acute fracture or dislocation CT brain with C-spine: Shows age-related atrophic and chronic small vessel ischemic change without acute intracranial process seen at this time. C-spine shows no evidence for acute fracture or subluxation of the cervical spine CT chest abdomen and pelvis: Shows multiple left-sided rib fractures with associated wall traumatic injury and possibility of flail chest. 10% left-sided pneumothorax. Left-sided pleural effusion and compressive atelectasis and/or contusion. No evidence of traumatic injury to the abdomen or pelvis PAST MEDICAL HISTORY: Asthma, hypertension, alcohol abuse, depression, bipolar disorder. PAST SURGICAL HISTORY: See list. MEDICATIONS: See list. ALLERGIES: See list. SOCIAL HISTORY: No illicit drug use. REVIEW OF SYSTEMS: CONSTITUTIONAL: Denies fever or chills. HEENT: Denies blurred vision, vision changes, or eye pain. Denies hemoptysis CARDIOVASCULAR: Denies chest pain or pressure. RESPIRATORY: No shortness of breath. GASTROINTESTINAL: See HPI for pertinent findings HEMATOLOGIC: Denies bleeding disorders. GENITOURINARY: Denies any blood in urine or increased urinary frequency. SKIN: Denies pruitis. Denies rash. PHYSICAL EXAM: VITAL SIGNS: Reviewed GENERAL: Well-developed in no acute distress. HEENT: No sclera icterus. Extraocular movements grossly intact. Moist buccal mucosa. Head is atraumatic, normocephalic. No nasal drainage. Chest wall: Symmetrical. Normal expansion. Tenderness to palpation along the left ribs. No ecchymosis noted. ABDOMEN: Soft. Nondistended. Small, reducible, umbilical hernia. Tenderness with palpation to left mid and lower quadrant. NEUROLOGIC: Alert and oriented. Cranial nerves II through XII grossly intact. LABORATORY DATA: WBC 6.8 hemoglobin 11.7 hematocrit 36.7 platelet count 125,000 INR 0.9 Sodium 133 potassium 3.6 BUN 19 creatinine 0.7 glucose 109 Total bilirubin 0.9 AST 28 ALT 22 alkaline phosphatase 53 total protein 6.5 albumin 3.5 serum alcohol less than 10 IMAGING: Chest x-ray/x-ray ribs show small less than 10% left-sided pneumothorax. Acute fractures of the left ribs 8 and 9. There is chronic fracture of left rib #7 although refracture is difficult to exclude. Remote fracture of posterior left rib #10. X-ray of left breast shows no acute fracture or dislocation seen. Left shoulder x-ray no acute fracture or dislocation CT brain with C-spine: Shows age-related atrophic and chronic small vessel ischemic change without acute intracranial process seen at this time. C-spine shows no evidence for acute fracture or subluxation of the cervical spine CT chest abdomen and pelvis: Shows multiple left-sided rib fractures with associated wall traumatic injury and possibility of flail chest. 10% left-sided pneumothorax. Left-sided pleural effusion and compressive atelectasis and/or contusion. No evidence of traumatic injury to the abdomen or pelvis ASSESSMENT: 1. Traumatic fall 2. Rib pain with acute fracture to left ribs 8 and 9, possible rib 7 as seen on chest x-ray 3. 10% left-sided pneumothorax 4. Left-sided pleural effusion and compressive atelectasis and/or contusion seen on CT chest 5. History of previous fall with rib fractures 6. Left lower quadrant abdominal pain 7. Alcohol abuse 8. History of asthma 9. History of hypertension 10. Depression and bipolar disorder PLAN: 1. Consult pulmonology 2. Consult cardiothoracic surgery 3. Consult anesthesia for rib pain, possible rib block 4. CIWA protocal 5. Continue pain control 6. Incentive spirometer to bedside 7. Alcohol abstinence The impression and plan of care has been dictated as directed. Dr. Almodovar I performed a history and examination of this patient, discussed the same with the dictator. I agree with the dictator's note ,documented as a scribe. Any additional findings or plans will be noted. Past Medical History Past Medical History: Asthma, Hypertension, Osteoarthritis (OA) History of Any Multi-Drug Resistant Organisms: None Reported Past Surgical History: Appendectomy, Joint Replacement Additional Past Surgical History / Comment(s): left knee replacement, ORIF rt ankle Past Anesthesia/Blood Transfusion Reactions: No Reported Reaction Past Psychological History: Anxiety, Depression Smoking Status: Former smoker Past Alcohol Use History: Abuse, Daily, Heavy Past Drug Use History: None Reported - Past Family History Mother Family Medical History: No Reported History Additional Family Medical History / Comment(s): . Father Family Medical History: Hypertension Additional Family Medical History / Comment(s): Father is alive at age 90 with history of hypertension. Brother(s) Additional Family Medical History / Comment(s): . Medications and Allergies Home Medications Medication Instructions Recorded Confirmed Type amLODIPine [Norvasc] 10 mg PO DAILY 30 Days #30 tab 05/26/20 06/15/21 Rx atenoloL 100 mg PO DAILY 30 Days tab 05/26/20 06/15/21 Rx Albuterol Inhaler [Ventolin Hfa 1 - 2 puff INHALATION RT-Q6H PRN 06/15/21 06/15/21 History Inhaler] Budesonide/Formoterol Fumarate 2 puff INHALATION RT-BID 06/15/21 06/15/21 History [Symbicort 160-4.5 Mcg Inhaler] Naproxen Sodium [Aleve] 220 mg PO BID PRN 06/15/21 06/15/21 History ePHEDrine sulfate [Bronkaid Max] 25 mg PO Q6H PRN 06/15/21 06/15/21 History Allergies Allergy/AdvReac Type Severity Reaction Status Date / Time No Known Allergies Allergy Verified 06/15/21 12:53 Surgical - Exam Vital Signs Pulse Resp BP Pulse Ox 111 H 18 110/71 97 06/15/21 10:45 06/15/21 10:45 06/15/21 10:45 06/15/21 10:45 Results - Labs 06/15/21 12:51 06/15/21 12:51 Abnormal Lab Results - Last 24 Hours (Table) 06/15/21 06/15/21 Range/Units 12:51 12:51 RBC 3.67 L (4.30-5.90) m/uL Hgb 11.7 L (13.0-17.5) gm/dL Hct 36.7 L (39.0-53.0) % MCV 100.2 H (80.0-100.0) fL Plt Count 125 L (150-450) k/uL Lymphocytes # 0.7 L (1.0-4.8) k/uL Sodium 133 L (137-145) mmol/L Glucose 109 H (74-99) mg/dL Diabetes panel 06/15/21 Range/Units 12:51 Sodium 133 L (137-145) mmol/L Potassium 3.6 (3.5-5.1) mmol/L Chloride 99 (98-107) mmol/L Carbon Dioxide 24 (22-30) mmol/L BUN 19 (9-20) mg/dL Creatinine 0.71 (0.66-1.25) mg/dL Glucose 109 H (74-99) mg/dL Calcium 9.2 (8.4-10.2) mg/dL AST 28 (17-59) U/L ALT 22 (4-49) U/L Alkaline Phosphatase 53 (38-126) U/L Total Protein 6.5 (6.3-8.2) g/dL Albumin 3.5 (3.5-5.0) g/dL Calcium panel 06/15/21 Range/Units 12:51 Calcium 9.2 (8.4-10.2) mg/dL Albumin 3.5 (3.5-5.0) g/dL Pituitary panel 06/15/21 Range/Units 12:51 Sodium 133 L (137-145) mmol/L Potassium 3.6 (3.5-5.1) mmol/L Chloride 99 (98-107) mmol/L Carbon Dioxide 24 (22-30) mmol/L BUN 19 (9-20) mg/dL Creatinine 0.71 (0.66-1.25) mg/dL Glucose 109 H (74-99) mg/dL Calcium 9.2 (8.4-10.2) mg/dL Adrenal panel 06/15/21 Range/Units 12:51 Sodium 133 L (137-145) mmol/L Potassium 3.6 (3.5-5.1) mmol/L Chloride 99 (98-107) mmol/L Carbon Dioxide 24 (22-30) mmol/L BUN 19 (9-20) mg/dL Creatinine 0.71 (0.66-1.25) mg/dL Glucose 109 H (74-99) mg/dL Calcium 9.2 (8.4-10.2) mg/dL Total Bilirubin 0.9 (0.2-1.3) mg/dL AST 28 (17-59) U/L ALT 22 (4-49) U/L Alkaline Phosphatase 53 (38-126) U/L Total Protein 6.5 (6.3-8.2) g/dL Albumin 3.5 (3.5-5.0) g/dL
--- NOTE | 2021-06-15 15:36 | P.GSCN ---
History of Present Illness Consult date: 06/15/21 Reason for Consult: Left-sided traumatic pneumothorax Requesting physician: Marcela Klein History of present illness: This is a 65-year-old gentleman who follows on an outpatient basis with Dr. Chand for primary care. He has a previous medical history of previous tobacco dependence, heavy EtOH use, hypertension, asthma, osteoarthritis. Apparently he had been drinking on Monday and fell on his left side hitting a marble table. He has had intermittent pain to his left-sided ribs, shoulder, and wrist which has been unrelieved with oral NSAIDS. Unsure about loss of consciousness, but patient states he did not his head. He denies any active blood thinner medication. He denies shortness of breath. Due to his continued unrelieved pain he presented to [facility] emergency room. Chest x-ray demonstrated left-sided rib fractures of ribs 8 and 9 as well as acute on chronic rib fracture of rib 7, and previous rib fracture of #10, as well as 10% left-sided pneumothorax. Chest CT was also completed confirming 10% left-sided pneumothorax with multiple left-sided rib fractures as well as old rib fractures with concern for flail chest. Due to these findings consultation was placed to cardiothoracic surgery for treatment recommendations. Review of Systems Review of systems was completed and was negative except as noted - Cardiovascular Reports as per HPI, Reports chest pain Past Medical History Past Medical History: Asthma, Hypertension, Osteoarthritis (OA) History of Any Multi-Drug Resistant Organisms: None Reported Past Surgical History: Appendectomy, Joint Replacement Additional Past Surgical History / Comment(s): left knee replacement, ORIF rt ankle Past Anesthesia/Blood Transfusion Reactions: No Reported Reaction Past Psychological History: Anxiety, Depression Smoking Status: Former smoker Past Alcohol Use History: Abuse, Daily, Heavy Past Drug Use History: None Reported - Past Family History Mother Family Medical History: No Reported History Additional Family Medical History / Comment(s): . Father Family Medical History: Hypertension Additional Family Medical History / Comment(s): Father is alive at age 90 with history of hypertension. Brother(s) Additional Family Medical History / Comment(s): . Medications and Allergies Home Medications Medication Instructions Recorded Confirmed Type amLODIPine [Norvasc] 10 mg PO DAILY 30 Days #30 tab 05/26/20 06/15/21 Rx atenoloL 100 mg PO DAILY 30 Days tab 05/26/20 06/15/21 Rx Albuterol Inhaler [Ventolin Hfa 1 - 2 puff INHALATION RT-Q6H PRN 06/15/21 06/15/21 History Inhaler] Budesonide/Formoterol Fumarate 2 puff INHALATION RT-BID 06/15/21 06/15/21 History [Symbicort 160-4.5 Mcg Inhaler] Naproxen Sodium [Aleve] 220 mg PO BID PRN 06/15/21 06/15/21 History ePHEDrine sulfate [Bronkaid Max] 25 mg PO Q6H PRN 06/15/21 06/15/21 History Allergies Allergy/AdvReac Type Severity Reaction Status Date / Time No Known Allergies Allergy Verified 06/15/21 12:53 Surgical - Exam Vital Signs Pulse Resp BP Pulse Ox 111 H 18 110/71 97 06/15/21 10:45 06/15/21 10:45 06/15/21 10:45 06/15/21 10:45 CONSTITUTIONAL: Awake and alert, cooperative, well-developed, well-nourished, no acute distress, complains of left-sided chest pain EYES: Pupils equal, round, reactive to light, normal ocular movement ENT: Moist mucous membranes without oral lesions present NECK: No masses, no bruits, trachea midline RESPIRATORY: Lungs sounds diminished bilaterally. Respirations even, nonlabored. Currently on room air with oxygen saturation 98%. Strong cough. No chest wall deformities, no paradoxical movement of the chest. No clubbing or cyanosis present CARDIOVASCULAR: S1, S2 present. Regular rate and rhythm. Palpable peripheral pulses bilaterally. No edema present. No calf pain or tenderness noted. GASTROINTESTINAL: Abdomen soft, nontender, nondistended without masses or organomegaly noted. There is no rebound or guarding present. Active bowel sounds present 4 quadrants. GENITOURINARY: Deferred INTEGUMENTARY: Skin is warm and dry with evidence of good perfusion. NEUROLOGIC: Cranial nerves II through XII intact, normal coordination, no obvious motor or sensory deficits, speech is normal MUSKULOSKELETAL: Able to move all extremities, strength equal bilaterally, normal posture PSYCHIATRIC: Alert and oriented to person place and time, appropriate affect, intact judgment and insight Results - Labs 06/15/21 12:51 01/25/22 12:51 Abnormal Lab Results - Last 24 Hours (Table) 06/15/21 06/15/21 Range/Units 12:51 12:51 RBC 3.67 L (4.30-5.90) m/uL Hgb 11.7 L (13.0-17.5) gm/dL Hct 36.7 L (39.0-53.0) % MCV 100.2 H (80.0-100.0) fL Plt Count 125 L (150-450) k/uL Lymphocytes # 0.7 L (1.0-4.8) k/uL Sodium 133 L (137-145) mmol/L Glucose 109 H (74-99) mg/dL Diabetes panel 06/15/21 Range/Units 12:51 Sodium 133 L (137-145) mmol/L Potassium 3.6 (3.5-5.1) mmol/L Chloride 99 (98-107) mmol/L Carbon Dioxide 24 (22-30) mmol/L BUN 19 (9-20) mg/dL Creatinine 0.71 (0.66-1.25) mg/dL Glucose 109 H (74-99) mg/dL Calcium 9.2 (8.4-10.2) mg/dL AST 28 (17-59) U/L ALT 22 (4-49) U/L Alkaline Phosphatase 53 (38-126) U/L Total Protein 6.5 (6.3-8.2) g/dL Albumin 3.5 (3.5-5.0) g/dL Calcium panel 06/15/21 Range/Units 12:51 Calcium 9.2 (8.4-10.2) mg/dL Albumin 3.5 (3.5-5.0) g/dL Pituitary panel 06/15/21 Range/Units 12:51 Sodium 133 L (137-145) mmol/L Potassium 3.6 (3.5-5.1) mmol/L Chloride 99 (98-107) mmol/L Carbon Dioxide 24 (22-30) mmol/L BUN 19 (9-20) mg/dL Creatinine 0.71 (0.66-1.25) mg/dL Glucose 109 H (74-99) mg/dL Calcium 9.2 (8.4-10.2) mg/dL Adrenal panel 06/15/21 Range/Units 12:51 Sodium 133 L (137-145) mmol/L Potassium 3.6 (3.5-5.1) mmol/L Chloride 99 (98-107) mmol/L Carbon Dioxide 24 (22-30) mmol/L BUN 19 (9-20) mg/dL Creatinine 0.71 (0.66-1.25) mg/dL Glucose 109 H (74-99) mg/dL Calcium 9.2 (8.4-10.2) mg/dL Total Bilirubin 0.9 (0.2-1.3) mg/dL AST 28 (17-59) U/L ALT 22 (4-49) U/L Alkaline Phosphatase 53 (38-126) U/L Total Protein 6.5 (6.3-8.2) g/dL Albumin 3.5 (3.5-5.0) g/dL - Imaging Chest x-ray: report reviewed, image reviewed CT scan - chest: report reviewed, image reviewed Assessment and Plan Assessment: 1. Traumatic left-sided pneumothorax, approximately 10% per chest x-ray and CT, fall from standing 2. Acute as well as old left-sided rib fractures 3. Left-sided chest pain secondary to above 4. Previous tobacco dependence 5. Heavy EtOH use 6. Hypertension 7. Asthma 8. Osteoarthritis Plan: The patient was seen and examined down in the emergency room. Chart/diagnostics were reviewed. The case will be discussed in detail with cardiothoracic surgeon. The patient is currently in no acute respiratory distress. In fact he is oxygenating well on room air, sitting up on the stretcher eating lunch. He does complain of continued pain. There is no evidence of flail chest, no paradoxical movement in the chest wall. No surgical intervention at this time. Will order incentive spirometry and patient was instructed to use it 10 times every hour while awake. Will repeat chest x-ray in the morning. Pain control per primary care service. CIWA protocol. Medical management of other comorbidities per primary care service. More recommendations to follow. Thank you for this consult. We will continue to follow along with you. Time with Patient: Greater than 30
[2021-06-15] MEDS: THIAMINE 100 MG TAB PO SCH (17:34)
[2021-06-15] MEDS: KETOROLAC 30 MG/ML 1 ML VIAL IVP SCH ×2 (17:34→23:56)
[2021-06-15] MEDS: HYDROcodone/APAP 5-325MG 1 EACH TAB PO PRN (20:27)
[2021-06-16] MEDS: HYDROcodone/APAP 5-325MG 1 EACH TAB PO PRN ×2 (03:08→19:48)
[2021-06-16] MEDS: SODIUM CHLORIDE 0.9% 1,000 ML IV SCH ×2 (03:10→12:08)
[2021-06-16] MEDS: KETOROLAC 30 MG/ML 1 ML VIAL IVP SCH ×4 (05:31→23:56)
[2021-06-16 05:45] LABS: Appearance,Urine Clear (Clear); Bilirubin,Urine Negative (Negative); Blood,Urine Negative (Negative); Color,Urine Yellow; Glucose,Urine (UA) Negative (Negative); Ketones,Urine Negative (Negative); Leukocyte Esterase,Urine Negative (Negative); Mucus,Urine Rare /hpf; Nitrite,Urine Negative (Negative); PH, Urine 6.5 (5.0-8.0); Protein,Urine 1+ (Negative); RBC,Urine 1 /hpf (0-5); WBC,Urine <1 /hpf (0-5)
--- NOTE | 2021-06-16 07:11 | XR ---
EXAMINATION TYPE: XR chest 1V portable DATE OF EXAM: 06/16/2021 CLINICAL HISTORY: Difficulty breathing progress study. Left-sided pneumothorax from rib fractures. TECHNIQUE: Single AP portable upright view of the chest is obtained. COMPARISON: Chest x-ray and CT chest from one day earlier FINDINGS: Lordotic projection current study. Eventration of the right hemidiaphragm redemonstrated p ersistent small left pleural fluid collection associated compressive atelectasis. The loculated air c omponent adjacent to the left heart border remains present seen better on CT versus x-ray. Acute disp laced fractures of the left lateral seventh through ninth ribs is redemonstrated. IMPRESSION: Stable small left basilar pleural fluid collection or hemothorax with associated compress madelyn atelectasis at site of displaced rib fractures. The air component not as well-seen on plain films versus CT.
[2021-06-16] MEDS: THIAMINE 100 MG TAB PO SCH ×2 (07:43→16:55)
[2021-06-16 07:55] LABS: Basophils % (A) 0 %; Eosinophils # (A) 0.3 k/uL (0-0.7); Eosinophils % (A) 5 %; HCT 34.5 % (39.0-53.0); HGB 10.8 gm/dL (13.0-17.5); Lymphocytes # (A) 0.9 k/uL (1.0-4.8); Lymphocytes % (A) 15 %; MCH 32.1 pg (25.0-35.0); MCHC 31.3 g/dL (31.0-37.0); MCV 102.5 fL (80.0-100.0); Macrocytosis Slight; Mean Platelet Volume 10.7; Monocytes # (A) 0.3 k/uL (0-1.0); Monocytes % (A) 6 %; Neutrophils % (A) 71 %; Platelet Count 129 k/uL (150-450); RBC 3.37 m/uL (4.30-5.90); RDW 15.2 % (11.5-15.5); WBC 5.6 k/uL (3.8-10.6)
[2021-06-16 08:05] LABS: African American GFR (CKD) >90 (>60 ml/min/1.73 sqM); Anion Gap 3 mmol/L; Blood Urea Nitrogen 14 mg/dL (9-20); Calcium 8.5 mg/dL (8.4-10.2); Carbon Dioxide 26 mmol/L (22-30); Chloride 101 mmol/L (98-107); Glucose 100 mg/dL (74-99); Non-African American GFR(CKD) >90 (>60 ml/min/1.73 sqM); Potassium 3.4 mmol/L (3.5-5.1); Sodium 130 mmol/L (137-145)
[2021-06-16] MEDS ORDERED: POTASSIUM CHLORIDE ER 20 MEQ TAB.ER PO STA (09:29)
[2021-06-16] MEDS: MORPHINE SULFATE 4 MG/ML SYRINGE IV PRN (09:42)
--- NOTE | 2021-06-16 09:55 | P.PN ---
Subjective Progress Note Date: 06/16/21 Principal diagnosis: Traumatic left-sided pneumothorax, approximately 10% per chest x-ray and CT, fall from standing, acute as well as old left-sided rib fractures, left-sided chest pain, left pleural effusion, possible hemothorax. Previous medical history of tobacco dependence, heavy EtOH use, hypertension, asthma, osteoarthritis The patient is currently sitting up in bed in no acute distress. Still complains of left sided rib pain but does feel better today, denies shortness of breath. Remains hemodynamically stable on room air, able to achieve 1500 mL on incentive spirometry. Chest x-ray reviewed with Dr. Junior, left-sided effusion with possibility of hemothorax present Objective - Vital Signs Vital signs: Vital Signs Temp 97.6 F 06/16/21 07:18 Pulse 85 06/16/21 07:18 Resp 18 06/16/21 07:18 BP 144/81 06/16/21 07:18 Pulse Ox 99 06/16/21 07:18 Intake & Output 06/15/21 06/16/21 06/16/21 18:59 06:59 18:59 Intake Total 260 1040 Output Total 200 Balance 260 840 Weight 90.718 kg Intake: Intake, IV Titration 260 1040 Amount Sodium Chloride 0.9% 1, 260 1040 000 ml @ 130 mls/hr IV . Q7H42M [facility] Rx#:[id number] Output: Urine 200 - Exam CONSTITUTIONAL: Appears comfortable, cooperative, no acute distress RESPIRATORY: Lungs sounds diminished bilaterally, left greater than right. Respirations even, nonlabored. Currently on room air with oxygen saturation 9 9%. Able to achieve 1500 mL on incentive spirometry. Strong cough. CARDIOVASCULAR: S1, S2 present. Regular rate and rhythm. Palpable peripheral pulses bilaterally. No edema present. No calf pain or tenderness noted. GASTROINTESTINAL: Abdomen soft, nontender, nondistended. Active bowel sounds present 4 quadrants. Tolerating diet. Positive bowel movement. GENITOURINARY: Continues to void clear, yellow urine INTEGUMENTARY: Skin is warm and dry with evidence of good perfusion. NEUROLOGIC: Cranial nerves II through XII intact MUSKULOSKELETAL: Able to move all extremities, strength equal bilaterally, gait normal PSYCHIATRIC: Alert and oriented to person place and time, appropriate affect, intact judgment and insight - Labs CBC & Chem 7: 06/16/21 07:41 06/16/21 07:41 Labs: Abnormal Lab Results - Last 24 Hours (Table) 06/15/21 06/15/21 06/16/21 Range/Units 12:51 12:51 05:19 RBC 3.67 L (4.30-5.90) m/uL Hgb 11.7 L (13.0-17.5) gm/dL Hct 36.7 L (39.0-53.0) % MCV 100.2 H (80.0-100.0) fL Plt Count 125 L (150-450) k/uL Lymphocytes # 0.7 L (1.0-4.8) k/uL Sodium 133 L (137-145) mmol/L Potassium (3.5-5.1) mmol/L Glucose 109 H (74-99) mg/dL Ur Specific [place] 1.040 H (1.001-1.035) Urine Protein 1+ H (Negative) Urine Mucus Rare H (None) /hpf 06/16/21 06/16/21 Range/Units 07:41 07:41 RBC 3.37 L (4.30-5.90) m/uL Hgb 10.8 L (13.0-17.5) gm/dL Hct 34.5 L (39.0-53.0) % MCV 102.5 H (80.0-100.0) fL Plt Count 129 L (150-450) k/uL Lymphocytes # 0.9 L (1.0-4.8) k/uL Sodium 130 L (137-145) mmol/L Potassium 3.4 L (3.5-5.1) mmol/L Glucose 100 H (74-99) mg/dL Ur Specific [place] (1.001-1.035) Urine Protein (Negative) Urine Mucus (None) /hpf - Imaging and Cardiology Chest x-ray: report reviewed, image reviewed Assessment and Plan Assessment: 1. Traumatic left-sided pneumothorax, approximately 10% per chest x-ray and CT, fall from standing 2. Acute as well as old left-sided rib fractures 3. Left-sided chest pain secondary to above 5. Left pleural effusion, possibly hemothorax 6. Previous tobacco dependence 7. Heavy EtOH use 8. Hypertension 9. Asthma 10. Osteoarthritis Plan: 1. Will take patient to the OR today for placement of left-sided chest tube 2. Encourage incentive spirometry 10 x every hour while awake 3. Pain control per trauma/anesthesia 4. Will monitor daily CXR 5. CIWA protocol 6. Medical management of other comorbidities per primary care service 7. More recommendations to follow Time with Patient: Greater than 30
--- NOTE | 2021-06-16 11:03 | P.CNPUL ---
History of Present Illness Consult date: 06/16/21 Requesting physician: Sukumar Almodovar Reason for consult: chest pain, pneumothorax, abnormal CXR/CT Chief complaint: Chest pain. History of present illness: Pulmonary consult dated 06/16/2021. 65-year-old white male, who presents to the emergency department on June 15, complaining of left chest and left shoulder pain. The patient apparently was watching basketball, and had been drinking. He had not gotten up for about 6 hours and when he did get up to go to the bathroom, he apparently fell, because of intoxication. The patient decided to come in to be evaluated. He was injured on Monday. He did not present to the emergency department until yesterday. Apparently the patient male lost consciousness as well. He states he did not hit his head. He has a history of hypertension, and asthma. He states both are well controlled. White count 5.6, hemoglobin 10.8, hematocrit 34.5, and platelet count 129,000. Sodium 130, potassium 3.4, chlorides 101, CO2 26, anion gap 3, BUN 14, creatinine 0.76. Urinalysis was negative. Testing for coronavirus was negative. Left wrist x-ray was negative. Rib series showed a temperature sent left-sided pneumothorax. There also fractures of left ribs #8 and #9. There appeared to be a chronic fracture left rib #7. Also there was a remote fracture of posterior left rib #10. Shoulder x-ray was negative. Brain CT was negative. Cervical x-rays were negative. Computed tomography scan of the chest abdomen and pelvis showed multiple left-sided rib fractures, with the possibility of a flail chest. There is a small, 10% left-sided pneumothorax. There is a left-sided pleural effusion. Abdomen and pelvic studies were negative. Chest x-ray from June 16 shows a moderate size left-sided pleural effusion likely representing a left hemothorax. Review of Systems REVIEW OF SYSTEMS: CONSTITUTIONAL: [Negative.] NEUROLOGIC: [ Negative.] HEENT: [ Negative.] CARDIAC: Left-sided chest discomfort, in the area of the rib fractures. PULMONARY: [Negative.] GI: [Negative.] : [Negative.] RHEUMATOLOGIC: [ Negative.] IMMUNOLOGIC: [ Negative.] ENDOCRINE: [Negative. ] DERMATOLOGIC: [Negative.] Past Medical History Past Medical History: Asthma, Hypertension, Osteoarthritis (OA) Additional Past Medical History / Comment(s): ETOH abuse/pt states his hands will tremble sometimes if he has gone without drinking, last alcoholic beverage was 06/13/21, past fall with multiple L rib fractures, anemia, gastritis, diverticular disease, benign colon polyps, bronchitis History of Any Multi-Drug Resistant Organisms: None Reported Past Surgical History: Appendectomy, Joint Replacement Additional Past Surgical History / Comment(s): left knee replacement, ORIF rt an kle Past Anesthesia/Blood Transfusion Reactions: No Reported Reaction Past Psychological History: Anxiety, Depression Smoking Status: Former smoker Past Alcohol Use History: Abuse, Daily, Heavy Past Drug Use History: None Reported - Past Family History Mother Family Medical History: No Reported History Additional Family Medical History / Comment(s): . Father Family Medical History: Hypertension Additional Family Medical History / Comment(s): Father is alive at age 90 with history of hypertension. Brother(s) Additional Family Medical History / Comment(s): . Medications and Allergies Home Medications Medication Instructions Recorded Confirmed Type amLODIPine [Norvasc] 10 mg PO DAILY 30 Days #30 tab 05/26/20 06/15/21 Rx atenoloL 100 mg PO DAILY 30 Days tab 05/26/20 06/15/21 Rx Albuterol Inhaler [Ventolin Hfa 1 - 2 puff INHALATION RT-Q6H PRN 06/15/21 06/15/21 History Inhaler] Budesonide/Formoterol Fumarate 2 puff INHALATION RT-BID 06/15/21 06/15/21 History [Symbicort 160-4.5 Mcg Inhaler] Naproxen Sodium [Aleve] 220 mg PO BID PRN 06/15/21 06/15/21 History ePHEDrine sulfate [Bronkaid Max] 25 mg PO Q6H PRN 06/15/21 06/15/21 History Allergies Allergy/AdvReac Type Severity Reaction Status Date / Time No Known Allergies Allergy Verified 06/15/21 12:53 Physical Exam Osteopathic Statement: *. No significant issues noted on an osteopathic structural exam other than those noted in the History and Physical/Consult. Vitals: Vital Signs Temp Pulse Pulse Pulse Resp BP BP 06/16/21 08:40 18 06/16/21 07:18 97.6 F 85 18 144/81 06/16/21 05:06 99.1 F 92 18 131/76 06/15/21 20:00 98.4 F 98 18 121/74 06/15/21 16:15 98.2 F 101 H 18 133/78 06/15/21 15:54 98.7 F 100 18 139/82 06/15/21 14:53 90 18 127/87 06/15/21 12:01 98.2 F 96 18 132/88 Pulse Ox 06/16/21 08:40 06/16/21 07:18 99 06/16/21 05:06 97 06/15/21 20:00 96 06/15/21 16:15 98 06/15/21 15:54 95 06/15/21 14:53 98 06/15/21 12:01 97 Intake and Output 06/15/21 06/16/21 06/16/21 22:59 06:59 14:59 Intake Total 260 1040 Output Total 200 Balance 260 840 Intake: Intake, IV Titration 260 1040 Amount Sodium Chloride 0.9% 1, 260 1040 000 ml @ 130 mls/hr IV . Q7H42M [facility] Rx#:[id number] Output: Urine 200 Other: Weight 90.718 kg No acute distress, oriented 3. Currently on room air. Saturations are adequate. HEENT examination is grossly unremarkable. Neck supple. Full range of motion. No adenopathy thyromegaly or neck vein distention. Cardiovascular examination reveals regular rhythm rate. S1-S2 normal. No S3 or S4. No discernible murmur noted. Heart rate 85 bpm. Tenderness on palpation to the left chest area. Lungs reveal slightly diminished breath sounds at the left lung base. No wheezes. No rhonchi. No crackles. Right lung is clear. Abdomen soft bowel sounds are heard. No masses or tenderness. Extremities are intact. No cyanosis clubbing or edema. Skin is without rash or lesion. Neurologic examination is brief but nonfocal. Results - Laboratory Findings CBC and BMP: 06/16/21 07:41 06/16/21 07:41 PT/INR, D-dimer PT 10.0 sec (9.0-12.0) 06/15/21 12:51 INR 0.9 (<1.2) 06/15/21 12:51 Abnormal lab findings: Abnormal Labs 06/15/21 06/15/21 06/16/21 12:51 12:51 05:19 RBC 3.67 L Hgb 11.7 L Hct 36.7 L MCV 100.2 H Plt Count 125 L Lymphocytes # 0.7 L Sodium 133 L Potassium Glucose 109 H Ur Specific [place] 1.040 H Urine Protein 1+ H Urine Mucus Rare H 06/16/21 06/16/21 07:41 07:41 RBC 3.37 L Hgb 10.8 L Hct 34.5 L MCV 102.5 H Plt Count 129 L Lymphocytes # 0.9 L Sodium 130 L Potassium 3.4 L Glucose 100 H Ur Specific [place] Urine Protein Urine Mucus - Diagnostic Findings Chest x-ray: image reviewed CT scan - chest: image reviewed Assessment and Plan Assessment: Traumatic left-sided chest injury, with multiple left rib fractures, probable pulmonary contusion, and small to moderate left hemothorax. History of hypertension. History of asthma. History of osteoarthritis. History of chronic tobacco and alcohol use. Plan: Plan dated 06/16/2021. The patient apparently is going to the operating room today and thoracic surgery to place a chest tube in the left chest area. The patient is recommended to use his incentive spirometer every hour while awake. In addition, the patient will need adequate pain control. We also recommend deep breathing, coughing, and marko aring of secretions. No additional recommendations are made. We'll continue to follow. Prognosis is guarded. The patient's asthma is well controlled. Time with Patient: Greater than 30
--- NOTE | 2021-06-16 11:40 | P.PN ---
Subjective Progress Note Date: 06/16/21 CHIEF COMPLAINT: Traumatic injury from fall HISTORY OF PRESENT ILLNESS: Patient was admitted yesterday from the emergency room after sustaining a traumatic injury from a fall at home striking the left side of his ribs on a marble table. Patient underwent a repeat x-ray today showing a left-sided effusion with possibility of hemothorax present. Today he states he is feeling a little bit better. Pain is about a 78 at rest. He denies any shortness of breath or difficulty breathing. His oxygen saturation has been 97 and 99% on room air. He has been able to achieve 1500 mL on i ncentive spirometer. Pulmonology and cardiothoracic her on consult. Cardiothoracic is planning on taking the patient to the operating room today to place a left sided chest tube. PHYSICAL EXAM: VITAL SIGNS: Reviewed GENERAL: Well-developed in no acute distress. HEENT: No sclera icterus. Extraocular movements grossly intact. Moist buccal mucosa. Head is atraumatic, normocephalic. No nasal drainage. Chest wall: Symmetrical. Normal expansion. Tenderness to palpation along the left ribs. No ecchymosis noted. ABDOMEN: Soft. Nondistended. Small, reducible, umbilical hernia. Nontender. NEUROLOGIC: Alert and oriented. Cranial nerves II through XII grossly intact. ASSESSMENT: 1. Traumatic fall 2. Rib pain with acute fracture to left ribs 8 and 9, possible rib 7 as seen on chest x-ray 3. 10% left-sided pneumothorax 4. Left-sided pleural effusion, possible hemothorax 5. History of previous fall with rib fractures 6. Left lower quadrant abdominal pain 7. Alcohol abuse 8. History of asthma 9. History of hypertension 10. Depression and bipolar disorder PLAN: 1. Cardiothoracic surgery on consult, appreciate their recommendations. Patient to go to OR today to have left sided chest tube placed. 2. Pulmonology on consult, appreciate their recommendations 3. Consult to anesthesia for rib pain, possible rib block 4. CIWA protocal 5. Continue pain control 6. Continue incentive spirometer use 7. Alcohol abstinence 8. Primary medicine for medical management 9. Encourage ambulation The impression and plan of care has been dictated as directed. Dr. Almodovar I performed a history and examination of this patient, discussed the same with the dictator. I agree with the dictator's note ,documented as a scribe. Any additional findings or plans will be noted. Objective - Vital Signs Vital signs: Vital Signs Temp 97.6 F 06/16/21 07:18 Pulse 85 06/16/21 07:18 Resp 18 06/16/21 08:40 BP 144/81 06/16/21 07:18 Pulse Ox 99 06/16/21 07:18 Intake & Output 06/15/21 06/16/21 06/16/21 18:59 06:59 18:59 Intake Total 260 1040 Output Total 200 Balance 260 840 Weight 90.718 kg Intake: Intake, IV Titration 260 1040 Amount Sodium Chloride 0.9% 1, 260 1040 000 ml @ 130 mls/hr IV . Q7H42M [facility] Rx#:[id number] Output: Urine 200 - Labs CBC & Chem 7: 06/16/21 07:41 06/16/21 07:41 Labs: Abnormal Lab Results - Last 24 Hours (Table) 06/15/21 06/15/21 06/16/21 Range/Units 12:51 12:51 05:19 RBC 3.67 L (4.30-5.90) m/uL Hgb 11.7 L (13.0-17.5) gm/dL Hct 36.7 L (39.0-53.0) % MCV 100.2 H (80.0-100.0) fL Plt Count 125 L (150-450) k/uL Lymphocytes # 0.7 L (1.0-4.8) k/uL Sodium 133 L (137-145) mmol/L Potassium (3.5-5.1) mmol/L Glucose 109 H (74-99) mg/dL Ur Specific [place] 1.040 H (1.001-1.035) Urine Protein 1+ H (Negative) Urine Mucus Rare H (None) /hpf 06/16/21 06/16/21 Range/Units 07:41 07:41 RBC 3.37 L (4.30-5.90) m/uL Hgb 10.8 L (13.0-17.5) gm/dL Hct 34.5 L (39.0-53.0) % MCV 102.5 H (80.0-100.0) fL Plt Count 129 L (150-450) k/uL Lymphocytes # 0.9 L (1.0-4.8) k/uL Sodium 130 L (137-145) mmol/L Potassium 3.4 L (3.5-5.1) mmol/L Glucose 100 H (74-99) mg/dL Ur Specific [place] (1.001-1.035) Urine Protein (Negative) Urine Mucus (None) /hpf
--- NOTE | 2021-06-16 11:47 | P.CONS ---
History of Present Illness - Reason for Consult Consult date: 06/16/21 medical management - Chief Complaint left-sided rib fractures - History of Present Illness Patient is a 65-year-old male with a known history of hypertension, osteoarthritis, asthma/COPD, daily alcohol abuse and osteoarthritis presents to ER status post fall 2 days ago while he was going to the bathroom. She bumped onto the marble table at home. Apparently patient states that he was alcohol i ntoxicated at the time. Since the fall patient has been having pain in the left ribs, shoulder and w rist. She did have broken ribs in the past. Denied any loss of consciousness. Denied any hitting his head. Came to the hospital due to pain in his back and on the left side with spasms. Tried over -the-counter pain medications at home without any relief. Denies any complaints of headache. No shortness of breath. Does have chest pain on the left side. No bowel or bladder incontinence. No dysuria or hematuria. Patient has been afebrile. Wrist x-ray showed no fracture or dislocation. Renal/chest x-ray showed small less than 10% left-sided pneumothorax. Acute fracture of left ribs 8 and 9. There is chronic fracture of left rib #7. Remote fracture posterior left rib 10 X-ray of the shoulder showed no evidence of fracture or dislocation. CT head and cervical spine showed no evidence of fracture or subluxation of the cervical spine. CT abdomen pelvis and chest showed multiple left-sided rib fractures 10% pneumothorax left-sided. Left-sided pleural effusion and compressive atelecta sis/contusion. No evidence of traumatic injury to the abdomen or pelvis. Review of Systems Constitutional: Patient denies any fever or chills . No generalized weakness or weight loss. Abdomen: Patient denied nausea vomiting and diarrhea and abdominal pain. Cardiovascular: Patient denies any chest pain or short of breath no palpitations. Respiratory: patient denied any cough is from production. No shortness of breath Neurologic: Patient denied any numbness or tingling headache. Musculoskeletal: Patient denies any complaints of joint swelling or deformity. Left-sided ribpain, shoulder pain and wrist pain Skin: Negative Psychiatric: Negative Endocrine: No heat or cold intolerance. No recent weight gain. Genitourinary: No dysuria or hematuria. All other 14 point ROS negative except the above Past Medical History Past Medical History: Asthma, Hypertension, Osteoarthritis (OA) Additional Past Medical History / Comment(s): ETOH abuse/pt states his hands will tremble sometimes if he has gone without drinking, last alcoholic beverage was 06/13/21, past fall with multiple L rib fractures, anemia, gastritis, diverticular disease, benign colon polyps, bronchitis History of Any Multi-Drug Resistant Organisms: None Reported Past Surgical History: Appendectomy, Joint Replacement Additional Past Surgical History / Comment(s): left knee replacement, ORIF rt ankle Past Anesthesia/Blood Transfusion Reactions: No Reported Reaction Past Psychological History: Anxiety, Depression Smoking Status: Former smoker Past Alcohol Use History: Abuse, Daily, Heavy Past Drug Use History: None Reported - Past Family History Mother Family Medical History: No Reported History Additional Family Medical History / Comment(s): . Father Family Medical History: Hypertension Additional Family Medical History / Comment(s): Father is alive at age 90 with history of hypertension. Brother(s) Additional Family Medical History / Comment(s): . Medications and Allergies Home Medications Medication Instructions Recorded Confirmed Type amLODIPine [Norvasc] 10 mg PO DAILY 30 Days #30 tab 05/26/20 06/15/21 Rx atenoloL 100 mg PO DAILY 30 Days tab 05/26/20 06/15/21 Rx Albuterol Inhaler [Ventolin Hfa 1 - 2 puff INHALATION RT-Q6H PRN 06/15/21 06/15/21 History Inhaler] Budesonide/Formoterol Fumarate 2 puff INHALATION RT-BID 06/15/21 06/15/21 History [Symbicort 160-4.5 Mcg Inhaler] Naproxen Sodium [Aleve] 220 mg PO BID PRN 06/15/21 06/15/21 History ePHEDrine sulfate [Bronkaid Max] 25 mg PO Q6H PRN 06/15/21 06/15/21 History Allergies Allergy/AdvReac Type Severity Reaction Status Date / Time No Known Allergies Allergy Verified 06/15/21 12:53 Physical Exam Vitals: Vital Signs Temp Pulse Pulse Pulse Resp BP BP 06/16/21 08:00 18 06/16/21 07:18 97.6 F 85 18 144/81 06/16/21 05:06 99.1 F 92 18 131/76 06/15/21 20:00 98.4 F 98 18 121/74 06/15/21 16:15 98.2 F 101 H 18 133/78 06/15/21 15:54 98.7 F 100 18 139/82 06/15/21 14:53 90 18 127/87 06/15/21 12:01 98.2 F 96 18 132/88 06/15/21 10:45 111 H 18 110/71 Pulse Ox 06/16/21 08:00 06/16/21 07:18 99 06/16/21 05:06 97 06/15/21 20:00 96 06/15/21 16:15 98 06/15/21 15:54 95 06/15/21 14:53 98 06/15/21 12:01 97 06/15/21 10:45 97 Intake and Output 06/15/21 06/16/21 06/16/21 22:59 06:59 14:59 Intake Total 260 1040 Output Total 200 Balance 260 840 Intake: Intake, IV Titration 260 1040 Amount Sodium Chloride 0.9% 1, 260 1040 000 ml @ 130 mls/hr IV . Q7H42M [facility] Rx#:[id number] Output: Urine 200 Other: Weight 90.718 kg PHYSICAL EXAMINATION: Patient is lying in the bed comfortably, no acute distress, awake alert and oriented.. HEENT: Normocephalic. Neck is supple. Pupils reactive. Nostrils clear. Oral cavity is moist. Neck reveals no JVD, carotid bruits, or thyromegaly. CHEST EXAMINATION: Trachea is central. Symmetrical expansion. left basilar diminished sounds. No wheezing or rhonchi. Nonlabored breathing.. CARDIAC: Normal S1, S2 with no gallops. No murmurs ABDOMEN: Soft. Bowel sounds normal. No organomegaly. No abdominal bruits. Extremities: reveal no edema. No clubbing or cyanosis Neurologically awake, alert, oriented x3 with well-coordinated movements. No focal deficits noted Skin: No rash or skin lesions. Psychiatric: Coperative. Nonsuicidal Musculoskeletal: No joint swelling or deformity. Normal range of motion. Results CBC & Chem 7: 06/16/21 07:41 06/16/21 07:41 Labs: Abnormal Lab Results - Last 24 Hours (Table) 06/15/21 06/15/21 06/16/21 Range/Units 12:51 12:51 05:19 RBC 3.67 L (4.30-5.90) m/uL Hgb 11.7 L (13.0-17.5) gm/dL Hct 36.7 L (39.0-53.0) % MCV 100.2 H (80.0-100.0) fL Plt Count 125 L (150-450) k/uL Lymphocytes # 0.7 L (1.0-4.8) k/uL Sodium 133 L (137-145) mmol/L Potassium (3.5-5.1) mmol/L Glucose 109 H (74-99) mg/dL Ur Specific [place] 1.040 H (1.001-1.035) Urine Protein 1+ H (Negative) Urine Mucus Rare H (None) /hpf 06/16/21 06/16/21 Range/Units 07:41 07:41 RBC 3.37 L (4.30-5.90) m/uL Hgb 10.8 L (13.0-17.5) gm/dL Hct 34.5 L (39.0-53.0) % MCV 102.5 H (80.0-100.0) fL Plt Count 129 L (150-450) k/uL Lymphocytes # 0.9 L (1.0-4.8) k/uL Sodium 130 L (137-145) mmol/L Potassium 3.4 L (3.5-5.1) mmol/L Glucose 100 H (74-99) mg/dL Ur Specific [place] (1.001-1.035) Urine Protein (Negative) Urine Mucus (None) /hpf Assessment and Plan Assessment: Acute left rib fractures 8 and 9 Left-sided 10% pneumothorax Left sided pleural effusion with compressive atelectasis/lung contusion. S/p fall while intoxicated Severe alcohol abuse Macrocytic anemia with hemoglobin level 11.7 Mild thrombocytopenia due to alcohol abuse Hypovolemic hyponatremia on admission Hypokalemia DVT prophylaxis Heparin subcu Plan: Patient will be continued pain management, incentive spirometry. Repeat chest x-ray today showed stable small left-sided pleural effusion or pneumohemothorax presents with complaints atelectasis. The air component not as well seen on the plain film versus CT. Continue pain management. Monitor for alcohol withdrawal symptoms Pulmonary and CT surgery is on board. Further recommendations based on the clinical course. Thank you for your consult. alcohol withdrawal symptoms. Time with Patient: Greater than 30
[2021-06-16] MEDS ORDERED: fentaNYL (PF) 50 MCG/ML 2 ML AMP IVP ONE ×2 (13:48→14:01)
[2021-06-16] MEDS ORDERED: MIDAZOLAM 2 MG/2 ML VIAL IVP ONE ×2 (13:48→14:00)
[2021-06-16] MEDS ORDERED: DEXAMETHASONE SOD PHOSPHATE 10 MG/ML 1 ML VIAL ONE (14:00)
[2021-06-16] MEDS ORDERED: ROPIVACAINE 5 MG/ML 30 ML VIAL ONE (14:00)
[2021-06-16] MEDS ORDERED: MIDAZOLAM 2 MG/2 ML VIAL ONE (14:00)
[2021-06-16] MEDS ORDERED: fentaNYL (PF) 50 MCG/ML 2 ML AMP ONE (14:00)
[2021-06-16] MEDS ORDERED: ONDANSETRON 4 MG/2 ML VIAL IVP ONE (14:02)
[2021-06-16] MEDS ORDERED: LACTATED RINGERS 1,000 ML IV ONE (14:03)
[2021-06-16] MEDS ORDERED: DEXAMETHASONE SOD PHOSPHATE 4 MG/ML 1 ML VIAL IVP ONE (14:03)
--- NOTE | 2021-06-16 14:10 | P.ANPRN ---
Procedure Note - Anesthesia - Nerve Block Performed Left Erector Spinae Single Time Out Performed: Yes Date of Procedure: 06/16/21 Procedure Start Time: 13:47 Procedure Stop Time: 13:53 Location of Patient: PreOp Indication: Requested by Surgeon (ramos painter) Specifically requested for management of pain by Dr.: Saúl Junior Sedation Type: Sedate with meaningful contact maintained Preparation: Sterile Prep Position: Sitting Needle Types: Pajunk Needle Gauge: 21 Ultrasound used to visualize needle placement: Yes Ultrasound used to observe medication spread: Yes Injectate: 0.5% Ropivacaine (see comment for volume) (30 ml + 10 mg Dexamethason) Blood Aspirated: No Pain Paresthesia on Injection Noted: No Resistance on Injection: Normal Image Stored and Saved: Yes Events: Uneventful and Well Tolerated
[2021-06-16] MEDS ORDERED: LIDOCAINE 1% INJ 10MG/ML (20 ML MDV) SQ ONE ×2 (14:15)
--- NOTE | 2021-06-16 14:31 | P.OP ---
Date of Procedure: 06/16/21 Preoperative Diagnosis: Left hydropneumothorax, status post fall with left rib fractures Postoperative Diagnosis: Same Procedure(s) Performed: Left chest tube placement Implants: 28-Iraqi chest tube Anesthesia: MAC Surgeon: Saúl Junior Reconciliation Clerk #1: Gerber Vargas Estimated Blood Loss (ml): 2 IV fluids (ml): 100 Urine output (ml): 0 Pathology: none sent Condition: stable Disposition: PACU Indications for Procedure: 65-year-old male status post fall with 4 left-sided rib fractures. He had a previous fall a year ago with 2 left-sided rib for fractures. CT on admission d emonstrated a large hydrothorax with small pneumothorax. Chest x-ray this morning showed persistent significant left hydrothorax. Drainage via chest tube was indicated and recommended and consented to by the patient. Operative Findings: 800 mL of Description of Procedure: Patient was brought to the operating room placed supine on the table. IV sedation was given. The left chest was sterilely prepped and draped. One percent lidocaine was used to anesthetize the site of the incision. Incision was made over the fifth interspace in the anterior axillary line. Blunt dissection was carried beneath the skin through the subcutaneous tissues to the rib. Further lidocaine anesthesia was administered and the intercostal region of the fifth interspace in the midaxillary line. Dissection was now carried into the pleural space and the tract was created. Performed using a hemostat. 28-Iraqi chest tube was now introduced into the pleural space. It was connected to suction and approximately 800 mL of serosanguineous fluid was collected. It was then connected to a Pleur-evac. Chest tube was secured with an 0 Ethibond suture. Chest tube dressing was applied the patient was transferred to recovery in stable condition.
[2021-06-16 14:54] VITALS: BMI 25.0
--- NOTE | 2021-06-16 15:12 | XR ---
EXAMINATION TYPE: XR chest 1V portable DATE OF EXAM: 06/16/2021 CLINICAL HISTORY: Left-sided hydropneumothorax. Chest tube insertion. TECHNIQUE: Single AP portable upright view of the chest is obtained. COMPARISON: Chest x-ray from earlier today and older studies FINDINGS: There is new left-sided chest tube extending towards the apex with adjacent subcutaneous e mphysema. Persistent left basilar opacity. Acute displaced fractures of the left lateral mid to lower lobe ribs are redemonstrated. Cardiac silhouette size stable and upper limits of normal. Right lung remains cl ear. IMPRESSION: New left-sided chest tube without visualized pneumothorax. Persistent left basilar opacit y and adjacent displaced mid to lower lateral rib fractures.
[2021-06-16] MEDS: HEPARIN SODIUM,PORCINE/PF 5,000 UNIT/0.5 ML SYRINGE SQ SCH ×2 (16:55→23:56)
[2021-06-16] MEDS: SYMBICORT 160-4.5 MCG INHALER INHALATION SCH (20:00)
[2021-06-17] MEDS: HYDROcodone/APAP 5-325MG 1 EACH TAB PO PRN ×4 (03:38→22:20)
[2021-06-17] MEDS: SODIUM CHLORIDE 0.9% 1,000 ML IV SCH ×3 (03:41→11:42)
[2021-06-17] MEDS: KETOROLAC 30 MG/ML 1 ML VIAL IVP SCH ×3 (05:52→18:17)
[2021-06-17] MEDS: SYMBICORT 160-4.5 MCG INHALER INHALATION SCH ×2 (08:36→19:06)
--- NOTE | 2021-06-17 08:39 | P.PN ---
Subjective Progress Note Date: 06/17/21 Principal diagnosis: Traumatic left-sided pneumothorax, approximately 10% per chest x-ray and CT, fall from standing, acute as well as old left-sided rib fractures, left-sided chest pain, left hemothorax. Previous medical history of tobacco dependence, heavy EtOH use, hypertension, asthma, osteoarthritis POD #1 left chest tube placement with immediate removal of 800 ml serosanguinous fluid The patient is currently sitting up in bed in no acute distress. States left rib pain better today, denies shortness of breath. Remains hemodynamically stable on room air, able to achieve 1750 mL on incentive spirometry. Left pleural chest tube with 350 ml serosanguinous drainage since placement yesterday. Patient states he feels much better. No new concerns. Objective - Vital Signs Vital signs: Vital Signs Temp 98.3 F 06/17/21 05:00 Pulse 91 06/17/21 05:00 Resp 16 06/17/21 05:00 BP 145/83 06/17/21 05:00 Pulse Ox 97 06/17/21 05:00 Intake & Output 06/16/21 06/17/21 06/17/21 18:59 06:59 18:59 Intake Total 450 1580 Output Total 261 310 Balance 189 1270 Weight 90.718 kg Intake: IV 450 Intake, IV Titration 1040 Amount Sodium Chloride 0.9% 1, 1040 000 ml @ 130 mls/hr IV . Q7H42M [facility] Rx#:[id number] Oral 540 Output: Chest Tube Drainage 60 Left Left Pleural/ 60 Mediastinal Drainage 140 Left Lateral 140 Urine 250 Estimated Blood Loss 121 Other: # Voids 1 1 - Exam CONSTITUTIONAL: Appears comfortable, cooperative, no acute distress RESPIRATORY: Lungs sounds diminished bilaterally, left greater than right. Respirations even, nonlabored. Currently on room air with oxygen saturation 97%. Able to achieve 1750 mL on incentive spirometry. Strong cough. Left pleural chest tube present to continuous wall suction, no air leak present, 350 mL serosanginous drainage in atrium since placement yesterday. CARDIOVASCULAR: S1, S2 present. Regular rate and rhythm. Palpable peripheral pulses bilaterally. No edema present. No calf pain or tenderness noted. GASTROINTESTINAL: Abdomen soft, nontender, nondistended. Active bowel sounds present 4 quadrants. Tolerating diet. GENITOURINARY: Continues to void clear, yellow urine INTEGUMENTARY: Skin is warm and dry with evidence of good perfusion. NEUROLOGIC: Cranial nerves II through XII intact MUSKULOSKELETAL: Able to move all extremities, strength equal bilaterally, gait normal PSYCHIATRIC: Alert and oriented to person place and time, appropriate affect, intact judgment and insight - Allied health notes Allied health notes reviewed: nursing - Labs CBC & Chem 7: 06/16/21 07:41 06/16/21 07:41 Labs: Abnormal Lab Results - Last 24 Hours (Table) 06/16/21 06/16/21 Range/Units 07:41 07:41 RBC 3.37 L (4.30-5.90) m/uL Hgb 10.8 L (13.0-17.5) gm/dL Hct 34.5 L (39.0-53.0) % MCV 102.5 H (80.0-100.0) fL Plt Count 129 L (150-450) k/uL Lymphocytes # 0.9 L (1.0-4.8) k/uL Sodium 130 L (137-145) mmol/L Potassium 3.4 L (3.5-5.1) mmol/L Glucose 100 H (74-99) mg/dL Assessment and Plan Assessment: 1. Traumatic left-sided pneumothorax, approximately 10% per chest x-ray and CT, fall from standing 2. Acute as well as old left-sided rib fractures 3. Left-sided chest pain secondary to above 5. Left hemothorax, S/P left chest tube placement 6. Previous tobacco dependence 7. Heavy EtOH use 8. Hypertension 9. Asthma 10. Osteoarthritis Plan: 1. Continue left chest tube for another 24 hours to water seal. Will monitor drainage. If drainage decreases likely will DC chest tube tomorrow 2. Encourage incentive spirometry 10 x every hour while awake 3. Pain control per trauma/anesthesia 4. Will monitor daily CXR 5. CIWA protocol 6. Medical management of other comorbidities per primary care service 7. More recommendations to follow Time with Patient: Greater than 30
[2021-06-17] MEDS: HEPARIN SODIUM,PORCINE/PF 5,000 UNIT/0.5 ML SYRINGE SQ SCH ×2 (08:53→16:39)
[2021-06-17] MEDS: amLODIPine 10 MG TAB PO SCH (08:53)
[2021-06-17] MEDS: THIAMINE 100 MG TAB PO SCH ×2 (08:53→16:39)
--- NOTE | 2021-06-17 08:56 | XR ---
EXAMINATION TYPE: XR chest 1V portable DATE OF EXAM: 06/17/2021 Comparison: 06/16/2021 Clinical History: 65-year-old male left effusion Findings: Heart limits of normal in size. Eventration right hemidiaphragm redemonstrated. Otherwise, the right lung and pleural space are clear. Redemonstrated multiple left-sided rib fractures. There may be a residual trace left effusion. Patchy retrocardiac and left basilar opacity remains along with improving aeration compared to prior exam. Left-sided chest tube remains in place. No appreciable pneumothorax. Residual mild subcutaneous emphy sema lateral lower left chest wall. Impression: 1. Left-sided chest tube in place. No appreciable pneumothorax. 2. There may be a trace residual left effusion. 3. Continued patchy retrocardiac and left basilar opacity but with improving aeration compared to erica or exam. 4. Known multiple left-sided rib fractures.
[2021-06-17 10:58] LABS: HCT 28.4 % (39.6-50.0); HGB 9.4 g/dL (13.0-17.0); MCHC 33.1 g/dL (32.0-37.0); MCV 96.6 fL (80.0-97.0); Mean Platelet Volume 10.6 fL (9.5-12.2); NRBC Per 100 WBC 0 /100 WBCS (0.0-0.0); Platelet Count 150 X 10*3/uL (140-440); RBC 2.94 X 10*6/uL (4.40-5.60); RDW 14.2 % (11.5-14.5); WBC 7.07 X 10*3/uL (4.50-10.00)
[2021-06-17 11:14] LABS: African American GFR (CKD) 121.4 (60.0-200.0); Anion Gap 7.9 mmol/L (10.00-18.00); BUN/Creat Ratio 17.17 Ratio (12.00-20.00); Blood Urea Nitrogen 10.3 mg/dL (9.0-27.0); Calcium 8.6 mg/dL (8.7-10.3); Carbon Dioxide 24.1 mmol/L (20.0-27.5); Non-African American GFR(CKD) 104.8 (60.0-200.0); Potassium 4.1 mmol/L (3.5-5.5)
--- NOTE | 2021-06-17 11:20 | P.PN ---
Subjective Progress Note Date: 06/17/21 CHIEF COMPLAINT: Fall with left-sided rib fractures HISTORY OF PRESENT ILLNESS: Patient sitting up in bed. He is status post left- sided chest tube placement for hemothorax yesterday. Patient also received a nerve block by anesthesia service. He is complaining of pain and rates it 7 out of 10 at times. He denies any nausea or vomiting. Denies any abdominal pain. He is having flatus. Afebrile. WBC 7.07 hemoglobin 9.4 potassium 3.4 up to 4.1 PHYSICAL EXAM: VITAL SIGNS: Reviewed. GENERAL: Well-developed in no acute distress. HEENT: No sclera icterus. Extraocular movements grossly intact. Moist buccal mucosa. Head is atraumatic, normocephalic. Chest: Has left-sided chest tube in place ABDOMEN: Soft. Nondistended. Nontender. NEUROLOGIC: Alert and oriented. Cranial nerves II through XII grossly intact. ASSESSMENT: 1. Traumatic fall 2. Rib pain with acute fracture to left ribs 8 and 9, possible rib 7 as seen on chest x-ray 3. 10% left-sided pneumothorax 4. Left-sided hemothorax status post chest tube placement 5. History of previous fall with rib fractures 6. Left lower quadrant abdominal pain improved 7. Alcohol abuse 8. History of asthma 9. History of hypertension 10. Depression and bipolar disorder PLAN: -Chest tube management per cardiothoracic service -Continue supportive care -Continue pain management -Continue CIWA protocol -Continue incentive spirometer use -DVT prophylaxis subcu heparin Physician Biology Manager note has been reviewed by physician. Signing provider agrees with the documented findings, assessment, and plan of care. Objective - Vital Signs Vital signs: Vital Signs Temp 98.2 F 06/17/21 07:52 Pulse 84 06/17/21 09:40 Resp 14 06/17/21 09:40 BP 150/84 06/17/21 07:52 Pulse Ox 97 06/17/21 07:52 Intake & Output 06/16/21 06/17/21 06/17/21 18:59 06:59 18:59 Intake Total 450 1580 Output Total 261 310 Balance 189 1270 Weight 90.718 kg Intake: IV 450 Intake, IV Titration 1040 Amount Sodium Chloride 0.9% 1, 1040 000 ml @ 130 mls/hr IV . Q7H42M ON LICENSE OF [facility] Rx#:[id number] Oral 540 Output: Chest Tube Drainage 60 Left Left Pleural/ 60 Mediastinal Drainage 140 Left Lateral 140 Urine 250 Estimated Blood Loss 121 Other: Voiding Method Urinal # Voids 1 1 - Labs CBC & Chem 7: 06/17/21 07:05 06/16/21 07:41 Labs: Abnormal Lab Results - Last 24 Hours (Table) 06/17/21 Range/Units 07:05 RBC 2.94 L (4.40-5.60) X 10*6/uL Hgb 9.4 L (13.0-17.0) g/dL Hct 28.4 L (39.6-50.0) %
--- NOTE | 2021-06-17 11:40 | P.PN ---
Subjective Progress Note Date: 06/17/21 65-year-old white male, who presents to the emergency department on June 15, complaining of left chest and left shoulder pain. The patient apparently was watching basketball, and had been drinking. He had not gotten up for about 6 hours and when he did get up to go to the bathroom, he apparently fell, because of intoxication. The patient decided to come in to be evaluated. He was injured on Monday. He did not present to the emergency department until yesterday. Apparently the patient male lost consciousness as well. He states he did not hit his head. He has a history of hypertension, and asthma. He states both are well controlled. White count 5.6, hemoglobin 10.8, hematocrit 34.5, and platelet count 129,000. Sodium 130, potassium 3.4, chlorides 101, CO2 26, anion gap 3, BUN 14, creatinine 0.76. Urinalysis was negative. Testing for coronavirus was negative. Left wrist x-ray was negative. Rib series showed a temperature sent left-sided pneumothorax. There also fractures of left ribs #8 and #9. There appeared to be a chronic fracture left rib #7. Also there was a remote fracture of posterior left rib #10. Shoulder x-ray was negative. Brain CT was negative. Cervical x-rays were negative. Computed tomography scan of the chest abdomen and pelvis showed multiple left-sided rib fractures, with the possibility of a flail chest. There is a small, 10% left-sided pneumothorax. There is a left-sided pleural effusion. Abdomen and pelvic studies were negative. Chest x-ray from June 16 shows a moderate size left-sided pleural effusion likely representing a left hemothorax. The patient is seen today 06/17/2021 in follow-up on the regular medical floor. He is currently resting comfortably in bed. Awake and alert in no acute distress. He is maintaining good O2 saturations in the mid 90s on room air. He is pulling approximately 1500 MLS on the incentive spirometer. He's been afebrile. Hemodynamically stable. Chest x-ray reveals left-sided chest tube in place. No significant pneumothorax. There is trace residual left effusion. Continued patchy retrocardiac and left basilar opacities but improved aeration. Known multiple left-sided rib fractures. Draining approximately another 350 ML's of serosanguineous drainage in the past 24 hours. White count 7.0. Hemoglobin 9.4. Platelets 150,000. Sodium 134. Potassium 4.1. Creatinine 0.6. He is continued on Symbicort, albuterol, heparin for DVT prophylaxis. Remains on Toradol for pain control. Continued in the [facility] protocol. Objective - Vital Signs Vital signs: Vital Signs Temp 98.2 F 06/17/21 07:52 Pulse 84 06/17/21 09:40 Resp 14 06/17/21 09:40 BP 150/84 06/17/21 07:52 Pulse Ox 97 06/17/21 07:52 Intake & Output 06/16/21 06/17/21 06/17/21 18:59 06:59 18:59 Intake Total 450 1580 Output Total 261 310 Balance 189 1270 Weight 90.718 kg Intake: IV 450 Intake, IV Titration 1040 Amount Sodium Chloride 0.9% 1, 1040 000 ml @ 130 mls/hr IV . Q7H42M [facility] Rx#:[id number] Oral 540 Output: Chest Tube Drainage 60 Left Left Pleural/ 60 Mediastinal Drainage 140 Left Lateral 140 Urine 250 Estimated Blood Loss 121 Other: Voiding Method Urinal # Voids 1 1 - Exam GENERAL EXAM: Alert, pleasant 65-year-old male patient, on room air, comfortable in no apparent distress. HEAD: Normocephalic. EYES: Normal reaction of pupils, equal size. NOSE: Clear with pink turbinates. THROAT: No erythema or exudates. NECK: No masses, no JVD. CHEST: No chest wall deformity. Left-sided chest tube secured in place. LUNGS: Equal air entry with crackles in the left base. CVS: S1 and S2 normal with no audible murmur, regular rhythm. ABDOMEN: No hepatosplenomegaly, normal bowel sounds, no guarding or rigidity. SPINE: No scoliosis or deformity SKIN: No rashes CENTRAL NERVOUS SYSTEM: No focal deficits, tone is normal in all 4 extremities. EXTREMITIES: There is no peripheral edema. No clubbing, no cyanosis. Peripheral pulses are intact. - Labs CBC & Chem 7: 06/17/21 07:05 06/17/21 07:05 Labs: Abnormal Lab Results - Last 24 Hours (Table) 06/17/21 06/17/21 Range/Units 07:05 07:05 RBC 2.94 L (4.40-5.60) X 10*6/uL Hgb 9.4 L (13.0-17.0) g/dL Hct 28.4 L (39.6-50.0) % Sodium 134 L (135-145) mmol/L Anion Gap 7.90 L (10.00-18.00) mmol/L Calcium 8.6 L (8.7-10.3) mg/dL Assessment and Plan Assessment: 1 Traumatic left-sided chest injury, with multiple left rib fractures, probable pulmonary contusion, and small to moderate left hemothorax. 2 History of hypertension. 3 History of asthma. 4 History of osteoarthritis. 5 History of chronic tobacco and alcohol use. Plan: The patient was seen and evaluated Stable and on room air Adequate pain control Left-sided chest tube remains in place, 350 MLS out since yesterday Continue to work with the incentive spirometer Remains in the [facility] protocol Follow-up chest x-ray in a.m. CT services are on the case We will continue to follow I, the cosigning physician, performed a history & physical examination of the patient. Lungs sounds with crackles in the left lung base. Maintaining good O2 saturations in the 90s on room air. I discussed the assessment and plan of care with my nurse practitioner, Silvia Palafox. I attest to the above note as dictated by her.
[2021-06-17] MEDS: atenoloL 50 MG TAB PO SCH (13:52)
[2021-06-17] MEDS: ALBUTEROL NEBULIZED 2.5 MG/3 ML INHALATION PRN (19:06)
[2021-06-17] MEDS: MORPHINE SULFATE 4 MG/ML SYRINGE IV PRN (20:30)
[2021-06-17] MEDS: traZODone HCL 50 MG TAB PO SCH (22:03)
--- NOTE | 2021-06-17 22:05 | P.PN ---
Subjective Progress Note Date: 06/17/21 Patient is a 65-year-old male with a known history of hypertension, osteoarthritis, asthma/COPD, daily alcohol abuse and osteoarthritis presents to ER status post fall 2 days ago while he was going to the bathroom. She bumped onto the marble table at home. Apparently patient states that he was alcohol i ntoxicated at the time. Since the fall patient has been having pain in the left ribs, shoulder and w rist. She did have broken ribs in the past. Denied any loss of consciousness. Denied any hitting his head. Came to the hospital due to pain in his back and on the left side with spasms. Tried over -the-counter pain medications at home without any relief. Denies any complaints of headache. No shortness of breath. Does have chest pain on the left side. No bowel or bladder incontinence. No dysuria or hematuria. Patient has been afebrile. Wrist x-ray showed no fracture or dislocation. Renal/chest x-ray showed small less than 10% left-sided pneumothorax. Acute fracture of left ribs 8 and 9. There is chronic fracture of left rib #7. Remote fracture posterior left rib 10 X-ray of the shoulder showed no evidence of fracture or dislocation. CT head and cervical spine showed no evidence of fracture or subluxation of the cervical spine. CT abdomen pelvis and chest showed multiple left-sided rib fractures 10% pneumothorax left-sided. Left-sided pleural effusion and compressive atelecta sis/contusion. No evidence of traumatic injury to the abdomen or pelvis. 06/17/2021 Patient is currently lying in the bed. Awake alert and oriented. Left-sided chest discomfort is better. Patient is status post chest tube placement on 06/16/2021 Chest tube is draining serosanguineous fluid. Patient is participating in incentive spirometry. No complaints of fever or chills. Shortness of breath is improving. No nausea vomiting or abdominal pain or diarrhea. Blood pressure is elevated and will be started back on home dose of atenolol and also patient is requesting to be started on trazodone which he takes at home. CT surgery and pulmonary is on board. Current medications reviewed. Objective - Vital Signs Vital signs: Vital Signs Temp 98.2 F 06/17/21 07:52 Pulse 84 06/17/21 07:52 Resp 14 06/17/21 07:52 BP 150/84 06/17/21 07:52 Pulse Ox 97 06/17/21 07:52 Intake & Output 06/16/21 06/17/21 06/17/21 18:59 06:59 18:59 Intake Total 450 1580 Output Total 261 310 Balance 189 1270 Weight 90.718 kg Intake: IV 450 Intake, IV Titration 1040 Amount Sodium Chloride 0.9% 1, 1040 000 ml @ 130 mls/hr IV . Q7H42M [facility] Rx#:[id number] Oral 540 Output: Chest Tube Drainage 60 Left Left Pleural/ 60 Mediastinal Drainage 140 Left Lateral 140 Urine 250 Estimated Blood Loss 121 Other: # Voids 1 1 - Exam PHYSICAL EXAMINATION: Patient is lying in the bed comfortably, no acute distress, awake alert and oriented.. HEENT: Normocephalic. Neck is supple. Pupils reactive. Nostrils clear. Oral cavity is moist. Neck reveals no JVD, carotid bruits, or thyromegaly. CHEST EXAMINATION: Trachea is central. Symmetrical expansion. Minimal left bas ilar crackles. Air entry improved. Chest tubes in place. No wheezing or rhonchi. Nonlabored breathing.. CARDIAC: Normal S1, S2 with no gallops. No murmurs ABDOMEN: Soft. Bowel sounds normal. No organomegaly. No abdominal bruits. Extremities: reveal no edema. No clubbing or cyanosis Neurologically awake, alert, oriented x3 with well-coordinated movements. No focal deficits noted Skin: No rash or skin lesions. Psychiatric: Coperative. Nonsuicidal Musculoskeletal: No joint swelling or deformity. Normal range of motion. - Labs CBC & Chem 7: 06/17/21 07:05 06/17/21 07:05 Assessment and Plan Assessment: Acute left rib fractures 8 and 9 Left-sided 10% pneumothoraxStatus post chest tube placement on 06/16/2021. Left sided pleural effusion with compressive atelectasis/lung contusion. S/p fall while intoxicated Severe alcohol abuse Macrocytic anemia with hemoglobin level 11.7 Mild thrombocytopenia due to alcohol abuse Hypovolemic hyponatremia on admission Hypokalemia DVT prophylaxis Heparin subcu Plan: Patient will be continued pain management, incentive spirometry. Status post chest tube placement due to pneumothorax.. Repeat chest x-ray showed stable small left-sided pleural effusion or pneu mohemothorax presents with complaints atelectasis. The air component not as well seen on the plain film versus CT. Continue pain management. Monitor for alcohol withdrawal symptoms Pulmonary and CT surgery is on board. Further recommendations based on the clinical course. Thank you for your consult. alcohol withdrawal symptoms.
[2021-06-18] MEDS: HEPARIN SODIUM,PORCINE/PF 5,000 UNIT/0.5 ML SYRINGE SQ SCH ×4 (00:21→22:47)
[2021-06-18] MEDS: KETOROLAC 30 MG/ML 1 ML VIAL IVP SCH ×3 (00:22→12:25)
--- NOTE | 2021-06-18 07:56 | P.PN ---
Subjective Progress Note Date: 06/18/21 Principal diagnosis: Traumatic left-sided pneumothorax, approximately 10% per chest x-ray and CT, fall from standing, acute as well as old left-sided rib fractures, left-sided chest pain, left hemothorax. Previous medical history of tobacco dependence, heavy EtOH use, hypertension, asthma, osteoarthritis POD #2 left chest tube placement with immediate removal of 800 ml serosanguinous fluid The patient is currently sitting up in bed in no acute distress. Does complain of more pain today, denies shortness of breath. Remains hemodynamically stable on room air, able to achieve 1750 mL on incentive spirometry. Left pleural chest tube with 250 ml serosanguinous drainage in the last 24 hours, chest tube was placed to waterseal yesterday. No new concerns. Objective - Vital Signs Vital signs: Vital Signs Temp 97.8 F 06/18/21 05:00 Pulse 68 06/18/21 05:00 Resp 18 06/18/21 05:00 BP 133/76 06/18/21 05:00 Pulse Ox 98 06/18/21 05:00 Intake & Output 06/17/21 06/18/21 06/18/21 18:59 06:59 18:59 Intake Total 1560 Output Total 140 190 Balance -140 1370 Weight 90.718 kg Intake: Intake, IV Titration 1560 Amount Sodium Chloride 0.9% 1, 1560 000 ml @ 130 mls/hr IV . Q7H42M [facility] Rx#:[id number] Output: Chest Tube Drainage 190 Left Left Pleural/ 190 Mediastinal Urine 140 Other: Voiding Method Urinal Urinal # Voids 5 - Exam CONSTITUTIONAL: Appears comfortable, cooperative, no acute distress RESPIRATORY: Lungs sounds diminished bilaterally. Respirations even, nonlabored. Currently on room air with oxygen saturation 98%. Able to achieve 1750 mL on incentive spirometry. Strong cough. Left pleural chest tube present to waterseal, no air leak present, 80 mL serosanginous drainage overnight, 250 mL in the last 24 hours CARDIOVASCULAR: S1, S2 present. Regular rate and rhythm. Palpable peripheral pulses bilaterally. No edema present. No calf pain or tenderness noted. GASTROINTESTINAL: Abdomen soft, nontender, nondistended. Active bowel sounds present 4 quadrants. Tolerating diet. GENITOURINARY: Continues to void INTEGUMENTARY: Skin is warm and dry with evidence of good perfusion. NEUROLOGIC: Cranial nerves II through XII intact MUSKULOSKELETAL: Able to move all extremities, strength equal bilaterally, gait normal PSYCHIATRIC: Alert and oriented to person place and time, appropriate affect, intact judgment and insight - Labs CBC & Chem 7: 06/17/21 07:05 06/17/21 07:05 Labs: Abnormal Lab Results - Last 24 Hours (Table) 06/17/21 06/17/21 Range/Units 07:05 07:05 RBC 2.94 L (4.40-5.60) X 10*6/uL Hgb 9.4 L (13.0-17.0) g/dL Hct 28.4 L (39.6-50.0) % Sodium 134 L (135-145) mmol/L Anion Gap 7.90 L (10.00-18.00) mmol/L Calcium 8.6 L (8.7-10.3) mg/dL - Imaging and Cardiology Chest x-ray: image reviewed Assessment and Plan Assessment: 1. Traumatic left-sided pneumothorax, approximately 10% per chest x-ray and CT, fall from standing 2. Acute as well as old left-sided rib fractures 3. Left-sided chest pain secondary to above 5. Left hemothorax, S/P left chest tube placement 6. Previous tobacco dependence 7. Heavy EtOH use 8. Hypertension 9. Asthma 10. Osteoarthritis Plan: 1. Continue left chest tube for another 24 hours to water seal. Will monitor drainage 2. Encourage incentive spirometry 10 x every hour while awake 3. Pain control per trauma/anesthesia 4. Will monitor daily CXR 5. CIWA protocol 6. Medical management of other comorbidities per primary care service 7. More recommendations to follow Time with Patient: Greater than 30
[2021-06-18] MEDS: ALBUTEROL NEBULIZED 2.5 MG/3 ML INHALATION PRN ×3 (08:23→19:18)
[2021-06-18] MEDS: SYMBICORT 160-4.5 MCG INHALER INHALATION SCH ×2 (08:23→19:18)
[2021-06-18] MEDS: THIAMINE 100 MG TAB PO SCH ×2 (08:57→16:52)
[2021-06-18] MEDS: atenoloL 50 MG TAB PO SCH (08:57)
[2021-06-18] MEDS: amLODIPine 10 MG TAB PO SCH (08:57)
--- NOTE | 2021-06-18 09:04 | XR ---
EXAMINATION TYPE: XR chest 2V DATE OF EXAM: 06/18/2021 COMPARISON: 06/17/2021 HISTORY: 65-year-old male left hemothorax, left-sided pneumothorax. TECHNIQUE: Frontal and lateral views FINDINGS: Heart normal size. Eventration right hemidiaphragm redemonstrated. Left-sided chest tube remains in p lace. No appreciable pneumothorax. No multiple left-sided rib fractures. Opacity at the periphery of the left basis relatives similar allowing for lower lung volumes. Residual subcutaneous emphysema lat eral aspect of the lower left chest wall. No sizable pleural effusion on the lateral view. IMPRESSION: 1. Known multiple left-sided rib fractures. Left-sided chest tube in place. No appreciable pneumothor ax. 2. Hypoventilatory changes now. Left basilar opacity is relatively similar accounting for the lower l isadora volumes. 3. No significant pleural effusion seen on the lateral view.
[2021-06-18] MEDS: HYDROcodone/APAP 5-325MG 1 EACH TAB PO PRN (09:07)
[2021-06-18] MEDS: MORPHINE SULFATE 4 MG/ML SYRINGE IV PRN (09:46)
[2021-06-18 10:55] LABS: HCT 30.2 % (39.0-53.0); HGB 9.6 gm/dL (13.0-17.5); MCH 32.8 pg (25.0-35.0); MCHC 31.9 g/dL (31.0-37.0); MCV 102.7 fL (80.0-100.0); Macrocytosis Slight; Mean Platelet Volume 8.7; Platelet Count 219 k/uL (150-450); RBC 2.94 m/uL (4.30-5.90); RDW 14.7 % (11.5-15.5); WBC 5.9 k/uL (3.8-10.6)
--- NOTE | 2021-06-18 11:48 | P.PN ---
Subjective Progress Note Date: 06/18/21 CHIEF COMPLAINT: Fall with left-sided rib fractures HISTORY OF PRESENT ILLNESS: Patient sitting up in bed. He has a left-sided chest tube in place for her hemothorax. Patient is complaining of pain along the rib cage. He denies any nausea or vomiting. He is having flatus. Reports no bowel movement for a couple of days. Denies any abdominal pain. Afebrile. On room air. Chest x-ray known multiple left-sided rib fractures. Left-sided chest tube in place. No pneumothorax. Hypoventilatory changes now. Left basilar opacity is at least similar accounting for lower lung volumes. No significant pleural effusion. Patient followed by cardiothoracic service the recommending to keep chest tube for at least another 24 hours. Chest tube with 250 mL serosanguineous drainage in the last 24 hours. PHYSICAL EXAM: VITAL SIGNS: Reviewed. GENERAL: Well-developed in no acute distress. HEENT: No sclera icterus. Extraocular movements grossly intact. Moist buccal mucosa. Head is atraumatic, normocephalic. Chest: Has left-sided chest tube in place ABDOMEN: Soft. Nondistended. Nontender. NEUROLOGIC: Alert and oriented. Cranial nerves II through XII grossly intact. ASSESSMENT: 1. Traumatic fall 2. Rib pain with acute fracture to left ribs 8 and 9, possible rib 7 as seen on chest x-ray 3. 10% left-sided pneumothorax 4. Left-sided hemothorax status post chest tube placement 5. History of previous fall with rib fractures 6. Left lower quadrant abdominal pain improved 7. Alcohol abuse 8. History of asthma 9. History of hypertension 10. Depression and bipolar disorder PLAN: -Chest tube management per cardiothoracic service -Continue supportive care -Continue pain management. Increase [place] to 7.5 every 6 hours as needed for pain -Add Colace for constipation -Continue CIWA protocol -Continue incentive spirometer use -DVT prophylaxis subcu heparin Physician Nursing Unit Clerk note has been reviewed by physician. Signing provider agrees with the documented findings, assessment, and plan of care. Objective - Vital Signs Vital signs: Vital Signs Temp 97.6 F 06/18/21 07:57 Pulse 74 06/18/21 07:57 Resp 18 06/18/21 07:57 BP 126/80 06/18/21 07:57 Pulse Ox 98 06/18/21 07:57 Intake & Output 06/17/21 06/18/21 06/18/21 18:59 06:59 18:59 Intake Total 1560 Output Total 140 190 Balance -140 1370 Weight 90.718 kg Intake: Intake, IV Titration 1560 Amount Sodium Chloride 0.9% 1, 1560 000 ml @ 130 mls/hr IV . Q7H42M [facility] Rx#:[id number] Output: Chest Tube Drainage 190 Left Left Pleural/ 190 Mediastinal Urine 140 Other: Voiding Method Urinal Urinal Urinal # Voids 5 - Labs CBC & Chem 7: 06/18/21 10:33 06/17/21 07:05 Labs: Abnormal Lab Results - Last 24 Hours (Table) 06/18/21 Range/Units 10:33 RBC 2.94 L (4.30-5.90) m/uL Hgb 9.6 L (13.0-17.5) gm/dL Hct 30.2 L (39.0-53.0) % MCV 102.7 H (80.0-100.0) fL
[2021-06-18] MEDS: DOCUSATE 100 MG CAP PO SCH ×2 (12:23→22:46)
--- NOTE | 2021-06-18 12:25 | P.PN ---
Subjective Progress Note Date: 06/18/21 65-year-old white male, who presents to the emergency department on June 15, complaining of left chest and left shoulder pain. The patient apparently was watching basketball, and had been drinking. He had not gotten up for about 6 hours and when he did get up to go to the bathroom, he apparently fell, because of intoxication. The patient decided to come in to be evaluated. He was injured on Monday. He did not present to the emergency department until yesterday. Apparently the patient male lost consciousness as well. He states he did not hit his head. He has a history of hypertension, and asthma. He states both are well controlled. White count 5.6, hemoglobin 10.8, hematocrit 34.5, and platelet count 129,000. Sodium 130, potassium 3.4, chlorides 101, CO2 26, anion gap 3, BUN 14, creatinine 0.76. Urinalysis was negative. Testing for coronavirus was negative. Left wrist x-ray was negative. Rib series showed a temperature sent left-sided pneumothorax. There also fractures of left ribs #8 and #9. There appeared to be a chronic fracture left rib #7. Also there was a remote fracture of posterior left rib #10. Shoulder x-ray was negative. Brain CT was negative. Cervical x-rays were negative. Computed tomography scan of the chest abdomen and pelvis showed multiple left-sided rib fractures, with the possibility of a flail chest. There is a small, 10% left-sided pneumothorax. There is a left-sided pleural effusion. Abdomen and pelvic studies were negative. Chest x-ray from June 16 shows a moderate size left-sided pleural effusion likely representing a left hemothorax. The patient is seen today 06/17/2021 in follow-up on the regular medical floor. He is currently resting comfortably in bed. Awake and alert in no acute distress. He is maintaining good O2 saturations in the mid 90s on room air. He is pulling approximately 1500 MLS on the incentive spirometer. He's been afebrile. Hemodynamically stable. Chest x-ray reveals left-sided chest tube in place. No significant pneumothorax. There is trace residual left effusion. Continued patchy retrocardiac and left basilar opacities but improved aeration. Known multiple left-sided rib fractures. Draining approximately another 350 ML's of serosanguineous drainage in the past 24 hours. White count 7.0. Hemoglobin 9.4. Platelets 150,000. Sodium 134. Potassium 4.1. Creatinine 0.6. He is continued on Symbicort, albuterol, heparin for DVT prophylaxis. Remains on Toradol for pain control. Continued in the [facility] protocol. The patient is seen today 06/18/2021 in follow-up on the regular medical floor. He is currently sitting up in a chair at the bedside. Awake and alert in no acute distress. He continues to have good O2 saturations in the 90s on room air. He's been afebrile. Hemodynamically stable. Chest x-ray reveals no appreciable pneumothorax. There is left basilar opacities. Multiple left-sided rib fractures. Left-sided [facility]. Appro ximately 250 ML's of serosanguineous drainage in the past 24 hours. His pain is well controlled. He is working well with the incentive spirometer. White count 5.9. Hemoglobin 9.6. MCV 102.7. Objective - Vital Signs Vital signs: Vital Signs Temp 98.2 F 06/18/21 12:15 Pulse 70 06/18/21 12:15 Resp 14 06/18/21 12:15 BP 127/67 06/18/21 12:15 Pulse Ox 97 06/18/21 12:15 Intake & Output 06/17/21 06/18/21 06/18/21 18:59 06:59 18:59 Intake Total 1560 Output Total 140 190 Balance -140 1370 Weight 90.718 kg Intake: Intake, IV Titration 1560 Amount Sodium Chloride 0.9% 1, 1560 000 ml @ 130 mls/hr IV . Q7H42M [facility] Rx#:[id number] Output: Chest Tube Drainage 190 Left Left Pleural/ 190 Mediastinal Urine 140 Other: Voiding Method Urinal Urinal Urinal # Voids 5 - Exam GENERAL EXAM: Alert, pleasant 65-year-old male patient, on room air, comfortable in no apparent distress. HEAD: Normocephalic. EYES: Normal reaction of pupils, equal size. NOSE: Clear with pink turbinates. THROAT: No erythema or exudates. NECK: No masses, no JVD. CHEST: No chest wall deformity. Left-sided chest tube secured in place. Currently to waterseal. LUNGS: Equal air entry with crackles in the left base. CVS: S1 and S2 normal with no audible murmur, regular rhythm. ABDOMEN: No hepatosplenomegaly, normal bowel sounds, no guarding or rigidity. SPINE: No scoliosis or deformity SKIN: No rashes CENTRAL NERVOUS SYSTEM: No focal deficits, tone is normal in all 4 extremities. EXTREMITIES: There is no peripheral edema. No clubbing, no cyanosis. Peripheral pulses are intact. - Labs CBC & Chem 7: 06/18/21 10:33 06/17/21 07:05 Labs: Abnormal Lab Results - Last 24 Hours (Table) 06/18/21 Range/Units 10:33 RBC 2.94 L (4.30-5.90) m/uL Hgb 9.6 L (13.0-17.5) gm/dL Hct 30.2 L (39.0-53.0) % MCV 102.7 H (80.0-100.0) fL Assessment and Plan Assessment: 1 Traumatic left-sided chest injury, with multiple left rib fractures, probable pulmonary contusion, and small to moderate left hemothorax. Left-sided chest tube placement. Currently to waterseal. 2 History of hypertension. 3 History of asthma. 4 History of osteoarthritis. 5 History of chronic tobacco and alcohol use. Plan: The patient was seen and evaluated Chest x-ray and labs reviewed Stable and on room air Adequate pain control Left-sided chest tube remains in place to waterseal 250 MLS out since yesterday Continues to work with the incentive spirometer Remains in the [facility] protocol Follow-up chest x-ray in a.m. We will continue to follow I, the cosigning physician, performed a history & physical examination of the patient. Lungs sounds with crackles in the left lung base. Maintaining good O2 saturations in the 90s on room air. I discussed the assessment and plan of care with my nurse practitioner, Silvia Palafox. I attest to the above note as dictated by her.
[2021-06-18] MEDS: HYDROcodone/APAP 7.5-325MG 1 EACH TAB PO PRN ×2 (15:29→22:46)
[2021-06-18] MEDS: traZODone HCL 50 MG TAB PO SCH (22:46)
--- NOTE | 2021-06-18 23:37 | P.PN ---
Subjective Progress Note Date: 06/18/21 Patient is a 65-year-old male with a known history of hypertension, osteoarthritis, asthma/COPD, daily alcohol abuse and osteoarthritis presents to ER status post fall 2 days ago while he was going to the bathroom. She bumped onto the marble table at home. Apparently patient states that he was alcohol intoxicated at the time. Since the fall patient has been having pain in the left ribs, shoulder and wrist. She did have broken ribs in the past. Denied any loss of consciousness. Denied any hitting his head. Came to the hospital due to pain in his back and on the left side with spasms. Tried ove [id number] pain medications at home without any relief. Denies any complaints of headache. No shortness of breath. Does have chest pain on the left side. No bowel or bladder incontinence. No dysuria or hematuria. Patient has been afebrile. Wrist x-ray showed no fracture or dislocation. Renal/chest x-ray showed small less than 10% left-sided pneumothorax. Acute fracture of left ribs 8 and 9. There is chronic fracture of left rib #7. Remote fracture posterior left rib 10 X-ray of the shoulder showed no evidence of fracture or dislocation. CT head and cervical spine showed no evidence of fracture or subluxation of the cervical spine. CT abdomen pelvis and chest showed multiple left-sided rib fractures 10% pneumothorax left-sided. Left-sided pleural effusion and compressive atelect asis/contusion. No evidence of traumatic injury to the abdomen or pelvis. 06/17/2021 Patient is currently lying in the bed. Awake alert and oriented. Left-sided chest discomfort is better. Patient is status post chest tube placement on 06/16/2021 Chest tube is draining serosanguineous fluid. Patient is participating in incentive spirometry. No complaints of fever or chills. Shortness of breath is improving. No nausea vomiting or abdominal pain or diarrhea. Blood pressure is elevated and will be started back on home dose of atenolol and also patient is requesting to be started on trazodone which he takes at home. CT surgery and pulmonary is on board. 06/18/2021 Patient is seen and evaluated today with no acute overnight issues noted. Patient continues with left side chest tube and changing over to wet seal with close monitoring and follow up chest xray ordered for tomorrow. Pulmonary and CT surgery following and will continue chest tube for now. Chest xray today shows known left side rib fractures, multiple with left chest tube noted and no appreciable pneumothorax noted. , left basilar opacity is relatively similar to previous and no significant pleural effusion seen on lateral view. Patient is on room air and has been up and walking. Patient is afebrile. Minor discomfort at the site of the chest tube but states he is receiving adequate pain medications. Continue CIWA as well as needed. Hemoglobin stable at 9.6 Review of systems: Constitutional: No reports of fatigue, fever, or chills Cardiovascular: No reports of chest pain or palpitations Respiratory: No reports of shortness of breath or cough GI: No reports of nausea, vomiting, or diarrhea : No reports of dysuria or retention Neurovascular: No reports of weakness or numbness All medications have been reviewed Active Medications Hydrocodone Bitart/Acetaminophen (Hydrocodone/Apap 7.5-325mg 1 Each Tab) 1 each PO Q6HR PRN PRN Reason: Moderate Pain Albuterol Sulfate (Albuterol Nebulized 2.5 Mg/3 Ml) 2.5 mg INHALATION RT-QID PRN PRN Reason: Shortness Of Breath Or Wheezing Last Admin: 06/18/21 11:55 Dose: 2.5 mg Documented by: Amlodipine Besylate (Amlodipine 10 Mg Tab) 10 mg PO DAILY [facility] Last Admin: 06/18/21 08:57 Dose: 10 mg Documented by: Atenolol (Atenolol 50 Mg Tab) 100 mg PO DAILY [facility] Last Admin: 06/18/21 08:57 Dose: 100 mg Documented by: Budesonide/Formoterol Fumarate (Symbicort 160-4.5 Mcg Inhaler) 2 puff INHALATION RT-BID [facility] Last Admin: 06/18/21 08:23 Dose: 2 puff Documented by: Docusate Sodium (Docusate 100 Mg Cap) 100 mg PO BID [facility] Last Admin: 06/18/21 12:23 Dose: 100 mg Documented by: Heparin Sodium (Porcine) (Heparin Sodium,Porcine/Pf 5,000 Unit/0.5 Ml Syringe) 5,000 unit SQ Q8HR [facility] Last Admin: 06/18/21 08:57 Dose: 5,000 unit Documented by: Ketorolac Tromethamine (Ketorolac 30 Mg/Ml 1 Ml Vial) 15 mg IVP Q6HR [facility] Stop: 06/18/21 15:19 Last Admin: 06/18/21 12:25 Dose: 15 mg Documented by: Lorazepam (Lorazepam 2 Mg/Ml Inj) 1 mg IV Q2HR PRN PRN Reason: CIWA 8 or 9 Last Admin: 06/15/21 15:07 Dose: 1 mg Documented by: Lorazepam (Lorazepam 2 Mg/Ml Inj) 1 mg IV Q1HR PRN PRN Reason: CIWA 10 to 15 Morphine Sulfate (Morphine Sulfate 4 Mg/Ml Syringe) 4 mg IV Q4HR PRN PRN Reason: Severe Pain Last Admin: 06/18/21 09:46 Dose: 4 mg Documented by: Naloxone HCl (Naloxone 0.4 Mg/Ml 1 Ml Vial) 0.2 mg IV Q2M PRN PRN Reason: Opioid Reversal Ondansetron HCl (Ondansetron 4 Mg/2 Ml Vial) 4 mg IVP Q8HR PRN PRN Reason: Nausea And Vomiting Thiamine HCl (Thiamine 100 Mg Tab) 100 mg PO BID-W/MEALS [facility] Last Admin: 06/18/21 08:57 Dose: 100 mg Documented by: Trazodone HCl (Trazodone Hcl 50 Mg Tab) 150 mg PO HS [facility] Last Admin: 06/17/21 22:03 Dose: 150 mg Documented by: PHYSICAL EXAMINATION: Patient is lying in the bed comfortably, no acute distress, awake alert and oriented.. HEENT: Normocephalic. Neck is supple. Pupils reactive. Nostrils clear. Oral cavity is moist. Neck reveals no JVD, carotid bruits, or thyromegaly. CHEST EXAMINATION: Trachea is central. Symmetrical expansion. Minimal left basilar crackles. Air entry improved. Chest tubes in place on left. No wheezing or rhonchi. Nonlabored breathing.. CARDIAC: Normal S1, S2 with no gallops. No murmurs ABDOMEN: Soft. Bowel sounds normal. No organomegaly. No abdominal bruits. Extremities: reveal no edema. No clubbing or cyanosis Neurologically awake, alert, oriented x3 with well-coordinated movements. No focal deficits noted Skin: No rash or skin lesions. Psychiatric: Cooperative. Non-suicidal Musculoskeletal: No joint swelling or deformity. Normal range of motion. Assessment: Acute left rib fractures 8 and 9 Left-sided 10% pneumothorax Status post chest tube placement on 06/16/2021. Left sided pleural effusion with compressive atelectasis/lung contusion. S/p fall while intoxicated Severe alcohol abuse Macrocytic anemia Mild thrombocytopenia due to alcohol abuse Hypovolemic hyponatremia on admission Hypokalemia DVT prophylaxis Heparin subcu Plan: Patient will be continued pain management, incentive spirometry. Status post chest tube placement due to pneumothorax.. Repeat chest x-ray showed no evidence of pneumothorax and improvement. Continue pain management. Monitor for alcohol withdrawal symptoms, patient not actively withdrawing and not requiring ativan currently. Pulmonary and CT surgery is on board. Further recommendations based on the clinical course. Follow up labs and chest xray ordered for the am. Continue chest tube and close observation overnight and will possibly remove chest tube tomorrow. Thank you for your consult. Objective - Vital Signs Vital signs: Vital Signs Temp 97.6 F 06/18/21 07:57 Pulse 74 06/18/21 07:57 Resp 18 06/18/21 07:57 BP 126/80 06/18/21 07:57 Pulse Ox 98 06/18/21 07:57 Intake & Output 06/17/21 06/18/21 06/18/21 18:59 06:59 18:59 Intake Total 1560 Output Total 140 190 Balance -140 1370 Weight 90.718 kg Intake: Intake, IV Titration 1560 Amount Sodium Chloride 0.9% 1, 1560 000 ml @ 130 mls/hr IV . Q7H42M [facility] Rx#:[id number] Output: Chest Tube Drainage 190 Left Left Pleural/ 190 Mediastinal Urine 140 Other: Voiding Method Urinal Urinal # Voids 5 - Labs CBC & Chem 7: 06/18/21 10:33 06/17/21 07:05 Labs: Abnormal Lab Results - Last 24 Hours (Table) 06/17/21 06/17/21 Range/Units 07:05 07:05 RBC 2.94 L (4.40-5.60) X 10*6/uL Hgb 9.4 L (13.0-17.0) g/dL Hct 28.4 L (39.6-50.0) % Sodium 134 L (135-145) mmol/L Anion Gap 7.90 L (10.00-18.00) mmol/L Calcium 8.6 L (8.7-10.3) mg/dL
[2021-06-19] MEDS: HYDROcodone/APAP 7.5-325MG 1 EACH TAB PO PRN ×3 (06:21→22:34)
[2021-06-19] MEDS: SYMBICORT 160-4.5 MCG INHALER INHALATION SCH ×2 (06:29→21:34)
[2021-06-19] MEDS: ALBUTEROL NEBULIZED 2.5 MG/3 ML INHALATION PRN ×2 (06:29→17:40)
--- NOTE | 2021-06-19 06:43 | XR ---
EXAMINATION TYPE: XR chest 2V DATE OF EXAM: 06/19/2021 COMPARISON: 06/18/2021 HISTORY: Pneumothorax TECHNIQUE: Frontal and lateral views of the chest are obtained. FINDINGS: There is a left-sided chest tube unchanged in position. No change in the mild subcutaneous emphysema along the lower left chest subcutaneous tissues. Opacity in the left lung base most likely combination of parenchymal infiltrate in pleural fluid is u nchanged. There is no pneumothorax. The right lung is clear. Heart size is normal and the vasculature is not congested. The osseous structures are intact. IMPRESSION: Opacity left lung base unchanged compared to previous.
[2021-06-19 08:06] LABS: Basophils % (A) 1 %; Eosinophils # (A) 0.4 k/uL (0-0.7); Eosinophils % (A) 7 %; HGB 10.1 gm/dL (13.0-17.5); Hypochromasia Slight; Lymphocytes # (A) 1.4 k/uL (1.0-4.8); Lymphocytes % (A) 27 %; MCH 32.2 pg (25.0-35.0); MCHC 31.5 g/dL (31.0-37.0); MCV 102.1 fL (80.0-100.0); Macrocytosis Slight; Mean Platelet Volume 7.7; Monocytes # (A) 0.7 k/uL (0-1.0); Monocytes % (A) 12 %; Neutrophils # (A) 2.6 k/uL (1.3-7.7); Neutrophils % (A) 50 %; Platelet Count 272 k/uL (150-450); RBC 3.13 m/uL (4.30-5.90); RDW 14.6 % (11.5-15.5); WBC 5.2 k/uL (3.8-10.6)
--- NOTE | 2021-06-19 08:15 | P.PN ---
Subjective Progress Note Date: 06/19/21 Principal diagnosis: Traumatic left-sided pneumothorax, approximately 10% per chest x-ray and CT, fall from standing, acute as well as old left-sided rib fractures, left-sided chest pain, left hemothorax. Previous medical history of tobacco dependence, heavy EtOH use, hypertension, asthma, osteoarthritis POD #3 left chest tube placement with immediate removal of 800 ml serosanguinous fluid The patient was seen and examined sitting up in bed in no acute distress. States pain is controlled today, denies shortness of breath. Remains hemodynamically stable on room air, able to achieve 1500 mL on incentive spirometry. Left pleural chest tube with 150 ml serous drainage in the last 24 hours. No new concerns. Objective - Vital Signs Vital signs: Vital Signs Temp 98.2 F 06/19/21 05:00 Pulse 80 06/19/21 06:33 Resp 16 06/19/21 05:00 BP 169/90 06/19/21 05:00 Pulse Ox 99 06/19/21 05:00 Intake & Output 06/18/21 06/19/21 06/19/21 18:59 06:59 18:59 Intake Total 950 Output Total 280 340 Balance -280 610 Intake: Oral 950 Output: Chest Tube Drainage 130 40 Left Left Pleural/ 130 40 Mediastinal Urine 150 300 Other: Voiding Method Urinal Urinal - Exam CONSTITUTIONAL: Appears comfortable, cooperative, no acute distress RESPIRATORY: Lungs sounds diminished bilaterally. Respirations even, nonlabored. Currently on room air with oxygen saturation 99%. Able to achieve 1500 mL on incentive spirometry. Strong cough. Left pleural chest tube present to waterseal, no air leak present, 40 mL serous drainage overnight, 150 mL in the last 24 hours CARDIOVASCULAR: S1, S2 present. Regular rate and rhythm. Palpable peripheral pulses bilaterally. No edema present. No calf pain or tenderness noted. GASTROINTESTINAL: Abdomen soft, nontender, nondistended. Active bowel sounds present 4 quadrants. Tolerating diet. GENITOURINARY: Continues to void INTEGUMENTARY: Skin is warm and dry with evidence of good perfusion. NEUROLOGIC: Cranial nerves II through XII intact MUSKULOSKELETAL: Able to move all extremities, strength equal bilaterally, gait normal PSYCHIATRIC: Alert and oriented to person place and time, appropriate affect, intact judgment and insight - Allied health notes Allied health notes reviewed: nursing - Labs CBC & Chem 7: 06/19/21 07:12 06/17/21 07:05 Labs: Abnormal Lab Results - Last 24 Hours (Table) 06/18/21 06/19/21 Range/Units 10:33 07:12 RBC 2.94 L 3.13 L (4.30-5.90) m/uL Hgb 9.6 L 10.1 L (13.0-17.5) gm/dL Hct 30.2 L 32.0 L (39.0-53.0) % MCV 102.7 H 102.1 H (80.0-100.0) fL - Imaging and Cardiology Chest x-ray: report reviewed, image reviewed Assessment and Plan Assessment: 1. Traumatic left-sided pneumothorax, approximately 10% per chest x-ray and CT, fall from standing 2. Acute as well as old left-sided rib fractures 3. Left-sided chest pain secondary to above 5. Left hemothorax, S/P left chest tube placement 6. Previous tobacco dependence 7. Heavy EtOH use 8. Hypertension 9. Asthma 10. Osteoarthritis Plan: 1. Left pleural chest tube discontinued without incident. We will recheck chest x-ray in the morning. If stable patient may be discharged from our standpoint. Dressing to remain in place for 48 hours, after that patient may remove dressing and shower. If dressing becomes saturated in the next 48 hours please reinforce dressing, DO NOT remove original dressing. Discussed with nursing 2. Encourage incentive spirometry 10 x every hour while awake 3. Pain control per trauma/anesthesia 4. CIWA protocol 5. Medical management of other comorbidities per primary care service 6. More recommendations to follow Time with Patient: Greater than 30
[2021-06-19 08:23] LABS: African American GFR (CKD) >90 (>60 ml/min/1.73 sqM); Anion Gap 2 mmol/L; Blood Urea Nitrogen 14 mg/dL (9-20); Calcium 8.4 mg/dL (8.4-10.2); Carbon Dioxide 25 mmol/L (22-30); Chloride 106 mmol/L (98-107); Glucose 95 mg/dL (74-99); Non-African American GFR(CKD) >90 (>60 ml/min/1.73 sqM); Potassium 4.3 mmol/L (3.5-5.1); Sodium 133 mmol/L (137-145)
[2021-06-19] MEDS: atenoloL 50 MG TAB PO SCH (08:32)
[2021-06-19] MEDS: DOCUSATE 100 MG CAP PO SCH ×2 (08:32→22:34)
[2021-06-19] MEDS: THIAMINE 100 MG TAB PO SCH ×2 (08:32→16:50)
[2021-06-19] MEDS: HEPARIN SODIUM,PORCINE/PF 5,000 UNIT/0.5 ML SYRINGE SQ SCH ×3 (08:33→22:34)
[2021-06-19] MEDS: amLODIPine 10 MG TAB PO SCH (08:33)
--- NOTE | 2021-06-19 13:12 | P.PN ---
Subjective Progress Note Date: 06/19/21 CHIEF COMPLAINT: Status post fall with traumatic left-sided rib fractures and pneumothorax, hemothorax HISTORY OF PRESENT ILLNESS: The patient is a 65-year-old male admitted as a trauma status post fall with multiple left-sided rib fractures, pneumothorax, hemothorax status post chest tube placement 06/15/2021. Chest tube being managed by cardiothoracic team. His chest tube has been removed. Pain is well- controlled. He denies any active chest pain. He is using incentive spirometer. ROS: No fevers or chills. No mental status changes. PHYSICAL EXAM: VITAL SIGNS: Reviewed CONSTITUTIONAL: Well developed and in no acute distress. EYES: Conjuctivae without sclera icterus. Extraocular movements grossly intact. HEAD, EARS, NOSE, THROAT: Moist buccal mucosa. Head is atraumatic, normocep halic. No nasal drainage. RESPIRATORY: Non-labored respirations and equal bilateral excursions. Chest tube intact. CARDIOVASCULAR: Palpable 2+ radial pulses. ABDOMEN: Soft nontender. MUSCULOSKELETAL: No gross deformity of the lower extremities noted. No clubbing. No cyanosis. SKIN: Good skin turgor. Well perfused. NEUROLOGIC: Cranial nerves II through XII grossly intact. No focal or la teralizing signs. PSYCH: Alert to person. CLINICAL LABS: Reviewed. WBC normal 5.2. Hemoglobin improved 9.6-10.1 with anemia. ASSESSMENT: 1. Status post fall with traumatic left-sided pneumothorax, pneumonia hemothorax PLAN: 1. Management chest tube per cardiothoracic team. 2. Incentive spirometer for pulmonary toilet. 3. Repeat chest x-ray for hemopneumothorax Objective - Vital Signs Vital signs: Vital Signs Temp 98.2 F 06/19/21 05:00 Pulse 81 06/19/21 08:26 Resp 16 06/19/21 05:00 BP 149/74 06/19/21 08:26 Pulse Ox 99 06/19/21 05:00 Intake & Output 06/18/21 06/19/21 06/19/21 18:59 06:59 18:59 Intake Total 950 Output Total 280 340 Balance -280 610 Intake: Oral 950 Output: Chest Tube Drainage 130 40 Left Left Pleural/ 130 40 Mediastinal Urine 150 300 Other: Voiding Method Urinal Urinal - Labs CBC & Chem 7: 06/19/21 07:12 06/19/21 07:12 Labs: Abnormal Lab Results - Last 24 Hours (Table) 06/19/21 06/19/21 Range/Units 07:12 07:12 RBC 3.13 L (4.30-5.90) m/uL Hgb 10.1 L (13.0-17.5) gm/dL Hct 32.0 L (39.0-53.0) % MCV 102.1 H (80.0-100.0) fL Sodium 133 L (137-145) mmol/L
--- NOTE | 2021-06-19 15:35 | P.PN ---
Subjective Progress Note Date: 06/19/21 Principal diagnosis: Right chest trauma, pneumothorax, hemothorax, rib fractures. 65-year-old white male, who presents to the emergency department on June 15, complaining of left chest and left shoulder pain. The patient apparently was watching basketball, and had been drinking. He had not gotten up for about 6 hours and when he did get up to go to the bathroom, he apparently fell, because of intoxication. The patient decided to come in to be evaluated. He was injured on Monday. He did not present to the emergency department until yesterday. Apparently the patient male lost consciousness as well. He states he did not hit his head. He has a history of hypertension, and asthma. He states both are well controlled. White count 5.6, hemoglobin 10.8, hematocrit 34.5, and platelet count 129,000. Sodium 130, potassium 3.4, chlorides 101, CO2 26, anion gap 3, BUN 14, creatinine 0.76. Urinalysis was negative. Testing for coronavirus was negative. Left wrist x-ray was negative. Rib series showed a temperature sent left-sided pneumothorax. There also fractures of left ribs #8 and #9. There appeared to be a chronic fracture left rib #7. Also there was a remote fracture of posterior left rib #10. Shoulder x-ray was negative. Brain CT was negative. Cervical x-rays were negative. Computed tomography scan of the chest abdomen and pelvis showed multiple left-sided rib fractures, with the possibility of a flail chest. There is a small, 10% left-sided pneumothorax. There is a left-sided pleural effusion. Abdomen and pelvic studies were negative. Chest x-ray from June 16 shows a moderate size left-sided pleural effusion likely representing a left hemothorax. The patient is seen today 06/17/2021 in follow-up on the regular medical floor. He is currently resting comfortably in bed. Awake and alert in no acute distress. He is maintaining good O2 saturations in the mid 90s on room air. He is pulling approximately 1500 MLS on the incentive spirometer. He's been afebrile. Hemodynamically stable. Chest x-ray reveals left-sided chest tube in place. No significant pneumothorax. There is trace residual left effusion. Continued patchy retrocardiac and left basilar opacities but improved aeration. Known multiple left-sided rib fractures. Draining approximately another 350 ML's of serosanguineous drainage in the past 24 hours. White count 7.0. Hemoglobin 9.4. Platelets 150,000. Sodium 134. Potassium 4.1. Creatinine 0.6. He is continued on Symbicort, albuterol, heparin for DVT prophylaxis. Remains on Toradol for pain control. Continued in the CINE protocol. The patient is seen today 06/18/2021 in follow-up on the regular medical floor. He is currently sitting up in a chair at the bedside. Awake and alert in no acute distress. He continues to have good O2 saturations in the 90s on room air. He's been afebrile. Hemodynamically stable. Chest x-ray reveals no appreciable pneumothorax. There is left basilar opacities. Multiple left-sided rib fractures. Left-sided chest tube remains in place to waterseal. Approximately 250 ML's of serosanguineous drainage in the past 24 hours. His pain is well controlled. He is working well with the incentive spirometer. White count 5.9. Hemoglobin 9.6. MCV 102.7. Progress note dated 06/19/2021. The patient is again seen in room 534. Thoracic surgery removed his left-sided chest tube. The patient is not on any supplemental oxygen. He is getting a basic IV at [facility]. The patient in my opinion could be discharged home. We'll leave that up to the primary and the cardiothoracic team. From the pulmonary standpoint, the patient's doing well. He denies any shortness breath, cough, wheezing, or phlegm production. We do recommend hourly use of incentive spirometer. White count 5.2, hemoglobin 10.1, hematocrit 32, and platelet count 272,000. Sodium 133, potassium 4.3, chlorides 106, CO2 25, BUN 14, and creatinine 0.76. Chest x-ray shows a left-sided chest tube. There is left basilar opacity which could represent atelectasis, pulmonary contusion, or hemothorax. Objective - Vital Signs Vital signs: Vital Signs Temp 98.5 F 06/19/21 12:16 Pulse 69 06/19/21 12:16 Resp 18 06/19/21 12:16 BP 137/83 06/19/21 12:16 Pulse Ox 100 06/19/21 12:16 Intake & Output 06/18/21 06/19/21 06/19/21 18:59 06:59 18:59 Intake Total 950 Output Total 280 340 300 Balance -280 610 -300 Intake: Oral 950 Output: Chest Tube Drainage 130 40 Left Left Pleural/ 130 40 Mediastinal Urine 150 300 300 Other: Voiding Method Urinal Urinal Urinal # Voids 5 - Exam No acute distress, oriented 3. Not on any supplemental oxygen. HEENT examination is grossly unremarkable. Neck supple. Full range of motion. No adenopathy thyromegaly or neck vein distention. Cardiovascular examination reveals regular rhythm rate. S1-S2 normal. No S3 or S4. No discernible murmur noted. Heart rate 69 bpm. Left-sided chest tube has been removed. Lungs reveal diminished left basilar breath sounds. Mild scattered rhonchi. No wheezes. Right lung is clear. Abdomen soft bowel sounds are heard. No masses or tenderness. Extremities are intact. No cyanosis clubbing or edema. Skin is without rash or lesion. Neurologic examination is brief but nonfocal. - Labs CBC & Chem 7: 06/19/21 07:12 06/19/21 07:12 Labs: Abnormal Lab Results - Last 24 Hours (Table) 06/19/21 06/19/21 Range/Units 07:12 07:12 RBC 3.13 L (4.30-5.90) m/uL Hgb 10.1 L (13.0-17.5) gm/dL Hct 32.0 L (39.0-53.0) % MCV 102.1 H (80.0-100.0) fL Sodium 133 L (137-145) mmol/L Assessment and Plan Assessment: Traumatic left-sided chest injury, with multiple left rib fractures, probable pulmonary contusion, and small to moderate left hemothorax, status post chest tube insertion and subsequent removal on 06/19/2021. Previous history of multiple falls and multiple previous rib fractures. History of hypertension. History of asthma. History of osteoarthritis. History of chronic tobacco and alcohol use. Plan: Plan dated 06/16/2021. The patient apparently is going to the operating room today and thoracic surgery to place a chest tube in the left chest area. The patient is recommended to use his incentive spirometer every hour while awake. In addition, the patient will need adequate pain control. We also recommend deep breathing, coughing, and clearing of secretions. No additional recommendations are made. We'll continue to follow. Prognosis is guarded. The patient's asthma is well controlled. Plan dated 06/19/2021. The patient's doing well. The chest tube was removed today. The chest x-ray from this morning before the chest tube was removed still showed evidence of atelectasis fluid or infiltrate at the left lung base. I'm sure the patient will have a follow-up chest x-ray. We recommend deep breathing, coughing, clearing of secretions. We also recommend hourly use of the incentive spirometer. Currently, the patient is not requiring any supplemental oxygen. Room air saturations are 100%. He states he may go home tomorrow or Monday. Time with Patient: Less than 30
[2021-06-19] MEDS: traZODone HCL 50 MG TAB PO SCH (22:35)
--- NOTE | 2021-06-20 06:49 | XR ---
EXAMINATION TYPE: XR chest 2V DATE OF EXAM: 06/20/2021 COMPARISON: 06/19/2021 HISTORY: Pneumothorax TECHNIQUE: Frontal and lateral views of the chest are obtained. FINDINGS: There is been interval removal of the left sided chest tube. There is no pneumothorax. There is an opacity obscuring the left hemidiaphragm and lung base most likely representing a pleural effusion which is unchanged compared to previous. The right lung remains clear. Heart size is normal and the vasculature is not congested. The osseous structures are intact. IMPRESSION: Interval removal of left-sided chest tube without pneumothorax bilaterally. No change in the left lung base opacity most likely indicating pleural effusion.
[2021-06-20] MEDS: HYDROcodone/APAP 7.5-325MG 1 EACH TAB PO PRN ×3 (07:54→22:27)
[2021-06-20] MEDS: atenoloL 50 MG TAB PO SCH (07:54)
[2021-06-20] MEDS: DOCUSATE 100 MG CAP PO SCH ×2 (07:54→22:27)
[2021-06-20] MEDS: THIAMINE 100 MG TAB PO SCH ×2 (07:55→16:31)
[2021-06-20] MEDS: HEPARIN SODIUM,PORCINE/PF 5,000 UNIT/0.5 ML SYRINGE SQ SCH ×2 (07:55→15:38)
[2021-06-20] MEDS: amLODIPine 10 MG TAB PO SCH (07:55)
[2021-06-20] MEDS: SYMBICORT 160-4.5 MCG INHALER INHALATION SCH ×2 (08:04→19:59)
[2021-06-20] MEDS: ALBUTEROL NEBULIZED 2.5 MG/3 ML INHALATION PRN ×3 (08:04→19:59)
--- NOTE | 2021-06-20 08:21 | P.PN ---
Subjective Progress Note Date: 06/20/21 Principal diagnosis: Traumatic left-sided pneumothorax, approximately 10% per chest x-ray and CT, fall from standing, acute as well as old left-sided rib fractures, left-sided chest pain, left hemothorax. Previous medical history of tobacco dependence, heavy EtOH use, hypertension, asthma, osteoarthritis POD #4 left chest tube placement with immediate removal of 800 ml serosanguinous fluid The patient was seen and examined sitting up in bed in no acute distress. States pain is controlled today, denies shortness of breath. Remains hemodynamically stable on room air, able to achieve 1750 mL on incentive spirometry. Left pleural chest tube was discontinued yesterday, patient has had some drainage requiring reinforcement of his dressing. Chest x-ray is stable without worsening. No new concerns. Objective - Vital Signs Vital signs: Vital Signs Temp 97.7 F 06/20/21 04:59 Pulse 72 06/20/21 08:04 Resp 16 06/20/21 04:59 BP 150/89 06/20/21 04:59 Pulse Ox 99 06/20/21 04:59 Intake & Output 06/19/21 06/20/21 06/20/21 18:59 06:59 18:59 Intake Total 480 1190 Output Total 900 1100 Balance -420 90 Intake: Oral 480 1190 Output: Urine 900 1100 Other: Voiding Method Urinal Urinal # Voids 5 - Exam CONSTITUTIONAL: Appears comfortable, cooperative, no acute distress RESPIRATORY: Lungs sounds diminished bilaterally. Respirations even, nonlabored. Currently on room air with oxygen saturation 99%. Able to achieve 1750 mL on incentive spirometry. Strong cough CARDIOVASCULAR: S1, S2 present. Regular rate and rhythm. Palpable peripheral pulses bilaterally. No edema present. No calf pain or tenderness noted. GASTROINTESTINAL: Abdomen soft, nontender, nondistended. Active bowel sounds present 4 quadrants. Tolerating diet. GENITOURINARY: Continues to void INTEGUMENTARY: Skin is warm and dry with evidence of good perfusion. Chest tube site with serous drainage requiring reinforcement of dressing NEUROLOGIC: Cranial nerves II through XII intact MUSKULOSKELETAL: Able to move all extremities, strength equal bilaterally, gait normal PSYCHIATRIC: Alert and oriented to person place and time, appropriate affect, intact judgment and insight - Allied health notes Allied health notes reviewed: nursing - Labs CBC & Chem 7: 06/19/21 07:12 06/19/21 07:12 Labs: Abnormal Lab Results - Last 24 Hours (Table) 06/19/21 Range/Units 07:12 Sodium 133 L (137-145) mmol/L - Imaging and Cardiology Chest x-ray: report reviewed, image reviewed Assessment and Plan Assessment: 1. Traumatic left-sided pneumothorax, approximately 10% per chest x-ray and CT, fall from standing 2. Acute as well as old left-sided rib fractures 3. Left-sided chest pain secondary to above 5. Left hemothorax, S/P left chest tube placement 6. Previous tobacco dependence 7. Heavy EtOH use 8. Hypertension 9. Asthma 10. Osteoarthritis Plan: 1. Left pleural chest tube discontinued yesterday. Dressing to remain in place until tomorrow, after that patient may remove dressing and shower. Continue to reinforce dressing until tomorrow, DO NOT remove original dressing 2. Encourage incentive spirometry 10 x every hour while awake 3. Pain control per trauma/anesthesia 4. CIWA protocol 5. Medical management of other comorbidities per primary care service 6. From cardiothoracic surgery standpoint patient may be discharged to home when okay with other services. Discharge instructions placed on his discharge plan, follow-up appointment made for our office for next week. Time with Patient: Greater than 30
--- NOTE | 2021-06-20 14:14 | P.PN ---
Subjective Progress Note Date: 06/20/21 CHIEF COMPLAINT: Status post fall with traumatic left-sided rib fractures and pneumothorax, hemothorax HISTORY OF PRESENT ILLNESS: The patient is a 65-year-old male admitted as a trauma status post fall with multiple left-sided rib fractures, pneumothorax, hemothorax status post chest tube placement 06/15/2021. He is resting comfortably. Reports increased improvement is breathing today. Denies any shortness of breath. ROS: No fevers or chills. No mental status changes. No shortness of breath. PHYSICAL EXAM: VITAL SIGNS: Reviewed CONSTITUTIONAL: Well developed and in no acute distress. EYES: Conjuctivae without sclera icterus. Extraocular movements grossly intact. HEAD, EARS, NOSE, THROAT: Moist buccal mucosa. Head is atraumatic, normocephalic. No nasal drainage. RESPIRATORY: Non-labored respirations and equal bilateral excursions. Dressing intact. Chest tube absent. CARDIOVASCULAR: Palpable 2+ radial pulses. ABDOMEN: Soft nontender. MUSCULOSKELETAL: No gross deformity of the lower extremities noted. No clubbing. No cyanosis. SKIN: Good skin turgor. Well perfused. NEUROLOGIC: Cranial nerves II through XII grossly intact. No focal or lateralizing signs. PSYCH: Alert to person. CLINICAL LABS: Reviewed. WBC normal 5.2. Hemoglobin improved 9.6-10.1 with ane mikal. STUDIES: Chest x-ray independently reviewed demonstrating resolved pneumothorax. Mild opacity of the left lower lobe consistent with pleural effusion. This is my independent interpretation. ASSESSMENT: 1. Status post fall with traumatic left-sided pneumothorax, pneumonia hemothorax PLAN: 1. Continue incentive spirometer 2. Stable for discharge once cleared by all consultants. Objective - Vital Signs Vital signs: Vital Signs Temp 97.7 F 06/20/21 04:59 Pulse 79 06/20/21 12:22 Resp 16 06/20/21 08:35 BP 144/86 06/20/21 08:41 Pulse Ox 99 06/20/21 04:59 Intake & Output 06/19/21 06/20/21 06/20/21 18:59 06:59 18:59 Intake Total 480 1190 Output Total 900 1100 Balance -420 90 Intake: Oral 480 1190 Output: Urine 900 1100 Other: Voiding Method Urinal Urinal Urinal # Voids 5 1 - Labs CBC & Chem 7: 06/19/21 07:12 06/19/21 07:12 Assessment and Plan (1) Traumatic fracture of ribs of left side with pneumothorax Current Visit: Yes Status: Acute Code(s): S22.42XA - MULTIPLE FRACTURES OF R IBS, LEFT SIDE, INIT FOR CLOS FX; S27.0XXA - TRAUMATIC PNEUMOTHORAX, INITIAL ENCOUNTER SNOMED Code(s): 3842409 (2) Hemothorax, left Current Visit: Yes Status: Acute Code(s): J94.2 - HEMOTHORAX SNOMED Code(s): 31967268 (3) Alcohol use disorder, severe, dependence Current Visit: No Status: Chronic Priority: High Code(s): F10.20 - ALCOHOL DEPENDENCE, UNCOMPLICATED SNOMED Code(s): 141601028
[2021-06-20] MEDS: traZODone HCL 50 MG TAB PO SCH (22:27)
[2021-06-21] MEDS: HEPARIN SODIUM,PORCINE/PF 5,000 UNIT/0.5 ML SYRINGE SQ SCH ×2 (00:16→07:51)
[2021-06-21] MEDS: THIAMINE 100 MG TAB PO SCH (07:51)
[2021-06-21] MEDS: HYDROcodone/APAP 7.5-325MG 1 EACH TAB PO PRN ×2 (07:51→14:35)
[2021-06-21] MEDS: DOCUSATE 100 MG CAP PO SCH (07:51)
[2021-06-21] MEDS: atenoloL 50 MG TAB PO SCH (07:51)
[2021-06-21] MEDS: amLODIPine 10 MG TAB PO SCH (07:51)
[2021-06-21] MEDS: SYMBICORT 160-4.5 MCG INHALER INHALATION SCH (08:15)
[2021-06-21] MEDS: ALBUTEROL NEBULIZED 2.5 MG/3 ML INHALATION PRN ×2 (08:15→12:06)
--- NOTE | 2021-06-21 10:02 | P.PN ---
Subjective Progress Note Date: 06/19/21 Patient is a 65-year-old male with a known history of hypertension, osteoarthritis, asthma/COPD, daily alcohol abuse and osteoarthritis presents to ER status post fall 2 days ago while he was going to the bathroom. She bumped onto the marble table at home. Apparently patient states that he was alcohol i ntoxicated at the time. Since the fall patient has been having pain in the left ribs, shoulder and w rist. She did have broken ribs in the past. Denied any loss of consciousness. Denied any hitting his head. Came to the hospital due to pain in his back and on the left side with spasms. Tried over -the-counter pain medications at home without any relief. Denies any complaints of headache. No shortness of breath. Does have chest pain on the left side. No bowel or bladder incontinence. No dysuria or hematuria. Patient has been afebrile. Wrist x-ray showed no fracture or dislocation. Renal/chest x-ray showed small less than 10% left-sided pneumothorax. Acute fracture of left ribs 8 and 9. There is chronic fracture of left rib #7. Remote fracture posterior left rib 10 X-ray of the shoulder showed no evidence of fracture or dislocation. CT head and cervical spine showed no evidence of fracture or subluxation of the cervical spine. CT abdomen pelvis and chest showed multiple left-sided rib fractures 10% pneumothorax left-sided. Left-sided pleural effusion and compressive atelecta sis/contusion. No evidence of traumatic injury to the abdomen or pelvis. 06/17/2021 Patient is currently lying in the bed. Awake alert and oriented. Left-sided chest discomfort is better. Patient is status post chest tube placement on 06/16/2021 Chest tube is draining serosanguineous fluid. Patient is participating in incentive spirometry. No complaints of fever or chills. Shortness of breath is improving. No nausea vomiting or abdominal pain or diarrhea. Blood pressure is elevated and will be started back on home dose of atenolol and also patient is requesting to be started on trazodone which he takes at home. CT surgery and pulmonary is on board. 06/19/2019 Patient is currently resting in the bed. Awake alert and oriented. Left sided chest pain is better with medications. Encouraged with incentive spirometry. Left pleural chest tube was removed by CT surgery today. Denies any complaints of worsening shortness of breath. No nausea vomiting abdominal pain or diarrhea. Follow-up repeat chest x-ray tomorrow. Patient has been afebrile. Blood pressure is controlled. Laboratory data showed WBC 5.2 hemoglobin 10.1 and platelets 272 sodium 133 potassium 4.3 chloride 106 BUN 49 creatinine 0.76 Current medications reviewed. Current medications reviewed. Objective - Vital Signs Vital signs: Vital Signs Temp 98.2 F 06/19/21 05:00 Pulse 81 06/19/21 08:26 Resp 16 06/19/21 05:00 BP 149/74 06/19/21 08:26 Pulse Ox 99 06/19/21 05:00 Intake & Output 06/18/21 06/19/21 06/19/21 18:59 06:59 18:59 Intake Total 950 Output Total 280 340 Balance -280 610 Intake: Oral 950 Output: Chest Tube Drainage 130 40 Left Left Pleural/ 130 40 Mediastinal Urine 150 300 Other: Voiding Method Urinal Urinal - Exam PHYSICAL EXAMINATION: Patient is lying in the bed comfortably, no acute distress, awake alert and oriented.. HEENT: Normocephalic. Neck is supple. Pupils reactive. Nostrils clear. Oral cavity is moist. Neck reveals no JVD, carotid bruits, or thyromegaly. CHEST EXAMINATION: Trachea is central. Symmetrical expansion. Minimal left basilar crackles. Air entry improved.. No wheezing or rhonchi. Nonlabored breathing.. CARDIAC: Normal S1, S2 with no gallops. No murmurs ABDOMEN: Soft. Bowel sounds normal. No organomegaly. No abdominal bruits. Extremities: reveal no edema. No clubbing or cyanosis Neurologically awake, alert, oriented x3 with well-coordinated movements. No focal deficits noted Skin: No rash or skin lesions. Psychiatric: Coperative. Nonsuicidal Musculoskeletal: No joint swelling or deformity. Normal range of motion. - Labs CBC & Chem 7: 06/19/21 07:12 06/19/21 07:12 Labs: Abnormal Lab Results - Last 24 Hours (Table) 06/19/21 06/19/21 Range/Units 07:12 07:12 RBC 3.13 L (4.30-5.90) m/uL Hgb 10.1 L (13.0-17.5) gm/dL Hct 32.0 L (39.0-53.0) % MCV 102.1 H (80.0-100.0) fL Sodium 133 L (137-145) mmol/L Assessment and Plan Assessment: Acute left rib fractures 8 and 9 Left-sided 10% pneumothoraxStatus post chest tube placement on 06/16/2021. Left sided pleural effusion with compressive atelectasis/lung contusion. S/p fall while intoxicated Severe alcohol abuse Macrocytic anemia with hemoglobin level 11.7 Mild thrombocytopenia due to alcohol abuse Hypovolemic hyponatremia on admission Hypokalemia DVT prophylaxis Heparin subcu Plan: Patient will be continued pain management, incentive spirometry. Status post chest tube placement due to pneumothorax. Daily 3. Chest has been discontinued on 06/19/2021. Repeat chest x-ray tomorrow. Continue pain management. Monitor for alcohol withdrawal symptoms Pulmonary and CT surgery is on board. Further recommendations based on the clinical course. Follow up closely..
--- NOTE | 2021-06-21 10:04 | P.PN ---
Subjective Progress Note Date: 06/20/21 Patient is a 65-year-old male with a known history of hypertension, osteoarthritis, asthma/COPD, daily alcohol abuse and osteoarthritis presents to ER status post fall 2 days ago while he was going to the bathroom. She bumped onto the marble table at home. Apparently patient states that he was alcohol i ntoxicated at the time. Since the fall patient has been having pain in the left ribs, shoulder and w rist. She did have broken ribs in the past. Denied any loss of consciousness. Denied any hitting his head. Came to the hospital due to pain in his back and on the left side with spasms. Tried over -the-counter pain medications at home without any relief. Denies any complaints of headache. No shortness of breath. Does have chest pain on the left side. No bowel or bladder incontinence. No dysuria or hematuria. Patient has been afebrile. Wrist x-ray showed no fracture or dislocation. Renal/chest x-ray showed small less than 10% left-sided pneumothorax. Acute fracture of left ribs 8 and 9. There is chronic fracture of left rib #7. Remote fracture posterior left rib 10 X-ray of the shoulder showed no evidence of fracture or dislocation. CT head and cervical spine showed no evidence of fracture or subluxation of the cervical spine. CT abdomen pelvis and chest showed multiple left-sided rib fractures 10% pneumothorax left-sided. Left-sided pleural effusion and compressive atelecta sis/contusion. No evidence of traumatic injury to the abdomen or pelvis. 06/17/2021 Patient is currently lying in the bed. Awake alert and oriented. Left-sided chest discomfort is better. Patient is status post chest tube placement on 06/16/2021 Chest tube is draining serosanguineous fluid. Patient is participating in incentive spirometry. No complaints of fever or chills. Shortness of breath is improving. No nausea vomiting or abdominal pain or diarrhea. Blood pressure is elevated and will be started back on home dose of atenolol and also patient is requesting to be started on trazodone which he takes at home. CT surgery and pulmonary is on board. 06/19/2019 Patient is currently resting in the bed. Awake alert and oriented. Left sided chest pain is better with medications. Encouraged with incentive spirometry. Left pleural chest tube was removed by CT surgery today. Denies any complaints of worsening shortness of breath. No nausea vomiting abdominal pain or diarrhea. Follow-up repeat chest x-ray tomorrow. Patient has been afebrile. Blood pressure is controlled. Laboratory data showed WBC 5.2 hemoglobin 10.1 and platelets 272 sodium 133 potassium 4.3 chloride 106 BUN 49 creatinine 0.76 06/20/2021 Patient is currently ambulating the hallway. No complaints of chest pain. Able to participate in incentive spirometry. No complaints of worsening shortness with. No cough or sputum production. Repeat chest x-ray this morning showed interval removal of left-sided chest tube without pneumothorax bilaterally. No change in the left lung base opacity most likely indicating pleural effusion. Patient has been afebrile. No headache or dizziness or lightheadedness. Pat nt does not require Ativan for alcohol withdrawals. Patient is medically cleared for discharge in the next 24 hours. Current medications reviewed. Objective - Vital Signs Vital signs: Vital Signs Temp 97.7 F 06/20/21 04:59 Pulse 79 06/20/21 12:22 Resp 16 06/20/21 08:35 BP 144/86 06/20/21 08:41 Pulse Ox 99 06/20/21 04:59 Intake & Output 06/19/21 06/20/21 06/20/21 18:59 06:59 18:59 Intake Total 480 1190 360 Output Total 900 1100 Balance -420 90 360 Intake: Oral 480 1190 360 Output: Urine 900 1100 Other: Voiding Method Urinal Urinal Urinal # Voids 5 1 - Exam PHYSICAL EXAMINATION: Patient is lying in the bed comfortably, no acute distress, awake alert and oriented.. HEENT: Normocephalic. Neck is supple. Pupils reactive. Nostrils clear. Oral cavity is moist. Neck reveals no JVD, carotid bruits, or thyromegaly. CHEST EXAMINATION: Trachea is central. Symmetrical expansion. Minimal left basilar crackles. Air entry improved.. No wheezing or rhonchi. Nonlabored breathing.. CARDIAC: Normal S1, S2 with no gallops. No murmurs ABDOMEN: Soft. Bowel sounds normal. No organomegaly. No abdominal bruits. Extremities: reveal no edema. No clubbing or cyanosis Neurologically awake, alert, oriented x3 with well-coordinated movements. No focal deficits noted Skin: No rash or skin lesions. Psychiatric: Coperative. Nonsuicidal Musculoskeletal: No joint swelling or deformity. Normal range of motion. - Labs CBC & Chem 7: 06/19/21 07:12 06/19/21 07:12 Assessment and Plan Assessment: Acute left rib fractures 8 and 9 Left-sided 10% pneumothoraxStatus post chest tube placement on 06/16/2021. Left sided pleural effusion with compressive atelectasis/lung contusion. S/p fall while intoxicated Severe alcohol abuse Macrocytic anemia with hemoglobin level 11.7 Mild thrombocytopenia due to alcohol abuse Hypovolemic hyponatremia on admission Hypokalemia DVT prophylaxis Heparin subcu Plan: Patient will be continued pain management, incentive spirometry. Status post chest tube placement due to pneumothorax. Chest has been discontinued on 06/19/2021. Follow-up chest x-ray showed no pneumothorax. Continue pain management. Monitor for alcohol withdrawal symptoms Pulmonary and CT surgery is on board. Patient is stable to be discharged home in the next 24 hours...
[2021-06-21 14:33] VITALS: BP 130/76; PULSE 77; RESP 17; TEMP 98.9
--- NOTE | 2021-06-21 15:37 | P.DS ---
Providers Date of admission: 06/15/21 15:02 Expected date of discharge: 06/21/21 Attending physician: Sukumar Almodovar Consults: 06/15/21 12:20 Consult Physician Routine Consulting Provider: Ezequiel Arroyo Consult Reason/Comments: Pneumothorax, rib fractures Do you want consulting provider notified?: Yes 06/15/21 12:25 Consult Physician Routine Consulting Provider: Juan Burgess Consult Reason/Comments: Pneumothorax, rib fractures Do you want consulting provider notified?: Yes 06/15/21 12:28 Consult to Anesthesia Routine Consulting Provider: Anesthesia,Services Consult Reason/Comments: Rib fracture 06/15/21 15:26 Consult Physician Routine Consulting Provider: Mellisa Medeiros Consult Reason/Comments: medical managment Do you want consulting provider notified?: Yes Primary care physician: Caterina Riggshever [facility] Course: Discharge diagnosis 1. Traumatic fall 2. Rib pain with acute fracture to left ribs 8 and 9, possible rib 7 as seen on chest x-ray 3. 10% left-sided pneumothorax 4. Left-sided hemothorax status post chest tube placement 5. History of previous fall with rib fractures 6. Left lower quadrant abdominal pain improved 7. Alcohol abuse 8. History of asthma 9. History of hypertension 10. Depression and bipolar disorder Hospital course This is 65-year-old male with a history of alcohol abuse who reported to the emergency department this morning around 11 AM after sustaining a fall onto marble table approximately 2 days ago. Since the fall he has been having pain to his left ribs and abdomen, left shoulder and left wrist. He was recently evaluated for previous fall and broken ribs as well. The patient has multiple comorbidities including asthma, rash hypertension, depression, bipolar disorder. Patient states he's been very depressed and has been drinking water up to 1/5 a day. He states he has had a poor appetite. He is currently denying any shortness of breath or difficulty with breathing. He states he was getting up to go to the bathroom and was in a hurry and foul. He does not believe he had loss of consciousness, and denies hitting his head. He denies any blood thinners. States he has been urinating normal and no blood seen. Patient did develop a left-sided hemothorax and required chest tube placement by Dr. Junior. Patient's chest tube was removed over the weekend. Repeat chest x-ray shows no evidence of pneumothorax. Patient has been cleared by cardiothoracic team and pulmonary service. Patient's pain is controlled. He is up and ambulating. He is tolerating diet. He is afebrile. He is stable for discharge. Please refer to chart for any further details. Patient educated to refrain from alcohol use. Physician Benefits Assistant note has been reviewed by physician. Signing provider agrees with the documented findings, assessment, and plan of care. Patient Condition at Discharge: Stable Plan - Discharge Summary Discharge Rx Participant: No New Discharge Prescriptions: New Docusate [Colace] 100 mg PO BID #30 capsule HYDROcodone/APAP 7.5-325MG [[place] 7.5-325] 1 tab PO Q6HR PRN 3 Days #12 tab PRN Reason: Pain Thiamine [Vitamin B-1] 100 mg PO DAILY #30 tab Continue atenoloL 100 mg PO DAILY 30 Days tab amLODIPine [Norvasc] 10 mg PO DAILY 30 Days #30 tab Budesonide/Formoterol Fumarate [Symbicort 160-4.5 Mcg Inhaler] 2 puff INHALATION RT-BID Albuterol Inhaler [Ventolin Hfa Inhaler] 1 - 2 puff INHALATION RT-Q6H PRN PRN Reason: Shortness Of Breath ePHEDrine sulfate [Bronkaid Max] 25 mg PO Q6H PRN PRN Reason: Shortness Of Breath Naproxen Sodium [Aleve] 220 mg PO BID PRN PRN Reason: Pain Discharge Medication List amLODIPine [Norvasc] 10 mg PO DAILY 30 Days #30 tab 05/26/20 [Rx] atenoloL 100 mg PO DAILY 30 Days tab 05/26/20 [Rx] Albuterol Inhaler [Ventolin Hfa Inhaler] 1 - 2 puff INHALATION RT-Q6H PRN 06/15/21 [History] Budesonide/Formoterol Fumarate [Symbicort 160-4.5 Mcg Inhaler] 2 puff INHALATION RT-BID 06/15/21 [History] Naproxen Sodium [Aleve] 220 mg PO BID PRN 06/15/21 [History] ePHEDrine sulfate [Bronkaid Max] 25 mg PO Q6H PRN 06/15/21 [History] Docusate [Colace] 100 mg PO BID #30 capsule 06/21/21 [Rx] HYDROcodone/APAP 7.5-325MG [[place] 7.5-325] 1 tab PO Q6HR PRN 3 Days #12 tab 06/21/21 [Rx] Thiamine [Vitamin B-1] 100 mg PO DAILY #30 tab 06/21/21 [Rx] Follow up Appointment(s)/Referral(s): Gerber Vargas NPC [Nurse Practitioner] - 06/28/21 2:30 pm Caterina Chand MD [Primary Care Provider] - 07/07/21 3:30 pm Patient Instructions/Handouts: Hydrocodone/Acetaminophen (By mouth), Laxative, Stool Softeners (By mouth), Traumatic Pneumothorax (DC), Rib Fracture (DC), At- Risk Alcohol Use (DC) Activity/Diet/Wound Care/Special Instructions: DISCHARGE INSTRUCTIONS: 1. No driving for 2 weeks, or until physician gives their ok. 2. No lifting, pushing, or pulling more than 10 pounds for 2 weeks. The physician will advise of any restriction changes. 3. Continue pain control per as needed orders. ibuprofen (Motrin/Advil) as needed for pain. 4. Continue with incentive spirometry and splinting until otherwise directed by the physician. 5. Leave chest tube dressing for 48 hours. After that, remove all dressings and shower daily. 6. Routine incision care. No powders, lotions, ointments on incisions. 7. Please call surgeon/COIL TESTER for temp greater than 101 F or purulent drainage from incisions. No driving while taking [place] Discharge/Stand Alone Forms: AA Meetings [place], Who Do I Call?, Community Resources Discharge Disposition: HOME SELF-CARE
--- NOTE | 2021-06-22 12:06 | CDI ---
Documentation Clarification Form Date: 06/22/2021 11:56:38 AM From: Greg Alegre Admit Date: 06/15/2021 03:02:00 PM Patient Name: Russell Arora Visit Number: [id number] Discharge Date: 06/21/2021 04:05:00 PM ATTENTION: The Clinical Documentation Specialists (CDI) and [facility] Coding Staff appreciate your assistance in clarifying documentation. Please respond to the clarification below the line at the bottom and electronically sign. The CDI & [facility] Coding staff will review the response and follow-up if needed. Please note: Queries are made part of the Legal Health Record. If you have any questions, please contact the author of this message via ITS. Dr. Sukumar Almodovar Possible flail chest is noted in the ED notes, H+P, consult 06/15 and in progress notes 06/17-06/19. It is not mentioned after that or in the discharge summary. We need to know if this diagnosis was ruled out or confirmed and treated. History/Risk Factors: traumatic pneumohemothorax, multiple rib fractures, atelectasis Clinical Indicators: CXR 06/15: cannot exclude flail chest Treatment: L chest tube Please clarify if flail chest is: [ x ] flail chest confirmed and under treatment [ ] flail chest confirmed and resolved [ ] flail chest ruled out [ ] Other condition, please specify [ ] Unable to determine MTDD
--- NOTE | 2021-06-22 14:47 | P.PN ---
Subjective Progress Note Date: 06/21/21 Patient is a 65-year-old male with a known history of hypertension, osteoarthritis, asthma/COPD, daily alcohol abuse and osteoarthritis presents to ER status post fall 2 days ago while he was going to the bathroom. She bumped onto the marble table at home. Apparently patient states that he was alcohol intoxicated at the time. Since the fall patient has been having pain in the left ribs, shoulder and wrist. She did have broken ribs in the past. Denied any loss of consciousness. Denied any hitting his head. Came to the hospital due to pain in his back and on the left side with spasms. Tried ove [id number] pain medications at home without any relief. Denies any complaints of headache. No shortness of breath. Does have chest pain on the left side. No bowel or bladder incontinence. No dysuria or hematuria. Patient has been afebrile. Wrist x-ray showed no fracture or dislocation. Renal/chest x-ray showed small less than 10% left-sided pneumothorax. Acute fracture of left ribs 8 and 9. There is chronic fracture of left rib #7. Remote fracture posterior left rib 10 X-ray of the shoulder showed no evidence of fracture or dislocation. CT head and cervical spine showed no evidence of fracture or subluxation of the cervical spine. CT abdomen pelvis and chest showed multiple left-sided rib fractures 10% pneumothorax left-sided. Left-sided pleural effusion and compressive atelect asis/contusion. No evidence of traumatic injury to the abdomen or pelvis. 06/17/2021 Patient is currently lying in the bed. Awake alert and oriented. Left-sided chest discomfort is better. Patient is status post chest tube placement on 06/16/2021 Chest tube is draining serosanguineous fluid. Patient is participating in incentive spirometry. No complaints of fever or chills. Shortness of breath is improving. No nausea vomiting or abdominal pain or diarrhea. Blood pressure is elevated and will be started back on home dose of atenolol and also patient is requesting to be started on trazodone which he takes at home. CT surgery and pulmonary is on board. 06/18/2021 Patient is seen and evaluated today with no acute overnight issues noted. Patient continues with left side chest tube and changing over to wet seal with close monitoring and follow up chest xray ordered for tomorrow. Pulmonary and CT surgery following and will continue chest tube for now. Chest xray today shows known left side rib fractures, multiple with left chest tube noted and no appreciable pneumothorax noted. , left basilar opacity is relatively similar to previous and no significant pleural effusion seen on lateral view. Patient is on room air and has been up and walking. Patient is afebrile. Minor discomfort at the site of the chest tube but states he is receiving adequate pain medications. Continue CIWA as well as needed. Hemoglobin stable at 9.6 06/19/2019 Patient is currently resting in the bed. Awake alert and oriented. Left sided chest pain is better with medications. Encouraged with incentive spirometry. Left pleural chest tube was removed by CT surgery today. Denies any complaints of worsening shortness of breath. No nausea vomiting abdominal pain or diarrhea. Follow-up repeat chest x-ray tomorrow. Patient has been afebrile. Blood pressure is controlled. Laboratory data showed WBC 5.2 hemoglobin 10.1 and platelets 272 sodium 133 potassium 4.3 chloride 106 BUN 49 creatinine 0.76 06/20/2021 Patient is currently ambulating the hallway. No complaints of chest pain. Able to participate in incentive spirometry. No complaints of worsening shortness with. No cough or sputum production. Repeat chest x-ray this morning showed interval removal of left-sided chest tube without pneumothorax bilaterally. No change in the left lung base opacity most likely indicating pleural effusion. Patient has been afebrile. No headache or dizziness or lightheadedness. Patient does not require Ativan for alcohol withdrawals. Patient is medically cleared for discharge in the next 24 hours. 06/21/2021 Patient is seen this morning in follow-up and is status post chest tube removal of the left side with CT surgery and general surgery following closely. Patient had follow-up chest x-ray yesterday which showed interval removal of left-sided chest tube without pneumothorax bilaterally and no change in the left lung base opacification most likely indicating pleural effusion. Patient is maintained on incentive spirometer and encourage the patient to continue using at least every hour 10 times while awake. Patient has been walking the halls and denies any chest pain or shortness of breath. Patient continues to be maintained on CIWA although not requiring any Ativan. Patient anticipates being discharged today after being evaluated by surgery. She states he would like to go home. Review of systems: Constitutional: No reports of fatigue, fever, or chills Cardiovascular: No reports of chest pain or palpitations Respiratory: No reports of shortness of breath or cough GI: No reports of nausea, vomiting, or diarrhea : No reports of dysuria or retention Neurovascular: No reports of weakness or numbness All medications have been reviewed Active Medications Hydrocodone Bitart/Acetaminophen (Hydrocodone/Apap 7.5-325mg 1 Each Tab) 1 each PO Q6HR PRN PRN Reason: Moderate Pain Last Admin: 06/21/21 07:51 Dose: 1 each Documented by: Albuterol Sulfate (Albuterol Nebulized 2.5 Mg/3 Ml) 2.5 mg INHALATION RT-QID PRN PRN Reason: Shortness Of Breath Or Wheezing Last Admin: 06/21/21 12:06 Dose: 2.5 mg Documented by: Amlodipine Besylate (Amlodipine 10 Mg Tab) 10 mg PO DAILY [facility] Last Admin: 06/21/21 07:51 Dose: 10 mg Documented by: Atenolol (Atenolol 50 Mg Tab) 100 mg PO DAILY [facility] Last Admin: 06/21/21 07:51 Dose: 100 mg Documented by: Budesonide/Formoterol Fumarate (Symbicort 160-4.5 Mcg Inhaler) 2 puff INHALATION RT-BID [facility] Last Admin: 06/21/21 08:15 Dose: 2 puff Documented by: Docusate Sodium (Docusate 100 Mg Cap) 100 mg PO BID [facility] Last Admin: 06/21/21 07:51 Dose: 100 mg Documented by: Heparin Sodium (Porcine) (Heparin Sodium,Porcine/Pf 5,000 Unit/0.5 Ml Syringe) 5,000 unit SQ Q8HR [facility] Last Admin: 06/21/21 07:51 Dose: 5,000 unit Documented by: Lorazepam (Lorazepam 2 Mg/Ml Inj) 1 mg IV Q2HR PRN PRN Reason: CIWA 8 or 9 Last Admin: 06/15/21 15:07 Dose: 1 mg Documented by: Lorazepam (Lorazepam 2 Mg/Ml Inj) 1 mg IV Q1HR PRN PRN Reason: CIWA 10 to 15 Morphine Sulfate (Morphine Sulfate 4 Mg/Ml Syringe) 4 mg IV Q4HR PRN PRN Reason: Severe Pain Last Admin: 06/18/21 09:46 Dose: 4 mg Documented by: Naloxone HCl (Naloxone 0.4 Mg/Ml 1 Ml Vial) 0.2 mg IV Q2M PRN PRN Reason: Opioid Reversal Ondansetron HCl (Ondansetron 4 Mg/2 Ml Vial) 4 mg IVP Q8HR PRN PRN Reason: Nausea And Vomiting Thiamine HCl (Thiamine 100 Mg Tab) 100 mg PO BID-W/MEALS [facility] Last Admin: 06/21/21 07:51 Dose: 100 mg Documented by: Trazodone HCl (Trazodone Hcl 50 Mg Tab) 150 mg PO HS [facility] Last Admin: 06/20/21 22:27 Dose: 150 mg Documented by: PHYSICAL EXAMINATION: Patient is sitting up in the bed comfortably, no acute distress, awake alert and oriented.. HEENT: Normocephalic. Neck is supple. Pupils reactive. Nostrils clear. Oral cavity is moist. Neck reveals no JVD, carotid bruits, or thyromegaly. CHEST EXAMINATION: Trachea is central. Symmetrical expansion. Minimal left basilar crackles. Air entry improved. Chest tubes has been removed CARDIAC: Normal S1, S2 with no gallops. No murmurs ABDOMEN: Soft. Bowel sounds normal. No organomegaly. No abdominal bruits. Extremities: reveal no edema. No clubbing or cyanosis Neurologically awake, alert, oriented x3 with well-coordinated movements. No focal deficits noted Skin: No rash or skin lesions. Psychiatric: Cooperative. Non-suicidal Musculoskeletal: No joint swelling or deformity. Normal range of motion. Assessment: Acute left rib fractures 8 and 9 Left-sided 10% pneumothorax Status post chest tube placement on 06/16/2021. Left sided pleural effusion with compressive atelectasis/lung contusion. S/p fall while intoxicated Severe alcohol abuse Macrocytic anemia Mild thrombocytopenia due to alcohol abuse Hypovolemic hyponatremia on admission Hypokalemia DVT prophylaxis Heparin subcu Full code Plan: Patient will be continued pain management, incentive spirometry. Status post chest tube placement due to pneumothorax.. Patient had chest tube removed yesterday and repeat chest x-ray showing no evidence of pneumothorax bilaterally and patient is maintained on room air maintaining oxygen saturations above 95% and denies any chest pain or shortness of breath. Patient continues with incentive spirometer and encourage the patient to continue using at least 10 times every hour while awake. CT surgery following along with general surgery and patient anticipates being discharged today. Will continue to follow along during hospitalization and would like to thank you for this consultation. Objective - Vital Signs Vital signs: Vital Signs Temp 98.6 F 06/21/21 04:34 Pulse 84 06/21/21 08:27 Resp 16 06/21/21 04:34 BP 152/90 06/21/21 07:41 Pulse Ox 97 06/21/21 04:34 Intake & Output 06/20/21 06/21/21 06/21/21 18:59 06:59 18:59 Intake Total 720 Output Total 600 Balance 720 -600 Intake: Oral 720 Output: Urine 600 Other: Voiding Method Urinal Toilet Urinal # Voids 4 3 - Labs CBC & Chem 7: 06/19/21 07:12 06/19/21 07:12
== END 2021-06-21 16:05 | disposition home or self-care (01) | DRG 199 ==
LOC: EC 10:30 → 5NMEDONC 15:02
PROVIDERS: ADMIT Surgery; ATTEND Surgery
PROC: 0W9B30Z Drainage of Left Pleural Cavity with Drainage Device, Percutaneous Approach (ICD-10-PCS; principal; 2021-06-16 09:10)
DX: S27.2XXA Traumatic hemopneumothorax, initial encounter (principal); S22.5XXA Flail chest, initial encounter for closed fracture; S27.329A Contusion of lung, unspecified, initial encounter; E87.1 Hypo-osmolality and hyponatremia; J90 Pleural effusion, not elsewhere classified; J98.11 Atelectasis; M25.512 Pain in left shoulder; D53.9 Nutritional anemia, unspecified; D69.59 Other secondary thrombocytopenia; F10.229 Alcohol dependence with intoxication, unspecified; E86.1 Hypovolemia; E87.6 Hypokalemia; F31.9 Bipolar disorder, unspecified; F41.9 Anxiety disorder, unspecified; I10 Essential (primary) hypertension; J44.9 Chronic obstructive pulmonary disease, unspecified; Z20.822 Contact with and (suspected) exposure to COVID-19; M19.90 Unspecified osteoarthritis, unspecified site; W18.30XA Fall on same level, unspecified, initial encounter; Y92.009 Unspecified place in unspecified non-institutional (private) residence as the place of occurrence of the external cause; Z79.51 Long term (current) use of inhaled steroids; Z79.899 Other long term (current) drug therapy; Z82.49 Family history of ischemic heart disease and other diseases of the circulatory system; Z87.891 Personal history of nicotine dependence; Z90.49 Acquired absence of other specified parts of digestive tract; Z91.81 History of falling; Z96.652 Presence of left artificial knee joint
CPT/HCPCS: 36415; 64999; 70450; 71045; 71046; 71260; 72125; 74177; 80048; 80053; 80320; 81001; 85025; 85027; 85610; 85730; 87635; 93005; 94640; 96372; 99285

== ENCOUNTER → 2022-09-30 | Outpatient (CLI) | payer MEDICARE, OTHER ==
--- NOTE | 2022-09-30 10:23 | XR ---
EXAMINATION TYPE: XR wrist limited RT DATE OF EXAM: 09/30/2022 COMPARISON: NONE HISTORY: 67-year-old male M79.89, right hand swelling TECHNIQUE: 2 views FINDINGS: There is widening of the scapholunate interval 4.7 mm. [id number] degenerative change at the radioscaphoid joint. Loose bodies here measure up to 6 mm. Additional scattered loose bodies dors al and volar aspect of the wrist. TFC calcifications may reflect CPPD. Additional [id number] degene rative change mid carpal compartment between the lunate and capitate. No acute fracture or dislocatio n. IMPRESSION: Loki SLAC wrist with multiple loose bodies. Possibly due to CPPD.
== END | disposition home or self-care (01) ==
LOC: RADXRMAIN 08:47
PROVIDERS: ATTEND Family Medicine
DX: M24.031 Loose body in right wrist (principal); M79.89 Other specified soft tissue disorders

== ENCOUNTER 2023-04-14 03:47 | Inpatient (IN) | payer MEDICARE, OTHER ==
--- NOTE | 2023-04-14 04:11 | ED ---
SOB HPI - General Chief Complaint: Shortness of Breath Stated Complaint: SOB Time Seen by Provider: 04/14/23 04:06 Source: EMS Mode of arrival: EMS - History of Present Illness Initial Comments: This patient is 67-year-old man who presents to have evaluation of shortness of breath. The patient currently at [facility] where he had gone to stop drinking. States that he was drinking about a fifth per day last drink on Monday. The patient states that yesterday afternoon and evening he had been coughing and he felt like his asthma was flaring up. He was having wheezing. Patient did have albuterol but didn't seem to be helping much. He states that he went to bed and when he woke up to go use the bathroom he felt felt like he was unable to breathe. They called EMS and transported him here. He did have nebulized albuterol for transportation but states not feeling much better. Patient has not noted fever or chills. No chest pain. No diaphoresis, nausea or vomiting. No leg pain or swelling no change in urination or bowel movements MD Complaint: shortness of breath, cough -: hour(s) Severity scale (1-10): 0 Consistency: constant Improves With: nothing Worsens With: nothing Known History Of: asthma Associated Symptoms: cough Treatments Prior to Arrival: bronchodilator - Related Data Home Oxygen Therapy: No Home Medications Medication Instructions Recorded Confirmed Albuterol Inhaler [Ventolin Hfa 1 - 2 puff INHALATION RT-Q6H PRN 06/15/21 04/14/23 Inhaler] Ipratropium-Albuterol Nebulize 3 ml INHALATION RT-Q6H PRN 04/14/23 04/14/23 [Duoneb 0.5 mg-3 mg/3 ml Soln] Montelukast [Singulair] 10 mg PO DAILY 04/14/23 04/14/23 traZODone HCL [Desyrel] 100 mg PO HS 04/14/23 04/14/23 Previous Rx's Medication Instructions Recorded amLODIPine [Norvasc] 10 mg PO DAILY 30 Days #30 tab 05/26/20 atenoloL 100 mg PO DAILY 30 Days tab 05/26/20 predniSONE 60 mg PO DAILY #30 tab 04/14/23 Acetaminophen Tab [Tylenol] 650 mg PO Q4HR PRN tab 04/18/23 Budesonide-Formot 160-4.5 Mcg 2 puff INHALATION RT-BID 30 Days 04/18/23 [Symbicort 160-4.5 Mcg Inhaler] #1 each Ipratropium-Albuterol Nebulize 3 ml INHALATION RT-QID #100 each 04/18/23 [Duoneb 0.5 mg-3 mg/3 ml Soln] Thiamine [Vitamin B-1] 100 mg PO DAILY #30 tab 04/18/23 guaiFENesin [Mucinex] 600 mg PO Q12HR 10 Days #20 tab 04/18/23 Allergies Allergy/AdvReac Type Severity Reaction Status Date / Time No Known Allergies Allergy Verified 04/14/23 09:21 Review of Systems ROS Statement: Those systems with pertinent positive or pertinent negative responses have been documented in the HPI. ROS Other: All systems not noted in ROS Statement are negative. Constitutional: Denies: fever, chills Respiratory: Reports: cough, dyspnea, wheezes. Denies: hemoptysis Cardiovascular: Denies: chest pain, palpitations, orthopnea, edema, syncope Gastrointestinal: Denies: abdominal pain, nausea, vomiting, diarrhea Genitourinary: Denies: dysuria, hematuria Musculoskeletal: Denies: back pain Skin: Denies: rash Neurological: Denies: headache, weakness Past Medical History Past Medical History: Asthma, Hypertension, Osteoarthritis (OA) Additional Past Medical History / Comment(s): ETOH abuse/pt states his hands will tremble sometimes if he has gone without drinking, last alcoholic beverage was 06/13/21, past fall with multiple L rib fractures, anemia, gastritis, diverticular disease, benign colon polyps, bronchitis History of Any Multi-Drug Resistant Organisms: None Reported Past Surgical History: Appendectomy, Joint Replacement Additional Past Surgical History / Comment(s): left knee replacement, ORIF rt ankle Past Anesthesia/Blood Transfusion Reactions: No Reported Reaction Past Psychological History: Anxiety, Depression Smoking Status: Former smoker Past Alcohol Use History: Abuse, Daily, Heavy Past Drug Use History: None Reported - Past Family History Mother Family Medical History: No Reported History Additional Family Medical History / Comment(s): . Father Family Medical History: Hypertension Additional Family Medical History / Comment(s): Father is alive at age 90 with history of hypertension. Brother(s) Additional Family Medical History / Comment(s): . General Exam General appearance: alert, in no apparent distress Head exam: Present: atraumatic, normocephalic Eye exam: Present: normal appearance. Absent: scleral icterus, conjunctival injection Neck exam: Present: normal inspection, full ROM Respiratory exam: Present: wheezes. Absent: rales, rhonchi, stridor, accessory muscle use, decreased breath sounds Cardiovascular Exam: Present: normal rhythm, tachycardia, normal heart sounds. Absent: systolic murmur, diastolic murmur, rubs, gallop GI/Abdominal exam: Present: soft. Absent: distended, tenderness, guarding, rebound, rigid, mass Extremities exam: Present: normal inspection, normal capillary refill. Absent: pedal edema, calf tenderness Back exam: Present: normal inspection. Absent: CVA tenderness (R), CVA tenderness (L) Neurological exam: Present: alert Skin exam: Present: warm, dry, intact, normal color. Absent: rash Course Vital Signs 04/14/23 04/14/23 04/14/23 03:48 04:20 05:00 Temperature 98.0 F Pulse Rate 118 H 90 111 H Respiratory 22 22 20 Rate Blood Pressure 204/124 163/93 157/86 O2 Sat by Pulse 90 L 94 L 95 Oximetry Fraction of Inspired Oxygen (FIO2) 04/14/23 04/14/23 04/14/23 05:05 05:14 06:00 Temperature Pulse Rate 109 H 111 H 98 Respiratory 20 Rate Blood Pressure 140/90 O2 Sat by Pulse 95 Oximetry Fraction of Inspired Oxygen (FIO2) 04/14/23 04/14/23 04/14/23 08:04 08:14 08:45 Temperature Pulse Rate 106 H 102 H 125 H Respiratory 24 Rate Blood Pressure 159/117 O2 Sat by Pulse 80 L Oximetry Fraction of Inspired Oxygen (FIO2) 04/14/23 04/14/23 04/14/23 08:47 09:07 09:20 Temperature Pulse Rate 118 H 109 H 112 H Respiratory 22 20 22 Rate Blood Pressure 158/97 148/88 O2 Sat by Pulse 92 L 92 L 91 L Oximetry Fraction of Inspired Oxygen (FIO2) 04/14/23 04/14/23 04/14/23 10:26 10:30 10:35 Temperature Pulse Rate 115 H 110 H 112 H Respiratory 18 Rate Blood Pressure 150/95 O2 Sat by Pulse 92 L Oximetry Fraction of 50 Inspired Oxygen (FIO2) 04/14/23 04/14/23 11:29 11:30 Temperature Pulse Rate 105 H Respiratory 18 Rate Blood Pressure 156/94 O2 Sat by Pulse 97 91 L Oximetry Fraction of 40 Inspired Oxygen (FIO2) Medical Decision Making - Medical Decision Making The patient had chest x-ray which I interpreted as negative for acute infiltrate, pneumothorax, congestive heart failure Was pt. sent in by a medical professional or institution (, [facility], CLIENT DELIVERY MANAGER, urgent care, hospital, or group home...) When possible be specific @ -[No] Did you speak to anyone other than the patient for history (EMS, parent, family, police, friend...)? What history was obtained from this source @ -[No] Did you review nursing and triage notes (agree or disagree)? Why? @ -[I reviewed and agree with nursing and triage notes] Were old charts reviewed (outside hosp., previous admission, EMS record, old EKG, old radiological studies, urgent care reports/EKG's, group home records)? Report findings @ -[No old charts were reviewed] Differential Diagnosis (chest pain, altered mental status, abdominal pain women, abdominal pain men, vaginal bleeding, weakness, fever, dyspnea, syncope, headache, dizziness, GI bleed, back pain, seizure, CVA, palpatations, mental health, musculoskeletal)? @ -[Differential Dyspnea: Coronary syndrome, arrhythmia, tamponade, asthma, COPD, pulmonary embolism, pneumonia, pneumothorax, pulmonary effusion, anaphylaxis, diabetic ketoacidosis, flailed chest, pulmonary contusion, diaphragmatic rupture, anemia, neuromuscular, this is not meant to be an all-inclusive list. EKG interpreted by me (3pts min.). @ -[I interpreted As above] X-rays interpreted by me (1pt min.). @ -[Interpreted as above CT interpreted by me (1pt min.). @ -[None done] U/S interpreted by me (1pt. min.). @ -[None done] What testing was considered but not performed or refused? (CT, X-rays, U/S, labs)? Why? @ -[None] What meds were considered but not given or refused? Why? @ -[None] Did you discuss the management of the patient with other professionals (professionals i.e. , PA, CLIENT DELIVERY MANAGER, lab, RT, psych nurse, social scientist, dictaphone typist, teacher, business services officer, correctional case manager)? Give summary @ -[Case discussed with admitting physician and treatment recommendations are incorporated Was smoking cessation discussed for >3mins.? @ -[No] Was critical care preformed (if so, how long)? @ -[No] Were there social determinants of health that impacted care today? How? (Homelessness, low income, unemployed, alcoholism, drug addiction, transportation, low edu. Level, literacy, decrease access to med. care, skilled nursing, rehab)? @ -[No] Was there de-escalation of care discussed even if they declined (Discuss DNR or withdrawal of care, Hospice)? DNR status @ -[No] What co-morbidities impacted this encounter? (DM, HTN, Smoking, COPD, CAD, Cancer, CVA, ARF, Chemo, Hep., AIDS, mental health diagnosis, sleep apnea, morbid obesity)? @ -[Asthma, alcohol withdrawal Was patient admitted / discharged? Hospital course, mention meds given and route, prescriptions, significant lab abnormalities, going to OR and other pertinent info. @ -[This patient is a 67-year-old man sent here from [facility] to have evaluation of dyspnea. The patient has history of asthma and the history and exam findings are consistent with this. Patient is given multiple treatments still having some dyspnea. The patient is admitted to have further treatment as well as pulmonology consultation. Undiagnosed new problem with uncertain prognosis? @ -[No] Drug Therapy requiring intensive monitoring for toxicity (Heparin, Nitro, Insulin, Cardizem)? @ -[No] Were any procedures done? @ -[No] Diagnosis/symptom? @ -[d acute dyspnea Acute asthma exacerbation Alcohol withdrawal syndrome Acute, or Chronic, or Acute on Chronic? @ -[Acute Uncomplicated (without systemic symptoms) or Complicated (systemic symptoms)? @ -[Complicated by dyspnea Side effects of treatment? @ -[No] Exacerbation, Progression, or Severe Exacerbation? @ -[. Exacerbation of asthma Poses a threat to life or bodily function? How? (Chest pain, [place], [place], pneumonia, PE, COPD, DKA, ARF, appy, cholecystitis, CVA, Diverticulitis, Homicidal, Suicidal, threat to staff... and all critical care pts) @ -[Yes there is small risk of 13 life, alcohol withdrawal caries significant morbidity mortality and asthma exacerbations may progress to respiratory failure. - Lab Data Result diagrams: 04/18/23 04:22 04/18/23 04:22 Lab Results 04/14/23 04/14/23 04/14/23 Range/Units 04:11 04:11 04:11 WBC 5.7 (3.8-10.6) k/uL RBC 3.78 L (4.30-5.90) m/uL Hgb 12.3 L (13.0-17.5) gm/dL Hct 38.4 L (39.0-53.0) % MCV 101.4 H (80.0-100.0) fL MCH 32.6 (25.0-35.0) pg MCHC 32.2 (31.0-37.0) g/dL RDW 15.4 (11.5-15.5) % Plt Count 129 L (150-450) k/uL MPV 8.8 Neutrophils % (Manual) 48 % Lymphocytes % (Manual) 40 % Monocytes % (Manual) 6 % Eosinophils % (Manual) 6 % Neutrophils # (Manual) 2.74 (1.3-7.7) k/uL Lymphocytes # (Manual) 2.28 (1.0-4.8) k/uL Monocytes # (Manual) 0.34 (0-1.0) k/uL Eosinophils # (Manual) 0.34 (0-0.7) k/uL Nucleated RBCs 0 (0-0) /100 WBC Manual Slide Review Performed Hypochromasia Slight Poikilocytosis (manual Present Macrocytosis Slight PT 10.0 (10.0-12.5) sec INR 0.9 (<1.2) APTT 20.3 L (22.0-30.0) sec D-Dimer (<0.60) mg/L FEU Sodium 139 (137-145) mmol/L Potassium 3.7 (3.5-5.1) mmol/L Chloride 102 (98-107) mmol/L Carbon Dioxide 26 (22-30) mmol/L Anion Gap 11 mmol/L BUN 15 (9-20) mg/dL Creatinine 0.82 (0.66-1.25) mg/dL Est GFR (CKD-EPI)AfAm >90 (>60 ml/min/1.73 sqM) Est GFR (CKD-EPI)NonAf >90 (>60 ml/min/1.73 sqM) Glucose 124 H (74-99) mg/dL Plasma Lactic Acid [place] (0.7-2.0) mmol/L Calcium 9.0 (8.4-10.2) mg/dL Magnesium 1.7 (1.6-2.3) mg/dL Total Bilirubin 0.6 (0.2-1.3) mg/dL AST 136 H (17-59) U/L ALT 109 H (4-49) U/L Alkaline Phosphatase 52 (38-126) U/L Troponin I (0.000-0.034) ng/mL NT-Pro-B Natriuret Pep 200 pg/mL Total Protein 7.3 (6.3-8.2) g/dL Albumin 4.4 (3.5-5.0) g/dL Urine Color Urine Appearance (Clear) Urine pH (5.0-8.0) Ur Specific [place] (1.001-1.035) Urine Protein (Negative) Urine Glucose (UA) (Negative) Urine Ketones (Negative) Urine Blood (Negative) Urine Nitrite (Negative) Urine Bilirubin (Negative) Urine Urobilinogen (<2.0) mg/dL Ur Leukocyte Esterase (Negative) Influenza Type A (PCR) (Not Detectd) Influenza Type B (PCR) (Not Detectd) RSV (PCR) (Not Detectd) SARS-CoV-2 (PCR) (Not Detectd) 04/14/23 04/14/23 04/14/23 Range/Units 04:11 04:11 04:11 WBC (3.8-10.6) k/uL RBC (4.30-5.90) m/uL Hgb (13.0-17.5) gm/dL Hct (39.0-53.0) % MCV (80.0-100.0) fL MCH (25.0-35.0) pg MCHC (31.0-37.0) g/dL RDW (11.5-15.5) % Plt Count (150-450) k/uL MPV Neutrophils % (Manual) % Lymphocytes % (Manual) % Monocytes % (Manual) % Eosinophils % (Manual) % Neutrophils # (Manual) (1.3-7.7) k/uL Lymphocytes # (Manual) (1.0-4.8) k/uL Monocytes # (Manual) (0-1.0) k/uL Eosinophils # (Manual) (0-0.7) k/uL Nucleated RBCs (0-0) /100 WBC Manual Slide Review Hypochromasia Poikilocytosis (manual Macrocytosis PT (10.0-12.5) sec INR (<1.2) APTT (22.0-30.0) sec D-Dimer (<0.60) mg/L FEU Sodium (137-145) mmol/L Potassium (3.5-5.1) mmol/L Chloride (98-107) mmol/L Carbon Dioxide (22-30) mmol/L Anion Gap mmol/L BUN (9-20) mg/dL Creatinine (0.66-1.25) mg/dL Est GFR (CKD-EPI)AfAm (>60 ml/min/1.73 sqM) Est GFR (CKD-EPI)NonAf (>60 ml/min/1.73 sqM) Glucose (74-99) mg/dL Plasma Lactic Acid [place] 1.5 (0.7-2.0) mmol/L Calcium (8.4-10.2) mg/dL Magnesium (1.6-2.3) mg/dL Total Bilirubin (0.2-1.3) mg/dL AST (17-59) U/L ALT (4-49) U/L Alkaline Phosphatase (38-126) U/L Troponin I <0.012 (0.000-0.034) ng/mL NT-Pro-B Natriuret Pep pg/mL Total Protein (6.3-8.2) g/dL Albumin (3.5-5.0) g/dL Urine Color Urine Appearance (Clear) Urine pH (5.0-8.0) Ur Specific [place] (1.001-1.035) Urine Protein (Negative) Urine Glucose (UA) (Negative) Urine Ketones (Negative) Urine Blood (Negative) Urine Nitrite (Negative) Urine Bilirubin (Negative) Urine Urobilinogen (<2.0) mg/dL Ur Leukocyte Esterase (Negative) Influenza Type A (PCR) Not Detected (Not Detectd) Influenza Type B (PCR) Not Detected (Not Detectd) RSV (PCR) Not Detected (Not Detectd) SARS-CoV-2 (PCR) Not Detected (Not Detectd) 04/14/23 04/14/23 Range/Units 05:18 10:50 WBC (3.8-10.6) k/uL RBC (4.30-5.90) m/uL Hgb (13.0-17.5) gm/dL Hct (39.0-53.0) % MCV (80.0-100.0) fL MCH (25.0-35.0) pg MCHC (31.0-37.0) g/dL RDW (11.5-15.5) % Plt Count (150-450) k/uL MPV Neutrophils % (Manual) % Lymphocytes % (Manual) % Monocytes % (Manual) % Eosinophils % (Manual) % Neutrophils # (Manual) (1.3-7.7) k/uL Lymphocytes # (Manual) (1.0-4.8) k/uL Monocytes # (Manual) (0-1.0) k/uL Eosinophils # (Manual) (0-0.7) k/uL Nucleated RBCs (0-0) /100 WBC Manual Slide Review Hypochromasia Poikilocytosis (manual Macrocytosis PT (10.0-12.5) sec INR (<1.2) APTT (22.0-30.0) sec D-Dimer 2.04 H (<0.60) mg/L FEU Sodium (137-145) mmol/L Potassium (3.5-5.1) mmol/L Chloride (98-107) mmol/L Carbon Dioxide (22-30) mmol/L Anion Gap mmol/L BUN (9-20) mg/dL Creatinine (0.66-1.25) mg/dL Est GFR (CKD-EPI)AfAm (>60 ml/min/1.73 sqM) Est GFR (CKD-EPI)NonAf (>60 ml/min/1.73 sqM) Glucose (74-99) mg/dL Plasma Lactic Acid [place] (0.7-2.0) mmol/L Calcium (8.4-10.2) mg/dL Magnesium (1.6-2.3) mg/dL Total Bilirubin (0.2-1.3) mg/dL AST (17-59) U/L ALT (4-49) U/L Alkaline Phosphatase (38-126) U/L Troponin I (0.000-0.034) ng/mL NT-Pro-B Natriuret Pep pg/mL Total Protein (6.3-8.2) g/dL Albumin (3.5-5.0) g/dL Urine Color Colorless Urine Appearance Clear (Clear) Urine pH 7.5 (5.0-8.0) Ur Specific [place] 1.010 (1.001-1.035) Urine Protein Negative (Negative) Urine Glucose (UA) Negative (Negative) Urine Ketones Negative (Negative) Urine Blood Negative (Negative) Urine Nitrite Negative (Negative) Urine Bilirubin Negative (Negative) Urine Urobilinogen <2.0 (<2.0) mg/dL Ur Leukocyte Esterase Negative (Negative) Influenza Type A (PCR) (Not Detectd) Influenza Type B (PCR) (Not Detectd) RSV (PCR) (Not Detectd) SARS-CoV-2 (PCR) (Not Detectd) - EKG Data -: EKG Interpreted by Me EKG shows normal: sinus rhythm (With occasional PVC), axis (Normal), intervals (Normal) Rate: tachycardia (Rate 114 bpm) Interpretation: LVH Disposition Clinical Impression: Status asthmaticus Disposition: ADMITTED IP TO THIS HOSP Condition: Fair Is patient prescribed a controlled substance at d/c from ED?: No
[2023-04-14] MEDS ORDERED: LORazepam 2 MG/ML INJ IV STA (04:16)
[2023-04-14] MEDS ORDERED: NITROGLYCERIN OINT 1 INCH/GM PACKET TOPICAL STA (04:21)
[2023-04-14 04:24] LABS: HCT 38.4 % (39.0-53.0); HGB 12.3 gm/dL (13.0-17.5); Hypochromasia Slight; MCH 32.6 pg (25.0-35.0); MCHC 32.2 g/dL (31.0-37.0); MCV 101.4 fL (80.0-100.0); Macrocytosis Slight; Mean Platelet Volume 8.8; Platelet Count 129 k/uL (150-450); RBC 3.78 m/uL (4.30-5.90); RDW 15.4 % (11.5-15.5); WBC 5.7 k/uL (3.8-10.6)
[2023-04-14 04:32] LABS: ALT 109 U/L (4-49); AST 136 U/L (17-59); African American GFR (CKD) >90 (>60 ml/min/1.73 sqM); Albumin 4.4 g/dL (3.5-5.0); Alkaline Phosphatase 52 U/L (38-126); Anion Gap 11 mmol/L; Blood Urea Nitrogen 15 mg/dL (9-20); Carbon Dioxide 26 mmol/L (22-30); Chloride 102 mmol/L (98-107); Glucose 124 mg/dL (74-99); Magnesium 1.7 mg/dL (1.6-2.3); Non-African American GFR(CKD) >90 (>60 ml/min/1.73 sqM); Potassium 3.7 mmol/L (3.5-5.1); Sodium 139 mmol/L (137-145); Total Bilirubin 0.6 mg/dL (0.2-1.3); Total Protein 7.3 g/dL (6.3-8.2)
[2023-04-14] MEDS ORDERED: ALBUTEROL NEBULIZED 2.5 MG/3 ML INHALATION STA ×2 (04:33→07:20)
[2023-04-14 04:41] LABS: NT-Pro-B-Type Natriuretic Pept 200 pg/mL
[2023-04-14 04:47] LABS: INR 0.9 (<1.2); Partial Thromboplastin Time 20.3 sec (22.0-30.0)
[2023-04-14 05:11] LABS: Eosinophils # (M) 0.34 k/uL (0-0.7); Lymphocytes # (M) 2.28 k/uL (1.0-4.8); Monocytes # (M) 0.34 k/uL (0-1.0); Neutrophils # (M) 2.74 k/uL (1.3-7.7); Neutrophils % (M) 48 %; Nucleated Red Blood Cells 0 /100 WBC (0-0); Poikilocytosis (M) Present; Total Cells Counted 100
[2023-04-14 05:32] LABS: Appearance,Urine Clear (Clear); Bilirubin,Urine Negative (Negative); Blood,Urine Negative (Negative); Color,Urine Colorless; Glucose,Urine (UA) Negative (Negative); Ketones,Urine Negative (Negative); Leukocyte Esterase,Urine Negative (Negative); Nitrite,Urine Negative (Negative); PH, Urine 7.5 (5.0-8.0); Protein,Urine Negative (Negative); Urobilinogen,Urine <2.0 mg/dL (<2.0)
--- NOTE | 2023-04-14 06:54 | XR ---
EXAM: XR Chest, 2 Views CLINICAL HISTORY: difficulty breathing TECHNIQUE: Frontal and lateral views of the chest. COMPARISON: No relevant prior studies available. FINDINGS: Lungs: Unremarkable. No infiltration, atelectasis or mass density. Pleural space: Unremarkable. No pneumothorax. No pleural fluid. Heart: Unremarkable. No cardiomegaly. Mediastinum: Unremarkable. Normal mediastinal contour. Bones/joints: Old left rib fractures. IMPRESSION: No acute findings in the chest.
[2023-04-14] MEDS ORDERED: predniSONE 20 MG TAB PO STA (07:18)
[2023-04-14] MEDS ORDERED: NALOXONE 0.4 MG/ML 1 ML VIAL IVP PRN (08:48)
--- NOTE | 2023-04-14 08:48 | ED ---
Medical Decision Making - Medical Decision Making I was notified by nurse at time of discharge that patient was refusing discharged due to symptoms of distress. He was evaluated at the bedside still significantly wheezy and dyspneic. They become hypoxic. Patient will be admitted for status asthmaticus. - Lab Data Result diagrams: 04/14/23 04:11 04/14/23 04:11 Lab Results 04/14/23 04/14/23 04/14/23 Range/Units 04:11 04:11 04:11 WBC 5.7 (3.8-10.6) k/uL RBC 3.78 L (4.30-5.90) m/uL Hgb 12.3 L (13.0-17.5) gm/dL Hct 38.4 L (39.0-53.0) % MCV 101.4 H (80.0-100.0) fL MCH 32.6 (25.0-35.0) pg MCHC 32.2 (31.0-37.0) g/dL RDW 15.4 (11.5-15.5) % Plt Count 129 L (150-450) k/uL MPV 8.8 Neutrophils % (Manual) 48 % Lymphocytes % (Manual) 40 % Monocytes % (Manual) 6 % Eosinophils % (Manual) 6 % Neutrophils # (Manual) 2.74 (1.3-7.7) k/uL Lymphocytes # (Manual) 2.28 (1.0-4.8) k/uL Monocytes # (Manual) 0.34 (0-1.0) k/uL Eosinophils # (Manual) 0.34 (0-0.7) k/uL Nucleated RBCs 0 (0-0) /100 WBC Manual Slide Review Performed Hypochromasia Slight Poikilocytosis (manual Present Macrocytosis Slight PT 10.0 (10.0-12.5) sec INR 0.9 (<1.2) APTT 20.3 L (22.0-30.0) sec Sodium 139 (137-145) mmol/L Potassium 3.7 (3.5-5.1) mmol/L Chloride 102 (98-107) mmol/L Carbon Dioxide 26 (22-30) mmol/L Anion Gap 11 mmol/L BUN 15 (9-20) mg/dL Creatinine 0.82 (0.66-1.25) mg/dL Est GFR (CKD-EPI)AfAm >90 (>60 ml/min/1.73 sqM) Est GFR (CKD-EPI)NonAf >90 (>60 ml/min/1.73 sqM) Glucose 124 H (74-99) mg/dL Plasma Lactic Acid [place] (0.7-2.0) mmol/L Calcium 9.0 (8.4-10.2) mg/dL Magnesium 1.7 (1.6-2.3) mg/dL Total Bilirubin 0.6 (0.2-1.3) mg/dL AST 136 H (17-59) U/L ALT 109 H (4-49) U/L Alkaline Phosphatase 52 (38-126) U/L Troponin I (0.000-0.034) ng/mL NT-Pro-B Natriuret Pep 200 pg/mL Total Protein 7.3 (6.3-8.2) g/dL Albumin 4.4 (3.5-5.0) g/dL Urine Color Urine Appearance (Clear) Urine pH (5.0-8.0) Ur Specific [place] (1.001-1.035) Urine Protein (Negative) Urine Glucose (UA) (Negative) Urine Ketones (Negative) Urine Blood (Negative) Urine Nitrite (Negative) Urine Bilirubin (Negative) Urine Urobilinogen (<2.0) mg/dL Ur Leukocyte Esterase (Negative) Influenza Type A (PCR) (Not Detectd) Influenza Type B (PCR) (Not Detectd) RSV (PCR) (Not Detectd) SARS-CoV-2 (PCR) (Not Detectd) 04/14/23 04/14/23 04/14/23 Range/Units 04:11 04:11 04:11 WBC (3.8-10.6) k/uL RBC (4.30-5.90) m/uL Hgb (13.0-17.5) gm/dL Hct (39.0-53.0) % MCV (80.0-100.0) fL MCH (25.0-35.0) pg MCHC (31.0-37.0) g/dL RDW (11.5-15.5) % Plt Count (150-450) k/uL MPV Neutrophils % (Manual) % Lymphocytes % (Manual) % Monocytes % (Manual) % Eosinophils % (Manual) % Neutrophils # (Manual) (1.3-7.7) k/uL Lymphocytes # (Manual) (1.0-4.8) k/uL Monocytes # (Manual) (0-1.0) k/uL Eosinophils # (Manual) (0-0.7) k/uL Nucleated RBCs (0-0) /100 WBC Manual Slide Review Hypochromasia Poikilocytosis (manual Macrocytosis PT (10.0-12.5) sec INR (<1.2) APTT (22.0-30.0) sec Sodium (137-145) mmol/L Potassium (3.5-5.1) mmol/L Chloride (98-107) mmol/L Carbon Dioxide (22-30) mmol/L Anion Gap mmol/L BUN (9-20) mg/dL Creatinine (0.66-1.25) mg/dL Est GFR (CKD-EPI)AfAm (>60 ml/min/1.73 sqM) Est GFR (CKD-EPI)NonAf (>60 ml/min/1.73 sqM) Glucose (74-99) mg/dL Plasma Lactic Acid [place] 1.5 (0.7-2.0) mmol/L Calcium (8.4-10.2) mg/dL Magnesium (1.6-2.3) mg/dL Total Bilirubin (0.2-1.3) mg/dL AST (17-59) U/L ALT (4-49) U/L Alkaline Phosphatase (38-126) U/L Troponin I <0.012 (0.000-0.034) ng/mL NT-Pro-B Natriuret Pep pg/mL Total Protein (6.3-8.2) g/dL Albumin (3.5-5.0) g/dL Urine Color Urine Appearance (Clear) Urine pH (5.0-8.0) Ur Specific [place] (1.001-1.035) Urine Protein (Negative) Urine Glucose (UA) (Negative) Urine Ketones (Negative) Urine Blood (Negative) Urine Nitrite (Negative) Urine Bilirubin (Negative) Urine Urobilinogen (<2.0) mg/dL Ur Leukocyte Esterase (Negative) Influenza Type A (PCR) Not Detected (Not Detectd) Influenza Type B (PCR) Not Detected (Not Detectd) RSV (PCR) Not Detected (Not Detectd) SARS-CoV-2 (PCR) Not Detected (Not Detectd) 04/14/23 Range/Units 05:18 WBC (3.8-10.6) k/uL RBC (4.30-5.90) m/uL Hgb (13.0-17.5) gm/dL Hct (39.0-53.0) % MCV (80.0-100.0) fL MCH (25.0-35.0) pg MCHC (31.0-37.0) g/dL RDW (11.5-15.5) % Plt Count (150-450) k/uL MPV Neutrophils % (Manual) % Lymphocytes % (Manual) % Monocytes % (Manual) % Eosinophils % (Manual) % Neutrophils # (Manual) (1.3-7.7) k/uL Lymphocytes # (Manual) (1.0-4.8) k/uL Monocytes # (Manual) (0-1.0) k/uL Eosinophils # (Manual) (0-0.7) k/uL Nucleated RBCs (0-0) /100 WBC Manual Slide Review Hypochromasia Poikilocytosis (manual Macrocytosis PT (10.0-12.5) sec INR (<1.2) APTT (22.0-30.0) sec Sodium (137-145) mmol/L Potassium (3.5-5.1) mmol/L Chloride (98-107) mmol/L Carbon Dioxide (22-30) mmol/L Anion Gap mmol/L BUN (9-20) mg/dL Creatinine (0.66-1.25) mg/dL Est GFR (CKD-EPI)AfAm (>60 ml/min/1.73 sqM) Est GFR (CKD-EPI)NonAf (>60 ml/min/1.73 sqM) Glucose (74-99) mg/dL Plasma Lactic Acid [place] (0.7-2.0) mmol/L Calcium (8.4-10.2) mg/dL Magnesium (1.6-2.3) mg/dL Total Bilirubin (0.2-1.3) mg/dL AST (17-59) U/L ALT (4-49) U/L Alkaline Phosphatase (38-126) U/L Troponin I (0.000-0.034) ng/mL NT-Pro-B Natriuret Pep pg/mL Total Protein (6.3-8.2) g/dL Albumin (3.5-5.0) g/dL Urine Color Colorless Urine Appearance Clear (Clear) Urine pH 7.5 (5.0-8.0) Ur Specific [place] 1.010 (1.001-1.035) Urine Protein Negative (Negative) Urine Glucose (UA) Negative (Negative) Urine Ketones Negative (Negative) Urine Blood Negative (Negative) Urine Nitrite Negative (Negative) Urine Bilirubin Negative (Negative) Urine Urobilinogen <2.0 (<2.0) mg/dL Ur Leukocyte Esterase Negative (Negative) Influenza Type A (PCR) (Not Detectd) Influenza Type B (PCR) (Not Detectd) RSV (PCR) (Not Detectd) SARS-CoV-2 (PCR) (Not Detectd) Disposition Clinical Impression: Status asthmaticus Disposition: ADMITTED IP TO THIS HOSP Condition: Serious Instructions (If sedation given, give patient instructions): Asthma (ED) Prescriptions: predniSONE 60 mg PO DAILY #30 tab Referrals: Caterina Chand MD [Primary Care Provider] - 1-2 days Decision Time: 08:48
[2023-04-14] MEDS ORDERED: ACETAMINOPHEN TAB 325 MG TAB PO PRN (09:47)
[2023-04-14] MEDS ORDERED: hydrALAZINE HCL 20 MG/ML 1 ML VIAL IVP PRN (09:51)
[2023-04-14] MEDS: AZITHROMYCIN 500 MG TAB PO SCH (09:55)
[2023-04-14] MEDS ORDERED: LORazepam 0.5 MG TAB PO PRN (10:01)
[2023-04-14] MEDS ORDERED: LORazepam 1 MG TAB PO PRN (10:01)
[2023-04-14] MEDS: IPRATROPIUM-ALBUTEROL 3 ML NEB INHALATION SCH ×3 (10:26→21:16)
[2023-04-14] MEDS: amLODIPine 10 MG TAB PO SCH (11:54)
[2023-04-14] MEDS: MONTELUKAST 10 MG TAB PO SCH (11:54)
[2023-04-14] MEDS: MAGNESIUM SULFATE-D5W PMX 1 GM in DEXTROSE/WATER 1 100ML.BAG IVPB SCH ×2 (11:54→17:05)
[2023-04-14] MEDS: guaiFENesin 600 MG TABLET.ER PO SCH ×2 (11:54→20:22)
[2023-04-14] MEDS: methylPREDNISolone SOD SUCCI 125 MG/2 ML VIAL IV SCH ×2 (12:19→17:05)
[2023-04-14 12:59] LABS: Glucose,Whole Blood 224 mg/dL (70-110)
--- NOTE | 2023-04-14 13:08 | P.HPIM ---
History of Present Illness H&P Date: 04/14/23 Chief Complaint: Shortness of breath * 67-year-old gentleman with past medical history of asthma, , hypertension, osteoarthritis alcohol use, previous history of traumatic hemothorax, history of chronic tobacco use presents to the emergency department with complains of shortness of breath. Patient was at [facility] when he had gone to help with history of alcohol use. Patient said he started having shortness of breath and cough with symptoms consistent with asthma flare up. Patient states his last drink was on Monday04/11/23. Patient did take albuterol how ever did not have much improvement and EMS was called and patient was brought to the emergency. Patient was treated with nebulized albuterol and was monitored in ER with plan to discharge however patient continued to have persistent symptoms despite of nebulization and oral prednisone * Workup in ER included CBC which were WBC 5.7 hemoglobin 12 platelet count of 126, INR of 0.9, serum chemistry sodium 139/and 3.7, dissected 26 BUN 15 creatinine 0.8 to, ALT 36 ALT 109 * Patient tested negative for influenza, RSV and Covid * Patient will be admitted to medical floor with consultation from pulmonary medicine * was assessed in ER room 3, patient was in tripod position, patient was refusing high flow nasal cannula, he was explained that if breathing does not improve patient can end up intubated. Patient was given stat breathing treatment in the ER, given magnesium sulfate and IV Solu-Medrol. Pulmonary medicine had already been consulted and patient to be transferred to ICU REVIEW OF SYSTEMS: Shortness of breath, cough CONSTITUTIONAL: No fever, no malaise, no fatigue. HEENT: No recent visual problems or hearing problems. Denied any sore throat. CARDIOVASCULAR: No chest pain, orthopnea, PND, no palpitations, no syncope. PULMONARY: Shortness of breath, cough GASTROINTESTINAL: No diarrhea, no nausea, no vomiting, no abdominal pain. NEUROLOGICAL: No headaches, no weakness, no numbness. HEMATOLOGICAL: Denies any bleeding or petechiae. GENITOURINARY: Denies any burning micturition, frequency, or urgency. MUSCULOSKELETAL/RHEUMATOLOGICAL: Denies any joint pain, swelling, or any muscle pain. ENDOCRINE: Denies any polyuria or polydipsia. PHYSICAL EXAMINATION: GENERAL: The patient is alert and oriented x3, ill appearance, shortness of breath present distress a nasal cannula in place HEENT: Pupils are round and equally reacting to light. EOMI. CARDIOVASCULAR: S1 and S2 present. No murmurs, rubs, or gallops. Tachycardia noted PULMONARY: Decreased breath sounds, wheezing audible, ABDOMEN: Soft, nontender, nondistended, normoactive bowel sounds. No palpable organomegaly. MUSCULOSKELETAL: No joint swelling or deformity. EXTREMITIES: No cyanosis, clubbing, or pedal edema. NEUROLOGICAL: Gross neurological examination did not reveal any focal deficits. SKIN: No rashes. Past Medical History Past Medical History: Asthma, Hypertension, Osteoarthritis (OA) Additional Past Medical History / Comment(s): ETOH abuse/pt states his hands will tremble sometimes if he has gone without drinking, last alcoholic beverage was 06/13/21, past fall with multiple L rib fractures, anemia, gastritis, diverticular disease, benign colon polyps, bronchitis History of Any Multi-Drug Resistant Organisms: None Reported Past Surgical History: Appendectomy, Joint Replacement Additional Past Surgical History / Comment(s): left knee replacement, ORIF rt ankle Past Anesthesia/Blood Transfusion Reactions: No Reported Reaction Past Psychological History: Anxiety, Depression Smoking Status: Former smoker Past Alcohol Use History: Abuse, Daily, Heavy Past Drug Use History: None Reported - Past Family History Mother Family Medical History: No Reported History Additional Family Medical History / Comment(s): . Father Family Medical History: Hypertension Additional Family Medical History / Comment(s): Father is alive at age 90 with history of hypertension. Brother(s) Additional Family Medical History / Comment(s): . Medications and Allergies Home Medications Medication Instructions Recorded Confirmed Type amLODIPine [Norvasc] 10 mg PO DAILY 30 Days #30 tab 05/26/20 04/14/23 Rx atenoloL 100 mg PO DAILY 30 Days tab 05/26/20 04/14/23 Rx Albuterol Inhaler [Ventolin Hfa 1 - 2 puff INHALATION RT-Q6H PRN 06/15/21 04/14/23 History Inhaler] Ipratropium-Albuterol Nebulize 3 ml INHALATION RT-Q6H PRN 04/14/23 04/14/23 History [Duoneb 0.5 mg-3 mg/3 ml Soln] Montelukast [Singulair] 10 mg PO DAILY 04/14/23 04/14/23 History predniSONE 60 mg PO DAILY #30 tab 04/14/23 Rx traZODone HCL [Desyrel] 100 mg PO HS 04/14/23 04/14/23 History Allergies Allergy/AdvReac Type Severity Reaction Status Date / Time No Known Allergies Allergy Verified 04/14/23 09:21 Physical Exam Vitals: Vital Signs Temp Pulse Resp BP Pulse Ox 04/14/23 09:20 112 H 22 148/88 91 L 04/14/23 09:07 109 H 20 158/97 92 L 04/14/23 08:47 118 H 22 92 L 04/14/23 08:45 125 H 24 159/117 80 L 04/14/23 08:14 102 H 04/14/23 08:04 106 H 04/14/23 06:00 98 20 140/90 95 04/14/23 05:14 111 H 04/14/23 05:05 109 H 04/14/23 05:00 111 H 20 157/86 95 04/14/23 04:20 90 22 163/93 94 L 04/14/23 03:48 98.0 F 118 H 22 204/124 90 L Intake and Output 04/13/23 04/14/23 04/14/23 22:59 06:59 14:59 Other: Weight 90.718 kg Results CBC & Chem 7: 04/14/23 04:11 04/14/23 04:11 Labs: Abnormal Lab Results - Last 24 Hours (Table) 04/14/23 04/14/23 04/14/23 Range/Units 04:11 04:11 04:11 RBC 3.78 L (4.30-5.90) m/uL Hgb 12.3 L (13.0-17.5) gm/dL Hct 38.4 L (39.0-53.0) % MCV 101.4 H (80.0-100.0) fL Plt Count 129 L (150-450) k/uL APTT 20.3 L (22.0-30.0) sec Glucose 124 H (74-99) mg/dL AST 136 H (17-59) U/L ALT 109 H (4-49) U/L Assessment and Plan Assessment: Assessment and plan * Acute exacerbation of asthma with acute hypoxic respiratory failure * History of hypertension * History of alcohol use * History of tobacco use * In regards to his exacerbation, patient started on IV Solu-Medrol, chest x-ray reviewed negative, pulmonary medicine consulted continue patient on azithromycin, Mucinex ordered him a magnesium sulfate given, continue steroid continue close monitoring in ICU * Patient tested negative for Covid, RSV and influenza * In regards to hypertension, continue patient on when necessary IV hydralazine, continue amlodipine, atenolol placed on hold and setting of acute exacerbation of asthma * In regards to alcohol use continue patient on Ciwa protocol * CODE STATUS is full code
--- NOTE | 2023-04-14 14:25 | P.CNPUL ---
History of Present Illness Consult date: 04/14/23 Requesting physician: Petty Vences Reason for consult: dyspnea, cough Chief complaint: Shortness of breath History of present illness: This is a 67-year-old -Ang[place] male with history of asthma normally fairly well-controlled with albuterol, and trelegy, patient is also known to have history of hypertension, degenerative joint disease, previous history of traumatic pneumothorax requiring chest tube placement and he had multiple rib fractures. Patient was at [facility] trying to recover from alcoholism, however he developed classic symptoms of asthma, cough wheezing and shortness of breath, his last drink was 04/11/23. Patient was brought into the ER, and he was noted to be in respiratory distress. Chest x-ray showed no evidence of active disease. Patient tested negative for occult with 19 infection, RSV, influenza. I was asked to see the patient in the ER, and the patient was in significant respiratory distress, he was quite tachypneic, diffuse wheezing was noted, and the patient was on airvo at 40% FiO2 and 50 L flow. Received multiple treatments in the ER including magnesium sulfate, IV Solu-Medrol, and he also received DuoNeb updrafts, continued to show no significant improvement, and by the time I saw the patient, I felt that the patient should be admitted to the ICU and set of regular medical floor. Patient will be admitted, placed on IV Solu-Medrol, DuoNeb updrafts, Perforomist, and Pulmicort, I'm also recommending antibiotics, Review of Systems CONSTITUTIONAL: No weight loss no fever no chills HEENT: Negative CARDIOVASCULAR: Negative PULMONARY: As noted in HPI, cough wheezing and shortness of breath GASTROINTESTINAL: Negative NEUROLOGICAL: Negative HEMATOLOGICAL: Negative GENITOURINARY: Negative MUSCULOSKELETAL/RHEUMATOLOGICAL: Negative ENDOCRINE: Negative Psychiatric: Negative Past Medical History Past Medical History: Asthma, Hypertension, Osteoarthritis (OA) Additional Past Medical History / Comment(s): ETOH abuse/pt states his hands will tremble sometimes if he has gone without drinking, last alcoholic beverage was 06/13/21, past fall with multiple L rib fractures, anemia, gastritis, diverticular disease, benign colon polyps, bronchitis History of Any Multi-Drug Resistant Organisms: None Reported Past Surgical History: Appendectomy, Joint Replacement Additional Past Surgical History / Comment(s): left knee replacement, ORIF rt ankle Past Anesthesia/Blood Transfusion Reactions: No Reported Reaction Past Psychological History: Anxiety, Depression Smoking Status: Former smoker Past Alcohol Use History: Abuse, Daily, Heavy Past Drug Use History: None Reported - Past Family History Mother Family Medical History: No Reported History Additional Family Medical History / Comment(s): . Father Family Medical History: Hypertension Additional Family Medical History / Comment(s): Father is alive at age 90 with history of hypertension. Brother(s) Additional Family Medical History / Comment(s): . Medications and Allergies Home Medications Medication Instructions Recorded Confirmed Type amLODIPine [Norvasc] 10 mg PO DAILY 30 Days #30 tab 05/26/20 04/14/23 Rx atenoloL 100 mg PO DAILY 30 Days tab 05/26/20 04/14/23 Rx Albuterol Inhaler [Ventolin Hfa 1 - 2 puff INHALATION RT-Q6H PRN 06/15/21 04/14/23 History Inhaler] Ipratropium-Albuterol Nebulize 3 ml INHALATION RT-Q6H PRN 04/14/23 04/14/23 History [Duoneb 0.5 mg-3 mg/3 ml Soln] Montelukast [Singulair] 10 mg PO DAILY 04/14/23 04/14/23 History predniSONE 60 mg PO DAILY #30 tab 04/14/23 Rx traZODone HCL [Desyrel] 100 mg PO HS 04/14/23 04/14/23 History Allergies Allergy/AdvReac Type Severity Reaction Status Date / Time No Known Allergies Allergy Verified 04/14/23 09:21 Physical Exam Vitals: Vital Signs Temp Pulse Resp BP Pulse Ox FiO2 04/14/23 13:10 99 24 98 40 04/14/23 13:00 107 H 24 134/84 99 40 04/14/23 12:50 105 H 24 98 40 04/14/23 12:46 98.3 F 107 H 24 147/95 99 04/14/23 12:24 97 F L 101 H 22 136/94 100 04/14/23 11:29 97 40 04/14/23 10:35 112 H 04/14/23 10:30 98 50 04/14/23 10:26 115 H 04/14/23 09:20 112 H 22 148/88 91 L 04/14/23 09:07 109 H 20 158/97 92 L 04/14/23 08:47 118 H 22 92 L 04/14/23 08:45 125 H 24 159/117 80 L 04/14/23 08:14 102 H 04/14/23 08:04 106 H 04/14/23 06:00 98 20 140/90 95 04/14/23 05:14 111 H 04/14/23 05:05 109 H 04/14/23 05:00 111 H 20 157/86 95 04/14/23 04:20 90 22 163/93 94 L 04/14/23 03:48 98.0 F 118 H 22 204/124 90 L Intake and Output 04/13/23 04/14/23 04/14/23 22:59 06:59 14:59 Intake Total 600 Balance 600 Intake: Oral 600 Other: Weight 90.718 kg Physical Exam: Revealed a 67-year-old -[place] male in moderate respiratory distress on airvo Head: Atraumatic, normocephalic. HEENT:[Neck is supple.] [No neck masses.] [No thyromegaly.] [No JVD.] Chest: [Symmetrical chest expansion, diffuse rhonchi and wheezing noted bilaterally. Cardiac Exam: [Normal S1 and S2, no S3 gallop, no murmur.] Abdomen: [Soft, nontender, no megaly, no rebound, no guarding, normal bowel sounds.] Extremities: [No clubbing, no edema, no cyanosis.] Neurological Exam: [No focal neurologic deficit.] Alert and oriented 3. Psychiatric: Normal mood affect and normal mental status examination. Skin: No rash Results - Laboratory Findings CBC and BMP: 04/14/23 04:11 04/14/23 04:11 PT/INR, D-dimer PT 10.0 sec (10.0-12.5) 04/14/23 04:11 INR 0.9 (<1.2) 04/14/23 04:11 D-Dimer 2.04 mg/L FEU (<0.60) H 04/14/23 10:50 Abnormal lab findings: Abnormal Labs 04/14/23 04/14/23 04/14/23 04:11 04:11 04:11 RBC 3.78 L Hgb 12.3 L Hct 38.4 L MCV 101.4 H Plt Count 129 L APTT 20.3 L D-Dimer Glucose 124 H POC Glucose (mg/dL) AST 136 H ALT 109 H 04/14/23 04/14/23 10:50 12:57 RBC Hgb Hct MCV Plt Count APTT D-Dimer 2.04 H Glucose POC Glucose (mg/dL) 224 H AST ALT - Diagnostic Findings Chest x-ray: image reviewed (No evidence of active pulmonary disease) Assessment and Plan Assessment: Impression: Acute hypoxic respiratory failure secondary to acute asthma exacerbation Status asthmaticus Slightly elevated d-dimer but clinically the presentation is not a presentation of pulmonary embolism is mostly a presentation of acute asthma exacerbation History of alcoholism History of benign essential hypertension History of traumatic left sided chest injury with traumatic hemothorax and multiple rib fractures requiring chest tube placement Degenerative joint disease Chronic tobacco and alcohol use Recommendation: Admit the patient to the ICU Continue oxygen and titrate accordingly Continue Solu-Medrol 60 mg IV push Placed on CIWA protocol Continue DuoNeb updrafts Continue Perforomist Continue Pulmicort updrafts Continue Zithromax Resume home meds We'll continue to follow Time with Patient: Greater than 30
[2023-04-14] MEDS ORDERED: POTASSIUM CHLORIDE ER 20 MEQ TAB.ER PO STA (14:59)
[2023-04-14] MEDS ORDERED: SODIUM CHLORIDE 0.9% 1,000 ML IV ONE (17:03)
[2023-04-14] MEDS ORDERED: DEXTROSE 50% SYRINGE 50 ML IVP PRN ×2 (17:18)
[2023-04-14 17:22] LABS: Glucose,Whole Blood 130 mg/dL (70-110)
[2023-04-14] MEDS: LORazepam 1 MG TAB PO PRN ×2 (17:23→20:22)
[2023-04-14] MEDS: INSULIN ASPART (NovoLOG) 100 UNIT/ML VIAL SQ SCH ×2 (17:24→20:22)
[2023-04-14] MEDS: SODIUM CHLORIDE 0.9% 1,000 ML IV SCH (17:26)
[2023-04-14 20:13] LABS: Glucose,Whole Blood 181 mg/dL (70-110)
[2023-04-14] MEDS: PANTOPRAZOLE 40 MG/10 ML VIAL IVP SCH (20:21)
[2023-04-14] MEDS: traZODone HCL 100 MG TAB PO SCH (20:23)
[2023-04-14] MEDS: FORMOTEROL FUMARATE 20 MCG/2 ML NEBU INHALATION SCH (21:16)
[2023-04-14] MEDS: BUDESONIDE 1 MG/2 ML NEBU INHALATION SCH (21:16)
[2023-04-15] MEDS: methylPREDNISolone SOD SUCCI 125 MG/2 ML VIAL IV SCH ×4 (00:03→17:29)
[2023-04-15] MEDS: LORazepam 1 MG TAB PO PRN ×2 (00:12→18:31)
[2023-04-15] MEDS: SODIUM CHLORIDE 0.9% 1,000 ML IV SCH ×2 (03:39→13:20)
[2023-04-15] MEDS: IPRATROPIUM-ALBUTEROL 3 ML NEB INHALATION SCH ×5 (06:07→20:42)
[2023-04-15 06:22] LABS: HCT 33.3 % (39.0-53.0); HGB 10.7 gm/dL (13.0-17.5); MCH 32.5 pg (25.0-35.0); MCHC 32.2 g/dL (31.0-37.0); MCV 100.7 fL (80.0-100.0); Macrocytosis Slight; Mean Platelet Volume 9.4; Platelet Count 138 k/uL (150-450); RDW 14.9 % (11.5-15.5); WBC 7.4 k/uL (3.8-10.6)
[2023-04-15 06:24] LABS: Glucose,Whole Blood 134 mg/dL (70-110)
[2023-04-15] MEDS: INSULIN ASPART (NovoLOG) 100 UNIT/ML VIAL SQ SCH ×4 (06:28→21:42)
[2023-04-15 06:43] LABS: African American GFR (CKD) >90 (>60 ml/min/1.73 sqM); Anion Gap 6 mmol/L; Blood Urea Nitrogen 14 mg/dL (9-20); Calcium 8.5 mg/dL (8.4-10.2); Carbon Dioxide 22 mmol/L (22-30); Chloride 106 mmol/L (98-107); Glucose 134 mg/dL (74-99); Non-African American GFR(CKD) >90 (>60 ml/min/1.73 sqM); Potassium 4.3 mmol/L (3.5-5.1); Sodium 134 mmol/L (137-145)
--- NOTE | 2023-04-15 07:26 | XR ---
EXAMINATION TYPE: XR chest 1V portable DATE OF EXAM: 04/15/2023 HISTORY: Shortness of breath. COMPARISON: 04/14/2023 TECHNIQUE: Single view of the chest is submitted. FINDINGS: Demonstrated are scattered senescent parenchymal change. Chronic parenchymal changes left lateral rachel g base. There is no evidence for focal infiltrate. The heart is stable. Hilar and mediastinal structures are within normal limits. Degenerative changes are seen of the dorsal spine. IMPRESSION: 1. Chronic changes without evidence for acute pulmonary disease.
[2023-04-15] MEDS: FORMOTEROL FUMARATE 20 MCG/2 ML NEBU INHALATION SCH ×2 (07:50→20:42)
[2023-04-15] MEDS: BUDESONIDE 1 MG/2 ML NEBU INHALATION SCH ×2 (07:50→20:42)
[2023-04-15] MEDS: AZITHROMYCIN 500 MG TAB PO SCH (09:34)
[2023-04-15] MEDS: guaiFENesin 600 MG TABLET.ER PO SCH ×2 (09:34→21:44)
[2023-04-15] MEDS: PANTOPRAZOLE 40 MG/10 ML VIAL IVP SCH (09:34)
[2023-04-15] MEDS: amLODIPine 10 MG TAB PO SCH (09:34)
[2023-04-15] MEDS: THIAMINE 100 MG TAB PO SCH (09:34)
[2023-04-15] MEDS: MONTELUKAST 10 MG TAB PO SCH (09:34)
--- NOTE | 2023-04-15 11:46 | P.PN ---
Subjective Progress Note Date: 04/15/23 * 67-year-old gentleman with past medical history of asthma, , hypertension, osteoarthritis alcohol use, previous history of traumatic hemothorax, history of chronic tobacco use presents to the emergency department with complains of shortness of breath. Patient was at [facility] when he had gone to help with history of alcohol use. Patient said he started having shortness of breath and cough with symptoms consistent with asthma flare up. Patient states his last drink was on Monday04/11/23. Patient did take albuterol however did not have much improvement and EMS was called and patient was brought to the emergency. Patient was treated with nebulized albuterol and was monitored in ER with plan to discharge however patient continued to have persistent symptoms despite of nebulization and oral prednisone * Workup in ER included CBC which were WBC 5.7 hemoglobin 12 platelet count of 126, INR of 0.9, serum chemistry sodium 139/and 3.7, dissected 26 BUN 15 creatinine 0.8 to, ALT 36 ALT 109 * Patient tested negative for influenza, RSV and Covid * Patient will be admitted to medical floor with consultation from pulmonary medicine * He was assessed in ER room 3, patient was in tripod position, patient was refusing high flow nasal cannula, he was explained that if breathing does not improve patient can end up intubated. Patient was given stat breathing treatment in the ER, given magnesium sulfate and IV Solu-Medrol. Pulmonary medicine had already been consulted and patient to be transferred to ICU * 04/15/23: Patient seen and evaluated bedside, patient weaned down to room air, continue to have cough him a nonproductive, CBC showed normal WBC count, platelets 138, sodium 134 lactate 1.8 REVIEW OF SYSTEMS: Shortness of breath, cough IMPROVED CONSTITUTIONAL: No fever, no malaise, no fatigue. HEENT: No recent visual problems or hearing problems. Denied any sore throat. CARDIOVASCULAR: No chest pain, orthopnea, PND, no palpitations, no syncope. PULMONARY: Shortness of breath, cough GASTROINTESTINAL: No diarrhea, no nausea, no vomiting, no abdominal pain. NEUROLOGICAL: No headaches, no weakness, no numbness. HEMATOLOGICAL: Denies any bleeding or petechiae. GENITOURINARY: Denies any burning micturition, frequency, or urgency. MUSCULOSKELETAL/RHEUMATOLOGICAL: Denies any joint pain, swelling, or any muscle pain. ENDOCRINE: Denies any polyuria or polydipsia. PHYSICAL EXAMINATION: GENERAL: The patient is alert and oriented x3, ill appearance, not in distress HEENT: Pupils are round and equally reacting to light. EOMI. CARDIOVASCULAR: S1 and S2 present. No murmurs, rubs, or gallops. Tachycardia noted PULMONARY: Decreased breath sounds, wheezing audible ABDOMEN: Soft, nontender, nondistended, normoactive bowel sounds. No palpable organomegaly. MUSCULOSKELETAL: No joint swelling or deformity. EXTREMITIES: No cyanosis, clubbing, or pedal edema. NEUROLOGICAL: Gross neurological examination did not reveal any focal deficits. SKIN: No rashes. Objective - Vital Signs Vital signs: Vital Signs Temp 97.6 F 04/15/23 08:00 Pulse 100 04/15/23 11:29 Resp 15 04/15/23 11:00 BP 160/103 04/15/23 11:00 Pulse Ox 95 04/15/23 11:00 FiO2 40 04/14/23 15:35 Intake & Output 04/14/23 04/15/23 04/15/23 18:59 06:59 18:59 Intake Total 2320 2010 530 Output Total 150 1245 700 Balance 2170 765 -170 Weight 92 kg 90.8 kg Intake: IV 1460 1290 530 Invasive Line 3 20 30 10 Invasive Line 4 40 60 20 Magnesium Sulfate-D5w Pmx 100 1 gm In Dextrose/Water 1 100ml.bag @ 100 mls/hr IVPB Q1H [facility] Rx#: [id number] Sodium Chloride 0.9% 1, 300 1200 500 000 ml @ 100 mls/hr IV . Q10H [facility] Rx#:[id number] Sodium Chloride 0.9% 1, 1000 000 ml @ 999 mls/hr IV . Q1H1M [facility] Rx#:[id number] Oral 860 720 Output: Urine 150 1245 700 Other: Voiding Method Urinal Urinal Urinal # Voids 1 # Bowel Movements 0 - Labs CBC & Chem 7: 04/15/23 05:54 04/15/23 05:54 Labs: Abnormal Lab Results - Last 24 Hours (Table) 04/14/23 04/14/23 04/14/23 Range/Units 12:57 14:08 17:20 RBC (4.30-5.90) m/uL Hgb (13.0-17.5) gm/dL Hct (39.0-53.0) % MCV (80.0-100.0) fL Plt Count (150-450) k/uL Sodium (137-145) mmol/L Creatinine (0.66-1.25) mg/dL Glucose (74-99) mg/dL POC Glucose (mg/dL) 224 H 130 H (70-110) mg/dL Plasma Lactic Acid [place] 3.8 H* (0.7-2.0) mmol/L 04/14/23 04/14/23 04/14/23 Range/Units 18:07 20:11 21:38 RBC (4.30-5.90) m/uL Hgb (13.0-17.5) gm/dL Hct (39.0-53.0) % MCV (80.0-100.0) fL Plt Count (150-450) k/uL Sodium (137-145) mmol/L Creatinine (0.66-1.25) mg/dL Glucose (74-99) mg/dL POC Glucose (mg/dL) 181 H (70-110) mg/dL Plasma Lactic Acid [place] 2.4 H* 2.3 H* (0.7-2.0) mmol/L 04/15/23 04/15/23 04/15/23 Range/Units 05:54 05:54 06:21 RBC 3.30 L (4.30-5.90) m/uL Hgb 10.7 L (13.0-17.5) gm/dL Hct 33.3 L (39.0-53.0) % MCV 100.7 H (80.0-100.0) fL Plt Count 138 L (150-450) k/uL Sodium 134 L (137-145) mmol/L Creatinine 0.64 L (0.66-1.25) mg/dL Glucose 134 H (74-99) mg/dL POC Glucose (mg/dL) 134 H (70-110) mg/dL Plasma Lactic Acid [place] (0.7-2.0) mmol/L Assessment and Plan Assessment: Assessment and plan * Acute exacerbation of asthma with acute hypoxic respiratory failure * History of hypertension * History of alcohol use * History of tobacco use * In regards to his exacerbation, patient started on IV Solu-Medrol, chest x-ray reviewed negative on admission, follow-up chest x-ray chronic changes noted, pulmonary medicine consulted continue patient on azithromycin Day 2, received IV magnesium in ER. Pulmonary medicine following the patient recommendations. Patient weaned down to room air * Patient tested negative for Covid, RSV and influenza * In regards to hypertension, continue patient on when necessary IV hydralazine, continue amlodipine, atenolol placed on hold and setting of acute exacerbation of asthma * In regards to alcohol use continue patient on Ciwa protocol * CODE STATUS is full code Time with Patient: Greater than 30
--- NOTE | 2023-04-15 14:07 | P.PN ---
Subjective Progress Note Date: 04/15/23 Principal diagnosis: Acute exacerbation of severe persistent asthma This is a 67-year-old -Luxembour[place] male with history of asthma normally fairly well-controlled with albuterol, and trelegy, patient is also known to have history of hypertension, degenerative joint disease, previous history of traumatic pneumothorax requiring chest tube placement and he had multiple rib f ractures. Patient was at [facility] trying to recover from alcoholism, however he developed classic symptoms of asthma, cough wheezing and shortness of breath, his last drink was 04/11/23. Patient was brought into the ER, and he was noted to be in respiratory distress. Chest x-ray showed no evidence of active disease. Patient tested negative for occult with 19 infection, RSV, influenza. I was asked to see the patient in the ER, and the patient was in significant respiratory distress, he was quite tachypneic, diffuse wheezing was noted, and the patient was on airvo at 40% FiO2 and 50 L flow. Received multiple treatments in the ER including magnesium sulfate, IV Solu-Medrol, and he also received DuoNeb updrafts, continued to show no significant improvement, and by the time I saw the patient, I felt that the patient should be admitted to the ICU and set of regular medical floor. Patient will be admitted, placed on IV Solu-Medrol, DuoNeb updrafts, Perforomist, and Pulmicort, I'm also recommending antibiotics, Reevaluated today on 04/15/23, patient is feeling definitely better today compared to yesterday, nonetheless he continues to cough, continues to wheeze, but his feeling much better breathing easier overall. No fever no chills, no chest pain, W status 7.4 hemoglobin 10.7 basic metabolic profile is normal and renal profile is normal. Follow-up chest x-ray showed no evidence of active disease Objective - Vital Signs Vital signs: Vital Signs Temp 97.6 F 04/15/23 08:00 Pulse 100 04/15/23 11:29 Resp 15 04/15/23 11:00 BP 160/103 04/15/23 11:00 Pulse Ox 95 04/15/23 11:00 FiO2 40 04/14/23 15:35 Intake & Output 04/14/23 04/15/23 04/15/23 18:59 06:59 18:59 Intake Total 2320 2010 530 Output Total 150 1245 700 Balance 2170 765 -170 Weight 92 kg 90.8 kg Intake: IV 1460 1290 530 Invasive Line 3 20 30 10 Invasive Line 4 40 60 20 Magnesium Sulfate-D5w Pmx 100 1 gm In Dextrose/Water 1 100ml.bag @ 100 mls/hr IVPB Q1H [facility] Rx#: [id number] Sodium Chloride 0.9% 1, 300 1200 500 000 ml @ 100 mls/hr IV . Q10H [facility] Rx#:[id number] Sodium Chloride 0.9% 1, 1000 000 ml @ 999 mls/hr IV . Q1H1M [facility] Rx#:[id number] Oral 860 720 Output: Urine 150 1245 700 Other: Voiding Method Urinal Urinal Urinal # Voids 1 # Bowel Movements 0 - Exam Physical Exam: Revealed a 67-year-old -Luxembour[place] male in moderate respiratory distress on airvo Head: Atraumatic, normocephalic. HEENT:[Neck is supple.] [No neck masses.] [No thyromegaly.] [No JVD.] Chest: [Symmetrical chest expansion, wheezing noted bilaterally. But better air movement compared to yesterday. Cardiac Exam: [Normal S1 and S2, no S3 gallop, no murmur.] Abdomen: [Soft, nontender, no megaly, no rebound, no guarding, normal bowel so unds.] Extremities: [No clubbing, no edema, no cyanosis.] Neurological Exam: [No focal neurologic deficit.] Alert and oriented 3. Psychiatric: Normal mood affect and normal mental status examination. Skin: No rash - Labs CBC & Chem 7: 04/15/23 05:54 04/15/23 05:54 Labs: Abnormal Lab Results - Last 24 Hours (Table) 04/14/23 04/14/23 04/14/23 Range/Units 14:08 17:20 18:07 RBC (4.30-5.90) m/uL Hgb (13.0-17.5) gm/dL Hct (39.0-53.0) % MCV (80.0-100.0) fL Plt Count (150-450) k/uL Sodium (137-145) mmol/L Creatinine (0.66-1.25) mg/dL Glucose (74-99) mg/dL POC Glucose (mg/dL) 130 H (70-110) mg/dL Plasma Lactic Acid [place] 3.8 H* 2.4 H* (0.7-2.0) mmol/L 04/14/23 04/14/23 04/15/23 Range/Units 20:11 21:38 05:54 RBC 3.30 L (4.30-5.90) m/uL Hgb 10.7 L (13.0-17.5) gm/dL Hct 33.3 L (39.0-53.0) % MCV 100.7 H (80.0-100.0) fL Plt Count 138 L (150-450) k/uL Sodium (137-145) mmol/L Creatinine (0.66-1.25) mg/dL Glucose (74-99) mg/dL POC Glucose (mg/dL) 181 H (70-110) mg/dL Plasma Lactic Acid [place] 2.3 H* (0.7-2.0) mmol/L 04/15/23 04/15/23 Range/Units 05:54 06:21 RBC (4.30-5.90) m/uL Hgb (13.0-17.5) gm/dL Hct (39.0-53.0) % MCV (80.0-100.0) fL Plt Count (150-450) k/uL Sodium 134 L (137-145) mmol/L Creatinine 0.64 L (0.66-1.25) mg/dL Glucose 134 H (74-99) mg/dL POC Glucose (mg/dL) 134 H (70-110) mg/dL Plasma Lactic Acid [place] (0.7-2.0) mmol/L Assessment and Plan Assessment: Impression: Acute hypoxic respiratory failure secondary to acute exacerbation of severe persistent asthma Status asthmaticus Slightly elevated d-dimer but clinically the presentation is not a presentation of pulmonary embolism is mostly a presentation of acute asthma exacerbation History of alcoholism History of benign essential hypertension History of traumatic left sided chest injury with traumatic hemothorax and multiple rib fractures requiring chest tube placement Degenerative joint disease Chronic tobacco and alcohol use Recommendation: Transfer patient to a regular medical floor Continue oxygen and titrate accordingly Continue Solu-Medrol 60 mg IV push Continue CIWA protocol Continue DuoNeb updrafts Continue Perforomist Continue Pulmicort updrafts Continue Zithromax We'll continue to follow Time with Patient: Less than 30
[2023-04-15 16:49] LABS: Glucose,Whole Blood 145 mg/dL (70-110)
[2023-04-15 20:34] LABS: Glucose,Whole Blood 144 mg/dL (70-110)
[2023-04-15] MEDS: traZODone HCL 100 MG TAB PO SCH (21:44)
[2023-04-16] MEDS: methylPREDNISolone SOD SUCCI 125 MG/2 ML VIAL IV SCH ×5 (00:08→23:31)
[2023-04-16] MEDS: SODIUM CHLORIDE 0.9% 1,000 ML IV SCH ×3 (00:12→15:53)
[2023-04-16 06:09] LABS: Glucose,Whole Blood 133 mg/dL (70-110)
[2023-04-16] MEDS: INSULIN ASPART (NovoLOG) 100 UNIT/ML VIAL SQ SCH ×4 (06:29→21:33)
[2023-04-16] MEDS: FORMOTEROL FUMARATE 20 MCG/2 ML NEBU INHALATION SCH ×2 (07:53→20:15)
[2023-04-16] MEDS: BUDESONIDE 1 MG/2 ML NEBU INHALATION SCH ×2 (07:53→20:15)
[2023-04-16] MEDS: IPRATROPIUM-ALBUTEROL 3 ML NEB INHALATION SCH ×4 (07:53→20:15)
[2023-04-16] MEDS: MONTELUKAST 10 MG TAB PO SCH (08:16)
[2023-04-16] MEDS: THIAMINE 100 MG TAB PO SCH (08:16)
[2023-04-16] MEDS: guaiFENesin 600 MG TABLET.ER PO SCH ×2 (08:16→20:41)
[2023-04-16] MEDS: PANTOPRAZOLE 40 MG/10 ML VIAL IVP SCH (08:16)
[2023-04-16] MEDS: amLODIPine 10 MG TAB PO SCH (08:17)
[2023-04-16] MEDS: AZITHROMYCIN 500 MG TAB PO SCH (08:19)
[2023-04-16 11:06] LABS: Glucose,Whole Blood 141 mg/dL (70-110)
--- NOTE | 2023-04-16 12:41 | P.PN ---
Subjective Progress Note Date: 04/16/23 * 67-year-old gentleman with past medical history of asthma, , hypertension, osteoarthritis alcohol use, previous history of traumatic hemothorax, history of chronic tobacco use presents to the emergency department with complains of shortness of breath. Patient was at [facility] when he had gone to help with history of alcohol use. Patient said he started having shortness of breath and cough with symptoms consistent with asthma flare up. Patient states his last drink was on Monday04/11/23. Patient did take albuterol however did not have much improvement and EMS was called and patient was brought to the emergency. Patient was treated with nebulized albuterol and was monitored in ER with plan to discharge however patient continued to have persistent symptoms despite of nebulization and oral prednisone * Workup in ER included CBC which were WBC 5.7 hemoglobin 12 platelet count of 126, INR of 0.9, serum chemistry sodium 139/and 3.7, dissected 26 BUN 15 creatinine 0.8 to, ALT 36 ALT 109 * Patient tested negative for influenza, RSV and Covid * Patient will be admitted to medical floor with consultation from pulmonary medicine * He was assessed in ER room 3, patient was in tripod position, patient was refusing high flow nasal cannula, he was explained that if breathing does not improve patient can end up intubated. Patient was given stat breathing treatment in the ER, given magnesium sulfate and IV Solu-Medrol. Pulmonary medicine had already been consulted and patient to be transferred to ICU * 04/15/23: Patient seen and evaluated bedside, patient weaned down to room air, continue to have cough him a nonproductive, CBC showed normal WBC count, platelets 138, sodium 134 lactate 1.8 * 04/16/23: Patient seen and evaluated bedside, patient says his breathing has improved, patient was transferred out of ICU., Blood work reviewed, continue current regimen including steroids, azithromycin appreciate input from pulmonary medicine potential discharge within the next 24 hours REVIEW OF SYSTEMS: Shortness of breath, cough IMPROVED CONSTITUTIONAL: No fever, no malaise, no fatigue. HEENT: No recent visual problems or hearing problems. Denied any sore throat. CARDIOVASCULAR: No chest pain, orthopnea, PND, no palpitations, no syncope. PULMONARY: Shortness of breath, cough GASTROINTESTINAL: No diarrhea, no nausea, no vomiting, no abdominal pain. NEUROLOGICAL: No headaches, no weakness, no numbness. HEMATOLOGICAL: Denies any bleeding or petechiae. GENITOURINARY: Denies any burning micturition, frequency, or urgency. MUSCULOSKELETAL/RHEUMATOLOGICAL: Denies any joint pain, swelling, or any muscle pain. ENDOCRINE: Denies any polyuria or polydipsia. PHYSICAL EXAMINATION: GENERAL: The patient is alert and oriented x3, appearing well, not in distress HEENT: Pupils are round and equally reacting to light. EOMI. CARDIOVASCULAR: S1 and S2 present. No murmurs, rubs, or gallops. Tachycardia noted PULMONARY: Decreased breath sounds, wheezing audible ABDOMEN: Soft, nontender, nondistended, normoactive bowel sounds. No palpable organomegaly. MUSCULOSKELETAL: No joint swelling or deformity. EXTREMITIES: No cyanosis, clubbing, or pedal edema. NEUROLOGICAL: Gross neurological examination did not reveal any focal deficits. SKIN: No rashes. Objective - Vital Signs Vital signs: Vital Signs Temp 97.6 F 04/16/23 08:09 Pulse 112 H 04/16/23 11:31 Resp 18 04/16/23 08:09 BP 149/81 04/16/23 08:09 Pulse Ox 100 04/16/23 08:09 FiO2 40 04/14/23 15:35 Intake & Output 04/15/23 04/16/23 04/16/23 18:59 06:59 18:59 Intake Total 530 Output Total 700 250 Balance -170 -250 Intake: IV 530 Invasive Line 3 10 Invasive Line 4 20 Sodium Chloride 0.9% 1, 500 000 ml @ 100 mls/hr IV . Q10H [facility] Rx#:[id number] Output: Urine 700 250 Other: Voiding Method Urinal Urinal # Voids 0 - Labs CBC & Chem 7: 04/15/23 05:54 04/15/23 05:54 Labs: Abnormal Lab Results - Last 24 Hours (Table) 04/15/23 04/15/23 04/16/23 Range/Units 16:48 20:32 06:06 POC Glucose (mg/dL) 145 H 144 H 133 H (70-110) mg/dL 04/16/23 Range/Units 11:04 POC Glucose (mg/dL) 141 H (70-110) mg/dL Assessment and Plan Assessment: Assessment and plan * Acute exacerbation of asthma with acute hypoxic respiratory failure * History of hypertension * History of alcohol use * History of tobacco use * In regards to his exacerbation, patient started on IV Solu-Medrol, chest x-ray reviewed negative on admission, follow-up chest x-ray chronic changes n oted, pulmonary medicine consulted continue patient on azithromycin Day 3 , received IV magnesium in ER 04/14/23 >> Pulmonary medicine following the patient recommendations. Patient weaned down to room air * Patient tested negative for Covid, RSV and influenza * In regards to hypertension, continue patient on when necessary IV hydralazine, continue amlodipine, atenolol placed on hold and setting of acute exacerbation of asthma * In regards to alcohol use continue patient on CIWA protocol, Ativan as needed for withdrawal * CODE STATUS is full code Time with Patient: Greater than 30
--- NOTE | 2023-04-16 13:59 | P.PN ---
Subjective Progress Note Date: 04/16/23 This is a 67-year-old -Kos[place] male with history of asthma normally fairly well-controlled with albuterol, and trelegy, patient is also known to have history of hypertension, degenerative joint disease, previous history of traumatic pneumothorax requiring chest tube placement and he had multiple rib fractures. Patient was at [place] [facility] trying to recover from alcoholism, however he developed classic symptoms of asthma, cough wheezing and shortness of breath, his last drink was 04/11/23. Patient was brought into the ER, and he was noted to be in respiratory distress. Chest x-ray showed no evidence of active disease. Patient tested negative for occult with 19 infection, RSV, influenza. I was asked to see the patient in the ER, and the patient was in significant respiratory distress, he was quite tachypneic, diffuse wheezing was noted, and the patient was on airvo at 40% FiO2 and 50 L flow. Received multiple treatments in the ER including magnesium sulfate, IV Solu-Medrol, and he also received DuoNeb updrafts, continued to show no significant improvement, and by the time I saw the patient, I felt that the patient should be admitted to the ICU and set of regular medical floor. Patient will be admitted, placed on IV Solu-Medrol, DuoNeb updrafts, Perforomist, and Pulmicort, I'm also recommending antibiotics, The patient is seen today 04/16/2023 in follow-up on the regular medical floor. He is doing quite a bit better. Awake and alert in no acute distress. Mainta ining O2 saturations up to 100% on room air. Afebrile. Hemodynamically stable. Blood glucose 141. He is continued on DuoNeb inhalations, Pulmicort and Perforomist inhalations, IV Solu-Medrol and Singulair. Remains on Mucinex. Remains on azithromycin. Objective - Vital Signs Vital signs: Vital Signs Temp 98.6 F 04/16/23 13: Pulse 97 04/16/23 13:23 Resp 18 04/16/23 13:23 BP 137/84 04/16/23 13:23 Pulse Ox 100 04/16/23 13:23 FiO2 40 04/14/23 15:35 Intake & Output 04/15/23 04/16/23 04/16/23 18:59 06:59 18:59 Intake Total 530 Output Total 700 250 Balance -170 -250 Intake: IV 530 Invasive Line 3 10 Invasive Line 4 20 Sodium Chloride 0.9% 1, 500 000 ml @ 100 mls/hr IV . Q10H [facility] Rx#:[id number] Output: Urine 700 250 Other: Voiding Method Urinal Urinal # Voids 0 - Exam GENERAL EXAM: Alert, pleasant 67-year-old male, on room air, comfortable in no apparent distress. HEAD: Normocephalic. EYES: Normal reaction of pupils, equal size. NOSE: Clear with pink turbinates. THROAT: No erythema or exudates. NECK: No masses, no JVD. CHEST: No chest wall deformity. LUNGS: Equal air entry with faint end expiratory wheeze, diminished. CVS: S1 and S2 normal with no audible murmur, regular rhythm. ABDOMEN: No hepatosplenomegaly, normal bowel sounds, no guarding or rigidity. SPINE: No scoliosis or deformity SKIN: No rashes CENTRAL NERVOUS SYSTEM: No focal deficits, tone is normal in all 4 extremities. EXTREMITIES: There is no peripheral edema. No clubbing, no cyanosis. P eripheral pulses are intact. - Labs CBC & Chem 7: 04/15/23 05:54 04/15/23 05:54 Labs: Abnormal Lab Results - Last 24 Hours (Table) 04/15/23 04/15/23 04/16/23 Range/Units 16:48 20:32 06:06 POC Glucose (mg/dL) 145 H 144 H 133 H (70-110) mg/dL 04/16/23 Range/Units 11:04 POC Glucose (mg/dL) 141 H (70-110) mg/dL Assessment and Plan Assessment: Acute hypoxic respiratory failure secondary to acute asthma exacerbation Status asthmaticus Slightly elevated d-dimer but clinically the presentation is not a presentation of pulmonary embolism is mostly a presentation of acute asthma exacerbation History of alcoholism History of benign essential hypertension History of traumatic left sided chest injury with traumatic hemothorax and multiple rib fractures requiring chest tube placement Degenerative joint disease Chronic tobacco and alcohol use Plan: The patient was seen and evaluated Labs and medications reviewed Doing quite a bit better Stable and on room air Continue the current treatment plan Continue the CIWA protocol Possibly home in the a.m. We will continue to follow I have personally seen and examined the patient, performed the documentation and the assessment and plan as written. Number of minutes spent on the visit: 10.
[2023-04-16 16:44] LABS: Glucose,Whole Blood 160 mg/dL (70-110)
[2023-04-16] MEDS: traZODone HCL 100 MG TAB PO SCH (20:42)
[2023-04-16 20:59] LABS: Glucose,Whole Blood 148 mg/dL (70-110)
[2023-04-17] MEDS: SODIUM CHLORIDE 0.9% 1,000 ML IV SCH (05:26)
[2023-04-17 06:16] LABS: Glucose,Whole Blood 129 mg/dL (70-110)
[2023-04-17] MEDS: methylPREDNISolone SOD SUCCI 125 MG/2 ML VIAL IV SCH ×4 (06:20→23:05)
[2023-04-17] MEDS: INSULIN ASPART (NovoLOG) 100 UNIT/ML VIAL SQ SCH ×4 (06:20→20:56)
[2023-04-17] MEDS: FORMOTEROL FUMARATE 20 MCG/2 ML NEBU INHALATION SCH ×2 (07:31→21:18)
[2023-04-17] MEDS: IPRATROPIUM-ALBUTEROL 3 ML NEB INHALATION SCH ×4 (07:31→21:18)
[2023-04-17] MEDS: BUDESONIDE 1 MG/2 ML NEBU INHALATION SCH ×2 (07:31→21:18)
[2023-04-17] MEDS: PANTOPRAZOLE 40 MG/10 ML VIAL IVP SCH (08:04)
[2023-04-17] MEDS: MONTELUKAST 10 MG TAB PO SCH (08:05)
[2023-04-17] MEDS: amLODIPine 10 MG TAB PO SCH (08:05)
[2023-04-17] MEDS: AZITHROMYCIN 500 MG TAB PO SCH (08:05)
[2023-04-17] MEDS: THIAMINE 100 MG TAB PO SCH (08:05)
[2023-04-17] MEDS: guaiFENesin 600 MG TABLET.ER PO SCH ×2 (08:05→20:56)
[2023-04-17 08:58] LABS: BUN/Creat Ratio 24.43 Ratio (12.00-20.00); Blood Urea Nitrogen 17.1 mg/dL (9.0-27.0); Calcium 8.7 mg/dL (8.7-10.3); Carbon Dioxide 23.5 mmol/L (21.6-31.8); Chloride 107 mmol/L (96-109); Glucose 129 mg/dL (70-110); Potassium 4.2 mmol/L (3.5-5.5); Sodium 139 mmol/L (135-145)
[2023-04-17 11:37] LABS: Glucose,Whole Blood 210 mg/dL (70-110)
--- NOTE | 2023-04-17 13:24 | P.PN ---
Subjective Progress Note Date: 04/17/23 This is a 67-year-old -Nigerien male with history of asthma normally fairly well-controlled with albuterol, and trelegy, patient is also known to have history of hypertension, degenerative joint disease, previous history of traumatic pneumothorax requiring chest tube placement and he had multiple rib fractures. Patient was at [place] [facility] trying to recover from alcoholism, however he developed classic symptoms of asthma, cough wheezing and shortness of breath, his last drink was 04/11/23. Patient was brought into the ER, and he was noted to be in respiratory distress. Chest x-ray showed no evidence of active disease. Patient tested negative for occult with 19 infection, RSV, influenza. I was asked to see the patient in the ER, and the patient was in significant respiratory distress, he was quite tachypneic, diffuse wheezing was noted, and the patient was on airvo at 40% FiO2 and 50 L flow. Received multiple treatments in the ER including magnesium sulfate, IV Solu-Medrol, and he also received DuoNeb updrafts, continued to show no significant improvement, and by the time I saw the patient, I felt that the patient should be admitted to the ICU and set of regular medical floor. Patient will be admitted, placed on IV Solu-Medrol, DuoNeb updrafts, Perforomist, and Pulmicort, I'm also recommending antibiotics, The patient is seen today 04/16/2023 in follow-up on the regular medical floor. He is doing quite a bit better. Awake and alert in no acute distress. Mainta ining O2 saturations up to 100% on room air. Afebrile. Hemodynamically stable. Blood glucose 141. He is continued on DuoNeb inhalations, Pulmicort and Perforomist inhalations, IV Solu-Medrol and Singulair. Remains on Mucinex. Remains on azithromycin. The patient is seen today 04/17/2023 in follow-up on the regular medical floor. He is currently resting in bed. Awake and alert in no acute distress. Maintaining O2 saturations in the 90s on 2 L/m per nasal cannula. He is improved but not quite back to his baseline. Still wheezing. White sodium 139. Potassium 4.2. Bicarb 24. BUN 17. Creatinine 0.7. Glucose 129. C-reactive protein 0.40. He is continued on DuoNeb inhalations, Pulmicort and Perforomist inhalations, Solu-Medrol. Antibiotics in the form of azithromycin. Remains on Mucinex. Objective - Vital Signs Vital signs: Vital Signs Temp 98.5 F 04/17/23 07:10 Pulse 90 04/17/23 11:33 Resp 22 04/17/23 07:10 BP 168/98 04/17/23 07:10 Pulse Ox 100 04/17/23 07:33 FiO2 40 04/14/23 15:35 Intake & Output 04/16/23 04/17/23 04/17/23 18:59 06:59 18:59 Intake Total 3000 20 Output Total 200 Balance 3000 -180 Intake: IV 20 Invasive Line 3 10 Invasive Line 4 10 Oral 3000 Output: Urine 200 Other: Voiding Method Urinal # Voids 2 - Exam GENERAL EXAM: Alert, 67-year-old male, resting in bed, on 2 L/m per nasal cannula, in no apparent distress. HEAD: Normocephalic. EYES: Normal reaction of pupils, equal size. NOSE: Clear with pink turbinates. THROAT: No erythema or exudates. NECK: No masses, no JVD. CHEST: No chest wall deformity. LUNGS: Equal air entry with faint end expiratory wheeze, diminished. CVS: S1 and S2 normal with no audible murmur, regular rhythm. ABDOMEN: No hepatosplenomegaly, normal bowel sounds, no guarding or rigidity. SPINE: No scoliosis or deformity SKIN: No rashes CENTRAL NERVOUS SYSTEM: No focal deficits, tone is normal in all 4 extremities. EXTREMITIES: There is no peripheral edema. No clubbing, no cyanosis. Peripheral pulses are intact. - Labs CBC & Chem 7: 04/15/23 05:54 04/17/23 04:10 Labs: Abnormal Lab Results - Last 24 Hours (Table) 04/16/23 04/16/23 04/17/23 Range/Units 16:37 20:57 04:10 BUN/Creatinine Ratio 24.43 H (12.00-20.00) Ratio Glucose 129 H (70-110) mg/dL POC Glucose (mg/dL) 160 H 148 H (70-110) mg/dL 04/17/23 04/17/23 Range/Units 06:13 11:36 BUN/Creatinine Ratio (12.00-20.00) Ratio Glucose (70-110) mg/dL POC Glucose (mg/dL) 129 H 210 H (70-110) mg/dL Assessment and Plan Assessment: Acute hypoxic respiratory failure secondary to acute exacerbation of suspected moderate persistent chronic bronchial asthma Status asthmaticus Slightly elevated d-dimer but clinically the presentation is not a presentation of pulmonary embolism is mostly a presentation of acute asthma exacerbation History of alcoholism History of benign essential hypertension History of traumatic left sided chest injury with traumatic hemothorax and multiple rib fractures requiring chest tube placement Degenerative joint disease Chronic tobacco and alcohol use Plan: The patient was seen and evaluated Labs and medications reviewed Not quite back to his baseline Currently on 2 L nasal cannula Continue the current treatment plan Continue the [facility] protocol We will continue to follow I have personally seen and examined the patient, performed the documentation and the assessment and plan as written. Number of minutes spent on the visit: 10.
--- NOTE | 2023-04-17 14:10 | PN ---
PROGRESS NOTE DATE OF SERVICE: 04/17/2023 SUBJECTIVE: This is a 67-year-old gentleman, who was admitted with asthma acute exacerbation. He still has significant wheezing. No chest pain. No palpitation. PHYSICAL EXAMINATION: VITAL SIGNS: Pulse is 106, blood pressure 116/80, respirations 22. CHEST: Bilateral scattered rhonchi and crackles. Expiratory wheezing. ABDOMEN: Soft. NERVOUS SYSTEM: Nonfocal. LABORATORY DATA: Reviewed. ASSESSMENT: 1. Acute asthma exacerbation with acute hypoxic respiratory failure. 2. Hypertension. 3. History of EtOH. 4. History of nicotine dependence. RECOMMENDATIONS: Recommend to continue current management. Continue with steroids. Repeat labs in the morning. Closely follow with Pulmonary. Further recommendations to follow. MMODL / IJN: [id number] /
--- NOTE | 2023-04-17 14:33 | XR ---
EXAMINATION TYPE: XR chest 1V portable DATE OF EXAM: 04/17/2023 2:22 PM CLINICAL INDICATION:Male, 67 years old with history of chf; COMPARISON: Chest radiographs from 04/15/2023 TECHNIQUE: XR chest 1V portable Frontal view of the chest. FINDINGS: Lungs/Pleura: There is no evidence of pleural effusion, focal consolidation, or pneumothorax. Pulmonary vascularity: Unremarkable. Heart/mediastinum: Cardiomediastinal silhouette is unremarkable. Musculoskeletal: No acute osseous pathology. IMPRESSION: No acute cardiopulmonary disease/process.
[2023-04-17 16:17] LABS: Glucose,Whole Blood 158 mg/dL (70-110)
[2023-04-17 20:51] LABS: Glucose,Whole Blood 162 mg/dL (70-110)
[2023-04-17] MEDS: traZODone HCL 100 MG TAB PO SCH (20:56)
[2023-04-17 21:59] VITALS: RESP 18
[2023-04-18] MEDS: methylPREDNISolone SOD SUCCI 125 MG/2 ML VIAL IV SCH (05:01)
[2023-04-18 06:03] LABS: Glucose,Whole Blood 136 mg/dL (70-110)
[2023-04-18] MEDS: INSULIN ASPART (NovoLOG) 100 UNIT/ML VIAL SQ SCH ×3 (06:11→18:20)
[2023-04-18] MEDS: IPRATROPIUM-ALBUTEROL 3 ML NEB INHALATION SCH ×3 (07:38→15:08)
[2023-04-18] MEDS: FORMOTEROL FUMARATE 20 MCG/2 ML NEBU INHALATION SCH (07:38)
[2023-04-18] MEDS: BUDESONIDE 1 MG/2 ML NEBU INHALATION SCH (07:38)
[2023-04-18] MEDS: THIAMINE 100 MG TAB PO SCH (08:10)
[2023-04-18] MEDS: guaiFENesin 600 MG TABLET.ER PO SCH (08:10)
[2023-04-18] MEDS: MONTELUKAST 10 MG TAB PO SCH (08:10)
[2023-04-18] MEDS: AZITHROMYCIN 500 MG TAB PO SCH (08:10)
[2023-04-18] MEDS: PANTOPRAZOLE 40 MG/10 ML VIAL IVP SCH (08:10)
[2023-04-18] MEDS: amLODIPine 10 MG TAB PO SCH (08:11)
[2023-04-18 08:39] LABS: Basophils # (A) 0 X 10*3/uL (0.00-0.10); Basophils % (A) 0 %; Eosinophils # (A) 0 X 10*3/uL (0.04-0.35); Eosinophils % (A) 0 %; HCT 33.4 % (39.6-50.0); HGB 10.6 g/dL (13.0-17.0); Lymphocytes # (A) 0.46 X 10*3/uL (0.90-5.00); Lymphocytes % (A) 11.6 %; MCH 30.4 pg (27.0-32.0); MCHC 31.7 g/dL (32.0-37.0); MCV 95.7 FL (80.0-97.0); Mean Platelet Volume 10.7 FL (9.5-12.2); Monocytes % (A) 12.6 %; NRBC Per 100 WBC 0 X 10*3/uL (0.00-0.01); Neutrophils # (A) 2.98 X 10*3/uL (1.80-7.70); Neutrophils % (A) 74.8 %; Platelet Count 212 X 10*3/uL (140-440); RBC 3.49 X 10*6/uL (4.40-5.60); WBC 3.98 X 10*3/uL (4.50-10.00)
[2023-04-18 08:41] LABS: BUN/Creat Ratio 23.88 Ratio (12.00-20.00); Blood Urea Nitrogen 19.1 mg/dL (9.0-27.0); Calcium 8.8 mg/dL (8.7-10.3); Carbon Dioxide 23.8 mmol/L (21.6-31.8); Chloride 106 mmol/L (96-109); Glucose 133 mg/dL (70-110); Potassium 4.1 mmol/L (3.5-5.5); Sodium 139 mmol/L (135-145)
[2023-04-18 11:36] LABS: Glucose,Whole Blood 115 mg/dL (70-110)
--- NOTE | 2023-04-18 13:06 | P.PN ---
Subjective Progress Note Date: 04/18/23 This is a 67-year-old -[place] male with history of asthma normally fairly well-controlled with albuterol, and trelegy, patient is also known to have history of hypertension, degenerative joint disease, previous history of traumatic pneumothorax requiring chest tube placement and he had multiple rib fractures. Patient was at [facility] trying to recover from alcoholism, however he developed classic symptoms of asthma, cough wheezing and shortness of breath, his last drink was 04/11/23. Patient was brought into the ER, and he was noted to be in respiratory distress. Chest x-ray showed no evidence of active disease. Patient tested negative for occult with 19 infection, RSV, influenza. I was asked to see the patient in the ER, and the patient was in significant respiratory distress, he was quite tachypneic, diffuse wheezing was noted, and the patient was on airvo at 40% FiO2 and 50 L flow. Received multiple treatments in the ER including magnesium sulfate, IV Solu-Medrol, and he also received DuoNeb updrafts, continued to show no significant improvement, and by the time I saw the patient, I felt that the patient should be admitted to the ICU and set of regular medical floor. Patient will be admitted, placed on IV Solu-Medrol, DuoNeb updrafts, Perforomist, and Pulmicort, I'm also recommending antibiotics, The patient is seen today 04/16/2023 in follow-up on the regular medical floor. He is doing quite a bit better. Awake and alert in no acute distress. Mainta ining O2 saturations up to 100% on room air. Afebrile. Hemodynamically stable. Blood glucose 141. He is continued on DuoNeb inhalations, Pulmicort and Perforomist inhalations, IV Solu-Medrol and Singulair. Remains on Mucinex. Remains on azithromycin. The patient is seen today 04/17/2023 in follow-up on the regular medical floor. He is currently resting in bed. Awake and alert in no acute distress. Maintaining O2 saturations in the 90s on 2 L/m per nasal cannula. He is improved but not quite back to his baseline. Still wheezing. White sodium 139. Potassium 4.2. Bicarb 24. BUN 17. Creatinine 0.7. Glucose 129. C-reactive protein 0.40. He is continued on DuoNeb inhalations, Pulmicort and Perforomist inhalations, Solu-Medrol. Antibiotics in the form of azithromycin. Remains on Mucinex. The patient is seen today 04/18/2023 in follow-up on the regular medical floor. He is sitting up in bed. Awake and alert in no acute distress. Maintaining good O2 saturations in the 90s on room air. Feeling back to his baseline. Afebrile. Hemodynamically stable. Follow-up chest x-ray revealed no acute pulmonary process. White count 3.9. Hemoglobin 10.6. Platelets 212. Sodium 139. Potassium 4.1. Bicarb 24. BUN 19. Creatinine 0.8. Glucose 133. Appendectomy is continued on DuoNeb inhalations, Symbicort, Solu-Medrol. Remains on Mucinex. Completed antibiotics. Objective - Vital Signs Vital signs: Vital Signs Temp 97.7 F 04/18/23 06:58 Pulse 84 04/18/23 11:21 Resp 18 04/18/23 08:00 BP 155/95 04/18/23 06:58 Pulse Ox 98 04/18/23 06:58 FiO2 40 04/14/23 15:35 Intake & Output 04/17/23 04/18/23 04/18/23 18:59 06:59 18:59 Intake Total 500 500 Balance 500 500 Intake: Oral 500 500 Other: Voiding Method Urinal # Voids 6 2 # Bowel Movements 1 - Exam GENERAL EXAM: Alert, pleasant 67-year-old male, resting in bed, on room air, in no apparent distress. HEAD: Normocephalic. EYES: Normal reaction of pupils, equal size. NOSE: Clear with pink turbinates. THROAT: No erythema or exudates. NECK: No masses, no JVD. CHEST: No chest wall deformity. LUNGS: Equal air entry with faint end expiratory wheeze, diminished. CVS: S1 and S2 normal with no audible murmur, regular rhythm. ABDOMEN: No hepatosplenomegaly, normal bowel sounds, no guarding or rigidity. SPINE: No scoliosis or deformity SKIN: No rashes CENTRAL NERVOUS SYSTEM: No focal deficits, tone is normal in all 4 extremities. EXTREMITIES: There is no peripheral edema. No clubbing, no cyanosis. Peripheral pulses are intact. - Labs CBC & Chem 7: 04/18/23 04:22 04/18/23 04:22 Labs: Abnormal Lab Results - Last 24 Hours (Table) 04/17/23 04/17/23 04/18/23 Range/Units 16:16 20:48 04:22 WBC 3.98 L (4.50-10.00) X 10*3/uL RBC 3.49 L (4.40-5.60) X 10*6/uL Hgb 10.6 L (13.0-17.0) g/dL Hct 33.4 L (39.6-50.0) % MCHC 31.7 L (32.0-37.0) g/dL RDW 15.0 H (11.5-14.5) % Lymphocytes # 0.46 L (0.90-5.00) X 10*3/uL Eosinophils # 0 L (0.04-0.35) X 10*3/uL BUN/Creatinine Ratio (12.00-20.00) Ratio Glucose (70-110) mg/dL POC Glucose (mg/dL) 158 H 162 H (70-110) mg/dL 04/18/23 04/18/23 04/18/23 Range/Units 04:22 06:01 11:34 WBC (4.50-10.00) X 10*3/uL RBC (4.40-5.60) X 10*6/uL Hgb (13.0-17.0) g/dL Hct (39.6-50.0) % MCHC (32.0-37.0) g/dL RDW (11.5-14.5) % Lymphocytes # (0.90-5.00) X 10*3/uL Eosinophils # (0.04-0.35) X 10*3/uL BUN/Creatinine Ratio 23.88 H (12.00-20.00) Ratio Glucose 133 H (70-110) mg/dL POC Glucose (mg/dL) 136 H 115 H (70-110) mg/dL Assessment and Plan Assessment: Acute hypoxic respiratory failure secondary to acute exacerbation of suspected moderate persistent chronic bronchial asthma Status asthmaticus Slightly elevated d-dimer but clinically the presentation is not a presentation of pulmonary embolism is mostly a presentation of acute asthma exacerbation History of alcoholism History of benign essential hypertension History of traumatic left sided chest injury with traumatic hemothorax and multiple rib fractures requiring chest tube placement Degenerative joint disease Chronic tobacco and alcohol use Plan: The patient was seen and evaluated Labs and medications reviewed Stable and on room air Feeling back to his baseline Transition from Solu-Medrol to prednisone taper Continued Symbicort, Singulair and albuterol Cleared for discharge from pulmonary standpoint Follow-up in our office in 1 week I have personally seen and examined the patient, performed the documentation and the assessment and plan as written. Number of minutes spent on the visit: 10.
[2023-04-18 14:08] VITALS: BP 154/78; TEMP 98.9
[2023-04-18 15:40] VITALS: PULSE 96
[2023-04-18] MEDS ORDERED: SYMBICORT 160-4.5 MCG INHALER INHALATION SCH (20:00)
--- NOTE | 2023-04-19 06:31 | P.DS ---
Providers Date of admission: 04/14/23 11:45 Expected date of discharge: 04/18/23 Attending physician: Mellisa Medeiros Consults: 04/14/23 08:50 Consult Physician Routine Consulting Provider: Lin Britton Consult Reason/Comments: Acute asthma exacerbation Do you want consulting provider notified?: Yes [facility] care [facility] Course: Final diagnosis Acute asthma exacerbation with acute hypoxic respiratory failure, improved and currently room air Hypertension history History of EtOH Continued ongoing nicotine dependence GI prophylaxis DVT prophylaxis Full code Discharge disposition Patient is being discharged in a stable condition with guarded prognosis to home. Patient will follow-up with Dr. Oneil Medeiros in the outpatient setting upon discharge. Patient is to continue with prednisone taper and close outpatient follow-up with pulmonary as scheduled. Total time taken is greater than 35 minutes. Hospital course This is a 67-year-old male who was recently admitted with increased shortness of breath having asthma exacerbation being closely monitored. Pulmonary following a patient was maintained on breathing inhalational treatments along with IV steroids. Slow to improve although feels much better and is maintained on breathing treatments as well as inhalers and will go home on a steroid taper. Chest x-ray shows improvement today. Patient has been cleared by pulmonary with close outpatient follow-up. Please refer to pulmonary notes for further HPI. Patient reports to feeling improved and currently remains on room air. Currentl y no reports of chest pain, shortness of breath, or palpitations. Patient is afebrile. No reports of nausea or vomiting and patient is tolerating diet. Patient will be discharged home today. Complete alcohol and tobacco cessation encouraged on discharge. Physical exam: Gen: This is a 67-year-old male who is awake, alert and oriented 3, well- developed, well-nourished HEENT: Head is atraumatic, normocephalic. Pupils equal, round. Sclerae is anicteric. NECK: Supple. No JVD. No lymphadenopathy. No thyromegaly. LUNGS: Diminished breath sounds bilaterally with some scattered expiratory whe ezing and coarse rhonchi. No intercostal retractions. HEART: Regular rate and rhythm. No murmur. ABDOMEN: Soft. Bowel sounds are present. No masses. No tenderness. EXTREMITIES: No pedal edema. No calf tenderness. NEUROLOGICAL: Patient is awake, alert and oriented x3. Cranial nerves 2 through 12 are grossly intact. Please refer to medication reconciliation sheet for a list of medications. The impression and plan of care has been dictated by Sandra Crow, Nurse Practitioner as directed. Dr. Waldemar MD I have performed a history and examination and MDM of this patient, discussed the same with the dictator, and agree with the dictator's assessment and plan as written ,documented as a scribe. Based on total visit time, I have performed more than 50% of the visit. Patient Condition at Discharge: Fair Plan - Discharge Summary Discharge Rx Participant: No New Discharge Prescriptions: New Ipratropium-Albuterol Nebulize [Duoneb 0.5 mg-3 mg/3 ml Soln] 3 ml INHALATION RT-QID #100 each guaiFENesin [Mucinex] 600 mg PO Q12HR 10 Days #20 tab Budesonide-Formot 160-4.5 Mcg [Symbicort 160-4.5 Mcg Inhaler] 2 puff INHALATION RT-BID 30 Days #1 each Acetaminophen Tab [Tylenol] 650 mg PO Q4HR PRN tab PRN Reason: Mild Pain Or Fever > 100.5 predniSONE 60 mg PO DAILY #30 tab Thiamine [Vitamin B-1] 100 mg PO DAILY #30 tab Continue atenoloL 100 mg PO DAILY 30 Days tab amLODIPine [Norvasc] 10 mg PO DAILY 30 Days #30 tab Albuterol Inhaler [Ventolin Hfa Inhaler] 1 - 2 puff INHALATION RT-Q6H PRN PRN Reason: Shortness Of Breath traZODone HCL [Desyrel] 100 mg PO HS Montelukast [Singulair] 10 mg PO DAILY Ipratropium-Albuterol Nebulize [Duoneb 0.5 mg-3 mg/3 ml Soln] 3 ml INHALATION RT-Q6H PRN PRN Reason: Shortness Of Breath Discharge Medication List amLODIPine [Norvasc] 10 mg PO DAILY 30 Days #30 tab 05/26/20 [Rx] atenoloL 100 mg PO DAILY 30 Days tab 05/26/20 [Rx] Albuterol Inhaler [Ventolin Hfa Inhaler] 1 - 2 puff INHALATION RT-Q6H PRN 06/15/21 [History] Ipratropium-Albuterol Nebulize [Duoneb 0.5 mg-3 mg/3 ml Soln] 3 ml INHALATION RT-Q6H PRN 04/14/23 [History] Montelukast [Singulair] 10 mg PO DAILY 04/14/23 [History] predniSONE 60 mg PO DAILY #30 tab 04/14/23 [Rx] traZODone HCL [Desyrel] 100 mg PO HS 04/14/23 [History] Acetaminophen Tab [Tylenol] 650 mg PO Q4HR PRN tab 04/18/23 [Rx] Budesonide-Formot 160-4.5 Mcg [Symbicort 160-4.5 Mcg Inhaler] 2 puff INHALATION RT-BID 30 Days #1 each 04/18/23 [Rx] Ipratropium-Albuterol Nebulize [Duoneb 0.5 mg-3 mg/3 ml Soln] 3 ml INHALATION RT-QID #100 each 04/18/23 [Rx] Thiamine [Vitamin B-1] 100 mg PO DAILY #30 tab 04/18/23 [Rx] guaiFENesin [Mucinex] 600 mg PO Q12HR 10 Days #20 tab 04/18/23 [Rx] Follow up Appointment(s)/Referral(s): Lin Britton MD [STAFF PHYSICIAN] - 04/25/23 10:30 am Caterina Chand MD [Primary Care Provider] - 04/26/23 3:00 pm Patient Instructions/Handouts: Asthma (ED) Activity/Diet/Wound Care/Special Instructions: Activity Limited until follow-up Follow-up with primary care provider on discharge Follow-up with pulmonary outpatient in 1-2 weeks Continue medications as prescribed Avoid alcohol and any tobacco use or exposure Discharge Disposition: HOME SELF-CARE
[2023-04-19] MEDS ORDERED: predniSONE 20 MG TAB PO SCH (09:00)
== END 2023-04-18 18:26 | disposition home or self-care (01) | DRG 202 ==
LOC: EC 03:47 → 6NMEDSUR 08:48 → OBSVTOIN 11:45 → 2SICU 11:53 → 4SSUR 04-15 16:36
PROVIDERS: ADMIT Hospitalist; ATTEND Hospitalist
DX: J45.52 Severe persistent asthma with status asthmaticus (principal); J96.01 Acute respiratory failure with hypoxia; I10 Essential (primary) hypertension; F32.A Depression, unspecified; F41.9 Anxiety disorder, unspecified; Z20.822 Contact with and (suspected) exposure to COVID-19; Z71.6 Tobacco abuse counseling; D64.9 Anemia, unspecified; K57.30 Diverticulosis of large intestine without perforation or abscess without bleeding; K29.70 Gastritis, unspecified, without bleeding; Y90.9 Presence of alcohol in blood, level not specified; M19.90 Unspecified osteoarthritis, unspecified site; F17.210 Nicotine dependence, cigarettes, uncomplicated; Z86.59 Personal history of other mental and behavioral disorders; Z87.828 Personal history of other (healed) physical injury and trauma; Z86.010 Personal history of colon polyps; Z91.81 History of falling; R29.6 Repeated falls; Z96.652 Presence of left artificial knee joint; Z82.49 Family history of ischemic heart disease and other diseases of the circulatory system; Z79.51 Long term (current) use of inhaled steroids; Z79.52 Long term (current) use of systemic steroids; Z79.899 Other long term (current) drug therapy
CPT/HCPCS: 36415; 71045; 71046; 80048; 80053; 81003; 83605; 83735; 83880; 84145; 84484; 85025; 85027; 85379; 85610; 85730; 86140; 87635; 87636; 93005; 94640; 94760; 96365; 96375; 99285